=== PATIENT | male | born 1965 | race Caucasian/White ===

== ENCOUNTER 2023-06-27 19:08 | Inpatient (IN) | payer BC, SELFPAY ==
[2023-06-27 19:09] VITALS: BP 130/83; PULSE 57; RESP 18; TEMP 36.8; O2SAT 95; BMI 27.9
[2023-06-27 19:38] LABS: Absolute Lymphocyte Count 1.19 X10^3/uL (0.83-4.51); Absolute Neutrophil Count 10.6 X10^3/uL (2.0-7.7); Basophil# 0.05 X10^3/uL; Basophil% 0.4 % (0-1); Eosinophil# 0.12 X10^3/uL; Eosinophils% 0.9 % (0-5); Hematocrit 38.4 % (40-54); Hemoglobin 12.3 g/dL (13.0-16.5); Lymphocyte # 1.19 X10^3/ul (0.83-4.51); Lymphocyte % 9.1 % (19-41); Mean Corpuscular Hgb 28.8 pg (27.0-32.0); Mean Corpuscular Volume 89.9 fL (80-94); Mean Platelet Vol. 8.6 fl (6.2-12.0); Monocyte# 0.94 X10^3/uL; Monocyte% 7.2 % (0-10); NRBC Flagged by Analyzer 0 % (0-5); Neutrophil # 10.62 X10^3/uL (2.7-7.7); Neutrophil % 81.7 % (47-70); Platelet Count 595 K/mm3 (150-450); RBC Distribution Width CV 15.4 % (11.6-14.6); RBC Distribution Width SD 50.8 fl (35.1-43.9); Red Blood Count 4.27 M/mm3 (4.6-6.2)
[2023-06-27 19:51] LABS: Anion Gap 5 (5-15); BUN 10 mg/dL (7-18); Calcium,Total 8.5 mg/dL (8.5-10.1); Chloride 107 mmol/L (98-107); Creatinine, Serum 1.11 mg/dL (0.70-1.30); EST Glomerular Filtration Rate 72 mL/min (>60); Est Glom Filt Rate - Afr Amer 87 mL/min (>60); Estimated Creatinine Clearance 71.66 ml/min; Glucose 118 mg/dL (74-106); Potassium 3.2 mmol/L (3.5-5.1); Sodium Level 141 mmol/L (136-145)
--- NOTE | 2023-06-27 20:43 | EX.ED.DYSGE1 ---
HPI History of Present Illness Chief Complaint: Cellulitis Informant: patient Onset/Context/Timing Onset: Weeks Context: Gradual Onset Timing: Continuous Current Severity: Moderate Maximum Severity: Moderate Narrative Narrative: 57-year-old male who really has not seen a physician for years. He is noticing a past medical history. States has had gradual swelling in his right leg that started in his foot and ankle and has moved up his leg and now above his knee. He was seen in the urgent care last week thought this was to be cellulitis was started on Keflex 500 4 times daily. He has been taking it as instructed 4 times a day since and Sunday. He states only getting worse. Denies any chest pain. No shortness of breath. No history of DVT or PE. No recent travel, surgery or immobilization or hospitalization. Prior similar symptoms: No Recent Illness/Hospitalization: No PFSH PFSH Medical History AC separation Bone fracture Cellulitis Hx of headache Home Medications cephalexin 500 mg capsule 500 mg PO Q6H 10 days #40 caps 06/21/23 [Rx Last Taken Unknown] Allergy/AdvReac Type Severity Reaction Status Date / Time No Known Allergies Allergy Verified 06/27/23 19:12 Family History Other Alcohol abuse Social History Smoking Status: Current every day smoker tobacco type: cigarettes alcohol intake: never substance use type: does not use what type of physical activity do you participate in: walking ROS ROS ED ROS Narrative Denies recent illness. Right leg swelling. Review of Systems ROS Unobtainable: Denies due to encephalopathy Constitutional Constitutional ED: Denies chills or fever(s) Eyes Eyes: Denies blurry vision ENT ENT ED: Denies ear pain Cardiovascular Cardiovascular: Denies chest pain Respiratory/Chest Respiratory/Chest: Denies cough or dyspnea Gastrointestinal Gastrointestinal: Reports diarrhea; Denies abdominal pain Genitourinary Genitourinary ED: Denies dysuria or hematuria Musculoskeletal Musculoskeletal: Denies back pain Integumentary Denies abscess Neurologic Neurologic: Denies headache(s) Psychiatric Psychiatric: Denies anxiety Endocrine Endocrinology: Denies cold intolerance Hematologic/Lymphatic Hematologic/Lymphatic: Reports none Allergic/Immunologic Allergic/Immunologic ED: Denies mouth swelling, tongue swelling or urticaria EXAM Physical Exam Narrative Exam Narrative: Well-appearing 57-year-old male. Vital signs stable afebrile. H EENT exam unremarkable. Neck nontender no JVD. Lungs clear to auscultation bilateral. Heart regular rate and rhythm rate about 60 no murmur. Abdomen soft, nontender, nondistended normal bowel sounds no peritoneal signs. Moves all 4 extremities. Neurovascular intact. The right leg is significantly swollen all the way up to the hip. He has 2+ pitting edema from his toes all the way up to the hip. Its really not significantly red. There are some lesions on his right anterior russell. There is no cords. The right foot is neurovascular intact. Const Vital Signs: 06/27/23 19:09 Temperature 98.3 F Temperature Source Temporal Pulse Rate 57 L Respiratory Rate 18 Blood Pressure 130/83 H Blood Pressure Mean 98 Pulse Ox 95 Oxygen Delivery Method Room Air Positive well nourished and well developed; Negative for cachectic, contractures or unkempt General Appearance ED: well developed and NAD; Negative for unkempt, cachectic, contractures, cyanotic or diaphoretic Nutritional Appearance: Negative for cachectic HEENT Reports moist mucous membranes; Denies dry mucous membranes Negative for trauma or tenderness Mouth ED: No dry mucous membranes Mouth: No dry mucous membranes Eyes PERRL and EOMs intact bilaterally General Eye ED: Negative for pale conjunctiva, scleral icterus or other Neck no lymphadenopathy, supple and no JVD General: Negative for tenderness Lymph Lymphatic: Negative for other Chest Wall inspection of chest normal and palpation of chest normal Chest: Negative for other Resp normal respiratory effort and clear to auscultation bilaterally Effort and Inspection: Negative for retractions Auscultation: Negative for rales, rhonchi or wheezes Cardio regular rate, regular rhythm, S1 normal heart sound, S2 normal heart sound and no murmurs Palpation: Negative for palpable S3 Rate: Negative for bradycardia Rhythm: Negative for abnormal rhythm GI normal to inspection, nondistended, normoactive bowel sounds, non-tender, non-distended and no masses Inspection: Negative for abdominal distention Auscultation: normoactive bowel sounds Palpation: soft; Negative for tender or guarding Back/Spine no CVA tenderness General Back: Negative for CVA tenderness Cervical Spine: Negative for cervical spine tenderness Thoracic Spine / Upper Back: Negative for thoracic spinal tenderness Lumbar Spine / Lower Back: Negative for lumbar spinal tenderness Extremity Negative for normal to inspection Extremity Narrative: Right lower leg skin lesions. Swollen. May be cellulitis. Versus DVT. The leg is swollen all the way up to his hip. General Extremety ED: Yes edema General Extremity: edema Neuro oriented x3 and CN's II-XII intact bilaterally Sensorium / Orientation: alert; Negative for orientation impaired, lethargic or stuporous Motor Exam: strength 5/5 throughout Psych mental status grossly normal Appearance: Negative for unkempt Attitude: No agitated Mood & Affect: Negative for depressed, anxious or tearful Skin No no rashes or lesions noted, no wounds and skin turgor normal Rashes: rashes noted Trauma: Negative for abrasion Wounds: Negative for wounds noted MDM MDM MDM Narrative Medical decision making narrative: 57-year-old male who has not seen a physician for years. With atraumatic right lower leg swelling. No history of DVT or PE or risk factors. Has been on antibiotic now about 6 days. Getting worse. This could be a cellulitis that she is not responsive to the antibiotic it could be other etiologies I am obtaining an ultrasound of his leg along with screening labs. If its not a DVT he will be started on Unasyn and admitted. Repeat exam unchanged. Discussed test results with the patient. Started on IV Unasyn. Admitted to hospitalist. Given that he is getting worse and inspite of multiple days of outpatient oral antibiotics he will require IV antibiotics and possibly further evaluation with additional imaging. I spoke to the patient about his test results and admission. He is comfortable with the plan. History & Record Review Discussion w/independent historian: Patient Additional record(s) reviewed:: No prior records Lab Data Attestation: I reviewed the patient's lab results. Lab results narrative: CBC shows a white count 13.0. H&H 12.3 and 38. Platelets 595. Chemistries showed potassium of 3.2 gap of 5. Normal BUN and creatinine 10 and 1. Glucose 118. Noninvasive venous study of the right lower extremity shows no DVT. transportation engineering technician did comment to me when she gave me her interpretation of either lymph nodes or questionable masses in his right inguinal area. I will discuss that with the hospitalist. He may need further imaging such as a CT of his abdomen and pelvis for further evaluation. Labs: Laboratory Results - last 24 hr 06/27/23 19:18 WBC 13.0 H RBC 4.27 L Hgb 12.3 L Hct 38.4 L MCV 89.9 MCH 28.8 MCHC 32.0 RDW Std Deviation 50.8 H RDW Coeff of Andrew 15.4 H Plt Count 595 H MPV 8.6 Immature Gran % (Auto) 0.700 Neut % (Auto) 81.7 H Lymph % (Auto) 9.1 L [place] % (Auto) 7.2 Eos % (Auto) 0.9 Baso % (Auto) 0.4 Absolute Neuts (auto) 10.6 H Absolute Lymphs (auto) 1.19 Nucleated RBC % 0 Sodium 141 Potassium 3.2 L Chloride 107 Carbon Dioxide 29.0 Anion Gap 5 BUN 10 Creatinine 1.11 Estim Creat Clear Calc 71.66 Est GFR (MDRD) Af Amer 87 Est GFR (MDRD) Non-Af 72 BUN/Creatinine Ratio 9.0 L Glucose 118 H Calcium 8.5 Radiography Diagnostic Testing: Clinical Impression(s) from Imaging Studies Venous Duplex 06/27/23 20:47 IMPRESSION: No evidence of deep venous thrombosis. . Incidental finding of nonspecific right inguinal adenopathy likely inflammatory Electronically Signed: Janes Heath MD at 21:45 EDT , Discharge Plan Dx/Rx/DC Orders Clinical Impression: 2+ pitting edema, Cellulitis of right leg Disposition Disposition: Acute Care [facility]
--- NOTE | 2023-06-27 20:47 | US_ITS ---
STUDY: VENOUS DOPPLER ULTRASOUND - RIGHT LOWER EXTREMITY REASON FOR EXAM: Male, 57 years old. RT LEG REDNESS AND SWELLING TECHNIQUE: Ultrasound evaluation of the deep vein system to include boswell-scale imaging and compression was performed. Boswell-scale imaging and Doppler sonographic evaluation, including duplex spectral analysis and qualitative color flow sonography, was performed. COMPARISON: None. FINDINGS: Common Femoral Vein: Normal compression, spontaneity and augmentation. Normal color Doppler. Common Femoral Vein/Greater Saphenous Junction: Normal compression, spontaneity and augmentation. Normal color Doppler. Deep Femoral Vein: Normal compression, spontaneity and augmentation. Normal color Doppler. Femoral Proximal: Normal compression, spontaneity and augmentation. Normal color Doppler. Femoral Middle: Normal compression, spontaneity and augmentation. Normal color Doppler. Femoral Distal: Normal compression, spontaneity and augmentation. Normal color Doppler. Popliteal Vein: Normal compression, spontaneity and augmentation. Normal color Doppler. Posterior Tibial Vein: Normal compression, spontaneity and augmentation. Normal color Doppler. Peroneal Vein: Normal compression, spontaneity and augmentation. Normal color Doppler. Incidental finding of multiple enlarged nodes in the right groin measuring in the 2 to 4 cm size range demonstrating increased vascularity likely inflammatory US/Venous Duplex Imag/Limited/Uni IMPRESSION: No evidence of deep venous thrombosis. . Incidental finding of nonspecific right inguinal adenopathy likely inflammatory Electronically Signed: Janes Heath MD at 21:45 EDT ,
[2023-06-27 22:15] VITALS: BP 125/69; PULSE 74; RESP 18; TEMP 37; O2SAT 95
[2023-06-27 22:17] VITALS: BP 125/69; PULSE 74; RESP 18; TEMP 37; O2SAT 95
[2023-06-27] MEDS: Ampicillin/Sulbactam 3 GM in 0.9% Normal Saline (100mL MB+) 100 ML IV (22:27)
--- NOTE | 2023-06-27 22:47 | HP.PCM.HOS_ITS ---
HPI - General General Date of Admission: 06/27/23 Date of Service: 06/28/23 Chief Complaint: Right leg swelling HPI Narrative MOJGAN CASTILLO, is a 57 M with no known past medical history (has not seen a doctor in approximately 25 years) who presented [facility] ED on 06/28/2023 with worsening right leg swelling. Patient seen at bedside in the ED. He was laying fairly comfortably in bed, conversing normally, no acute distre ss. Patient did report having some fevers and chills and was wrapped up in a blanket to keep warm. Stated that his right lower leg swelling had been getting worse for about 1.5 weeks. The outpatient course of antibiotics for a suspected cellulitis was not helpful at all. He denies any previous history of cellulitis. He otherwise denies any abdominal pain or discomfort. Denies any changes in his bowel movements. No other acute concerns. Vitals in ED unremarkable. Labs before WBC count 13, hemoglobin 12.3, platelets 595, potassium 3.2, creatinine 1.11, no other abnormalities. Lower extremity duplex ultrasound in ED showed no evidence of DVT, did have incidental finding of nonspecific right inguinal adenopathy. CT abdomen pelvis with IV contrast on admit showed bulky periaortic/retroperitoneal lymphadenopathy starting in mid abdominal region extending down into right deep pelvic sidewall and inguinal fossa, as well as inflammatory stranding surrounding lymph nodes. No abscess of the abdomen or pelvis is seen. [facility] Medical History AC separation Bone fracture Cellulitis Hx of headache Home Medications cephalexin 500 mg capsule 500 mg PO Q6H 10 days #40 caps 06/21/23 [Rx Last Taken Unknown] loperamide 2 mg capsule (Imodium A-D) 2 mg PO Q6H PRN diarrhea 06/27/23 [History Last Taken Unknown] Allergy/AdvReac Type Severity Reaction Status Date / Time No Known Allergies Allergy Verified 06/27/23 19:12 Family History Other Alcohol abuse Social History Smoking Status: Current every day smoker tobacco type: cigarettes alcohol intake: never substance use type: does not use what type of physical activity do you participate in: walking ROS Constitutional Constitutional: Reports chills, fatigue and fever(s); Denies change in weight Eyes Eyes: Denies change in vision Cardiovascular Cardiovascular: Denies chest pain Respiratory/Chest Respiratory/Chest: Denies cough or shortness of breath with exertion Gastrointestinal Gastrointestinal: Denies abdominal pain, constipation or diarrhea Vital Signs Vital Signs Vital Signs: 06/27/23 19:09 06/27/23 22:15 06/27/23 22:17 Temperature 98.3 F 98.6 F 98.6 F Temperature Source Temporal Oral Oral Pulse Rate 57 L 74 74 Respiratory Rate 18 18 18 Blood Pressure 130/83 H 125/69 H 125/69 H Blood Pressure Mean 98 87 87 Pulse Ox 95 95 95 Oxygen Delivery Method Room Air Room Air Room Air Weight Weight: 85.842 kg Body Mass Index (BMI) 27.9 Physical Exam Const alert and oriented x3 Constitutional Narrative: Pleasant male, appears somewhat older than stated age, laying fairly comfortably in bed, conversing normally, no acute distress. General Appearance: cooperative and comfortable HEENT normocephalic, head/scalp atraumatic, hearing grossly normal bilaterally, nasal mucous membranes and turbinates normal and moist oral mucous membranes Eyes PERRL, EOMs intact bilaterally and conjunctivae normal Neck full ROM, no lymphadenopathy and supple Lymph Lymphatic: no lymphadenopathy noted Chest inspection of chest normal Resp normal respiratory effort, normal air movement, no use of accessory muscles and clear to auscultation bilaterally Cardio regular rate, regular rhythm, no murmurs and peripheral pulses 2+ throughout GI normal to inspection, nondistended, normoactive bowel sounds, soft to palpation, non-tender and non-distended Back/Spine normal ROM Extremity Extremity Narrative: Right lower extremity with significant swelling from pelvis all the way down to foot. Only mild right lower extremity edema noted throughout. Mild tenderness to the touch throughout. Skin no rashes or lesions noted Psych mental status grossly normal Results Lab / Micro Data 06/28/23 05:24 06/28/23 05:24 Labs: Laboratory Results - last 24 hr 06/27/23 19:18: WBC 13.0 H, RBC 4.27 L, Hgb 12.3 L, Hct 38.4 L, MCV 89.9, MCH 28.8, MCHC 32.0, RDW Std Deviation 50.8 H, RDW Coeff of Andrew 15.4 H, Plt Count 595 H, MPV 8.6, Immature Gran % (Auto) 0.700, Neut % (Auto) 81.7 H, Lymph % (Auto) 9.1 L, [place] % (Auto) 7.2, Eos % (Auto) 0.9, Baso % (Auto) 0.4, Absolute Neuts (auto) 10.6 H, Absolute Lymphs (auto) 1.19, Nucleated RBC % 0, Sodium 141, Potassium 3.2 L, Chloride 107, Carbon Dioxide 29.0, Anion Gap 5, BUN 10, Creatinine 1.11, Estim Creat Clear Calc 71.66, Est GFR (MDRD) Af Amer 87, Est GFR (MDRD) Non-Af 72, BUN/Creatinine Ratio 9.0 L, Glucose 118 H, Calcium 8.5 Radiology Impression Venous Duplex 06/27/23 20:47 IMPRESSION: No evidence of deep venous thrombosis. . Incidental finding of nonspecific right inguinal adenopathy likely inflammatory Electronically Signed: Janes Heath MD at 21:45 EDT , Assessment & Plan Assessment/Plan (1) Cellulitis of right leg: PLAN: Plan Patient is a 57-year-old male with no known past medical history (has not seen a doctor in approximately 25 years) who presented [facility] ED on 06/28/2023 with worsening right leg swelling. 1. Severe right lower extremity swelling Severe right lower extremity swelling noted from foot all the way up to pelvic region on exam. Patient stated the swelling started approximately 1.5 weeks ago, has consistently gotten worse since then. He was placed on a course of Keflex for suspected cellulitis, did not have any improvement. Lower extremity duplex ultrasound in ED showed no evidence of DVT, did have incidental finding of nonspecific right inguinal adenopathy. CT abdomen pelvis with IV contrast with findings as noted below. ? Have lower concern for cellulitis given CT abdomen pelvis findings. Started on Unasyn in the ED, okay to continue for now but if patient remains afebrile and hemodynamically stable with normal white blood cell count, can likely discontinue in next 24 to 48 hours. Blood cultures pending. Monitor for compartment syndrome. Further work-up as noted below. 2. Abnormal CT abdomen pelvis findings CT abdomen pelvis with IV contrast on admit showed bulky periaortic/retroperitoneal lymphadenopathy starting in mid abdominal region extending down into right deep pelvic sidewall and inguinal fossa, as well as inflammatory stranding surrounding lymph nodes. No abscess of the abdomen or pelvis is seen. Per radiology, suspect possible vasculitis or periaortitis but cannot rule out malignancy. ? Hematology/oncology consulted for further recommendations. Will need to consider interventional radiology consult for possible lymph node biopsy. Monitor closely. 3. Mild normocytic anemia ? Hemoglobin 12.3 on admit, MCV 89. No known baseline hemoglobin. Iron studies, B12 and folate ordered. 4. Mild leukocytosis and thrombocytosis ? WBC count 13, platelets 595 on admit. May be secondary to an acute infection or possibly secondary to acute inflammatory reaction due to unclear underlying pathology. Monitor. Blood cultures ordered. 5. Hypokalemia ? Potassium 3.2 on admit, unclear etiology. Replete as needed. DVT prophylaxis: Lovenox CODE STATUS: Full code, unverified Expected disposition: Home, TBD Total clinical time spent by myself addressing the patient's medical issues, reviewing all the data, and collaborating with patient's care team: 55 minutes. Charges/Coding Visit Charges Inpatient E&M: 76162 Init Hosp L2
--- NOTE | 2023-06-27 22:51 | CT_ITS ---
STUDY: CT ABDOMEN AND PELVIS WITH CONTRAST REASON FOR EXAM: Male, 57 years old. R inguinal adenopathy, r/o intra-abdominal patholo here for leg cellulitis, found right inguinal adenopathy on US ealier, diarrhea x months with weight loss RADIATION DOSAGE (If Supplied By Facility): CTDIvol = ( 13.04 ) mGy, DLP = ( 1034.94 ) mGycm TECHNIQUE: Transaxial images were obtained from the dome of the diaphragm to the symphysis pubis without oral contrast. ml of 100mL Isovue-370 contrast was administered. Sagittal and coronal images were reconstructed. Individualized dose optimization techniques were used for this CT. COMPARISON: None. FINDINGS: Bulky periaortic/retroperitoneal lymphadenopathy is present starting in the mid abdominal region and extending down into the right deep pelvic sidewall and inguinal fossa where the lymph nodes are markedly enlarged measuring up to 3.78 cm in diameter. There is also inflammatory stranding surrounding the lymph nodes in the right pelvic sidewall and inguinal regions consistent with underlying inflammation/infection, however no abscess of the abdomen or pelvis is seen. Possible vasculitis or periaortitis can be considered. Although not favored as the primary consideration. Close follow-up and ultimately lymph node biopsy may be required to exclude malignancy. Mild to moderate subcutaneous edema is present in lower anterior pelvic wall in bilateral inguinal regions, as well as dependent edema and fluid has caused mild to moderate swelling of the right hip and upper thigh region. No visualized edema or swelling or abscess is seen in the right pelvic, hip, or upper thigh muscles. No lytic or blastic lesion is seen in the bony structures. Trace amount of fluid seen around the enlarged lymph nodes of the right pelvic sidewall. There are chronic interstitial fibrotic changes of the lung bases. Small anterior inferior pericardial effusion noted.. Normal liver. Normal gallbladder and extrahepatic biliary system. Normal spleen. Normal pancreas. Normal bilateral adrenal glands. Normal right kidney. Normal left kidney. No visualized solid organ masses or abnormal cysts. Normal visualized stomach. Mild fluid field bowel loops likely due to nonspecified enteritis or ileus. No demonstrated small bowel obstruction or free air or free fluid. No inflammatory stranding is seen around the bowel loops. There are a few scattered colonic diverticula consistent with diverticulosis. The appendix is visualized and appears normal. There is diffuse atherosclerotic calcification of the abdominal aorta with elongation and tortuosity, but without a demonstrated aneurysm. Normal inferior vena cava. Normal urinary bladder. There are prostatic calcifications. Normal abdominal wall. There are diffuse degenerative changes of the visualized lumbar spine. CT/Abdomen/Pelvis WITH Contrast IMPRESSION: 1. Bulky periaortic/retroperitoneal lymphadenopathy is present starting in the mid abdominal region and extending down into the right deep pelvic sidewall and inguinal fossa where the lymph nodes are markedly enlarged measuring up to 3.78 cm in diameter. There is also inflammatory stranding surrounding the lymph nodes in the right pelvic sidewall and inguinal regions consistent with underlying inflammation/infection, however no abscess of the abdomen or pelvis is seen. Possible vasculitis or periaortitis can be considered. 2. Although not favored as the primary consideration. Close follow-up and ultimately lymph node biopsy may be required to exclude malignancy. Lymphoma should be excluded 3. Mild to moderate subcutaneous edema is present in lower anterior pelvic wall in bilateral inguinal regions, as well as dependent edema and fluid has caused mild to moderate swelling of the right hip and upper thigh region. No visualized edema or swelling or abscess is seen in the right pelvic, hip, or upper thigh muscles. No lytic or blastic lesion is seen in the bony structures. 4. Mild fluid field bowel loops likely due to nonspecified enteritis or ileus. No demonstrated small bowel obstruction or free air or free fluid. No inflammatory stranding is seen around the bowel loops. Electronically Signed: Owen Madrigal MD at 23:44 EDT ,
[2023-06-27 23:56] VITALS: BP 114/92; PULSE 84; RESP 16; TEMP 37.4; O2SAT 98; BMI 26.9
[2023-06-28 03:52] VITALS: BP 132/68; PULSE 75; RESP 16; TEMP 37.2; O2SAT 98
[2023-06-28] MEDS: Ampicillin/Sulbactam 3 GM in 0.9% Normal Saline (100mL MB+) 100 ML IV ×4 (05:25→23:02)
[2023-06-28 07:15] LABS: Ferritin 127 ng/mL (26-388); Iron 16 ug/dL (65-175); Iron Binding Capacity,Total 171 ug/dL (250-450); PERCENT IRON SATURATION 9.4 % (15.0-55.0)
[2023-06-28 08:10] LABS: Absolute Lymphocyte Count 1.15 X10^3/uL (0.83-4.51); Absolute Neutrophil Count 10.4 X10^3/uL (2.0-7.7); Basophil# 0.05 X10^3/uL; Basophil% 0.4 % (0-1); Eosinophil# 0.13 X10^3/uL; Hemoglobin 11.3 g/dL (13.0-16.5); Lymphocyte # 1.15 X10^3/ul (0.83-4.51); Lymphocyte % 8.8 % (19-41); Mean Corp Hgb Conc 32.3 g/dL (32-36); Mean Corpuscular Hgb 29.4 pg (27.0-32.0); Mean Corpuscular Volume 90.9 fL (80-94); Mean Platelet Vol. 8.7 fl (6.2-12.0); Monocyte# 1.23 X10^3/uL; Monocyte% 9.4 % (0-10); NRBC Flagged by Analyzer 0 % (0-5); Neutrophil # 10.38 X10^3/uL (2.7-7.7); Neutrophil % 79.6 % (47-70); Platelet Count 530 K/mm3 (150-450); RBC Distribution Width CV 15.5 % (11.6-14.6); RBC Distribution Width SD 51.5 fl (35.1-43.9); Red Blood Count 3.85 M/mm3 (4.6-6.2); White Blood Count 13.1 K/mm3 (4.4-11.0)
[2023-06-28 08:13] LABS: Anion Gap 6 (5-15); BUN 9 mg/dL (7-18); BUN/Creat Ratio 10.8 RATIO (10-20); Calcium,Total 8.2 mg/dL (8.5-10.1); Chloride 110 mmol/L (98-107); Creatinine, Serum 0.83 mg/dL (0.70-1.30); EST Glomerular Filtration Rate 100 mL/min (>60); Est Glom Filt Rate - Afr Amer 121 mL/min (>60); Estimated Creatinine Clearance 95.83 ml/min; Glucose 94 mg/dL (74-106); Sodium Level 142 mmol/L (136-145)
[2023-06-28 08:22] LABS: Vitamin B12 124 pg/mL (211-911)
[2023-06-28] MEDS: Enoxaparin 40 MG/0.4 ML Syringe SC (09:48)
[2023-06-28 09:50] VITALS: BP 102/59; PULSE 73; RESP 16; TEMP 36.5; O2SAT 95
--- NOTE | 2023-06-28 12:25 | ONC.CONSULT ---
Assessment & Plan Assessment/Plan (1) Lymphadenopathy, abdominal: Status: Acute Code(s): R59.0 - Localized enlarged lymph nodes Plan: Bulky abdominal and pelvic lymphadenopathy presenting with massive lymphedema of the right lower extremity. The differential diagnosis is between a primary lymphoid malignancy (lymphoma), less likely metastatic carcinoma or benign. Plan: 1. CT-guided lymph node biopsy. 2. Follow-up 1 week after discharge. Impression and plan discussed with patient and hospitalist Margaret Macias MD Jewel Bearing Driller, [facility] Divisions of Medical Oncology & Hematology Department of Internal Medicine [facility] [place] [id number] This note was generated using a voice recognition system software. Although it was reviewed by the author prior to finalization, it may still contain incorrect words, spelling, and punctuation that were not noted when reviewing prior to saving. If a clinically significant typo or inaccurately typed phrase is noted, please notify the author. HPI Consult Data Date of Service:: 06/28/23 PCP / Referring Provider: Dr. Annika Blake MD Attending: Dr. Cheli Soares MD Chief Complaint Chief Complaint: L E swelling History of Present Illness History of Present Illness: 57 YOM who presented at [facility] on June 27, 2023 with 2 to 3 months history of increasing painless swelling of the right lower extremity. Does not recall any injuries. Venous Doppler of the right lower extremity showed no evidence of DVT. June 27, 2023 CT abdomen and pelvis: FINDINGS: Bulky periaortic/retroperitoneal lymphadenopathy is present starting in the mid abdominal region and extending down into the right deep pelvic sidewall and inguinal fossa where the lymph nodes are markedly enlarged measuring up to 3.78 cm in diameter. There is also inflammatory stranding surrounding the lymph nodes in the right pelvic sidewall and inguinal regions consistent with underlying inflammation/infection, however no abscess of the abdomen or pelvis is seen. Possible vasculitis or periaortitis can be considered. Although not favored as the primary consideration. Close follow-up and ultimately lymph node biopsy may be required to exclude malignancy. Mild to moderate subcutaneous edema is present in lower anterior pelvic wall in bilateral inguinal regions, as well as dependent edema and fluid has caused mild to moderate swelling of the right hip and upper thigh region. No visualized edema or swelling or abscess is seen in the right pelvic, hip, or upper thigh muscles. No lytic or blastic lesion is seen in the bony structures. Trace amount of fluid seen around the enlarged lymph nodes of the right pelvic sidewall. There are chronic interstitial fibrotic changes of the lung bases. Small anterior inferior pericardial effusion noted.. Normal liver. Normal gallbladder and extrahepatic biliary system. Normal spleen. Normal pancreas. Normal bilateral adrenal glands. Normal right kidney. Normal left kidney. No visualized solid organ masses or abnormal cysts. Normal visualized stomach. Mild fluid field bowel loops likely due to nonspecified enteritis or ileus. No demonstrated small bowel obstruction or free air or free fluid. No inflammatory stranding is seen around the bowel loops. There are a few scattered colonic diverticula consistent with diverticulosis. The appendix is visualized and appears normal. There is diffuse atherosclerotic calcification of the abdominal aorta with elongation and tortuosity, but without a demonstrated aneurysm. Normal inferior vena cava. Normal urinary bladder. There are prostatic calcifications. Normal abdominal wall. There are diffuse degenerative changes of the visualized lumbar spine. IMPRESSION: 1. Bulky periaortic/retroperitoneal lymphadenopathy is present starting in the mid abdominal region and extending down into the right deep pelvic sidewall and inguinal fossa where the lymph nodes are markedly enlarged measuring up to 3.78 cm in diameter. There is also inflammatory stranding surrounding the lymph nodes in the right pelvic sidewall and inguinal regions consistent with underlying inflammation/infection, however no abscess of the abdomen or pelvis is seen. Possible vasculitis or periaortitis can be considered. 2. Although not favored as the primary consideration. Close follow-up and ultimately lymph node biopsy may be required to exclude malignancy. Lymphoma should be excluded 3. Mild to moderate subcutaneous edema is present in lower anterior pelvic wall in bilateral inguinal regions, as well as dependent edema and fluid has caused mild to moderate swelling of the right hip and upper thigh region. No visualized edema or swelling or abscess is seen in the right pelvic, hip, or upper thigh muscles. No lytic or blastic lesion is seen in the bony structures. 4. Mild fluid field bowel loops likely due to nonspecified enteritis or ileus. No demonstrated small bowel obstruction or free air or free fluid. No inflammatory stranding is seen around the bowel loops. Advanced Directives Power of Information Officer: No Living Will: No [facility] Medical History (Updated 06/28/23 @ 12:[address] Margaret Macias MD) AC separation Bone fracture Cellulitis Hx of headache Lymphadenopathy, abdominal Home Medications cephalexin 500 mg capsule 500 mg PO Q6H 10 days #40 caps 06/21/23 [Rx Last Taken Unknown] loperamide 2 mg capsule (Imodium A-D) 2 mg PO Q6H PRN diarrhea 06/27/23 [History Last Taken Unknown] Allergy/AdvReac Type Severity Reaction Status Date / Time No Known Allergies Allergy Verified 06/27/23 19:12 Family History Other Alcohol abuse Social History Smoking Status: Current every day smoker tobacco type: cigarettes alcohol intake: never substance use type: does not use what type of physical activity do you participate in: walking ROS Constitutional Constitutional: Reports weight loss and other Details: Weight loss in the past 2 to 3 months patient attributes to diarrhea ; Denies chills, fatigue, fever(s), night sweats or poor appetite ENT HEENT: Reports neck mass and other Details: Has had a painless swelling in the right side of the neck for 2 to 3 months ; Denies dysphagia Cardiovascular Cardiovascular: Reports edema; Denies chest pain Respiratory/Chest Respiratory/Chest: Denies cough or dyspnea Gastrointestinal Gastrointestinal: Reports change in bowel habits and diarrhea; Denies abdominal pain, anorexia, bloating, dysphagia, hematochezia, melena, nausea or vomiting Genitourinary Genitourinary: Denies change in urinary stream Musculoskeletal Musculoskeletal: Denies back pain Integumentary Integumentary: Denies new lesions or rash Neurologic Neurologic: Denies abnormal speech, focal weakness or numbness Psychiatric Psychiatric: Denies anxiety Hematologic/Lymphatic Hematologic/Lymphatic: Denies easy bleeding or easy bruising Physical Exam Narrative ECOG 1 Const alert and oriented x3 General Appearance: cooperative and comfortable HEENT normocephalic Eyes no scleral icterus Neck no JVD Neck Narrative: Right mandibular angle soft tissue swelling not definitely an lymph node General: Negative for lymphadenopathy Lymph Lymphatic: lymphedema severe Lymphatic Narrative: Massive lymphedema of the right lower extremity Resp clear to auscultation bilaterally Cardio regular rate, regular rhythm and no JVD GI soft to palpation, non-tender and no masses GI Narrative: Examination of the scrotum showed no testicular masses Extremity General Extremity: edema right lower extremity severe Skin no rashes or lesions noted Neuro CN's II-XII intact bilaterally, moves all extremities and no focal motor deficits Psych mental status grossly normal and cooperative Vital Signs Temperature 97.7 F L 06/28/23 09:50 Temperature Source Temporal 06/28/23 09:50 Pulse Rate 73 06/28/23 09:50 Respiratory Rate 16 06/28/23 09:50 Respiratory Effort Normal, Non-Labored 06/28/23 08:18 Respiratory Depth Normal 06/28/23 08:18 Respiratory Pattern Normal 06/28/23 08:18 Blood Pressure 102/59 L 06/28/23 09:50 Blood Pressure Mean 73 06/28/23 09:50 Blood Pressure Source Monitor 06/28/23 09:50 Blood Pressure Position Semi-Fowlers 06/28/23 09:50 Blood Pressure Location Left Arm 06/28/23 09:50 Pulse Ox 95 06/28/23 09:50 Oxygen Delivery Method Room Air 06/28/23 09:50 Laboratory Results - last 24 hr 06/27/23 19:18: WBC 13.0 H, RBC 4.27 L, Hgb 12.3 L, Hct 38.4 L, MCV 89.9, MCH 28.8, MCHC 32.0, RDW Std Deviation 50.8 H, RDW Coeff of Andrew 15.4 H, Plt Count 595 H, MPV 8.6, Immature Gran % (Auto) 0.700, Neut % (Auto) 81.7 H, Lymph % (Auto) 9.1 L, [place] % (Auto) 7.2, Eos % (Auto) 0.9, Baso % (Auto) 0.4, Absolute Neuts (auto) 10.6 H, Absolute Lymphs (auto) 1.19, Nucleated RBC % 0, Sodium 141, Potassium 3.2 L, Chloride 107, Carbon Dioxide 29.0, Anion Gap 5, BUN 10, Creatinine 1.11, Estim Creat Clear Calc 71.66, Est GFR (MDRD) Af Amer 87, Est GFR (MDRD) Non-Af 72, BUN/Creatinine Ratio 9.0 L, Glucose 118 H, Calcium 8.5 06/28/23 05:24: WBC 13.1 H, RBC 3.85 L, Hgb 11.3 L, Hct 35.0 L, MCV 90.9, MCH 29.4, MCHC 32.3, RDW Std Deviation 51.5 H, RDW Coeff of Andrew 15.5 H, Plt Count 530 H, MPV 8.7, Immature Gran % (Auto) 0.800, Neut % (Auto) 79.6 H, Lymph % (Auto) 8.8 L, [place] % (Auto) 9.4, Eos % (Auto) 1.0, Baso % (Auto) 0.4, Absolute Neuts (auto) 10.4 H, Absolute Lymphs (auto) 1.15, Nucleated RBC % 0, Sodium 142, Potassium 3.0 L, Chloride 110 H, Carbon Dioxide 26.0, Anion Gap 6, BUN 9, Creatinine 0.83, Estim Creat Clear Calc 95.83, Est GFR (MDRD) Af Amer 121, Est GFR (MDRD) Non-Af 100, BUN/Creatinine Ratio 10.8, Glucose 94, Calcium 8.2 L, Iron 16 L, TIBC 171 L, Iron Saturation 9.4 L, Ferritin 127, Vitamin B12 124 L, Folate 4.90 Diagnostic Data Venous Duplex 06/27/23 20:47 IMPRESSION: No evidence of deep venous thrombosis. . Incidental finding of nonspecific right inguinal adenopathy likely inflammatory Electronically Signed: Janes Heath MD at 21:45 EDT Reading Location ID and State: [facility] [place] / [place] Tel , Service support , I personally reviewed patient's CT scan images and discussed with interventional radiology and concur with reported findings. Abdomen/Pelvis CT 06/27/23 22:51 IMPRESSION: 1. Bulky periaortic/retroperitoneal lymphadenopathy is present starting in the mid abdominal region and extending down into the right deep pelvic sidewall and inguinal fossa where the lymph nodes are markedly enlarged measuring up to 3.78 cm in diameter. There is also inflammatory stranding surrounding the lymph nodes in the right pelvic sidewall and inguinal regions consistent with underlying inflammation/infection, however no abscess of the abdomen or pelvis is seen. Possible vasculitis or periaortitis can be considered. 2. Although not favored as the primary consideration. Close follow-up and ultimately lymph node biopsy may be required to exclude malignancy. Lymphoma should be excluded 3. Mild to moderate subcutaneous edema is present in lower anterior pelvic wall in bilateral inguinal regions, as well as dependent edema and fluid has caused mild to moderate swelling of the right hip and upper thigh region. No visualized edema or swelling or abscess is seen in the right pelvic, hip, or upper thigh muscles. No lytic or blastic lesion is seen in the bony structures. 4. Mild fluid field bowel loops likely due to nonspecified enteritis or ileus. No demonstrated small bowel obstruction or free air or free fluid. No inflammatory stranding is seen around the bowel loops. Electronically Signed: Owen Madrigal MD at 23:44 EDT ,
--- NOTE | 2023-06-28 13:18 | PN_ITS ---
Subjective Subjective Patient seen and examined. He had no complaints. He denied any fever, chills, cough, chest pain, palpitations, dizziness, nausea, vomiting or any other symptoms. Review of systems is otherwise negative. He has remained hemodynamically stable. Redness in his LLE has improved, but the swelling is persistent. Objective Data Objective Data Vital Signs: Vital Signs Temp Pulse Resp BP Pulse Ox O2 Del Method 97.7 F L 73 16 102/59 L 95 Room Air 06/28/23 09:50 06/28/23 09:50 06/28/23 09:50 06/28/23 09:50 06/28/23 09:50 06/28/23 09:50 Oxygen Delivery Method Room Air Weight: 182 lb 5.156 oz Body Mass Index (BMI) 26.9 Intake & Output: Intake and Output for Last 24 Hours 06/26/23 06/27/23 06/28/23 23:59 23:59 23:59 Intake Total 112 / 112 844 / 844 Balance 112 / 112 844 / 844 Lab / Micro Data 06/28/23 05:24 06/28/23 05:24 Labs: Laboratory Results - last 24 hr 06/27/23 19:18: WBC 13.0 H, RBC 4.27 L, Hgb 12.3 L, Hct 38.4 L, MCV 89.9, MCH 28.8, MCHC 32.0, RDW Std Deviation 50.8 H, RDW Coeff of Andrew 15.4 H, Plt Count 595 H, MPV 8.6, Immature Gran % (Auto) 0.700, Neut % (Auto) 81.7 H, Lymph % (Auto) 9.1 L, [place] % (Auto) 7.2, Eos % (Auto) 0.9, Baso % (Auto) 0.4, Absolute Neuts (auto) 10.6 H, Absolute Lymphs (auto) 1.19, Nucleated RBC % 0, Sodium 141, Potassium 3.2 L, Chloride 107, Carbon Dioxide 29.0, Anion Gap 5, BUN 10, Creatinine 1.11, Estim Creat Clear Calc 71.66, Est GFR (MDRD) Af Amer 87, Est GFR (MDRD) Non-Af 72, BUN/Creatinine Ratio 9.0 L, Glucose 118 H, Calcium 8.5 06/28/23 05:24: WBC 13.1 H, RBC 3.85 L, Hgb 11.3 L, Hct 35.0 L, MCV 90.9, MCH 29.4, MCHC 32.3, RDW Std Deviation 51.5 H, RDW Coeff of Andrew 15.5 H, Plt Count 530 H, MPV 8.7, Immature Gran % (Auto) 0.800, Neut % (Auto) 79.6 H, Lymph % (Auto) 8.8 L, [place] % (Auto) 9.4, Eos % (Auto) 1.0, Baso % (Auto) 0.4, Absolute Neuts (auto) 10.4 H, Absolute Lymphs (auto) 1.15, Nucleated RBC % 0, Sodium 142, Potassium 3.0 L, Chloride 110 H, Carbon Dioxide 26.0, Anion Gap 6, BUN 9, Cr eatinine 0.83, Estim Creat Clear Calc 95.83, Est GFR (MDRD) Af Amer 121, Est GFR (MDRD) Non-Af 100, BUN/Creatinine Ratio 10.8, Glucose 94, Calcium 8.2 L, Iron 16 L, TIBC 171 L, Iron Saturation 9.4 L, Ferritin 127, Vitamin B12 124 L, Folate 4.90 Radiography Diagnostic Testing: Radiology Impression Venous Duplex 06/27/23 20:47 IMPRESSION: No evidence of deep venous thrombosis. . Incidental finding of nonspecific right inguinal adenopathy likely inflammatory Electronically Signed: Janes Heath MD at 21:45 EDT Reading Location ID and State: [facility] / [place] Tel , Service support , Abdomen/Pelvis CT 06/27/23 22:51 IMPRESSION: 1. Bulky periaortic/retroperitoneal lymphadenopathy is present starting in the mid abdominal region and extending down into the right deep pelvic sidewall and inguinal fossa where the lymph nodes are markedly enlarged measuring up to 3.78 cm in diameter. There is also inflammatory stranding surrounding the lymph nodes in the right pelvic sidewall and inguinal regions consistent with underlying inflammation/infection, however no abscess of the abdomen or pelvis is seen. Possible vasculitis or periaortitis can be considered. 2. Although not favored as the primary consideration. Close follow-up and ultimately lymph node biopsy may be required to exclude malignancy. Lymphoma should be excluded 3. Mild to moderate subcutaneous edema is present in lower anterior pelvic wall in bilateral inguinal regions, as well as dependent edema and fluid has caused mild to moderate swelling of the right hip and upper thigh region. No visualized edema or swelling or abscess is seen in the right pelvic, hip, or upper thigh muscles. No lytic or blastic lesion is seen in the bony structures. 4. Mild fluid field bowel loops likely due to nonspecified enteritis or ileus. No demonstrated small bowel obstruction or free air or free fluid. No inflammatory stranding is seen around the bowel loops. Electronically Signed: Owen Madrigal MD at 23:44 EDT , Physical Exam Const alert, oriented x3 and no apparent distress General Appearance: cooperative HEENT normocephalic, head/scalp atraumatic, moist oral mucous membranes and oropharynx normal Eyes PERRL and EOMs intact bilaterally Neck no lymphadenopathy and supple General: trachea midline Resp normal respiratory effort, normal air movement and clear to auscultation bilaterally Cardio regular rate, regular rhythm, S1 normal heart sound, S2 normal heart sound and no murmurs GI normal to inspection, nondistended, normoactive bowel sounds, soft to palpation, non-tender and non-distended Extremity Extremity Narrative: Right lower extremity has 1+ edema extending up to the midshin. General Extremity: no tenderness to palpation of joints or extremities Skin General Skin Exam: no breakdown Neuro CN's II-XII intact bilaterally, no focal motor deficits and no sensory deficits noted Motor Exam: strength 5/5 throughout and general weakness Psych thought process normal, cooperative and affect normal Appearance: appropriate Assessment & Plan Assessment/Plan (1) Lymphadenopathy, abdominal: (2) Cellulitis of right leg: PLAN: Plan #RLE edema * has right lower extremity swelling extending from the foot to the pelvis and had been going on for ~ 1.5 weeks * had been given a course of keflex on outpatient basis, but it hadnt resolved * Duplex of RLE was negative for any evidence of blood clots * CT abdomen and pelvis showed bulky periaortic/retroperitoneal lymphadenopathy starting in mid abdomen and extending into right deep pelvic sidewall and inguinal fossa, as well as inflammatory stranding surrounding lymph nodes. * oncology consulted;for CT guided biopsy today * on IV unasyn for presumptive cellulitis * #Lymphadenopathy: as above. #Hypokalemia: potassium is 3 Will replace aggressively and trend. #DVT prophylaxis: lovenox Charges/Coding Visit Charges Inpatient E&M: 71993 Subs Hosp L2
--- NOTE | 2023-06-28 14:45 | CASEMGMT ---
RN?CM?ACCOUNTING CLERKS SUPERVISOR?CM?to room to meet with patient for initial transition planning/care coordination?assessment.?RN?CM?introduced self and role at [facility].? Pt voices understanding and consents to?assessment?at this time.? Pt resting in bed in no distress at this time.? Pt is A/O at this time and answers all questions appropriately.?? Care providers, pharmacy, and demographics verified/updated at this time. PCP: Dr Annika Blake Specialists: none Preferred Pharmacy: [facility] Retail Insurance: [place] Prescription Benefit:?Yes Living Will/HPOA: Pt does not currently have LW/HCPOA and would like to complete. Susu BRIDGES, made aware. LNOK: Friend, Shorty, was only personnel administrator listed. Pt also provided information for brother Pino Balderrama to be added. Charla Balderrama Living Arrangements: Lives alone. Works full-time. Independent. Transportation:?Pt states drives self and states no transportation concerns at this time.? DME: ? Denies using any DME and denies needs.? HHC/SNF: No hx of either. No needs identified. Pt wishes to return home and states has no concerns with going home at time of discharge.? CM?to follow for any further discharge planning/needs.? Pt voices no further concerns/needs at this time.? Advised pt to ask for?CM?if any further questions/concerns/needs arise.? Voices understanding. PLAN:??Home Jax ESPOSITON?RN?CM
--- NOTE | 2023-06-28 16:03 | CASEMGMT ---
SW was informed patient is interested in Healthcare Power of Test Engineering Manager and Healthcare Living Will papers. SW spoke with patient and he confirmed this. SW filled out documents with patient, but will return tomorrow to have patient sign them. Susu PEARSON
[2023-06-28 16:50] VITALS: BP 121/73; PULSE 74; RESP 16; TEMP 36.7; O2SAT 97
[2023-06-28] MEDS: Potassium Chloride Oral Tablet 20 MEQ 60 MEQ PO (22:47)
[2023-06-28 22:50] VITALS: BP 115/73; PULSE 73; RESP 16; TEMP 36.6; O2SAT 93
[2023-06-29] VITALS (11 sets, daily range): BP systolic 90–113; BP diastolic 45–78; PULSE 63–79; RESP 14–18; TEMP 36.4–37.1; O2SAT 92–100
--- NOTE | 2023-06-29 | LYMN_PTH ---
PATIENT: MOJGAN CASTILLO LOC: [facility] U#:[id number] AGE/SX: 57/M ROOM: [facility] RE06/27/[address]: Dr. Cheli Soares MD : 1965 BED: 1 DIS: 06/29/2023 SPEC #: [id number] RECD: 06/29/23 10:56 STATUS: LATRELL REGerson #: [id number] SHREE: 06/29/23 00:[address]: Cheli Soares DEPT: SURGICAL PATHOLOGY RECD BY: Nancy Lara ENTERED: 06/29/23 10:57 SP TYPE: LYMPH NODE OTHR DR: MD Dr. Rohan Campoverde DO Dr. David Kantorowitz, MD Dr. Gabriele Pedicelli, MD Dr. Joseph Prah, MD Dr. Mansour Isckarus, MD Dr. Robert Field, MD Dr. Ryan Jin, MD Dr. Roger Macklis, MD Dr. 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 See comment. SJ:zain 07/11/2023 COMMENT The specimen is evaluated at the time of biopsy by Dr. Marquez. Immediate Evaluation = Numerous lymphocytes are noted. The specimen is sent to [facility] for expert opinion, reviewed by Dr. Patterson and the above diagnosis is rendered. Immunohistochemistry ([id number]) performed here and additional immunohistochemical stains performed at [facility] supports the above diagnosis. Dr. Patterson also commented that correlation with pending NGS studies for T-cell clonality and mutational profile is suggested to confirm the diagnosis of ALCL, null cell type. If NGS are negative, excisional biopsy with repeated morphologic and immunohistochemical studies would be recommended. The complete report is viewable in the patient's EMR. Flow cytometry study from [facility] shows hypocellular specimen with low viability showing no phenotypic evidence of lymphoma. The complete report is viewable in the patient's EMR. Case has been reviewed in consultation with Dr. Bowie who concurs with the above diagnosis. IDC:AM MICROSCOPIC DESCRIPTION Slides are reviewed. GROSS DESCRIPTION Received in fixative is one container labeled with the patient's name and designated right pelvic lymph node. The specimen consists of multiple irregular fragments of patino soft tissue that in aggregate measure 1.5 x 0.3 x 0.1 cm. The specimen is totally submitted in one cassette. / SJ:rg 06/29/2023 TC:0 [facility]: [id number], [id number] ADDENDUM ADDENDUM ADDENDUM ADDENDUM ADDENDUM ADDENDUM ADDENDUM ADDENDUM ADDENDUM ADDENDUM ADDENDUM ADDENDUM ADDENDUM ADDENDUM ADDENDUM ADDENDUM ADDENDUM ADDENDUM ADDENDUM ADDENDUM ADDENDUM ADDENDUM ADDENDUM ADDENDUM ADDENDUM ADDENDUM 07/23/2023 12:57 ADDENDUM 07/23/2023 12:57 ADDENDUM 07/23/2023 12:57 ADDENDUM 07/23/2023 12:57 ADDENDUM 07/23/2023 12:57 T-CELL RECEPTOR GENE REARRANGEMENT BY NGS T-Cell Receptor Gene Rearrangement By NGS: Test Cancelled On Block ([id number]) Due To Insufficient Lesional Tissue Seen. ONKOSIGHT ADVANCED CHRONIC LYMPHOID NGS REPORT FROM [facility] RESULT SUMMARY: Abnormal DETECTED GENOMIC ALTERATIONS: Tier II: Variants of Potential Clinical Significance JAK3 p.([id number]) IMMUNOTHERAPY BIOMARKERS: Tumor Mutation [place]: Low (8.7 Mutations / MB) Microsatellite Instability: MSI Negative (2.65%) PERTINENT NEGATIVE RESULTS: The following genes are NEGATIVE for clinically relevant mutations. Mutational hotspots and surrounding exonic regions were interrogated for DNA level point mutations and indels (fusions not assayed). LAN, BCL2, BCL6, BIRC3, BRAF, BTK, CARD11, CD79B, CDKN2A, CREBBP, CXCR4, DNMT3A, EP300, EZH2, IDH1, IDH2, IKZF1, IRF4, JAK1, KMT2D, KRAS, MAP2K1, MEF2B, MYC, MYD88, NOTCH1, NOTCH2, NRAS, PIK3CA, PIK3CG, PLCG2, PTPRD, RHOA, SETD2, SF3B1, STAT3, STAT5B, TET2, NGFKZD60, TP53 Please see complete report in e-chart or EMR
--- NOTE | 2023-06-29 | LYMN_PTH ---
PATIENT: MOJGAN CASTILLO LOC: [facility] U#:[id number] AGE/SX: 57/M ROOM: [facility] RE06/27/[address]: Dr. Cheli Soares MD : 1965 BED: 1 DIS: 06/29/2023 SPEC #: [id number] RECD: 06/29/23 10:56 STATUS: LATRELL REGerson #: [id number] SHREE: 06/29/23 00:[address]: Cheli Soares DEPT: SURGICAL PATHOLOGY RECD BY: Nancy Lara ENTERED: 06/29/23 10:57 SP TYPE: LYMPH NODE OTHR DR: MD Dr. Rohan Campoverde DO Dr. David Kantorowitz, MD Dr. Gabriele Pedicelli, MD Dr. Joseph Prah, MD Dr. Mansour Isckarus, MD Dr. Robert Field, MD Dr. Ryan Jin, MD Dr. Roger Macklis, MD Dr. 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 See comment. SJ:zain 07/11/2023 COMMENT The specimen is evaluated at the time of biopsy by Dr. Marquez. Immediate Evaluation = Numerous lymphocytes are noted. The specimen is sent to [facility] for expert opinion, reviewed by Dr. Patterson and the above diagnosis is rendered. Immunohistochemistry ([id number]) performed here and additional immunohistochemical stains performed at [facility] supports the above diagnosis. Dr. Patterson also commented that correlation with pending NGS studies for T-cell clonality and mutational profile is suggested to confirm the diagnosis of ALCL, null cell type. If NGS are negative, excisional biopsy with repeated morphologic and immunohistochemical studies would be recommended. The complete report is viewable in the patient's EMR. Flow cytometry study from [facility] shows hypocellular specimen with low viability showing no phenotypic evidence of lymphoma. The complete report is viewable in the patient's EMR. Case has been reviewed in consultation with Dr. Bowie who concurs with the above diagnosis. IDC:AM MICROSCOPIC DESCRIPTION Slides are reviewed. GROSS DESCRIPTION Received in fixative is one container labeled with the patient's name and designated right pelvic lymph node. The specimen consists of multiple irregular fragments of patino soft tissue that in aggregate measure 1.5 x 0.3 x 0.1 cm. The specimen is totally submitted in one cassette. / SJ:rg 06/29/2023 TC:[address] [facility]: [id number], [id number] ADDENDUM ADDENDUM ADDENDUM ADDENDUM ADDENDUM ADDENDUM ADDENDUM ADDENDUM ADDENDUM ADDENDUM ADDENDUM ADDENDUM ADDENDUM ADDENDUM ADDENDUM ADDENDUM ADDENDUM ADDENDUM ADDENDUM ADDENDUM ADDENDUM ADDENDUM 07/23/2023 09:49 ADDENDUM 07/23/2023 09:49 ADDENDUM 07/23/2023 09:49 ADDENDUM 07/23/2023 09:49 ADDENDUM 07/23/2023 09:49 T-CELL RECEPTOR GENE REARRANGEMENT BY NGS T-Cell Receptor Gene Rearrangement By NGS: Test Cancelled On Block ([id number]) Due To Insufficient Lesional Tissue Seen. ONKOSIT ADVANCED CHRONIC LYMPHOID NGS REPORT FROM [facility] RESULT SUMMARY: Abnormal IMMUNOTHERAPY BIOMARKERS: Tumor Mutation [place]: Low (8.7 Mutations / MB) Microsatellite Instability: MSI Negative (2.65%) PERTINENT NEGATIVE RESULTS: The following genes are NEGATIVE for clinically relevant mutations. Mutational hotspots and surrounding exonic regions were interrogated for DNA level point mutations and indels (fusions not assayed). LAN, BCL2, BCL6, BIRC3, BRAF, BTK, CARD11, CD79B, CDKN2A, CREBBP, CXCR4, DNMT3A, EP300, EZH2, IDH1, IDH2, IKZF1, IRF4, JAK1, KMT2D, KRAS, MAP2K1, MEF2B, MYC, MYD88, NOTCH1, NOTCH2, NRAS, PIK3CA, PIK3CG, PLCG2, PTPRD, RHOA, SETD2, SF3B1, STAT3, STAT5B, TET2, JLWBPO91, TP53 Please see complete report in e-chart or EMR
--- NOTE | 2023-06-29 | IMM_PTH ---
PATIENT: MOJGAN CASTILLO LOC: [facility] U#:[id number] AGE/SX: 57/M ROOM: [facility] RE06/27/[address]: Dr. Cheli Soares MD : 1965 BED: 1 DIS: 06/29/2023 SPEC #: [id number] RECD: 06/29/23 14:05 STATUS: SOUAdelso REQ #: [id number] SHREE: 06/29/23 00:[address]: Cheli Soares DEPT: IMMUNOHISTOCHEMISTRY RECD BY: Yanira Negron ENTERED: 06/29/23 14:10 SP TYPE: IMMUNO OTHR DR: MD Dr. Rohan Campoverde DO Dr. David Kantorowitz, MD Dr. Gabriele Pedicelli, MD Dr. Joseph Prah, MD Dr. Mansour Isckarus, MD Dr. Robert Field, MD Dr. Ryan Jin, MD Dr. Roger Macklis, MD Dr. Steve Walston, DO Shabnam Seymour, MANAGER ANDROID-C Tissues: Lymph node of pelvis, NOS Procedures: BCL-2 (add) BCL-6 (add) CD10 (add) CD15 (add) CD20 (add) CD23 (add) CD3 (add) CD30 (add) CD43 (add) CD5 (add) CD79A (add) CK8 (add) CYCLIN (add) KI-67 (add) MPO (add) Vimentin (add) MUM1 (add) C-MYC (add) Pankeratin (initial) MELAN-A (add) S-100 (add) PHYSICIAN [facility] INSTIT[facility] [address] [place] [address] SPECIMEN INFORMATION: Tissue Source: Right pelvic lymph node Clinical Info: Enlarged lymph node Specimen Number: [id number] CPT code: 62024, 83096 x21 METHODOLOGY: Deparaffinized sections of prefer/formalin-fixed tissue or PAP/DQ stained slides are incubated with monoclonal/polyclonal antibodies/oligonucleotide probes. Localization is made via biotin free immunoperoxidase method. Appropriate controls are performed and reacted as expected. Results on target cell population are indicated in the following table: RESULTS: ANTIBODY / CLONE RESULT AE1-3 (AE1/AE3/PCK26) negative CK8 (17djynQ68) negative CD45 (RP2/18) negative Vimentin (V9) positive Melan A (A103) negative S-100 (4C4.9) negative CD3 (PS1) negative CD5 (SP10) negative CD10 (56C6) negative CD15 (MMA) positive CD20 (L26) negative CD23 (1B12) negative CD30 (Yung-H2) positive, strong CD43 (L60) negative CD79a (11E3) negative BCL-2 (bcl-2/100/D5) negative BCL-6 (EN915Q/A8) positive, subset Cyclin D1/BCL-1 (SP4) negative MUM1 (MRQ-43) positive C-MYC (Y69) positive MPO (polyclonal) negative Ki-67 (30-9) positive, high (70-80%) These tests were developed and their performance characteristics determined by [facility]. They may not have been cleared or approved by the U.S. Food and Drug Administration. The FDA has determined that such clearance or approval is not necessary. The above immunohistochemical/dualISH markers are ordered and reviewed by the Pathologist. 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 See comment. SJ:zain 07/11/2023 Comment: The specimen is sent to [facility] for expert opinion, reviewed by Dr. Patterson and the above diagnosis is rendered. The complete report is viewable in the patient's EMR. Case has been reviewed in consultation with Dr. Bowie who concurs with the above diagnosis. IDC:[email or web address]
[2023-06-29] MEDS: Ampicillin/Sulbactam 3 GM in 0.9% Normal Saline (100mL MB+) 100 ML IV ×2 (05:27→12:00)
[2023-06-29 06:16] LABS: Absolute Lymphocyte Count 0.83 X10^3/uL (0.83-4.51); Absolute Neutrophil Count 10.6 X10^3/uL (2.0-7.7); Basophil# 0.05 X10^3/uL; Basophil% 0.4 % (0-1); Eosinophil# 0.12 X10^3/uL; Eosinophils% 0.9 % (0-5); Hemoglobin 11.3 g/dL (13.0-16.5); Lymphocyte # 0.83 X10^3/ul (0.83-4.51); Lymphocyte % 6.5 % (19-41); Mean Corp Hgb Conc 31.4 g/dL (32-36); Mean Corpuscular Hgb 28.5 pg (27.0-32.0); Mean Corpuscular Volume 90.7 fL (80-94); Mean Platelet Vol. 8.8 fl (6.2-12.0); Monocyte# 1.05 X10^3/uL; Monocyte% 8.2 % (0-10); NRBC Flagged by Analyzer 0 % (0-5); Neutrophil % 83.3 % (47-70); Platelet Count 579 K/mm3 (150-450); RBC Distribution Width CV 15.3 % (11.6-14.6); RBC Distribution Width SD 50.9 fl (35.1-43.9); Red Blood Count 3.97 M/mm3 (4.6-6.2); White Blood Count 12.7 K/mm3 (4.4-11.0)
[2023-06-29 06:45] LABS: Anion Gap 3 (5-15); BUN 10 mg/dL (7-18); BUN/Creat Ratio 11.1 RATIO (10-20); Calcium,Total 8.1 mg/dL (8.5-10.1); Chloride 111 mmol/L (98-107); EST Glomerular Filtration Rate 91 mL/min (>60); Est Glom Filt Rate - Afr Amer 110 mL/min (>60); Estimated Creatinine Clearance 88.38 ml/min; Glucose 99 mg/dL (74-106); Potassium 3.1 mmol/L (3.5-5.1); Sodium Level 141 mmol/L (136-145)
--- NOTE | 2023-06-29 10:00 | CT_ITS ---
PROCEDURE: CT GUIDED biopsy of the right inguinal lymph node. DATE: June 29, 2023. INDICATION: Male, 57 years old. Retroperitoneal and pelvic lymphadenopathy. PHYSICIAN: Mulugeta Guevara M.D. RADIATION DOSAGE (If Supplied By Facility): CTDIvol = ( 16 ) mGy, DLP = ( 333.09 ) mGycm. Individualized dose optimization techniques were utilized. PROCEDURE: The risks, benefits, and alternatives to the procedure were explained to the patient. The specific risk of hemorrhage requiring further treatment or intervention was detailed and accepted. Follow-up instructions were discussed with the patient as well. Written informed consent was obtained. The patient was brought into the CT suite and placed in the supine position. . An appropriate entry site was identified. The overlying skin was prepped and draped in the usual sterile fashion. 1% lidocaine was administered subcutaneously for local anesthesia. Conscious sedation was performed. The patient received 2 mg of Versed and 50 mcg of fentanyl intravenously. Conscious sedation was started at 10:22 AM and terminated at 10:46 AM. The patient was independently monitored by the department nurse. Under CT guidance, a total of 6 passes were performed utilizing an 18-gauge core biopsy needle system. The specimens were then placed in appropriate fluids and transported to the laboratory for analysis. Hemostasis was obtained. The patient tolerated the procedure well without immediate complications. CT/Biopsy/Inj or Needle Placement IMPRESSION: Successful CT guided biopsy of the right pelvic lymph node, as described above. Conscious sedation protocol was followed. The patient tolerated the procedure well. Electronically Signed: Mulugeta Guevara MD at 11:19 EDT ,
[2023-06-29] MEDS: 0.9% Normal Saline (250mL Bag) 250 ML 15 ML IV (10:22)
[2023-06-29] MEDS: Midazolam 2 MG/2 ML Syringe IV (10:22)
[2023-06-29] MEDS: fentaNYL 100 MCG/2 ML Ampul IV (10:23)
[2023-06-29] MEDS: Lidocaine 2% (20 ml mdv) 20 ML Vial INFILT (10:32)
--- NOTE | 2023-06-29 10:58 | CASEMGMT ---
CYRUS along with RN witnessed patient signing Healthcare Power of Exchange Teller and Healthcare Living Will. Copies were made and given to patient along with originals. A copy was also placed in patient's chart. Susu PEARSON
[2023-06-29] MEDS: Potassium Chloride Oral Tablet 20 MEQ 40 MEQ PO (11:45)
--- NOTE | 2023-06-29 14:06 | PHA.DC_ITS ---
Pharmacy [facility] Pharm[facility] Service has performed discharge medication reconciliation and counseling for this patient. The patient's discharge medication list was reviewed for discrepancies and discrepancies were resolved. The patient was counseled on the following discharge medications and changes in medications for homegoing were reviewed. The Reason for Use, instructions for use, and potential side effects were reviewed for all new medications. The patient's questions regarding all of their medications were answered. 1. Cephalexin 500 mg PO Q6H x 5 days The patient was able to verbally demonstrate an understanding of their discharge medications. Medications at Discharge Home Medications loperamide 2 mg capsule (Imodium A-D) 2 mg PO Q6H PRN diarrhea 06/27/23 cephalexin 500 mg capsule 500 mg PO Q6H 5 days #20 caps 06/29/23
--- NOTE | 2023-06-29 14:35 | NURSING ---
FLAKITO wrap applied to RLE. Patient verbalized understanding of how to wrap at home and to elevate the leg if swelling persists.
--- NOTE | 2023-06-29 16:07 | DCINST_ITS ---
Discharge Instructions Diet Discharge Diet: Low fat / Low cholesterol Activity Discharge Activity: Return to Normal Activity Weight Bearing Status: Weight bearing as tolerated Dressing / Incision Call your doctor if you observe: Fever of 101 or Higher, Shortness of breath, Dizziness, Swelling in the ankles and Chest pain Follow Up Care Test Results: Test results from this visit will be discussed in further detail at your follow- up appointment, if applicable. Discharge Plan Admission Admit Date/Time: 06/27/23 22:52 Primary Reason for Your Visit: RLE swelling Attending Provider: Cheli Soares Primary Care Provider: Annika Blake Consulting Providers: Rohan Saini; Brandon Law; Bobby Morrow; Margaret Macias; Tye Dotson; Primo Kellogg; Pawan Orantes; Michelet Tolentino; Shabnam Seymour NP; Mulugeta Guevara Instructions Patient Instructions: RAD RN Image-Guided Biopsy, RAD RN Procedural Sedation Discharge Orders/Prescriptions Prescriptions: New cephalexin 500 mg capsule 500 mg PO Q6H 5 Days Qty: 20 0RF Continued loperamide [Imodium A-D] 2 mg capsule 2 mg PO Q6H PRN (Reason: diarrhea) Discontinued cephalexin 500 mg capsule 500 mg PO Q6H 10 Days Qty: 40 0RF Referrals / Follow Up: Annika Blake MD [Primary Care Provider] - Within 2 Weeks Margaret Macias MD [Med Staff - Active Staff] - Within 1 Week (see to follow up on lymph node biopsy results) Disposition Disposition (needs filled in before D/C Order can be placed): Home, Self Care
--- NOTE | 2023-06-29 16:08 | DS.PCM_ITS ---
Providers Date of Admission: 06/27/23 Date of Discharge: 06/29/23 Primary Care Physician: Dr. Annika Blake MD Consultations 06/28/23 08:33 Consult: Oncology/Hematology Routine [facility] Reason for Consult: Abnormal CT abdomen pelvis findings concerning for malignancy EMERGENT Consult: No MD Notified: Yes Date Notified: 06/28/23 Time Notified: 09:09 Method of Notification: Text 06/28/23 11:50 Consult: Interventional Radiology Routine Consulting Provider: Mulugeta Guevara Reason for Consult: inguinal lymphadenopathy, needs biopsy EMERGENT Consult: No MD Notified: Yes Date Notified: 06/28/23 Time Notified: 11:50 Method of Notification: procedure order entered Reason For Visit: R LEG CELLULITIS Diagnosis Discharge Diagnosis (1) Lymphadenopathy, abdominal: Status: Acute Code(s): R59.0 - Localized enlarged lymph nodes Plan #RLE edema * has right lower extremity swelling extending from the foot to the pelvis and had been going on for ~ 1.5 weeks * had been given a course of keflex on outpatient basis, but it hadnt resolved * Duplex of RLE was negative for any evidence of blood clots * CT abdomen and pelvis showed bulky periaortic/retroperitoneal lymphadenopathy starting in mid abdomen and extending into right deep pelvic sidewall and inguinal fossa, as well as inflammatory stranding surrounding lymph nodes. * oncology consulted;for CT guided biopsy today * on IV unasyn for presumptive cellulitis * #Lymphadenopathy: as above. #Hypokalemia: potassium is 3 Will replace aggressively and trend. #DVT prophylaxis: lovenox Medications at Discharge Home Medications loperamide 2 mg capsule (Imodium A-D) 2 mg PO Q6H PRN diarrhea 06/27/23 cephalexin 500 mg capsule 500 mg PO Q6H 5 days #20 caps 06/29/23 potassium chloride 20 mEq tablet,extended release 20 meq PO DAILY #14 tabs 06/29/23 Hospital Course Operations None Procedures - (left groin lymph node biopsy) Summary of Care Provided Minutes Spent on Discharge: 45 Hospital Course: Patient is a 57-year-old male with no significant past medical history as he had not seen a doctor in about 25 years. He was admitted through the ED with a complaint of right lower extremity swelling which she said has been getting worse for about a week and a half. He had taken a course of oral antibiotics on outpatient basis but it had not helped. He denied any trauma to the leg. DVT was ruled out by negative duplex of the left lower extremity but it did show nonspecific right inguinal lymphadenopathy. CT of the abdomen and pelvis with contrast showed bulky periaortic and retroperitoneal lymphadenopathy started in the mid abdomen extending down into the right to the pelvic sidewall and inguinal. As well as inflammatory stranding surrounding the lymph nodes. He was admitted and managed for right lower extremity lymphadenopathy with concerns for malignancy. Oncology was consulted. He was started on IV Unasyn empirically due to concerns for cellulitis. Patient had CT-guided biopsy of the right inguinal lymph nodes on 05/29/2023. Right lower extremity was Real wrapped. Patient was follow-up with oncology on outpatient basis. He remained stable and was discharged home on 06/29/2023 on p.o. Keflex to complete a 5-day course. He is to follow-up with his primary care doctor with oncology within 1 to 2 weeks. Patient was taught how to Real wrap his right lower extremity to help with the swelling. Patient seen and examined prior to discharge. He had no complaints and had an uneventful night. Review of systems otherwise negative. Labs and vitals reviewed. Home medication reviewed and reconciled. Physical Exam Const alert, oriented x3 and no apparent distress General Appearance: cooperative, comfortable and well kempt Orientation / Consciousness: awake HEENT normocephalic, head/scalp atraumatic, hearing grossly normal bilaterally, nasal mucous membranes and turbinates normal, moist oral mucous membranes and oropharynx normal Mouth: oral and palatal mucosa normal Eyes PERRL, EOMs intact bilaterally and conjunctivae normal Neck full ROM, no lymphadenopathy and supple General: trachea midline Lymph Lymphatic: no lymphadenopathy noted Chest inspection of chest normal Resp normal respiratory effort, normal air movement, no use of accessory muscles and clear to auscultation bilaterally Cardio regular rate, regular rhythm, S1 normal heart sound, S2 normal heart sound, no murmurs and peripheral pulses 2+ throughout GI normal to inspection, nondistended, normoactive bowel sounds, soft to palpation, non-tender and non-distended Back/Spine normal ROM Extremity Extremity Narrative: Right lower extremity has 1+ edema extending up to the midshin. palpable nontender lymph nodes in the right groin. General Extremity: no tenderness to palpation of joints or extremities Skin no rashes or lesions noted General Skin Exam: no breakdown Neuro oriented x3, CN's II-XII intact bilaterally, moves all extremities, no focal motor deficits and no sensory deficits noted Motor Exam: strength 5/5 throughout and general weakness Psych mental status grossly normal, thought process normal, cooperative and affect normal Appearance: appropriate Weight / BMI Weight Weight: 182 lb 5.156 oz Body Mass Index (BMI) 26.9 ABG / Lab / Microbiology Data 06/29/23 05:09 06/29/23 05:09 Laboratory: Laboratory Results - last 24 hr 06/29/23 05:09: WBC 12.7 H, RBC 3.97 L, Hgb 11.3 L, Hct 36.0 L, MCV 90.7, MCH 28 .5, MCHC 31.4 L, RDW Std Deviation 50.9 H, RDW Coeff of Andrew 15.3 H, Plt Count 579 H, MPV 8.8, Immature Gran % (Auto) 0.700, Neut % (Auto) 83.3 H, Lymph % (Auto) 6.5 L, [place] % (Auto) 8.2, Eos % (Auto) 0.9, Baso % (Auto) 0.4, Absolute Neuts (auto) 10.6 H, Absolute Lymphs (auto) 0.83, Nucleated RBC % 0, Sodium 141, Potassium 3.1 L, Chloride 111 H, Carbon Dioxide 27.0, Anion Gap 3 L, BUN 10, Creatinine 0.90, Estim Creat Clear Calc 88.38, Est GFR (MDRD) Af Amer 110, Est GFR (MDRD) Non-Af 91, BUN/Creatinine Ratio 11.1, Glucose 99, Calcium 8.1 L Radiography Diagnostic Testing: Radiology Impression Biopsy CT 06/29/23 10:00 IMPRESSION: Successful CT guided biopsy of the right pelvic lymph node, as described above. Conscious sedation protocol was followed. The patient tolerated the procedure well. Electronically Signed: Mulugeta Guevara MD at 11:19 EDT , D/C Instructions Discharge Diet: Low fat / Low cholesterol Discharge Activity: Return to Normal Activity Weight Bearing Status: Weight bearing as tolerated Call your doctor if you observe: Fever of 101 or Higher, Shortness of breath, Dizziness, Swelling in the ankles and Chest pain Meaningful Use Info Meaningful Use Diagnoses (Choose all that apply): None applicable Discharge Plan Admission Admit Date/Time: 06/27/23 22:52 Primary Reason for Your Visit: RLE swelling Attending Provider: Cheli Soares Primary Care Provider: Annika Blake Consulting Providers: Rohan Saini; Brandon Law; Bobby Morrow; Margaret Macias; Tye Dotson; Primo Kellogg; Pawan Orantes; Michelet Tolentino; Shabnam Seymour NP; Mulugeta Guevara Instructions Patient Instructions: RAD RN Image-Guided Biopsy, RAD RN Procedural Sedation Discharge Orders/Prescriptions Prescriptions: New cephalexin 500 mg capsule 500 mg PO Q6H 5 Days Qty: 20 0RF potassium chloride 20 mEq tablet extended release 20 meq PO DAILY Qty: 14 0RF Continued loperamide [Imodium A-D] 2 mg capsule 2 mg PO Q6H PRN (Reason: diarrhea) Discontinued cephalexin 500 mg capsule 500 mg PO Q6H 10 Days Qty: 40 0RF Referrals / Follow Up: Annika Blake MD [Primary Care Provider] - Within 2 Weeks Margaret Macias MD [Med Staff - Active Staff] - Within 1 Week (see to follow up on lymph node biopsy results) Disposition Disposition (needs filled in before D/C Order can be placed): Home, Self Care Charges/Coding Visit Charges Inpatient E&M: 36391 Disch Hosp >30min
== END 2023-06-29 14:56 | disposition home or self-care (01) | DRG 824 ==
LOC: ED 22:12 → PCU 22:56
PROVIDERS: Admitting Provider Hospitalist; Emergency Provider Emergency Medicine; PCP Internal Medicine; Visit Provider Student in an Organized Health Care Education/Training Program
DX: C84.6 Anaplastic large cell lymphoma, ALK-positive (principal); L03.115 Cellulitis of right lower limb; E87.6 Hypokalemia; F17.210 Nicotine dependence, cigarettes, uncomplicated
CPT/HCPCS: 36415; 74177; 77012; 80048; 82607; 82728; 82746; 83540; 83550; 85025; 88305; 88313; 88341; 88342; 93971; 99156; 99284; 99406; J7050; Q9967; A4216; J0295

== ENCOUNTER 2023-08-01 07:14 | Day surgery (SDC) | payer BC, SELFPAY ==
[2023-08-01] MEDS: Lactated Ringers 1,000 ML 15 ML IV (08:08)
--- NOTE | 2023-08-01 08:11 | PCM.HP.BLA ---
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 Is patient in pain?: No Allergies No Known Allergies Allergy (Verified 07/25/23 13:10) Medications allopurinol 300 mg tablet 300 mg PO DAILY #30 tabs 07/17/23 [Rx Confirmed 07/25/23] lidocaine-prilocaine 2.5 %-2.5 % topical cream 1 applic topical ONCE PRN port access 30 days #30 grams 07/17/23 [Rx Confirmed 07/25/23] omeprazole 20 mg capsule,delayed release 20 mg PO DAILY #30 caps 07/17/23 [Rx Confirmed 07/25/23] ondansetron 8 mg disintegrating tablet 8 mg PO Q8H PRN nausea and vomiting #30 tabs 07/17/23 [Rx Confirmed 07/25/23] sulfamethoxazole 400 mg-trimethoprim 80 mg tablet (Bactrim) 1 tab PO DAILY #30 tabs 07/17/23 [Rx Confirmed 07/25/23] acyclovir 400 mg tablet 400 mg PO DAILY 07/20/23 [History Confirmed 07/25/23] [facility] Medical History (Updated 07/25/23 @ 14:[address] 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 Patient does not know his chemotherapy start date. ROS General General: Yes weight change, appetite and fatigue; No colon cancer, breast cancer or weakness HEENT HEENT: Yes swollen glands; No difficulty swallowing, eye injury, eye surgery or hoarseness Endo Endocrine: No thyroid disease, diabetes mellitus, thyroid cancer, Hair loss, heat intolerance or cold intolerance Musc Musculoskeletal: Yes arthritis; No back problems, rheumatoid arthritis, gout or joint pain Cardio Cardiovascular: No murmur, pacemaker, heart disease, atrial fibrillation, high blood pressure, heart attack, heart stent, palpitations, shortness of breat with exertion or chest pain Psych Psychiatric: No depression, anxiety or hearing voices Resp Respiratory: No shortness of breath, No sleep apnea, No cough, No COPD, No asthma, No emphysema and No wheezing Gastro Gastrointestinal: No abdominal pain, No nausea or vomiting, Yes diarrhea, No constipation, No blood in stool, No acid reflux, No hemorrhoids, No ulcers, No gallbladder problem and No black,tarry stools [place] Hematologic: No blood thinners, No blood disorders, No bleeding, Yes anemia and No blood clots Neuro Neurologic: No weakness Exam Const General: cooperative Orientation: alert and oriented x3 HENMT Head: normal to inspection Neck Neck: normal visual inspection and full ROM Chest Chest palpation & inspection: normal inspection of the chest Resp Effort & Inspection: normal respiratory effort Auscultation: clear to auscultation bilaterally Cardio Rate: regular rate Rhythm: regular rhythm GI Inspection: non-distended Palpation: soft and nontender Skin General: no rashes or lesions noted Neuro General: patient alert and patient oriented x3 Extrem General: full ROM Psych Appearance: grossly normal Mental Status: mental status grossly normal Assessment and Plan Assessment and Plan (1) 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 I discussed ultrasound and fluoroscopy guided right chest port placement with the patient. I discussed the risks including but not limited to bleeding, infection, injury other organs such as pneumothorax or DVT or line infection. Patient understands the risks and is willing to proceed. Dwayne Lira MD Pager: [facility] [address] [place] [address], [address] [place] [address] Office: I have examined the patient and the H&P has been reviewed. There are no clinical changes since date of exam.
[2023-08-01 08:21] VITALS: BP 102/57; PULSE 68; RESP 18; TEMP 36.6; O2SAT 100; BMI 24.0
[2023-08-01] MEDS: Cefazolin 2 GM in 0.9% Normal Saline (100mL Bag) 100 ML IV (08:33)
[2023-08-01] MEDS: Lidocaine 1% /Epi 1:100 (50ml) 50 ML VIAL (08:49)
[2023-08-01] MEDS: Bupivacaine Mpf 0.5% 30 ML VIAL (08:49)
--- NOTE | 2023-08-01 09:05 | PCM.OPRPT ---
Report of Operation Date of Procedure: 08/01/23 Pre-Operative Diagnosis: Need for vascular access for chemotherapy Post-Operative Diagnosis: Same Surgery/Procedure Performed:: Ultrasound and fluoroscopy guided right chest port placement utilizing right IJ Type of Anesthesia: Local MAC Estimated Blood Loss (mL): 5 Description of Procedure: After obtaining informed consent patient was brought back to the operating room MAC anesthesia was induced and the right chest and neck were prepped in normal sterile fashion. Ultrasound was used to evaluate both IJs and the right IJ was selected. Next, using a needle, the right IJ was accessed and a guidewire was passed on into the superior vena cava under fluoroscopy guidance. A small incision was made over the puncture site and the dilator introducer was placed over the guidewire. Next this was capped and the pocket was made for the port. 1% lidocaine with epinephrine was injected in the proposed port site. An incision was made with scalpel. Electrocautery was used to make a pocket under the skin and subcutaneous tissue. Hemostasis was obtained. Next, the catheter was tunneled up to the neck incision site and placed through the introducer. The peel-away introducer was removed and the position of the catheter was confirmed on fluoroscopy. Next, the catheter was trimmed and attached to the port with the locking device. Interrupted 2-0 Vicryl sutures were used to anchor the port to the chest wall and then the port was placed inside the pocket. The pocket was then flushed with saline and the port irrigated with saline. There was good blood return and the port flushed easily. Next, heparin was injected into the port. The skin was closed with subcutaneous interrupted 3-0 Vicryl sutures. A single 3-0 Vicryl sutures placed under the skin at the neck incision site. Steri-Strips were placed as well as op sites. Patient tolerated procedure well, was taken to PACU in stable condition. Chest x-ray will be obtained. Grafts/Implants Used: 8 Slovenian PowerPort Admit VTE Documentation VTE Mechan Device Prophylaxis: SCD's
--- NOTE | 2023-08-01 09:06 | DCINST_ITS ---
Discharge Instructions Diet Discharge Diet: Light diet - advance as tolerated Activity Discharge Activity: Return to Normal Activity and May Shower (with your bandage in place in 1 to 2 days after surgery. DO NOT SHOWER WHEN YOUR PORT IS ACCESSED.) Dressing / Incision Call your doctor if your incision/area has: Continuous Slow Oozing, Sudden Increased Bleeding, Increased Pain/ Swelling, Increased Redness and Foul Smelling Discharge Call your doctor if you observe: Fever of 101 or Higher Remove Dressing in: 2 days (Remove Steri-Strips in 7 to 10 days) Cleanse incision/area with: Soap & Water Follow Up Care Please Follow Up With: Dwayne Lira MD When: As needed at [phone] Test Results: Test results from this visit will be discussed in further detail at your follow- up appointment, if applicable. Discharge Plan Admission Attending Provider: Dwayne Lira Primary Care Provider: Annika Blake Discharge Orders/Prescriptions Prescriptions: No Action lidocaine-prilocaine 2.5-2.5 % cream 1 applic topical ONCE PRN (Reason: port access) 30 Days Qty: 30 2RF ondansetron 8 mg tablet,disintegrating 8 mg PO Q8H PRN (Reason: nausea and vomiting) Qty: 30 0RF omeprazole 20 mg capsule,delayed release(DR/EC) 20 mg PO DAILY Qty: 30 3RF sulfamethoxazole-trimethoprim [Bactrim] 400-80 mg tablet 1 tab PO DAILY Qty: 30 5RF allopurinol 300 mg tablet 300 mg PO DAILY Qty: 30 1RF acyclovir 400 mg tablet 400 mg PO BID Referrals / Follow Up: Annika Blake MD [Primary Care Provider] - Disposition Disposition (needs filled in before D/C Order can be placed): Home, Self Care
[2023-08-01 09:10] VITALS: BP 102/57; BP 105/56; PULSE 67; RESP 16; TEMP 36.3; O2SAT 100
--- NOTE | 2023-08-01 09:10 | RAD_ITS ---
STUDY: X-RAY CHEST REASON FOR EXAM: Male, 57 years old. Line placement -- in pacu TECHNIQUE: Single AP portable view of the chest. COMPARISON: None. FINDINGS: A right-sided Port-A-Cath has been placed with the tip in the right atrium. The lungs are clear and expanded. There is no demonstrated pleural abnormality. Normal size heart. Prominence of both carlos more prominent on the left side. Possible adenopathy. Normal visualized pulmonary arteries. Normal visualized aortic arch and descending thoracic aorta. There are degenerative changes of the visualized thoracic spine. Normal visualized ribs, clavicles, and shoulders. There is no demonstrated abnormality of the visualized soft tissue structures of the upper abdomen. RAD/CXR for Line Placement IMPRESSION: The tip of the right portacatheter is in the right atrium. Prominence of the bilateral carlos. Electronically Signed: Mulugeta Guevara MD at 10:29 EDT ,
[2023-08-01 09:15] VITALS: BP 100/54; BP 102/57; PULSE 63; RESP 16; O2SAT 96
[2023-08-01 09:20] VITALS: BP 102/57; BP 103/55; PULSE 61; RESP 16; O2SAT 98
[2023-08-01 09:25] VITALS: BP 102/57; BP 106/62; PULSE 67; RESP 16; TEMP 36.3; O2SAT 100
[2023-08-01 09:44] VITALS: BP 102/57
== END 2023-08-01 11:27 | disposition home or self-care (01) ==
LOC: SDC 07:18 → AC 07:18
PROVIDERS: PCP Internal Medicine; Referring Provider Surgery; Visit Provider Surgery
PROC: (CPT 36561; principal; 2023-08-01 08:25)
DX: Z45.2 Encounter for adjustment and management of vascular access device (principal); C84.78 Anaplastic large cell lymphoma, ALK-negative, lymph nodes of multiple sites; F17.210 Nicotine dependence, cigarettes, uncomplicated; Z79.899 Other long term (current) drug therapy
CPT/HCPCS: 36561; 00532; 71045; 77001; J7120; C1788

== ENCOUNTER 2023-08-08 15:09 | Inpatient (IN) | payer BC, SELFPAY ==
[2023-08-08] VITALS (12 sets, daily range): BP systolic 96–109; BP diastolic 51–75; PULSE 66–81; RESP 15–20; TEMP 35.9–36.6; O2SAT 73–100; BMI 22.4; BMI 22.6; BMI 22.8
--- NOTE | 2023-08-08 15:17 | EKG12_ITS ---
Test Reason : Blood Pressure : / mmHG Vent. Rate : 072 BPM Atrial Rate : 072 BPM P-R Int : 168 ms QRS Dur : 106 ms QT Int : 552 ms P-R-T Axes : 057 031 070 degrees QTc Int : 604 ms Critical Test Result: Long QTc Normal sinus rhythm Nonspecific ST abnormality Prolonged QT Abnormal ECG Confirmed by BONIFACIO HARVEY, YI ([id number]), assistant production editor WENDY ACEVEDO ([id number]) on 08/20/2023 7:59:58 AM Referred By: Confirmed By:KARSON VALDOVINOS MD
--- NOTE | 2023-08-08 15:21 | NURSING ---
NO OLD EKGS
--- NOTE | 2023-08-08 15:30 | EX.ED.DYSGE1 ---
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 Lira. The port was removed today by Dr. Carbajal since it was infected. I received a call from Tien Jama who informed me that patient be coming in. Blood work was drawn this morning. His calcium is 13.5. His potassium is 2.4. Creatinine which was 1 is now 1.8. She requested liver, LDH and uric acid. Patient can develop tumor lysis syndrome without chemotherapy. I was informed by the charge nurse that only 1 blood culture was drawn in the outpatient setting. We will need to have a second blood culture drawn prior to antibiotic administration. We will use sepsis treatment order set to determine appropriate antibiotic. Patient has not seen a physician in years. He is overwhelmed because of all the things that have gone wrong in the last month. Patient apparently has missed his echo appointment as well as PET scan appointment which is delayed chemotherapy. According to Terrell he is a very frail gentleman. She requested that he receive 100 L of prednisone, allopurinol and Aredia 90 mg to be infused over 4 hours. He will require admission to the hospital. 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 Patient is a poor informant. He does endorse shortness of breath and fatigue with minimal activity. He is a smoker. Prior similar symptoms: No Recent Illness/Hospitalization: Yes [facility] Medical History 2+ pitting edema AC separation Alcohol use Anaplastic ALK-negative large cell lymphoma Anxiety B12 deficiency anemia Bone fracture Cellulitis Depression Diarrhea Dry skin dermatitis Encounter for education History of edema Hx of headache Hypercalcemia Infected venous access port Lymphadenopathy, abdominal Occasional tremors Smoker Wears dentures Home Medications allopurinol 300 mg tablet 300 mg PO DAILY #30 tabs 07/17/23 [Rx Last Taken Unknown] lidocaine-prilocaine 2.5 %-2.5 % topical cream 1 applic topical ONCE PRN port access 30 days #30 grams 07/17/23 [Rx Last Taken Unknown] omeprazole 20 mg capsule,delayed release 20 mg PO DAILY #30 caps 07/17/23 [Rx Last Taken Unknown] ondansetron 8 mg disintegrating tablet 8 mg PO Q8H PRN nausea and vomiting #30 tabs 07/17/23 [Rx Last Taken Unknown] sulfamethoxazole 400 mg-trimethoprim 80 mg tablet (Bactrim) 1 tab PO DAILY #30 tabs 07/17/23 [Rx Last Taken Unknown] acyclovir 400 mg tablet 400 mg PO BID 07/20/23 [History Last Taken Unknown] prednisone 50 mg tablet 100 mg (2 x 50 mg) PO DAILY 5 days #10 tabs 08/01/23 [Rx Last Taken Unknown] Allergy/AdvReac Type Severity Reaction Status Date / Time No Known Allergies Allergy Verified 08/08/23 15:14 Family History Other Alcohol abuse Surgical History History of arthroplasty of right shoulder History of hernia repair Social History (Updated 08/08/23 @ 15:[address] Srikanth Cm MD) household members: none Smoking Status: Current every day smoker tobacco type: cigarettes alcohol intake: never substance use type: does not use what type of physical activity do you participate in: walking ROS ROS ED Constitutional Constitutional ED: Reports chills, fever(s), subjective, sweats and weight loss Eyes Eyes: Denies blurry vision, change in vision or diplopia ENT ENT ED: Denies ear pain, rhinorrhea or sore throat Cardiovascular Cardiovascular: Denies chest pain, orthopnea, palpitations or paroxysmal nocturnal dyspnea Respiratory/Chest Respiratory/Chest: Reports cough, dyspnea and dyspnea on exertion; Denies orthopnea or paroxysmal nocturnal dyspnea Gastrointestinal Gastrointestinal: Denies abdominal pain, melena, nausea or vomiting Genitourinary Genitourinary ED: Denies dysuria, hematuria or urinary frequency Musculoskeletal Musculoskeletal: Denies arthralgias or myalgias Integumentary Reports rash Neurologic Neurologic: Reports weakness; Denies paresthesias Endocrine Endocrinology: Reports cold intolerance Hematologic/Lymphatic Hematologic/Lymphatic: Reports systems reviewed and no addt'l complaints, except as documented EXAM Physical Exam Const Vital Signs: 08/08/23 15:10 08/08/23 15:27 08/08/23 16:09 Temperature 96.7 F L Temperature Source Temporal Pulse Rate 74 75 Respiratory Rate 16 18 Respiratory Effort Respiratory Pattern Blood Pressure 101/51 L 98/55 L Blood Pressure Mean 67 69 Pulse Ox 93 73 100 Oxygen Delivery Method Nasal Cannula Room Air Nasal Cannula Oxygen Flow Rate (L/min) 3 4 08/08/23 16:14 Temperature Temperature Source Pulse Rate Respiratory Rate Respiratory Effort Normal Non-Labored Respiratory Pattern Normal Blood Pressure Blood Pressure Mean Pulse Ox Oxygen Delivery Method Oxygen Flow Rate (L/min) Positive well developed; Negative for well nourished Constitutional Narrative: Patient appears ill and is cachectic. He is not a good informant. He is reluctant to accept help nursing staff. He has central as well as peripheral cyanosis. General Appearance ED: well developed and cyanotic; Negative for diaphoretic or pallor HEENT Reports dry mucous membranes HEENT Narrative: Head is atraumatic normocephalic. Ears are normal. Nares patent. Mouth ED: Yes dry mucous membranes Mouth: dry mucous membranes Eyes PERRL and EOMs intact bilaterally General Eye ED: Yes pale conjunctiva; Negative for scleral icterus Neck no lymphadenopathy, supple and no JVD Chest Wall Negative for inspection of chest normal Chest Narrative: Patient's chest wall is erythematous and warm. His port was removed from the right subclavian area. Resp normal respiratory effort and No clear to auscultation bilaterally Auscultation: rales bilateral Cardio regular rate, regular rhythm, S1 normal heart sound, S2 normal heart sound and no murmurs GI normal to inspection, nondistended, normoactive bowel sounds, non-tender, non-distended and no masses; Negative for hepatosplenomegaly Back/Spine no CVA tenderness Thoracic Spine / Upper Back: Negative for thoracic spinal tenderness Lumbar Spine / Lower Back: Negative for lumbar spinal tenderness Extremity Extremity Narrative: Acrocyanosis. There is pedal edema. The right leg is markedly swollen compared to left. There is tenderness posteriorly along the calf. General Extremety ED: Yes edema General Extremity: edema Neuro oriented x3 and CN's II-XII intact bilaterally Neuro Narrative: Patient is awake but not alert. Gait is broad-based question ataxic. Sensorium / Orientation: Negative for alert Psych Negative for mental status grossly normal Mood & Affect: depressed Skin Skin Narrative: Erythematous chest. He also has dry skin that is flaking. 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 He was treated with Aredia for his hypercalcemia. He received p.o. potassium for his hypokalemia. He received fluids for his acute kidney injury. Because he is hypoxic chest x-ray was obtained. This could be due to sepsis as well as pneumonia. Will place on antibiotics that will cover both respiratory and skin pathogens. ABG was obtained to assess acid-base status. Patient appears ill and much older than reported age. Minimal records are available. Prior labs were reviewed. Since the right leg is markedly swollen compared to the left and he has tenderness will obtain venous duplex study to rule out DVT. Lab Data Attestation: I reviewed the patient's lab results. Lab results narrative: Lactate is 2.9. Hepatic profile is remarked for alkaline phosphatase 249. Albumin is 2.1. LDH is 423. Labs: Laboratory Results - last 24 hr 08/08/23 16:00 Lactic Acid 2.9 H* Total Bilirubin 0.50 Direct Bilirubin 0.14 AST 32 ALT 52 Alkaline Phosphatase 249 H Lactate Dehydrogenase 423 H Total Protein 7.0 Albumin 2.1 L Globulin 4.9 H ABG Data Attestation: I personally reviewed and interpreted this ABG as follows: Interpretation: ABG on 4 L reveals a respiratory alkalosis with increased AA gradient. ABG results: ABG 08/08/23 17:07 Specimen Type ART Sample Site L Brach pH 7.61 H* Bicarbonate Actual 22.8 Total CO2 24 Base Excess 1 O2 Saturation 99 O2 % 4.0 ABG pCO2 22.9 L ABG pO2 110 H Alban Test Positive O2 Delivery Device Cannula Vent Mode Not entered Crit Call To/Read Back Yes Blood Gas Notified Whom cm Blood Gas Notified Time 17:09:53 Radiography Chest X-Ray - ED: 1 View and Read by ED Physician (Single view portable chest x-ray was no acute infiltrate, pneumothorax or effusion. Cardiac silhouette is unremarkable other slight hyperaeration. Osseous structures are unremarkable.) EKG Initial EKG: Attestation: I personally reviewed and interpreted this EKG as follows: Interpretation: Sinus Rhythm (Rate is 72. There is prolonged QT noted. There is also an ossific changes which may be due to his hyper calcium Tana and hypokalemia. CA interval 168 ms QRS duration 106 ms QT duration 552 ms with a QT of 604 ms. Claude is normal) Management Discussion w/another healthcare provider: Hospitalist (Hospitalist made aware of patient's problem list. He will see patient. He will would like to be informed when the CTA has been read. Case will be turned over to the afternoon physician to contact the hospitalist once the CTA has been read.) and Dispatch Associate (Oncology nurse practitioner) Treatment and Re-Evaluation :: I was contacted by vascular lab. I was informed that the venous duplex study was negative for DVT. Patient has only a 22-gauge IV peripherally. In light of the amount of medicines he will require and treatment will place a central line in. He had an infected port right side that was pulled. Will place a femoral line in and can have this removed after PICC line has been placed. Procedures Other Procedures Procedure(s): Patient was consented for central line. Because he had an infected right subclavian port removed and there appears to be cellulitis of the neck and chest area a left femoral central line was placed. The right was not used because he has an edematous leg. Of note his venous duplex was negative. Patient was prepped draped sterile manner. All participants of the central line were capped and mass. I was appropriately dressed per CMS regulations. The area was prepped draped sterile manner. The area was Nestabs was sent lidocaine by local infiltration. The femoral vein was cannulated successfully first attempt on the way in. There was difficulty dilating the area. There was 2 large kinks noted in the guidewire. The 7.5 Slovak line was successfully placed using Seldinger technique. Blood was aspirated from all 3 ports. Patient did have discomfort during the procedure. Because of significant bleeding coags were ordered. Sandbag was ordered to be placed over the site to control his bleeding since it abated when I applied pressure. Critical Care Time Critical Care Time: Yes Critical care time (excluding procedures): 30-74 minutes (37), Including time spent: (History, physical, documentation, discussion with infrastructure consultant initiation of therapy for hypercalcemia, hypokalemia and sepsis.), Discussing w/Patient &/or Family/[employer], Discussing w/Consultants and Arranging Admission or Transfer Discharge Plan Triage Chief Complaint: General Illness ED Provider: Srikanth Cm Dx/Rx/DC Orders Clinical Impression: Infection of venous access port, Acute hypotension, Acute hypoxic respiratory failure, Cellulitis of chest wall, Lymphedema, Hypercalcemia, Anaplastic ALK-negative large cell lymphoma, Hypokalemia, Acute prerenal azotemia, Elevated serum creatinine, Prolonged Q-T interval on ECG Prescriptions: No Action lidocaine-prilocaine 2.5-2.5 % cream 1 applic topical ONCE PRN (Reason: port access) 30 Days Qty: 30 2RF ondansetron 8 mg tablet,disintegrating 8 mg PO Q8H PRN (Reason: nausea and vomiting) Qty: 30 0RF omeprazole 20 mg capsule,delayed release(DR/EC) 20 mg PO DAILY Qty: 30 3RF sulfamethoxazole-trimethoprim [Bactrim] 400-80 mg tablet 1 tab PO DAILY Qty: 30 5RF allopurinol 300 mg tablet 300 mg PO DAILY Qty: 30 1RF acyclovir 400 mg tablet 400 mg PO BID prednisone 50 mg tablet 100 mg PO DAILY 5 Days Qty: 10 8RF Rx Instructions: Take 100 Mg every morning for 5 days starting on day 1 of each chemotherapy cycle (3 weeks cycle) Primary Care Provider: Annika Blake Referrals: Annika Blake MD [Primary Care Provider] - Disposition Disposition: [facility]
--- NOTE | 2023-08-08 15:54 | VDLE_ITS ---
Reason For Study: Right leg swelling RIGHT LEFT GSV is normal. CFV is compressible, spontaneous, phasic, CFV is compressible, spontaneous, phasic, competent, and demonstrates normal competent and demonstrates normal augmentation. augmentation. FV is compressible, spontaneous, phasic, competent and demonstrates normal augmentation. POP V is compressible, spontaneous, phasic, competent and demonstrates normal augmentation. T/P Trunk is compressible. PTV is compressible. RT PerV is compressible. Procedure This is a venous duplex using B-mode, color flow and spectral Doppler. Exam performed portable in ED. A preliminary report was called and/or faxed to Dr. Wisdom. VL/Venous Duplex US, Unilateral Interpretation Summary Deep veins of the right lower extremity are patent and compressible segmentally . There is no evidence of right lower extremity deep vein thrombosis. Valvular competence shaun ears intact within the proximal deep venous system on the right . The right great saphenous vein a ppears patent and compressible segmentally. The left common femoral vein is patent and compressib le . Ordering Physician: Srikanth Wisdom Referring Physician: Annika Balke Performed By: Paige Zamora RVT
[2023-08-08 16:13] LABS: Allen Test Positive; Base Excess 1 mmol/L (-2 to +2); Bicarbonate 22.8 mmol/L (22-26); Blood Gas Specimen Type ART; Mode Not entered; O2 Delivery Device Cannula; PO2 110 mmHG (75-100); SITE L Brach; SO2 99 % (95-99); Total Carbon Dioxide 24 mmol/L; pCO2 22.9 mmHg (35-45); pH 7.61 (7.35-7.45)
[2023-08-08] MEDS: 0.9% Normal Saline (1000mL) 1,000 ML 1000 ML IV ×2 (16:20→18:45)
[2023-08-08] MEDS: Pamidronate Disodium 90 MG in 0.9% Normal Saline (1000mL) 1,000 ML 333 MG IV (16:20)
--- NOTE | 2023-08-08 16:25 | RAD_ITS ---
INDICATION: Hypoxia EXAMINATION/TECHNIQUE: X-RAY - XR Chest 1 View COMPARISON: 08/01/2023. FINDINGS: The lungs are unchanged. The cardiomediastinal silhouette is stable. Interval removal of right-sided chest port. No pleural effusion or pneumothorax. The osseous structures are unchanged. RAD/Chest 1 View (Portable) IMPRESSION: Interval removal of right-sided chest port. Otherwise, no change from prior study. Electronically Signed: Ryan Britton MD at 17:25 EDT ,
--- NOTE | 2023-08-08 16:57 | CT_ITS ---
We are attempting to reach an attending provider to discuss findings. An addendum with communication details will be sent when the communication is complete. INDICATION: PE high probability EXAMINATION: CTA Chest WO/W Contrast Injection TECHNIQUE: Helically acquired images were obtained of the chest following administration of IV contrast. A radiation dose optimization technique was used for this scan. 3D postprocessing images including MIPS were reviewed. IV Contrast dosage and agent: IV 75mL [id number] COMPARISON: 06/27/2023. FINDINGS: Lungs: Multiple irregular nodular lesions throughout the lungs, most of which show cavitation. For example a 1.9 x 1.6 cm lesion in the right upper lobe (image 25, series 5). Mild emphysematous changes. Mediastinum: The heart is mildly enlarged. There is extensive mediastinal and bilateral hilar lymphadenopathy. Mild aortic arch and coronary artery calcifications. Moderate volume nonocclusive clot is seen within most of the subsegmental pulmonary arteries. Pleura: Unremarkable Bones/Soft tissues: There are diffuse degenerative changes of the spine. 7 mm lytic lesion in the left T11 vertebral body/pedicle with surrounding sclerosis. Upper abdomen: Extensive upper abdominal lymphadenopathy consistent with known lymphoma. CT/CTA Chest W/WO Contrast IMPRESSION: Moderate volume nonocclusive acute pulmonary emboli within most of the subsegmental pulmonary arteries. No evidence of right heart strain. Multiple irregular nodular lesions throughout the lungs, most of which show cavitation. This is concerning for septic emboli. Extensive mediastinal, bilateral hilar and upper abdominal lymphadenopathy consistent with known lymphoma. 7 mm lytic lesion in the left T11 vertebral body/pedicle with surrounding sclerosis. When correlating with recent PET/CT, this is most concerning for lymphomatous involvement of the spine. Refer to PET/CT report for more details. Electronically Signed: Ryan Britton MD at 19:21 EDT ,
[2023-08-08 17:00] LABS: AST(SGOT) 32 U/L (15-37); Alanine Aminotransfer ALT/SGPT 52 U/L (16-61); Albumin, Serum 2.1 g/dL (3.2-5.0); Alkaline Phosphatase 249 U/L (45-117); Bilirubin, Direct 0.14 mg/dL (0.00-0.30); Globulin 4.9 g/dL (2.2-4.2); LDH 423 U/L (87-241)
[2023-08-08 17:02] LABS: Lactic Acid 2.9 mmol/L (0.4-1.9)
[2023-08-08] MEDS: Ampicillin/Sulbactam 3 GM in 0.9% Normal Saline (100mL MB+) 100 ML IV (17:12)
[2023-08-08] MEDS: predniSONE 20 MG Tablet 100 MG PO (17:18)
[2023-08-08] MEDS: Allopurinol 100 MG Tablet 200 MG PO (17:19)
[2023-08-08] MEDS: Potassium Chloride Oral Soln 20 MEQ/15 ML UDC 40 MEQ PO (17:27)
[2023-08-08 17:48] LABS: International Normalized Ratio 1.3; Prothrombin Time (Protime)PT. 16.6 SECONDS (11.7-14.9)
[2023-08-08 17:57] LABS: Bacteria 0 SEEN /hpf (None Seen); Mucous, Urine 0 SEEN /hpf (<or=2+); Red Blood Cells-Urine 0 SEEN /hpf (0-5)
[2023-08-08 18:04] LABS: Color, Urine Yellow (Yellow); Glucose, Dipstick Normal (Normal); Ketone-Dipstick Negative (Negative); Leukocyte Esterase-Dipstick 25 /ul (Negative); Nitrite-Dipstick Negative (Negative); Occult Blood-Urine 250 /ul (Negative); Protein-Dipstick 15 mg/dl (Negative); Urine Bilirubin Dipstick Negative (Negative); Urine Clarity Clear (Clear); Urine Urobilinogen Normal (Normal)
[2023-08-08 18:16] LABS: Squamous Epithelial Cells - UA 0-5 SEEN /hpf (0-5); White Blood Cells 0-5 SEEN /hpf (0-5)
[2023-08-08] MEDS: Vancomycin IV 1,000 MG/200 ML BAG 200 MG IV (18:45)
--- NOTE | 2023-08-08 19:02 | HP.PCM.HOS_ITS ---
HPI - General General Date of Admission: 08/08/23 Date of Service: 08/08/23 Chief Complaint: Chills, malaise. 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 unfortunately not a candidate for chemotherapy, Anxiety and Depression, Chronic RLE Lymphedema, GERD, Tobacco use who presents to the [facility] ED on 08/08/23 with history of concern for recent appearance of port infectio n with surgery evaluation on day of presentation and removal of the port however they felt likely port was too large and potentially could be skin from stretching as opposed to infection but patient was having subjective fevers and chills with labs drawn in the office with significantly elevated calcium of 13.5 as well as potassium of 2.4 and a creatinine elevated to 1.8 with concern for development of tumor lysis syndrome prompting oncology to refer him to the ED for evaluation and medications. Patient does report weight loss as well as night sweats in addition to occasional cough not markedly productive although he does not bring stuff up well with dyspnea, worse upon exertion with no pleuritic chest discomfort with progressively worsening fatigue and weakness. Work-up prior to presentation included CBC with a BC 19.0, hemoglobin 12.5, MCV 91.8, platelet 327 with significant left shift, BMP with potassium 2.4 chloride 108, BUN/creatinine 50/1.76, calcium 13.8 and upon ED arrival labs additionally obtained included lactic acid 2.9, ABG with pH 7.61, PCO2 22.9, PO2 110, hepatic profile with alk phos 249, LDH 423 both decreased from previous, urinalysis specific gravity 1.020 otherwise no obvious evidence of UTI, pending C. difficile and enteric pathogen given diarrhea noted in the ED, chest x-ray with status post removal right-sided chest port, CTPA with moderate volume nonocc lusive acute pulmonary emboli within most of the subsegmental pulmonary arteries with no evidence of right heart strain, multiple irregular nodular lesions throughout the lungs most of which show cavitation concerning for septic emboli, extensive mediastinal, bilateral hilar and upper abdominal lymphadenopathy consistent with known lymphoma, 7 mm lytic lesion in the left T11 vertebral body/pedicle with surrounding sclerosis concerning for lymphedematous involvement of the spine, RLE duplex negative for DVT. In the ED patient started to liter normal saline and continue with maintenance IV fluid to 50 mill per hour, allopurinol 200 mg p.o. x1 with Hospitalist requested additional 100 mg po x 1 be given to total requested 300 mg daily per Oncology request, Unasyn 3 g IV x1, heparin drip with bolus, pamidronate 90 mg IV x1, potassium 40 mill equivalent p.o. x1, prednisone 100 mg p.o. x1 as well as IV vancomycin. In the ED patient had R femoral line placed. [facility], [facility] Medical History 2+ pitting edema AC separation Alcohol use Anaplastic ALK-negative large cell lymphoma Anxiety B12 deficiency anemia Bone fracture Cellulitis Depression Diarrhea Dry skin dermatitis Encounter for education History of edema Hx of headache Hypercalcemia Infected venous access port Lymphadenopathy, abdominal Occasional tremors Smoker Wears dentures Home Medications allopurinol 300 mg tablet 300 mg PO DAILY #30 tabs 07/17/23 [Rx Last Taken Unknown] lidocaine-prilocaine 2.5 %-2.5 % topical cream 1 applic topical ONCE PRN port access 30 days #30 grams 07/17/23 [Rx Last Taken Unknown] omeprazole 20 mg capsule,delayed release 20 mg PO DAILY #30 caps 07/17/23 [Rx Last Taken Unknown] ondansetron 8 mg disintegrating tablet 8 mg PO Q8H PRN nausea and vomiting #30 tabs 07/17/23 [Rx Last Taken Unknown] sulfamethoxazole 400 mg-trimethoprim 80 mg tablet (Bactrim) 1 tab PO DAILY #30 tabs 07/17/23 [Rx Last Taken Unknown] acyclovir 400 mg tablet 400 mg PO BID 07/20/23 [History Last Taken Unknown] prednisone 50 mg tablet 100 mg (2 x 50 mg) PO DAILY 5 days #10 tabs 08/01/23 [Rx Last Taken Unknown] Allergy/AdvReac Type Severity Reaction Status Date / Time No Known Allergies Allergy Verified 08/08/23 15:14 Family History (Updated 08/08/23 @ 20:[address] Ellen Marquez MD) Mother Heart disease Father Heart disease Alcohol abuse Surgical History (Updated 08/08/23 @ 20:[address] Ellen Marquez MD) H/O vascular surgery History of arthroplasty of right shoulder History of hernia repair Social History (Updated 08/08/23 @ 15:[address] Srikanth Cm MD) household members: none Smoking Status: Current every day smoker tobacco type: cigarettes alcohol intake: never substance use type: does not use what type of physical activity do you participate in: walking ROS ROS Narrative Admission Review of Systems: CONSTITUTIONAL: + weight loss, fever, chills, weakness or fatigue. HEENT: Eyes: No visual loss, blurred vision, double vision or yellow sclerae. Ears, Nose, Throat: No hearing loss, sneezing, congestion, runny nose or sore throat. SKIN: + Significantly desquamated skin especially to the face, significantly reddened upper chest which does not appear consistent necessarily with cellulitis with blanching, occasional staged duration and ecchymoses. CARDIOVASCULAR: + Chronic right lower extremity lymphedema. No chest pain, chest pressure or chest discomfort, palpitations, orthopnea, syncopal events. RESPIRATORY: + shortness of breath, cough without severe sputum. No wheezing, hemoptysis. GASTROINTESTINAL: + anorexia, nausea. No vomiting or diarrhea, abdominal pain, melena, BRBPR. GENITOURINARY: No dysuria, frequency, urgency or retention. NEUROLOGICAL: No headache, dizziness, syncope, paralysis, ataxia, numbness or tingling in the extremities, focal weakness, change in bowel or bladder control, seizure. MUSCULOSKELETAL: + muscle, back pain, joint pain or stiffness. HEMATOLOGIC: + anemia, easy bleeding or bruising. LYMPHATICS: No enlarged nodes. No history of splenectomy. PSYCHIATRIC: + history of depression or anxiety. ENDOCRINOLOGIC: + reports of sweating, cold or heat intolerance. No polyuria or polydipsia. ALLERGIES: No history of asthma, hives, eczema or rhinitis. Vital Signs Vital Signs Vital Signs: 08/08/23 15:10 08/08/23 15:27 08/08/23 16:09 Temperature 96.7 F L Temperature Source Temporal Pulse Rate 74 75 Respiratory Rate 16 18 Respiratory Effort Respiratory Pattern Blood Pressure 101/51 L 98/55 L Blood Pressure Mean 67 69 Pulse Ox 93 73 100 Oxygen Delivery Method Nasal Cannula Room Air Nasal Cannula Oxygen Flow Rate (L/min) 3 4 08/08/23 17:00 08/08/23 16:14 08/08/23 17:14 Temperature 97.8 F Temperature Source Oral Pulse Rate 78 81 Respiratory Rate 18 17 Respiratory Effort Normal Non-Labored Respiratory Pattern Normal Blood Pressure 102/68 107/68 Blood Pressure Mean 79 81 Pulse Ox 100 100 Oxygen Delivery Method Nasal Cannula Nasal Cannula Oxygen Flow Rate (L/min) 2 2 08/08/23 18:00 08/08/23 18:00 Temperature 97.6 F L Temperature Source Oral Pulse Rate 75 75 Respiratory Rate 16 Respiratory Effort Respiratory Pattern Blood Pressure 99/75 Blood Pressure Mean 83 Pulse Ox 100 Oxygen Delivery Method Nasal Cannula Oxygen Flow Rate (L/min) 2 Weight Weight: 153 lb 10.595 oz Body Mass Index (BMI) 22.6 Physical Exam Narrative Physical Examination: General: Awakens to stimuli, alert, oriented to self, place and recent events but is very slow to talk and fatigued, ill-appearing but is able to give appropriate information, does not know a lot of his medical history but suspect this is more poor medical knowledge as opposed to confusion, laying in the ED bed. Skin: Normal color, normal turgor, no icterus, no cyanosis except significant desquamated skin over the face and chest, erythematous appearance of the upper chest and neck almost consistent with postradiation appearance, blanching, less consistent with cellulitic, region around recently removed chest port does not appear significantly erythematous, swollen, some mild appropriate dried blood on the dressing. HEENT: AT/NC, EOMI, PERRLA, dry MM, no carotid bruits or JVD noted, see skin. Lungs: Significantly diminished, greater bases, mildly increased respiratory rat e but no distress, mildly coarse, no marked wheezing or rales. Heart: Currently regular rate and rhythm; no gallop, rub audible. Abdomen: Soft, NTTP, ND, mildly hyperactive BS, no appreciated HSM. Extremities: No cyanosis, no clubbing, significant right lower extremity chronic lymphedema unchanged, see skin. Neurological: Awakens to stimuli, alert, oriented to self, place and recent events but is very slow to talk and fatigued, ill-appearing but is able to give appropriate information, does not know a lot of his medical history but suspect this is more poor medical knowledge as opposed to confusion, laying in the ED bed, cognitive function suspect decreased mildly from his baseline but do suspect he is near intact; pupils equally reactive to light and accommodation, cranial nerves grossly normal, moving all 4 extremities, no focal deficits, strength severely globally decreased secondary to acute presentation and underlying history. Psychiatric: Affect appears flat, ill-appearing, no acute evidence of depressive or anxiety feelings but does have underlying history. Results Lab / Micro Data Labs: Laboratory Results - last 24 hr 08/08/23 16:00: Lactic Acid 2.9 H*, Total Bilirubin 0.50, Direct Bilirubin 0.14, AST 32, ALT 52, Alkaline Phosphatase 249 H, Lactate Dehydrogenase 423 H, Total Protein 7.0, Albumin 2.1 L, Globulin 4.9 H 08/08/23 17:22: PT 16.6 H, INR 1.3 08/08/23 17:50: Urine Color Yellow, Urine Clarity Clear, Urine pH 6.0, Ur Specific Perry 1.020, Urine Protein 15 H, Urine Glucose (UA) Normal, Urine Ketones Negative, Urine Occult Blood 250 H, Urine Nitrite Negative, Urine Bilirubin Negative, Urine Urobilinogen Normal, Ur Leukocyte Esterase 25 H, Urine RBC 0 SEEN, Urine WBC 0-5 SEEN, Ur Squamous Epith Cells 0-5 SEEN, Urine Bacteria 0 SEEN, Urine Mucus 0 SEEN ABG Data ABG results: ABG 08/08/23 17:07 Specimen Type ART Sample Site L Brach pH 7.61 H* Bicarbonate Actual 22.8 Total CO2 24 Base Excess 1 O2 Saturation 99 O2 % 4.0 ABG pCO2 22.9 L ABG pO2 110 H Alban Test Positive O2 Delivery Device Cannula Vent Mode Not entered Crit Call To/Read Back Yes Blood Gas Notified Whom cm Blood Gas Notified Time 17:09:53 Radiology Impression Chest X-Ray 08/08/23 16:25 IMPRESSION: Interval removal of right-sided chest port. Otherwise, no change from prior study. 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 unfortunately not a candidate for chemotherapy, Anxiety and Depression, Chronic RLE Lymphedema, GERD, Tobacco use who presents to the [facility] ED on 08/08/23 with history of concern for recent appearance of port infection with surgery evaluation on day of presentation and removal of the port however they felt likely port was too large and potentially could be skin from stretching as opposed to infection but patient was having subjective fevers and chills with labs drawn in the office with significantly elevated calcium of 13.5 as well as potassium of 2.4 and a creatinine elevated to 1.8 with concern for development of tumor lysis syndrome prompting oncology to refer him to the ED for evaluation and medications. #1. SIRS, multifactorial with lactic acidosis secondary to multiple irregular nodular lesions throughout the lungs with cavitation concerning for septic emboli as well as concern for infected port although lower suspicion as well as also concern for possible colitis given significant diarrhea compounded by #2, #3: Will admit to PCU, maintain on oxygen with wean as tolerated to room air/home oxygen supplementation, continue ATC budesonide, PRN albuterol, maintained on IV Zosyn and Vancomycin, HOB, IS parameters w/ pending sputum cultures, full respiratory viral panel to be cautious, COVID PCR and urine antigens. Patient does have pending C. difficile and enteric pathogen as notable diarrhea in the ED thus to be cautious we will also initiate oral vancomycin at this time and can de-escalate off if this is negative. We will continue to monitor chest port site but again General surgery evaluated today with removal and felt it was more likely skin tension secondary to device potentially being too large for the patient. We will request surgery continued evaluation of patient given concern for possible infection however to be cautious and as noted broad-spectrum antibiotic therapy. Additionally given chest findings will request pulmonary medicine and infectious disease evaluation. Bld cx x 2 obtained in the ED. #2. Acute Hypoxia secondary to Acute moderate volume nonocclusive acute pulmonary emboli within most subsegmental pulmonary arteries with no evidence of right heart pain: Will maintain on cardiac telemetry, will obtain echocardiogram given significant findings to assure valves also okay, will continue heparin drip at this time. #3. Significant evidence of metastatic lymphoma with CTPA notable for a 7 mm lytic lesion in the left T11 vertebral body/pedicle with surrounding sclerosis as well as extensive mediastinal, bilateral hilar and upper abdominal lymphadenopathy consistent with his known lymphoma with significant hypercalcemia concurrently as well as chronically elevated LDH and alk phos: In the ED patient administered pamidronate 90 mg IV x1, continue oncology consultation, will continue oncology consultation with the recommended prednisone 100 mg daily x5 days, allopurinol 300 mg daily, uric acid and CMP checked daily secondary to concerns for possible tumor lysis. #4. Acute kidney injury: Secondary to dehydration and acute presentation as noted. Admission BUN/Cr 50/1.76, prior baseline creatinine noted to be 0.8-1.1. Will hydrate, hold nephrotoxic medications and repeat chemistry in AM. If no improvement would plan FeNa and renal ultrasound assessment. #5. Hypokalemia: Admission K+ 2.4, magnesium level requested, supplementation given, repeat level in AM. #6. Anxiety and depression: Not on any chronic regimen, would benefit from continued outpatient evaluation and counseling if appropriate. #7. Tobacco Abuse: Encouraged cessation, inpatient consultation per RT, NR if desired. #8. GERD: We will continue patient home PPI. #9. Chronic right lower extremity lymphedema: Status post DVT ultrasound with no acute findings, will place snug Real with elevation if able to tolerate. #10. DVT prophylaxis: We will continue heparin drip as noted. #11. CODE status: Patient does not have from discussions healthcare power of food service technician or living will but amenable to full interventions, will remain full code at this time. During discussions was able to answer questions appropriately although did take a significant mount of time but again this should be rediscussed once the above is treated acutely especially given his significant poor prognosis. Charges/Coding Visit Charges Inpatient E&M: 45089 Init Hosp L3
[2023-08-08 20:06] LABS: Reflex Lactate? Y
[2023-08-08 20:31] LABS: Partial Thromboplast Time 45.8 Seconds (24.1-36.2)
[2023-08-08] MEDS: HEPARIN/D5w 25,000 UNITS 25,000 UNITS/250 ML IV.SOLN. 10 UNITS CONT INF (20:31)
[2023-08-08] MEDS: Allopurinol 100 MG Tablet PO (20:31)
[2023-08-08] MEDS: Heparin Injection (Vial) 5,000 UNIT/ML VIAL 4500 UNIT IV (20:31)
[2023-08-08] MEDS: 0.9% Normal Saline (1000mL) 1,000 ML 250 ML IV (20:47)
[2023-08-08 20:48] LABS: Magnesium 2.2 mg/dL (1.6-2.6); Phosphorus 4.1 mg/dL (2.5-4.9)
[2023-08-08 20:55] LABS: Lactic Acid 2.3 mmol/L (0.4-1.9)
[2023-08-08 20:58] LABS: Procalcitonin 0.61 ng/mL (0.00-0.09)
--- NOTE | 2023-08-08 22:11 | ECHOD_ITS ---
Reason For Study: SIRS, PEs, SEPTIC CAVITARY LESIONS Procedure This was a 2D Doppler, Color Flow transthoracic echocardiogram. The study was technically difficult. Exam performed supine. Unable to position patient for imaging due to RT GROIN IV LINE. Exam performed portable in patient room. Left Ventricle Normal LV size. The estimated ejection fraction is 65 %. No evidence for diastolic dysfunction. No regional wall motion abnormalities noted. Right Ventricle Normal RV size. Normal systolic function. Atria The left atrium is mildly enlarged. Normal right atrium. No doppler evidence for ASD. Mitral Valve There is no mitral valve stenosis. No mitral valve insufficiency. Tricuspid Valve There is no tricuspid stenosis. Trivial tricuspid valve insufficiency. Unable to estimate RV systolic pressure due to insufficient tricuspid regurgitant envelope. Aortic Valve Trisinus/trileaflet aortic valve. There is no aortic stenosis. No aortic valve insufficiency. Pulmonic Valve There is no pulmonic valvular stenosis. No pulmonic valve insufficiency. Great Vessels Normal aortic root. Pericardium/Pleural Trivial pericardial effusion. MMode/2D Measurements & Calculations LVIDd: 5.4 cm IVSd: 0.84 cm Ao root diam: 3.6 cm LVIDs: 3.4 cm LVPWd: 0.90 cm RVDd: 3.5 cm FS: 37.0 % LAV(MOD-bp): 65.6 ml LVAd ap4: 28.5 cm2 SV(MOD-sp4): 64.8 ml LAV(MOD-bp) Indexed: 35.0 ml/m2 LVLd ap4: 8.0 cm LAV(MOD-sp2): 53.0 ml EDV(MOD-sp4): 87.6 ml LAV(MOD-sp4): 49.6 ml EDV(sp4-el): 85.9 ml LVAs ap4: 12.2 cm2 LVLs ap4: 5.9 cm ESV(MOD-sp4): 22.8 ml ESV(sp4-el): 21.6 ml EF(MOD-sp4): 74.0 % EF(sp4-el): 74.9 % SV(sp4-el): 64.3 ml LA A4 area: 19.0 cm2 LA dimension(2D): 4.0 cm RA A4 area: 16.1 cm2 TAPSE: 3.4 cm Time Measurements MV dec time: 0.25 sec Doppler Measurements & Calculations MV E max alvarez: 56.3 cm/sec Lat Peak E' Alvarez: 13.9 cm/sec Med Peak E' Alvarez: 12.3 cm/sec MV A max alvarez: 48.9 cm/sec E/E' lat: 4.1 E/E' med: 4.6 MV E/A: 1.1 Ao V2 max: 107.8 cm/sec LV V1 max: 89.8 cm/sec PA V2 max: 96.9 cm/sec Ao max P.7 mmHg LV V1 max P.2 mmHg PA V2 mean: 64.1 cm/sec Ao V2 mean: 70.2 cm/sec LV V1 mean P.5 mmHg PA V2 VTI: 18.7 cm Ao mean P.2 mmHg LV V1 mean: 57.1 cm/sec Ao V2 VTI: 21.1 cm LV V1 VTI: 17.6 cm AV (velocity ratio): 0.83 ECHO/Echo Complete Interpretation Summary The estimated ejection fraction is 65 %. No evidence for diastolic dysfunction. The left atrium is mildly enlarged. Ordering Physician: Ellen Marquez Referring Physician: Catie Tiwari Performed By: Annamaria Maciel, ZENON, RVT
[2023-08-08] MEDS: Potassium Chloride Oral Tablet 20 MEQ PO (23:55)
[2023-08-08] MEDS: Acyclovir 200 MG Capsule 400 MG PO (23:56)
[2023-08-08] MEDS: Piperacil/Tazobactam 3.375 GM in 0.9% Normal Saline (50mL MB+) 50 ML IV (23:56)
[2023-08-09] VITALS (10 sets, daily range): BP systolic 92–112; BP diastolic 57–63; PULSE 68–85; RESP 14–22; TEMP 36.5–36.9; O2SAT 68–100; BMI 23.6
[2023-08-09] MEDS: Loperamide 2 MG Capsule PO (00:06)
[2023-08-09] MEDS: 0.9% Normal Saline (1000mL) 1,000 ML 150 ML IV ×5 (00:21→22:43)
--- NOTE | 2023-08-09 00:45 | PCM.RX.CS ---
Consult Type of Intervention Type of Consult: New start Microbiology Microbiology: Microbiology 08/08/23 22:53 Mucosa - Nose Coronavirus COVID-19 PCR - Final 08/08/23 17:55 Stool Enteric Bacteriology - Final 08/08/23 17:55 Stool C. difficile DNA Amplification - Final Dosing Weight Weight used for dosin.4 kg Estimated Creatinine Clearance Estimated Creatinine Clearance: 43.8 Goal Trough Goal Trough: 15-20 mcg/mL Pharmacy Plan for Drug Dosing Pharmacy Plan for Drug Dosing: Pharmacy Service will continue to monitor and adjust dosing as required. Follow-Up Labs Follow-Up Labs: Trough: Vancomycin Date/Time Labs Ordered Labs to be done on [date and time ordered]: 08/10 @ 2740
[2023-08-09 02:45] LABS: Absolute Lymphocyte Count 0.13 X10^3/uL (0.83-4.51); Absolute Neutrophil Count 16.5 X10^3/uL (2.0-7.7); Basophil# 0.01 X10^3/uL; Basophil% 0.1 % (0-1); Lymphocyte # 0.13 X10^3/ul (0.83-4.51); Lymphocyte % 0.8 % (19-41); Mean Corp Hgb Conc 30.3 g/dL (32-36); Mean Corpuscular Hgb 27.5 pg (27.0-32.0); Mean Corpuscular Volume 90.9 fL (80-94); Mean Platelet Vol. 10.2 fl (6.2-12.0); Monocyte# 0.14 X10^3/uL; Monocyte% 0.8 % (0-10); NRBC Flagged by Analyzer 0 % (0-5); Neutrophil # 16.47 X10^3/uL (2.7-7.7); Neutrophil % 97.2 % (47-70); POSITIVE DIFFERENTIAL YES; Platelet Count 322 K/mm3 (150-450); RBC Distribution Width CV 19.5 % (11.6-14.6); RBC Distribution Width SD 63.9 fl (35.1-43.9); Red Blood Count 3.63 M/mm3 (4.6-6.2); White Blood Count 16.9 K/mm3 (4.4-11.0)
[2023-08-09 02:56] LABS: Partial Thromboplast Time 49.4 Seconds (24.1-36.2)
[2023-08-09 03:23] LABS: Differential Indicated SCAN CRITERIA MET
[2023-08-09] MEDS: Heparin Injection (Vial) 5,000 UNIT/ML VIAL IV ×2 (03:26→17:19)
[2023-08-09 03:56] LABS: Anisocytosis 2+
[2023-08-09 04:02] LABS: ALB/GLOB Ratio 0.4 RATIO (0.9-2.4); AST(SGOT) 22 U/L (15-37); Alanine Aminotransfer ALT/SGPT 39 U/L (16-61); Albumin, Serum 1.4 g/dL (3.2-5.0); Alkaline Phosphatase 196 U/L (45-117); Anion Gap 6 (5-15); BUN 40 mg/dL (7-18); BUN/Creat Ratio 33.1 RATIO (10-20); Calcium,Total 10.9 mg/dL (8.5-10.1); Chloride 115 mmol/L (98-107); Creatinine, Serum 1.21 mg/dL (0.70-1.30); EST Glomerular Filtration Rate 65 mL/min (>60); Est Glom Filt Rate - Afr Amer 79 mL/min (>60); Estimated Creatinine Clearance 65.45 ml/min; Globulin 3.8 g/dL (2.2-4.2); Glucose 103 mg/dL (74-106); Potassium 2.6 mmol/L (3.5-5.1); Protein, Total 5.2 g/dL (6.4-8.2); Sodium Level 140 mmol/L (136-145); Uric Acid 1.6 mg/dL (3.5-7.2)
[2023-08-09] MEDS: Potassium Chloride Oral Tablet 20 MEQ 40 MEQ PO (05:18)
[2023-08-09] MEDS: Piperacil/Tazobactam 3.375 GM in 0.9% Normal Saline (50mL MB+) 50 ML IV ×3 (05:18→19:52)
--- NOTE | 2023-08-09 06:01 | NURSING ---
Attempted to call neighbor friend (Shorty) about bringing in home med list per pt request. Neighbor did not answer and voicemail was left to call back once they receive the message.
--- NOTE | 2023-08-09 06:41 | CON.PCM.CC_ITS ---
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 Continue broad-spectrum antimicrobials. ID consultation is pending. 2. Continue supplemental IV fluid hydration, corticosteroids and allopurinol per oncology. 3. Continue heparin infusion for now. 4. Supplemental oxygen, if needed, to maintain saturations at or above 90%. 5. Encourage incentive spirometer use and mobilize patient as tolerated. IMPRESSIONS: 1. Questionable pulmonary septic emboli CT imaging of the chest demonstrated bilateral cavitary nodular densities, with concern for septic emboli versus metastatic deposits. The patient just had his chest port removed over concerns for an infection. Cultures are currently pe nding. The patient is hemodynamically stable and maintaining appropriate oxygen saturations on room air. He has already been initiated on broad-spectrum antimicrobials, with consultation placed to infectious diseases. Continue current supportive measures, pending the outcome of his infectious work-up. Continue heparin infusion given nonocclusive clots noted in subsegmental pulmonary arteries. The patient is otherwise stable from a pulmonary perspective. 2. Acute kidney injury Most likely prerenal in etiology. Creatinine has improved with volume expansion. Continue supplemental IV fluid hydration as ordered. Continue to monitor urine output. No indication for renal replacement therapy. 3. Metastatic anaplastic large cell lymphoma/hypercalcemia Continue medical management per oncology recommendations. 4. History of tobacco dependency, in remission/GERD/anxiety/depression Complicates care, management, recovery and prognosis. Continue home medications as indicated. This note was generated with [employer] dictation software. It may contain incorrect words, spelling, and punctuation that were not noted in checking the note before signing. HPI Consult Data Date of Consult: 08/09/23 HPI Narrative Reason for Consultation: Cavitary pulmonary lesions HPI Narrative: The patient is a 57-year-old male, with a history as outlined below, who presented to the emergency department on August 08 with fevers, chills and hypercalcemia following right IJ Port-A-Cath removal earlier in the day. In June 2023, the patient was admitted to the hospital with leg swelling. As part of his work-up, a CT abdomen/pelvis was obtained which revealed bulky abdominal adenopathy. The patient ultimately underwent biopsy in June 2023 which was positive for large cell neoplasm, favor anaplastic large cell lymphoma. Due to a need for vascular access for chemotherapy, the patient underwent right chest port placement on August 01. Unfortunately, the patient had to return on August 08 over concerns for chest port infection. The site was noted to be slightly erythematous and starting to dehisce. No obvious purulent drainage was noted. The catheter was removed by general surgery. Following this, he was referred to the emergency department for evaluation. On presentation to the emergency department, the patient was documented to have a temperature of 96.7 ?F. Blood pressure was noted to be 101/51 mmHg. Initial laboratory evaluation revealed an elevated white blood cell count to 19,000. Chemistry profile was notable for a potassium of 2.4 and creatinine of 1.76. Calcium was elevated at 13.8 with a lactate of 2.9. Urine analysis was positive for leukocyte Estrace without any white blood cells or urine bacteria noted. Right lower extremity Doppler study was negative for DVT. CTA chest demonstrated extensive mediastinal and hilar adenopathy along with nonocclusive clot burden in the subsegmental pulmonary arteries and multiple cavitary nodular lesions bilaterally. The patient ultimately received supplemental IV fluids, corticosteroids and empiric broad-spectrum antimicrobials. He was initiated on a heparin infusion as well. The patient was admitted to the progressive care unit for further management. FORMERLY [facility] Medical History (Updated 08/09/23 @ 07:[address] 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 Anxiety B12 deficiency anemia Bone fracture Cellulitis Depression Diarrhea Dry skin dermatitis Encounter for education History of edema Hx of headache Hypercalcemia Infected venous access port Lymphadenopathy, abdominal Occasional tremors Smoker Wears dentures Home Medications allopurinol 300 mg tablet 300 mg PO DAILY #30 tabs 07/17/23 [Rx Last Taken Unknown] lidocaine-prilocaine 2.5 %-2.5 % topical cream 1 applic topical ONCE PRN port access 30 days #30 grams 07/17/23 [Rx Last Taken Unknown] omeprazole 20 mg capsule,delayed release 20 mg PO DAILY #30 caps 07/17/23 [Rx Last Taken Unknown] ondansetron 8 mg disintegrating tablet 8 mg PO Q8H PRN nausea and vomiting #30 tabs 07/17/23 [Rx Last Taken Unknown] sulfamethoxazole 400 mg-trimethoprim 80 mg tablet (Bactrim) 1 tab PO DAILY #30 tabs 07/17/23 [Rx Last Taken Unknown] acyclovir 400 mg tablet 400 mg PO BID 07/20/23 [History Last Taken Unknown] prednisone 50 mg tablet 100 mg (2 x 50 mg) PO DAILY 5 days #10 tabs 08/01/23 [Rx Last Taken Unknown] Allergy/AdvReac Type Severity Reaction Status Date / Time No Known Allergies Allergy Verified 08/08/23 15:14 Family History (Updated 08/08/23 @ 20:[address] Ellen Marquez MD) Mother Heart disease Father Heart disease Alcohol abuse Surgical History H/O vascular surgery History of arthroplasty of right shoulder History of hernia repair Social History (Updated 08/08/23 @ 15:[address] Srikanth Wisdom MD) household members: none Smoking Status: Current every day smoker tobacco type: cigarettes alcohol intake: never substance use type: does not use what type of physical activity do you participate in: walking ROS ROS Narrative 10 systems were reviewed with pertinent positives as noted in the HPI above. Physical Exam Const alert and no apparent distress Constitutional Narrative: Currently maintaining appropriate oxygen saturations on room air. General Appearance: cooperative HEENT normocephalic and head/scalp atraumatic Eyes PERRL, EOMs intact bilaterally and conjunctivae normal Neck supple General: trachea midline Chest inspection of chest normal Resp normal respiratory effort Auscultation: Negative for rales, rhonchi or wheezes Cardio regular rate and regular rhythm GI normal to inspection, nondistended, normoactive bowel sounds Extremity Extremity Narrative: Wrapped lower extremities. General Extremity: edema bilateral lower extremity Skin no rashes or lesions noted Neuro CN's II-XII intact bilaterally, moves all extremities and no focal motor deficits Psych Mood & Affect: flat affect Lab / Micro Data 08/09/23 02:30 08/09/23 02:30 Labs: Laboratory Results - last 24 hr 08/08/23 12:28: Procalcitonin 0.61 H 08/08/23 16:00: Lactic Acid 2.9 H*, Phosphorus 4.1, Magnesium 2.2, Total Bilirubin 0.50, Direct Bilirubin 0.14, AST 32, ALT 52, Alkaline Phosphatase 249 H, Lactate Dehydrogenase 423 H, Total Protein 7.0, Albumin 2.1 L, Globulin 4.9 H 08/08/23 17:22: PT 16.6 H 08/08/23 17:22: PT Cancelled, INR 1.3 08/08/23 17:22: INR Cancelled, APTT 45.8 H 08/08/23 17:50: Urine Color Yellow, Urine Clarity Clear, Urine pH 6.0, Ur Specific [place] 1.020, Urine Protein 15 H, Urine Glucose (UA) Normal, Urine Ketones Negative, Urine Occult Blood 250 H, Urine Nitrite Negative, Urine B ilirubin Negative, Urine Urobilinogen Normal, Ur Leukocyte Esterase 25 H, Urine RBC 0 SEEN, Urine WBC 0-5 SEEN, Ur Squamous Epith Cells 0-5 SEEN, Urine Bacteria 0 SEEN, Urine Mucus 0 SEEN 08/08/23 20:15: Lactic Acid 2.3 H* 08/09/23 02:30: WBC 16.9 H, RBC 3.63 L, Hgb 10.0 L, Hct 33.0 L, MCV 90.9, MCH 27.5, MCHC 30.3 L, RDW Std Deviation 63.9 H, RDW Coeff of Andrew 19.5 H, Plt Count 322, MPV 10.2, Immature Gran % (Auto) 1.100 H, Neut % (Auto) 97.2 H, Lymph % (Auto) 0.8 L, [place] % (Auto) 0.8, Eos % (Auto) 0.0, Baso % (Auto) 0.1, Absolute Neuts (auto) 16.5 H, Absolute Lymphs (auto) 0.13 L, Nucleated RBC % 0, Anisocytosis 2+, APTT 49.4 H, Sodium 140, Potassium 2.6 L*, Chloride 115 H, Carbon Dioxide 19.0 L, Anion Gap 6, BUN 40 H, Creatinine 1.21, Estim Creat Clear Calc 65.45, Est GFR (MDRD) Af Amer 79, Est GFR (MDRD) Non-Af 65, BUN/Creatinine Ratio 33.1 H, Glucose 103, Uric Acid 1.6 L, Calcium 10.9 H, Total Bilirubin 0.40, AST 22, ALT 39, Alkaline Phosphatase 196 H, Total Protein 5.2 L, Albumin 1.4 L, Globulin 3.8, Albumin/Globulin Ratio 0.4 L Micro: Microbiology 08/08/23 23:45 Urine, Clean Catch Legionella Antigen - Final 08/08/23 23:45 Urine, Clean Catch Streptococcus pneumoniae Antigen (M - Final 08/08/23 22:53 Mucosa - Nose Coronavirus COVID-19 PCR - Final 08/08/23 17:55 Stool Enteric Bacteriology - Final 08/08/23 17:55 Stool C. difficile DNA Amplification - Final ABG Data ABG results: ABG 08/08/23 17:07 Specimen Type ART Sample Site L Brach pH 7.61 H* Bicarbonate Actual 22.8 Total CO2 24 Base Excess 1 O2 Saturation 99 O2 % 4.0 ABG pCO2 22.9 L ABG pO2 110 H [place] Test Positive O2 Delivery Device Cannula Vent Mode Not entered Crit Call To/Read Back Yes Blood Gas Notified Whom toi Blood Gas Notified Time 17:09:53 Radiology Impression Venous Doppler Study 08/08/23 15:54 Interpretation Summary Deep veins of the right lower extremity are patent and compressible segmentally. There is no evidence of right lower extremity deep vein thrombosis. Valvular competence appears intact within the proximal deep venous system on the right . The right great saphenous vein appears patent and compressible segmentally. The left common femoral vein is patent and compressible . Ordering Physician: Srikanth Wisdom Referring Physician: Annika Blake Performed By: Paige Zamora, RVT Chest X-Ray 08/08/23 16:25 IMPRESSION: Interval removal of right-sided chest port. Otherwise, no change from prior study. Electronically Signed: Ryan Britton MD at 17:25 EDT , Chest CTA 08/08/23 16:57 IMPRESSION: Moderate volume nonocclusive acute pulmonary emboli within most of the subsegmental pulmonary arteries. No evidence of right heart strain. Multiple irregular nodular lesions throughout the lungs, most of which show cavitation. This is concerning for septic emboli. Extensive mediastinal, bilateral hilar and upper abdominal lymphadenopathy consistent with known lymphoma. 7 mm lytic lesion in the left T11 vertebral body/pedicle with surrounding sclerosis. When correlating with recent PET/CT, this is most concerning for lymphomatous involvement of the spine. Refer to PET/CT report for more details. Electronically Signed: Ryan Britton MD at 19:21 EDT , ADDENDUM: 08/08/231958 IMPRESSION: Moderate volume nonocclusive acute pulmonary emboli within most of the subsegmental pulmonary arteries. No evidence of right heart strain. Multiple irregular nodular lesions throughout the lungs, most of which show cavitation. This is concerning for septic emboli. Extensive mediastinal, bilateral hilar and upper abdominal lymphadenopathy consistent with known lymphoma. 7 mm lytic lesion in the left T11 vertebral body/pedicle with surrounding sclerosis. When correlating with recent PET/CT, this is most concerning for lymphomatous involvement of the spine. Refer to PET/CT report for more details. N.B. : The above Results were Read Back by Ryan Britton MD to Gurpreet Valladares MD, and understanding confirmed on 08/08/2023 19:52:54 (ET). Electronically Signed: Ryan Britton MD at 19:21 EDT , Charges/Coding Visit Charges Inpatient E&M: 37257 Init Hosp L3
[2023-08-09] MEDS: 0.9% Normal Saline (250mL Bag) 250 ML 15 ML IV (06:58)
[2023-08-09] MEDS: Vancomycin IV 500 MG/100 ML BAG 100 MG IV (06:58)
[2023-08-09] MEDS: Budesonide Respules 0.5 MG/2 ML AMPUL.NEB. INHALATION (07:11)
--- NOTE | 2023-08-09 07:27 | PCM.PN.HOSP ---
Reason for Visit Reason for Visit: Diagnoses Other pulmonary embolism without acute cor pulmonale (08/08/23) Objective Data Objective Data Vital Signs: Vital Signs Temp Pulse Resp BP Pulse Ox O2 Del Method O2 Flow Rate 98.4 F 68 14 92/59 L 97 Nasal Cannula 2 08/09/23 05:27 08/09/23 05:27 08/09/23 05:27 08/09/23 05:27 08/09/23 05:27 08/09/23 06:40 08/09/23 05:27 Oxygen Flow Rate (L/min) 2 Oxygen Delivery Method Nasal Cannula Weight: 159 lb 9.835 oz Body Mass Index (BMI) 23.6 Intake & Output: Intake and Output for Last 24 Hours 08/07/23 08/08/23 08/09/23 23:59 23:59 23:59 Intake Total 3322 / 4572 4319.33 / 4319.33 Output Total 250 / 250 Balance 3322 / 4572 4069.33 / 4069.33 Lab / Micro Data 08/09/23 02:30 08/09/23 10:20 Labs: Laboratory Results - last 24 hr 08/08/23 12:28: Procalcitonin 0.61 H 08/08/23 16:00: Lactic Acid 2.9 H*, Phosphorus 4.1, Magnesium 2.2, Total Bilirubin 0.50, Direct Bilirubin 0.14, AST 32, ALT 52, Alkaline Phosphatase 249 H, Lactate Dehydrogenase 423 H, Total Protein 7.0, Albumin 2.1 L, Globulin 4.9 H 08/08/23 17:22: PT 16.6 H 08/08/23 17:22: PT Cancelled, INR 1.3 08/08/23 17:22: INR Cancelled, APTT 45.8 H 08/08/23 17:50: Urine Color Yellow, Urine Clarity Clear, Urine pH 6.0, Ur Specific [place] 1.020, Urine Protein 15 H, Urine Glucose (UA) Normal, Urine Ketones Negative, Urine Occult Blood 250 H, Urine Nitrite Negative, Urine Bilirubin Negative, Urine Urobilinogen Normal, Ur Leukocyte Esterase 25 H, Urine RBC 0 SEEN, Urine WBC 0-5 SEEN, Ur Squamous Epith Cells 0-5 SEEN, Urine Bacteria 0 SEEN, Urine Mucus 0 SEEN 08/08/23 20:15: Lactic Acid 2.3 H* 08/09/23 02:30: WBC 16.9 H, RBC 3.63 L, Hgb 10.0 L, Hct 33.0 L, MCV 90.9, MCH 27.5, MCHC 30.3 L, RDW Std Deviation 63.9 H, RDW Coeff of Andrew 19.5 H, Plt Count 322, MPV 10.2, Immature Gran % (Auto) 1.100 H, Neut % (Auto) 97.2 H, Lymph % (Auto) 0.8 L, [place] % (Auto) 0.8, Eos % (Auto) 0.0, Baso % (Auto) 0.1, Absolute Neuts (auto) 16.5 H, Absolute Lymphs (auto) 0.13 L, Nucleated RBC % 0, Anisocytosis 2+, APTT 49.4 H, Sodium 140, Potassium 2.6 L*, Chloride 115 H, Carbon Dioxide 19.0 L, Anion Gap 6, BUN 40 H, Creatinine 1.21, Estim Creat Clear Calc 65.45, Est GFR (MDRD) Af Amer 79, Est GFR (MDRD) Non-Af 65, BUN/Creatinine Ratio 33.1 H, Glucose 103, Uric Acid 1.6 L, Calcium 10.9 H, Total Bilirubin 0.40, AST 22, ALT 39, Alkaline Phosphatase 196 H, Total Protein 5.2 L, Albumin 1.4 L, Globulin 3.8, Albumin/Globulin Ratio 0.4 L Micro: Microbiology 08/08/23 23:45 Urine, Clean Catch Legionella Antigen - Final 08/08/23 23:45 Urine, Clean Catch Streptococcus pneumoniae Antigen (M - Final 08/08/23 22:53 Mucosa - Nose Coronavirus COVID-19 PCR - Final 08/08/23 17:55 Stool Enteric Bacteriology - Final 08/08/23 17:55 Stool C. difficile DNA Amplification - Final ABG Data ABG results: ABG 08/08/23 17:07 Specimen Type ART Sample Site L Brach pH 7.61 H* Bicarbonate Actual 22.8 Total CO2 24 Base Excess 1 O2 Saturation 99 O2 % 4.0 ABG pCO2 22.9 L ABG pO2 110 H [place] Test Positive O2 Delivery Device Cannula Vent Mode Not entered Crit Call To/Read Back Yes Blood Gas Notified Whom cm Blood Gas Notified Time 17:09:53 Radiography Diagnostic Testing: Radiology Impression Venous Doppler Study 08/08/23 15:54 Interpretation Summary Deep veins of the right lower extremity are patent and compressible segmentally. There is no evidence of right lower extremity deep vein thrombosis. Valvular competence appears intact within the proximal deep venous system on the right . The right great saphenous vein appears patent and compressible segmentally. The left common femoral vein is patent and compressible . Ordering Physician: Srikanth Cm Referring Physician: Annika Blake Performed By: Paige Zamora, [place] Chest X-Ray 08/08/23 16:25 IMPRESSION: Interval removal of right-sided chest port. Otherwise, no change from prior study. Electronically Signed: Ryan Britton MD at 17:25 EDT , Chest CTA 08/08/23 16:57 IMPRESSION: Moderate volume nonocclusive acute pulmonary emboli within most of the subsegmental pulmonary arteries. No evidence of right heart strain. Multiple irregular nodular lesions throughout the lungs, most of which show cavitation. This is concerning for septic emboli. Extensive mediastinal, bilateral hilar and upper abdominal lymphadenopathy consistent with known lymphoma. 7 mm lytic lesion in the left T11 vertebral body/pedicle with surrounding sclerosis. When correlating with recent PET/CT, this is most concerning for lymphomatous involvement of the spine. Refer to PET/CT report for more details. Electronically Signed: Ryan Britton MD at 19:21 EDT , ADDENDUM: 08/08/231958 IMPRESSION: Moderate volume nonocclusive acute pulmonary emboli within most of the subsegmental pulmonary arteries. No evidence of right heart strain. Multiple irregular nodular lesions throughout the lungs, most of which show cavitation. This is concerning for septic emboli. Extensive mediastinal, bilateral hilar and upper abdominal lymphadenopathy consistent with known lymphoma. 7 mm lytic lesion in the left T11 vertebral body/pedicle with surrounding sclerosis. When correlating with recent PET/CT, this is most concerning for lymphomatous involvement of the spine. Refer to PET/CT report for more details. N.B. : The above Results were Read Back by Ryan Britton MD to Gurpreet Valladares MD, and understanding confirmed on 08/08/2023 19:52:54 (ET). Electronically Signed: Ryan Britton MD at 19:21 EDT , Assessment & Plan Assessment/Plan (1) Pulmonary embolism: QUALIFIERS: Pulmonary embolism type: multiple subsegmental (without acute cor pulmonale) Qualified Code(s): I26.94 - Multiple subsegmental pulmonary emboli without acute cor pulmonale PLAN: Plan The patient is a 57 y/o M who was admitted on 08/08/23 is admitted with fever chills hypocalcemia following right IJ Port-A-Cath removal earlier on the day of admission for high suspicion of port infection. Patient calcium was 13.5, potassium 2.4 and creatinine 1.8 with concern for tumor lysis syndrome review of ALK negative anaplastic large cell lymphoma. #1. Questionable pulmonary septic emboli with mild hypoxia with infected right IJ Port-A-Cath subsequently removal on 08/08/2023: Patient also has significant diarrhea. Abdomen is soft, nontender nondistended therefore I do not suspect significant colitis. ABG done in ED shows 7.61/22.9/110 on 4 L of oxygen interpretation reveals mild respiratory alkalosis as patient bicarb is 23 Twelve-lead EKG shows sinus rhythm 72 bpm, QRS 106 ms QT 552 ms history of prolonged QT. Patient is being admitted in PCU. Bronchodilator as needed with scheduled. On oxygen through nasal cannula. IV Zosyn and vancomycin. Patient has significant leukocytosis with slight improvement since yesterday. Immature granulocytes 1.1% mainly neutrophils 97%, lymphopenia 0.8%. Urinary antigens, stool for C. difficile and enteric bacteriology panel, COVID-19 PCR are negative. Blood cultures x2 are pending. Pulmonary consult reviewed and appreciated. ID consult requested. 2. Acute bilateral subsegmental nonocclusive pulmonary embolism:CTA individually reviewed and shows moderate volume nonocclusive acute pulmonary embolism involving most of the subsegmental pulmonary arteries with no evidence of right heart strain. 2D echo is ordered. Patient on IV heparin drip.: Venous duplex negative for bilateral lower extremity thrombosis. BNP ordered. 3. 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 Liver chemistry shows elevated alkaline phosphatase 249 , ALT and AST within normal limit. Total bilirubin normal but LDH significant high 423 suggestive of bony involvement and active tumor growth. Uric acid is low 1.6. It was 3.0 on 07/16/2023. Lactic acid 2.3. In the ED, the patient was administered pamidronate 90 mg IV x1, prednisone 100 mg oral, and allopurinol 200 mg oral. Oncology consultation reviewed and appreciated. Discussed with Dr. Cohen and he said patient was first seen by him on 06/28/2023 as consult. Tumor is clinically very aggressive, anaplastic, unresponsive to standard therapy and null cell (neither B-cell or T-cell) and relatively worse prognosis. Patient was planned to start systemic therapy in early August 2023 after he had central venous access on August 01 point that was removed on first admission developed. He said he also talked to the [facility] oncology colleague and he is not a candidate for any trial. We will continue allopurinol. And prednisone 100 mg daily for total of 5 days. Can repeat 1 more dose of pamidronic acid if patient is stable hypercalcemia of malignancy. But calcium is 10.9 today probably will not need it. #4. Acute kidney injury: Secondary to dehydration and acute presentation as noted. Admission BUN/Cr 50/1.76, prior baseline creatinine noted to be 0.8-1.1. Will hydrate, hold nephrotoxic medications and repeat chemistry in AM. If no improvement would plan FeNa and renal ultrasound assessment. #5. Electrolyte abnormality: Hypokalemia and hypercalcemia: Admission K+ 2.4, serum potassium low 2.6 after replacement. Serum magnesium 2.2, phosphorus 4.1. Serum calcium 13.8, improved to 10.9. #6. Anxiety and depression: Not on any chronic regimen, would benefit from continued outpatient evaluation and counseling if appropriate. #7. Tobacco Abuse: Encouraged cessation, inpatient consultation per RT, NR if desired. #8. GERD: We will continue patient home PPI. #9. Chronic right lower extremity lymphedema: Status post DVT ultrasound with no acute findings, will place snug Real with elevation if able to tolerate. #10. DVT prophylaxis: We will continue heparin drip as noted. #11. CODE status: Patient does not have from discussions healthcare power of lapel stitcher or living will but amenable to full interventions, will remain full code at this time. During discussions was able to answer questions appropriately although did take a significant mount of time but again this should be rediscussed once the above is treated acutely especially given his significant poor prognosis. Charges/Coding Addendum Addendum: Total time of the visit including total time spent in counseling or coordination of care, (more than 50% of the total time, spent in obtaining medical information from nurses and other ancillary care providers,explaining to the patient about labs, imaging, diagnosis and management of active complex medical conditions), discussion with multiple consultations ID, assistant professor of economics and oncologist, review of labs and imaging is 60 minutes. Visit Charges Inpatient E&M: 36052 [facility] Hosp L3
[2023-08-09 08:19] LABS: Partial Thromboplast Time 55.5 Seconds (24.1-36.2)
[2023-08-09] MEDS: Menthol/Lanolin/Calamine/Znox 113 GM Tube 1 APPLIC TOPICAL ×3 (09:00→20:05)
--- NOTE | 2023-08-09 09:17 | PCM.RX.CS ---
Consult Antibiotic Management Pharmacy has been consulted to manage selected antiobiotic: Vancomycin Type of Intervention Type of Consult: Follow-up Prior Doses of Antibiotics Prior Doses of Antibiotics Received/Current Regimen: Received 1000mg iv x 1 in ER and 1 x 500mg in PCU. Labs Labs: Sodium 140 mmol/L (136-145) 08/09/23 02:30 Potassium 2.6 mmol/L (3.5-5.1) L* 08/09/23 02:30 Chloride 115 mmol/L (98-107) H 08/09/23 02:30 Carbon Dioxide 19.0 mmol/L (21.0-32.0) L 08/09/23 02:30 Anion Gap 6 (5-15) 08/09/23 02:30 BUN 40 mg/dL (7-18) H 08/09/23 02:30 Creatinine 1.21 mg/dL (0.70-1.30) 08/09/23 02:30 Est GFR (MDRD) Af Amer 79 mL/min (>60) 08/09/23 02:30 Est GFR (MDRD) Non-Af 65 mL/min (>60) 08/09/23 02:30 BUN/Creatinine Ratio 33.1 RATIO (10-20) H 08/09/23 02:30 Glucose 103 mg/dL (74-106) 08/09/23 02:30 Microbiology Microbiology: Microbiology 08/08/23 23:45 Urine, Clean Catch Legionella Antigen - Final 08/08/23 23:45 Urine, Clean Catch Streptococcus pneumoniae Antigen (M - Final 08/08/23 22:53 Mucosa - Nose Coronavirus COVID-19 PCR - Final 08/08/23 17:55 Stool Enteric Bacteriology - Final 08/08/23 17:55 Stool C. difficile DNA Amplification - Final Dosing Weight Weight used for dosin.4 kg Estimated Creatinine Clearance Estimated Creatinine Clearance: 65ml/min Goal Trough Goal Trough: 15-20 mcg/mL Pharmacy Plan for Drug Dosing Pharmacy Plan for Drug Dosing: Renal function improved with Cr 1.2 and CrCl 65 today therefore recommend changing dose to 750mg iv q12h. Will start ~8hrs post 500mg dose this A.M. New trough ordered for tomorrow before 5th total dose. Pharmacy Service will continue to monitor and adjust dosing as required. Follow-Up Labs Follow-Up Labs: Trough: Vancomycin (11.3.23 @1430 before 1500 dose)
--- NOTE | 2023-08-09 09:39 | PCM.PN.SRG ---
Subjective Subjective Patient denies any pain at previous port site. Patient is currently on heparin for PE Objective Data Objective Data Vital Signs: Vital Signs Temp Pulse Resp BP Pulse Ox O2 Del Method O2 Flow Rate 98.3 F 71 18 98/57 L 98 Nasal Cannula 2 08/09/23 09:30 08/09/23 09:30 08/09/23 09:30 08/09/23 09:30 08/09/23 09:30 08/09/23 09:30 08/09/23 09:30 Oxygen Flow Rate (L/min) 2 Oxygen Delivery Method Nasal Cannula Weight: 159 lb 9.835 oz Body Mass Index (BMI) 23.6 Intake & Output: Intake and Output for Last 24 Hours 08/07/23 08/08/23 08/09/23 23:59 23:59 23:59 Intake Total 3322 / 4572 4496.08 / 4496.08 Output Total 250 / 250 Balance 3322 / 4572 4246.08 / 4246.08 Lab / Micro Data 08/09/23 02:30 08/09/23 02:30 Labs: Laboratory Results - last 24 hr 08/08/23 12:28: Procalcitonin 0.61 H 08/08/23 16:00: Lactic Acid 2.9 H*, Phosphorus 4.1, Magnesium 2.2, Total Bilirubin 0.50, Direct Bilirubin 0.14, AST 32, ALT 52, Alkaline Phosphatase 249 H, Lactate Dehydrogenase 423 H, Total Protein 7.0, Albumin 2.1 L, Globulin 4.9 H 08/08/23 17:22: PT 16.6 H 08/08/23 17:22: PT Cancelled, INR 1.3 08/08/23 17:22: INR Cancelled, APTT 45.8 H 08/08/23 17:50: Urine Color Yellow, Urine Clarity Clear, Urine pH 6.0, Ur Specific [place] 1.020, Urine Protein 15 H, Urine Glucose (UA) Normal, Urine Ketones Negative, Urine Occult Blood 250 H, Urine Nitrite Negative, Urine Bilirubin Negative, Urine Urobilinogen Normal, Ur Leukocyte Esterase 25 H, Urine RBC 0 SEEN, Urine WBC 0-5 SEEN, Ur Squamous Epith Cells 0-5 SEEN, Urine Bacteria 0 SEEN, Urine Mucus 0 SEEN 08/08/23 20:15: Lactic Acid 2.3 H* 08/09/23 02:30: WBC 16.9 H, RBC 3.63 L, Hgb 10.0 L, Hct 33.0 L, MCV 90.9, MCH 27.5, MCHC 30.3 L, RDW Std Deviation 63.9 H, RDW Coeff of Andrew 19.5 H, Plt Count 322, MPV 10.2, Immature Gran % (Auto) 1.100 H, Neut % (Auto) 97.2 H, Lymph % (Auto) 0.8 L, Jenkins % (Auto) 0.8, Eos % (Auto) 0.0, Baso % (Auto) 0.1, Absolute Neuts (auto) 16.5 H, Absolute Lymphs (auto) 0.13 L, Nucleated RBC % 0, Anisocytosis 2+, APTT 49.4 H, Sodium 140, Potassium 2.6 L*, Chloride 115 H, Carbon Dioxide 19.0 L, Anion Gap 6, BUN 40 H, Creatinine 1.21, Estim Creat Clear Calc 65.45, Est GFR (MDRD) Af Amer 79, Est GFR (MDRD) Non-Af 65, BUN/Creatinine Ratio 33.1 H, Glucose 103, Uric Acid 1.6 L, Calcium 10.9 H, Total Bilirubin 0.40, AST 22, ALT 39, Alkaline Phosphatase 196 H, Total Protein 5.2 L, Albumin 1.4 L, Globulin 3.8, Albumin/Globulin Ratio 0.4 L 08/09/23 06:18: APTT 55.5 H Micro: Microbiology 08/08/23 23:45 Urine, Clean Catch Legionella Antigen - Final 08/08/23 23:45 Urine, Clean Catch Streptococcus pneumoniae Antigen (M - Final 08/08/23 22:53 Mucosa - Nose Coronavirus COVID-19 PCR - Final 08/08/23 17:55 Stool Enteric Bacteriology - Final 08/08/23 17:55 Stool C. difficile DNA Amplification - Final ABG Data ABG results: ABG 08/08/23 17:07 Specimen Type ART Sample Site L Brach pH 7.61 H* Bicarbonate Actual 22.8 Total CO2 24 Base Excess 1 O2 Saturation 99 O2 % 4.0 ABG pCO2 22.9 L ABG pO2 110 H [place] Test Positive O2 Delivery Device Cannula Vent Mode Not entered Crit Call To/Read Back Yes Blood Gas Notified Whom cm Blood Gas Notified Time 17:09:53 Radiography Diagnostic Testing: Radiology Impression Venous Doppler Study 08/08/23 15:54 Interpretation Summary Deep veins of the right lower extremity are patent and compressible segmentally. There is no evidence of right lower extremity deep vein thrombosis. Valvular competence appears intact within the proximal deep venous system on the right . The right great saphenous vein appears patent and compressible segmentally. The left common femoral vein is patent and compressible . Ordering Physician: Srikanth Cm Referring Physician: Aninka Blake Performed By: Paige Zamora, RVT Chest X-Ray 08/08/23 16:25 IMPRESSION: Interval removal of right-sided chest port. Otherwise, no change from prior study. Electronically Signed: Ryan Britton MD at 17:25 EDT , Chest CTA 08/08/23 16:57 IMPRESSION: Moderate volume nonocclusive acute pulmonary emboli within most of the subsegmental pulmonary arteries. No evidence of right heart strain. Multiple irregular nodular lesions throughout the lungs, most of which show cavitation. This is concerning for septic emboli. Extensive mediastinal, bilateral hilar and upper abdominal lymphadenopathy consistent with known lymphoma. 7 mm lytic lesion in the left T11 vertebral body/pedicle with surrounding sclerosis. When correlating with recent PET/CT, this is most concerning for lymphomatous involvement of the spine. Refer to PET/CT report for more details. Electronically Signed: Ryan Britton MD at 19:21 EDT , ADDENDUM: 08/08/231958 IMPRESSION: Moderate volume nonocclusive acute pulmonary emboli within most of the subsegmental pulmonary arteries. No evidence of right heart strain. Multiple irregular nodular lesions throughout the lungs, most of which show cavitation. This is concerning for septic emboli. Extensive mediastinal, bilateral hilar and upper abdominal lymphadenopathy consistent with known lymphoma. 7 mm lytic lesion in the left T11 vertebral body/pedicle with surrounding sclerosis. When correlating with recent PET/CT, this is most concerning for lymphomatous involvement of the spine. Refer to PET/CT report for more details. N.B. : The above Results were Read Back by Ryan Britton MD to Gurpreet Valladares MD, and understanding confirmed on 08/08/2023 19:52:54 (ET). Electronically Signed: Ryan Britton MD at 19:21 EDT , Physical Exam Narrative Right chest incision healing well with 1 interrupted permanent sutures in place but incisions mostly open, minimal sanguinous drainage on dressing no signs of purulent material Const no apparent distress Assessment & Plan Assessment/Plan (1) Infection of venous access port: PLAN: Plan Port may have been mildly infected when removed no obvious purulent material was seen at removal or today. Port incision mostly open only with 1 simple interrupted nylon suture we will plan to remove suture in about a week. No further plans of intervention per general surgery. Call with any questions. Patient is frail and poor prognosis doubt he would make it or tolerate chemotherapy-- will have oncology contact us if they do think this is a possibility to have port replaced. Discussed with Shabnam Seymour with oncology. Na Layton M.D. Pager: [phone] [facility] [address] [place] [address], [facility], [address] [place] [address] Office: [phone] Charges/Coding Visit Charges Inpatient E&M: 38085 Subs Hosp L2
[2023-08-09] MEDS: Allopurinol 300 MG Tablet PO (10:02)
[2023-08-09] MEDS: Pantoprazole Sodium 20 MG Tablet PO (10:02)
[2023-08-09] MEDS: Acyclovir 200 MG Capsule 400 MG PO ×2 (10:02→20:04)
[2023-08-09] MEDS: predniSONE 20 MG Tablet 100 MG PO (10:02)
[2023-08-09 10:43] LABS: Partial Thromboplast Time 56.2 Seconds (24.1-36.2)
--- NOTE | 2023-08-09 10:54 | PCM.CONS.GEN ---
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 Bcx pending, port site cx pending. Resp pcr panel neg, cdiff neg, UAgs neg. Recent dx of lymphoma, not yet started on chemo. CT chest shows scattered cavitary disease. Had CT/PET done 08/07/23. Not producing sputum. Hep panel neg earlier this month, no HIV sent. Will check hiv, quantiferon, cryptococcal Ag, urine histo Ag, aspergillus Ag. Recommend bronch with aerobic/anaerobic/fungal/AFB if possible. TTE pending. Will consult speech therapy given his issues with dysphagia which could be possible source vs port vs opportunistic infection. On empiric vanc/zosyn. Will follow, thank you, d/w pulm. HPI Consult Data Date of Consult: 08/09/23 HPI Narrative Reason for Consultation: cavitary lung lesions HPI Narrative: MOJGAN CASTILLO, is a 57 M with anaplastic large cell lymphoma, not yet on chemo, had port placed 08/01 then removed 08/08 (the day of admit) for possible infection and surrounding erythema/dehiscence. Had several days of fever, chills, not feeling well, night sweats. No issues at port site. Occasional dry cough, no sputum. No abd pain, no n/v/d. CT showed multiple cavitary lesions. Denies any exposure to TB or (+) TB testing in the past. R groin line placed. Admitted on vanc/zosyn after initial unasyn. Feeling about the same this AM. Full ROS performed and neg except as noted above. 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 Anxiety B12 deficiency anemia Bone fracture Cellulitis Depression Diarrhea Dry skin dermatitis Encounter for education History of edema Hx of headache Hypercalcemia Infected venous access port Lymphadenopathy, abdominal Occasional tremors Smoker Wears dentures Home Medications allopurinol 300 mg tablet 300 mg PO DAILY #30 tabs 07/17/23 [Rx Last Taken Unknown] lidocaine-prilocaine 2.5 %-2.5 % topical cream 1 applic topical ONCE PRN port access 30 days #30 grams 07/17/23 [Rx Last Taken Unknown] omeprazole 20 mg capsule,delayed release 20 mg PO DAILY #30 caps 07/17/23 [Rx Last Taken Unknown] ondansetron 8 mg disintegrating tablet 8 mg PO Q8H PRN nausea and vomiting #30 tabs 07/17/23 [Rx Last Taken Unknown] sulfamethoxazole 400 mg-trimethoprim 80 mg tablet (Bactrim) 1 tab PO DAILY #30 tabs 07/17/23 [Rx Last Taken Unknown] acyclovir 400 mg tablet 400 mg PO BID anti viral 07/20/23 [History Last Taken Unknown] prednisone 50 mg tablet 100 mg (2 x 50 mg) PO DAILY 5 days #10 tabs 08/01/23 [Rx Last Taken Unknown] potassium chloride 20 mEq oral packet (Klor-Con) 20 meq PO DAILY potassium 08/09/23 [History Last Taken Unknown] Allergy/AdvReac Type Severity Reaction Status Date / Time No Known Allergies Allergy Verified 08/08/23 15:14 Family History (Updated 08/08/23 @ 20:[address] Ellen Marquez MD) Mother Heart disease Father Heart disease Alcohol abuse Surgical History H/O vascular surgery History of arthroplasty of right shoulder History of hernia repair Social History (Updated 08/08/23 @ 15:[address] Srikanth Cm MD) household members: none Smoking Status: Current every day smoker tobacco type: cigarettes alcohol intake: never substance use type: does not use what type of physical activity do you participate in: walking Physical Exam Const alert and no apparent distress General Appearance: lethargic HEENT normocephalic and head/scalp atraumatic HEENT Narrative: No thrush seen Eyes PERRL and EOMs intact bilaterally Neck supple and No nodes Resp clear to auscultation bilaterally Auscultation: diminished lung sounds Cardio regular rate, regular rhythm and no murmurs GI soft to palpation, non-tender and non-distended Extremity General Extremity: edema Skin Skin Narrative: R groin line. Suture in place over R chest former port site. Diffuse skin erythema and flaky/dryness. Neuro CN's II-XII intact bilaterally Lab / Micro Data Attestation: I reviewed the patient's lab results. 08/09/23 02:30 08/09/23 02:30 Labs: Laboratory Results - last 24 hr 08/08/23 12:28: Procalcitonin 0.61 H 08/08/23 16:00: Lactic Acid 2.9 H*, Phosphorus 4.1, Magnesium 2.2, Total Bilirubin 0.50, Direct Bilirubin 0.14, AST 32, ALT 52, Alkaline Phosphatase 249 H, Lactate Dehydrogenase 423 H, Total Protein 7.0, Albumin 2.1 L, Globulin 4.9 H 08/08/23 17:22: PT 16.6 H 08/08/23 17:22: PT Cancelled, INR 1.3 08/08/23 17:22: INR Cancelled, APTT 45.8 H 08/08/23 17:50: Urine Color Yellow, Urine Clarity Clear, Urine pH 6.0, Ur Specific [place] 1.020, Urine Protein 15 H, Urine Glucose (UA) Normal, Urine Ketones Negative, Urine Occult Blood 250 H, Urine Nitrite Negative, Urine Bilirubin Negative, Urine Urobilinogen Normal, Ur Leukocyte Esterase 25 H, Urine RBC 0 SEEN, Urine WBC 0-5 SEEN, Ur Squamous Epith Cells 0-5 SEEN, Urine Bacteria 0 SEEN, Urine Mucus 0 SEEN 08/08/23 20:15: Lactic Acid 2.3 H* 08/09/23 02:30: WBC 16.9 H, RBC 3.63 L, Hgb 10.0 L, Hct 33.0 L, MCV 90.9, MCH 27.5, MCHC 30.3 L, RDW Std Deviation 63.9 H, RDW Coeff of Andrew 19.5 H, Plt Count 322, MPV 10.2, Immature Gran % (Auto) 1.100 H, Neut % (Auto) 97.2 H, Lymph % (Auto) 0.8 L, [place] % (Auto) 0.8, Eos % (Auto) 0.0, Baso % (Auto) 0.1, Absolute Neuts (auto) 16.5 H, Absolute Lymphs (auto) 0.13 L, Nucleated RBC % 0, Anisocytosis 2+, APTT 49.4 H, Sodium 140, Potassium 2.6 L*, Chloride 115 H, Carbon Dioxide 19.0 L, Anion Gap 6, BUN 40 H, Creatinine 1.21, Estim Creat Clear Calc 65.45, Est GFR (MDRD) Af Amer 79, Est GFR (MDRD) Non-Af 65, BUN/Creatinine Ratio 33.1 H, Glucose 103, Uric Acid 1.6 L, Calcium 10.9 H, Total Bilirubin 0.40, AST 22, ALT 39, Alkaline Phosphatase 196 H, Total Protein 5.2 L, Albumin 1.4 L, Globulin 3.8, Albumin/Globulin Ratio 0.4 L 08/09/23 06:18: APTT 55.5 H 08/09/23 10:20: APTT 56.2 H Micro: Microbiology 08/08/23 22:53 Mucosa - Nasopharyngeal Respiratory Panel (PCR) - Final 08/08/23 23:45 Urine, Clean Catch Legionella Antigen - Final 08/08/23 23:45 Urine, Clean Catch Streptococcus pneumoniae Antigen (M - Final 08/08/23 22:53 Mucosa - Nose Coronavirus COVID-19 PCR - Final 08/08/23 17:55 Stool Enteric Bacteriology - Final 08/08/23 17:55 Stool C. difficile DNA Amplification - Final ABG Data ABG results: ABG 08/08/23 17:07 Specimen Type ART Sample Site L Brach pH 7.61 H* Bicarbonate Actual 22.8 Total CO2 24 Base Excess 1 O2 Saturation 99 O2 % 4.0 ABG pCO2 22.9 L ABG pO2 110 H [place] Test Positive O2 Delivery Device Cannula Vent Mode Not entered Crit Call To/Read Back Yes Blood Gas Notified Whom cm Blood Gas Notified Time 17:09:53 Radiology Impression Venous Doppler Study 08/08/23 15:54 Interpretation Summary Deep veins of the right lower extremity are patent and compressible segmentally. There is no evidence of right lower extremity deep vein thrombosis. Valvular competence appears intact within the proximal deep venous system on the right . The right great saphenous vein appears patent and compressible segmentally. The left common femoral vein is patent and compressible . Ordering Physician: Srikanth Cm Referring Physician: Annika Blake Performed By: Paige Zamora, RVT Chest X-Ray 08/08/23 16:25 IMPRESSION: Interval removal of right-sided chest port. Otherwise, no change from prior study. Electronically Signed: Ryan Britton MD at 17:25 EDT , Chest CTA 08/08/23 16:57 IMPRESSION: Moderate volume nonocclusive acute pulmonary emboli within most of the subsegmental pulmonary arteries. No evidence of right heart strain. Multiple irregular nodular lesions throughout the lungs, most of which show cavitation. This is concerning for septic emboli. Extensive mediastinal, bilateral hilar and upper abdominal lymphadenopathy consistent with known lymphoma. 7 mm lytic lesion in the left T11 vertebral body/pedicle with surrounding sclerosis. When correlating with recent PET/CT, this is most concerning for lymphomatous involvement of the spine. Refer to PET/CT report for more details. Electronically Signed: Ryan Britton MD at 19:21 EDT , ADDENDUM: 08/08/231958 IMPRESSION: Moderate volume nonocclusive acute pulmonary emboli within most of the subsegmental pulmonary arteries. No evidence of right heart strain. Multiple irregular nodular lesions throughout the lungs, most of which show cavitation. This is concerning for septic emboli. Extensive mediastinal, bilateral hilar and upper abdominal lymphadenopathy consistent with known lymphoma. 7 mm lytic lesion in the left T11 vertebral body/pedicle with surrounding sclerosis. When correlating with recent PET/CT, this is most concerning for lymphomatous involvement of the spine. Refer to PET/CT report for more details. N.B. : The above Results were Read Back by Ryan Britton MD to Gurpreet Valladares MD, and understanding confirmed on 08/08/2023 19:52:54 (ET). Electronically Signed: Ryan Britton MD at 19:21 EDT ,
[2023-08-09 10:59] LABS: Anion Gap 6 (5-15); BUN 37 mg/dL (7-18); BUN/Creat Ratio 29.4 RATIO (10-20); Calcium,Total 11.2 mg/dL (8.5-10.1); Chloride 114 mmol/L (98-107); Creatinine, Serum 1.26 mg/dL (0.70-1.30); EST Glomerular Filtration Rate 62 mL/min (>60); Est Glom Filt Rate - Afr Amer 75 mL/min (>60); Estimated Creatinine Clearance 63.13 ml/min; Glucose 94 mg/dL (74-106); Potassium 2.8 mmol/L (3.5-5.1); Sodium Level 141 mmol/L (136-145)
--- NOTE | 2023-08-09 11:35 | CASEMGMT ---
RN?CM?SIGNAL OPERATOR?CM?to room to meet with patient for initial transition planning/care coordination?assessment.?RN?CM?introduced self and role at [facility].? Pt voices understanding and consents to?assessment?at this time.? Pt resting in bed in no distress at this time.? Pt is A/O at this time and answers all questions appropriately.?? Care providers, pharmacy, and demographics verified/updated at this time. PCP: Dr Annika Blake Specialists: Dr Macias-oncology Preferred Pharmacy: [facility] Insurance: [place] Prescription Benefit:?Yes LNOK: Friend, Shorty. Brother, Pino Balderrama. [id number], Alexus Balderrama Living Arrangements: Lives alone. Was working full-time up until about 3-4 weeks ago. Has been indep w/ADL's and IADL's and was able to go to the store to get his groceries, but pt states, That's going to have to come to a halt, stating he has been getting weaker and it is more difficult to get around. he states his friend, Shorty, can assist w/getting groceries. Transportation:?Pt states he has not really been driving much. Shorty has been taking him to his appts and can take him home @ discharge. DME: ? Denies using any DME. Pt does not have home O2 or a pulse ox. Discussed local DME companies available, pt denies having any preference, made aware [employer] is affiliated w/[facility], and he states is okay w/[facility]. He states his finances are tight d/t not being able to work and could use a pulse ox @ discharge. [employer] ALISHA, Paige, made aware. HHC/SNF: No hx of either. Pt states he wishes to discharge home, if able, but states he has not been OOB yet and he has been weak. PT/OT evals pending. CM?to follow for any further discharge planning/needs.? Pt voices no further concerns/needs at this time.? Advised pt to ask for?CM?if any further questions/concerns/needs arise.? Voices understanding. PLAN:??TBD by course of treatment and progress w/therapy. PT/OT evals pending. Jax BSN?RN?CM
[2023-08-09 12:14] LABS: HIV - WCH Non-Reactive (Nonreactive)
--- NOTE | 2023-08-09 12:52 | ONC.CONSULT ---
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 Systemic ALCL tend to be clinically aggressive, unresponsive to standard therapy and relatively worse prognosis compared to other types of lymphoma. Standard treatment includes an induction phase with an aggressive combination chemo immune therapy (brentuximab-Vedoti, cyclophosphamide, doxorubicin and prednisone) in attempt to induce remission of the disease but is not curative and is to be followed by high-dose chemotherapy and autologous bone marrow transplant. The patient was tentatively planned to start his systemic therapy in early August 2023 (after a short delay when patient forgot to attend his initial staging PET/CT and echo). He had a central venous access placed August 01, 2023 but that had to be urgently removed August 08, 2023 due to port infection. His systemic treatment for the aggressive lymphoma will have to be put on an indefinite hold at this time while attempting to control infection and other acute medical illnesses. As a temporizing measure advised giving a palliative 5-day course of oral prednisone 100 mg daily and continue allopurinol 300 Mg daily for tumor lysis prophylaxis. (2) Pulmonary embolism: Status: Acute Code(s): I26.99 - Other pulmonary embolism without acute cor pulmonale Qualifiers: Pulmonary embolism type: multiple subsegmental (without acute cor pulmonale) Qualified Code(s): I26.94 - Multiple subsegmental pulmonary emboli without acute cor pulmonale Plan: Most consistent with malignancy induced hypercoagulability, long-term systemic anticoagulation is indicated. While undergoing evaluation that includes invasive procedures use heparin for easy reversibility and switch to an oral agent later when the patient becomes medically stable and does not require any more invasive procedures. (3) Infection of venous access port: Status: Acute Code(s): T80.219A - Unspecified infection due to central venous catheter, initial encounter Plan: Port was removed August 08, 2023, cultures were obtained and infectious disease is overseeing antibiotic use (4) Cavitary lung disease: Status: Acute Code(s): J98.4 - Other disorders of lung Plan: Concern for septic embolism, opportunistic infections and less likely lymphomatous involvement. ID and pulmonary consulted (5) Acute prerenal azotemia: Status: Acute Code(s): N19 - Unspecified kidney failure Plan: Improving with IV hydration (6) Hypokalemia: Status: Acute Code(s): E87.6 - Hypokalemia Plan: On replacement (7) Lymphedema: Status: Acute Code(s): I89.0 - Lymphedema, not elsewhere classified (8) Hypercalcemia: Status: Acute Code(s): E83.52 - Hypercalcemia Plan: Received pamidronate August 08, 2023, improving, continue support with IV fluids and to 5 days prednisone will help in control (9) B12 deficiency anemia: Status: Chronic Code(s): D51.9 - Vitamin B12 deficiency anemia, unspecified Qualifiers: Vitamin B12 deficiency anemia type: unspecified B12 deficiency Qualified Code(s): D51.9 - Vitamin B12 deficiency anemia, unspecified Plan: Recently diagnosed, patient received initial loading with B12 injections. His next dose is due Sunday, August 13, 2023. (10) Rash: Status: Acute Code(s): R21 - Rash and other nonspecific skin eruption Plan: Diffuse erythema and dryness of the skin, I reviewed my prior physical exam and it predates use of vancomycin and therefore I believe it may be related to his lymphoma possible skin involvement rather than vancomycin red man syndrome. HPI Consult Data Date of Service:: 08/09/23 PCP / Referring Provider: Dr. Annika Blake MD Attending: Dr. Isaac Jasso MD Chief Complaint Chief Complaint: Port infection History of Present Illness History of Present Illness: 57-year-old male hospitalized through the emergency room with multiple acute medical problems (port infection, hypotension, ZUNILDA, malignant hypercalcemia, acute pulmonary embolism, possible septic embolism with cavitary lung lesions) on top of a newly diagnosed aggressive lymphoma and a rapid downhill course since June 2023. He was also recently diagnosed with B12 deficiency anemia and was started on B12 replacement by injection. The Hematologic oncologic aspect of his illness presented in June 2023 with a few months history of increasing edema of the lower body. June 27, 2023 CT abdomen and pelvis: IMPRESSION: 1. Bulky periaortic/retroperitoneal lymphadenopathy is present starting in the mid abdominal region and extending down into the right deep pelvic sidewall and inguinal fossa where the lymph nodes are markedly enlarged measuring up to 3.78 cm in diameter. There is also inflammatory stranding surrounding the lymph nodes in the right pelvic sidewall and inguinal regions consistent with underlying inflammation/infection, however no abscess of the abdomen or pelvis is seen. Possible vasculitis or periaortitis can be considered. 2. Although not favored as the primary consideration. Close follow-up and ultimately lymph node biopsy may be required to exclude malignancy. Lymphoma should be excluded 3. Mild to moderate subcutaneous edema is present in lower anterior pelvic wall in bilateral inguinal regions, as well as dependent edema and fluid has caused mild to moderate swelling of the right hip and upper thigh region. No visualized edema or swelling or abscess is seen in the right pelvic, hip, or upper thigh muscles. No lytic or blastic lesion is seen in the bony structures. 4. Mild fluid field bowel loops likely due to nonspecified enteritis or ileus. No demonstrated small bowel obstruction or free air or free fluid. No inflammatory stranding is seen around the bowel loops. June 29, 2023 right pelvic lymph node, core biopsy: CD30 positive large cell neoplasm, favor anaplastic large cell lymphoma (ALK negative), null cell type ANTIBODY / CLONE RESULT AE1-3 (AE1/AE3/PCK26) negative CK8 ([id number]) negative CD45 (RP2/18) negative Vimentin (V9) positive Melan A (A103) negative S-100 (4C4.9) negative CD3 (PS1) negative CD5 (SP10) negative CD10 (56C6) negative CD15 (MMA) positive CD20 (L26) negative CD23 (1B12) negative CD30 (Yung-H2) positive, strong CD43 (L60) negative CD79a (11E3) negative BCL-2 (bcl-2/100/D5) negative BCL-6 (ZG130X/A8) positive, subset Cyclin D1/BCL-1 (SP4) negative MUM1 (MRQ-43) positive C-MYC (Y69) positive MPO (polyclonal) negative The flow cytometry was nondiagnostic. August 01, 2023 had an ultrasound and fluoroscopy guided right chest port placement in preparation for systemic therapy PET/CT August 07, 2023 initial staging: IMPRESSION: 1. ABNORMAL EXAMINATION INDICATIVE OF MALIGNANT-VIABLE NEOPLASM. 2. Increased radiopharmaceutical concentration noted in the bilateral anterior lateral neck, the right pharyngeal mucosal space, the right and left retropectoral, right axillary, and bilateral retroclavicular regions, the mediastinal structures, both lung harmon, the abdominal retroperitoneum and pelvis, and bilateral inguinal lymph node basins fulfill quantitative criteria for viable neoplasm. (Debra, et al, Journal of Clinical Oncology, 32: 3059, 2014). 3. Facilitated uptake noted in the osseous skeletal structures fulfills quantitative criteria for viable neoplasm. (Suri et al, Clinical Nuclear Medicine, 29:161, 2004). 4. Facilitated FDG concentration manifest within the splenic parenchyma fulfills quantitative criteria for viable splenic neoplasm. (Isabel et al., Journal of Nuclear Medicine 44:1072, 2004). August 08, 2023 CTA: IMPRESSION: Moderate volume nonocclusive acute pulmonary emboli within most of the subsegmental pulmonary arteries. No evidence of right heart strain. Multiple irregular nodular lesions throughout the lungs, most of which show cavitation. This is concerning for septic emboli. Extensive mediastinal, bilateral hilar and upper abdominal lymphadenopathy consistent with known lymphoma. 7 mm lytic lesion in the left T11 vertebral body/pedicle with surrounding sclerosis. When correlating with recent PET/CT, this is most concerning for lymphomatous involvement of the spine. Refer to PET/CT report for more details. August 08, 2023 venous Doppler lower extremities: Negative for DVT. Advanced Directives Power of Departmental Secretary: No Living Will: No PFSH Medical History 2+ pitting edema AC separation Alcohol use Anaplastic ALK-negative large cell lymphoma Anxiety B12 deficiency anemia Bone fracture Cellulitis Depression Diarrhea Dry skin dermatitis Encounter for education History of edema Hx of headache Hypercalcemia Infected venous access port Lymphadenopathy, abdominal Occasional tremors Smoker Wears dentures Home Medications allopurinol 300 mg tablet 300 mg PO DAILY #30 tabs 07/17/23 [Rx Last Taken Unknown] lidocaine-prilocaine 2.5 %-2.5 % topical cream 1 applic topical ONCE PRN port access 30 days #30 grams 07/17/23 [Rx Last Taken Unknown] omeprazole 20 mg capsule,delayed release 20 mg PO DAILY #30 caps 07/17/23 [Rx Last Taken Unknown] ondansetron 8 mg disintegrating tablet 8 mg PO Q8H PRN nausea and vomiting #30 tabs 07/17/23 [Rx Last Taken Unknown] sulfamethoxazole 400 mg-trimethoprim 80 mg tablet (Bactrim) 1 tab PO DAILY #30 tabs 07/17/23 [Rx Last Taken Unknown] acyclovir 400 mg tablet 400 mg PO BID anti viral 07/20/23 [History Last Taken Unknown] prednisone 50 mg tablet 100 mg (2 x 50 mg) PO DAILY 5 days #10 tabs 08/01/23 [Rx Last Taken Unknown] potassium chloride 20 mEq oral packet (Klor-Con) 20 meq PO DAILY potassium 08/09/23 [History Last Taken Unknown] Allergy/AdvReac Type Severity Reaction Status Date / Time No Known Allergies Allergy Verified 08/08/23 15:14 Family History (Updated 08/08/23 @ 20:[address] Ellen Marquez MD) Mother Heart disease Father Heart disease Alcohol abuse Surgical History H/O vascular surgery History of arthroplasty of right shoulder History of hernia repair Social History (Updated 08/08/23 @ 15:[address] Srikanth Wisdom MD) household members: none Smoking Status: Current every day smoker tobacco type: cigarettes alcohol intake: never substance use type: does not use what type of physical activity do you participate in: walking ROS ROS Narrative Limited by the patient's mental status; records reviewed Constitutional Constitutional: Reports fatigue, poor appetite and weight loss; Denies fever(s) Cardiovascular Cardiovascular: Reports dyspnea on exertion and edema; Denies chest pain Respiratory/Chest Respiratory/Chest: Denies hemoptysis Gastrointestinal Gastrointestinal: Denies change in bowel habits, hematochezia or melena Musculoskeletal Musculoskeletal: Reports extremity pain Integumentary Integumentary: Reports rash Neurologic Neurologic: Reports other Details: forgetfulness noted (missed 1 PET/CT appointment, missed an echo appointment) ; Denies focal weakness or headache(s) Hematologic/Lymphatic Hematologic/Lymphatic: Reports lymphadenopathy and other Details: Gross edema of the lower extremity Physical Exam Narrative ECOG 3 Const General Appearance: ill appearing Positive for chronically, frail, appears older than stated age, grossly edematous and other Grossly edematous waist down Orientation / Consciousness: oriented to person and oriented to place; Negative for oriented to time HEENT Mouth: dry mucous membranes Eyes no scleral icterus Neck no JVD General: lymphadenopathy other (Generalized lymphadenopathy) Lymph Lymphatic: lymphedema severe and non-pitting Lymphatic Narrative: Lower extremity Cardio regular rate and regular rhythm GI soft to palpation and non-tender Skin General Skin Exam: dry skin and erythema Neuro moves all extremities and no focal motor deficits Psych cooperative Psych Narrative: Patient appeared tired, kept his eyes shut most of the exam but opened to command and followed other verbal commands appropriately Vital Signs Temperature 98.3 F 08/09/23 09:30 Temperature Source Oral 08/09/23 09:30 Pulse Rate 71 08/09/23 09:30 Pulse Strength Normal (2+) 08/09/23 08:43 Respiratory Rate 18 08/09/23 09:30 Respiratory Effort Normal, Non-Labored 08/09/23 08:01 Respiratory Depth Normal 08/09/23 08:01 Respiratory Pattern Normal 08/09/23 08:01 Blood Pressure 98/57 L 08/09/23 09:30 Blood Pressure Mean 70 08/09/23 09:30 Blood Pressure Source Monitor 08/09/23 09:30 Blood Pressure Position Semi-Fowlers 08/09/23 09:30 Blood Pressure Location Left Arm 08/09/23 09:30 Pulse Ox 98 08/09/23 09:30 Oxygen Delivery Method Nasal Cannula 08/09/23 09:30 Oxygen Flow Rate (L/min) 2 08/09/23 09:30 Laboratory Results - last 24 hr 08/08/23 12:28: Procalcitonin 0.61 H 08/08/23 16:00: Lactic Acid 2.9 H*, Phosphorus 4.1, Magnesium 2.2, Total Bilirubin 0.50, Direct Bilirubin 0.14, AST 32, ALT 52, Alkaline Phosphatase 249 H, Lactate Dehydrogenase 423 H, Total Protein 7.0, Albumin 2.1 L, Globulin 4.9 H 08/08/23 17:22: PT 16.6 H 08/08/23 17:22: PT Cancelled, INR 1.3 08/08/23 17:22: INR Cancelled, APTT 45.8 H 08/08/23 17:50: Urine Color Yellow, Urine Clarity Clear, Urine pH 6.0, Ur Specific [place] 1.020, Urine Protein 15 H, Urine Glucose (UA) Normal, Urine Ketones Negative, Urine Occult Blood 250 H, Urine Nitrite Negative, Urine Bilirubin Negative, Urine Urobilinogen Normal, Ur Leukocyte Esterase 25 H, Urine RBC 0 SEEN, Urine WBC 0-5 SEEN, Ur Squamous Epith Cells 0-5 SEEN, Urine Bacteria 0 SEEN, Urine Mucus 0 SEEN 08/08/23 20:15: Lactic Acid 2.3 H* 08/09/23 02:30: WBC 16.9 H, RBC 3.63 L, Hgb 10.0 L, Hct 33.0 L, MCV 90.9, MCH 27.5, MCHC 30.3 L, RDW Std Deviation 63.9 H, RDW Coeff of Andrew 19.5 H, Plt Count 322, MPV 10.2, Immature Gran % (Auto) 1.100 H, Neut % (Auto) 97.2 H, Lymph % (Auto) 0.8 L, [place] % (Auto) 0.8, Eos % (Auto) 0.0, Baso % (Auto) 0.1, Absolute Neuts (auto) 16.5 H, Absolute Lymphs (auto) 0.13 L, Nucleated RBC % 0, Anisocytosis 2+, APTT 49.4 H, Sodium 140, Potassium 2.6 L*, Chloride 115 H, Carbon Dioxide 19.0 L, Anion Gap 6, BUN 40 H, Creatinine 1.21, Estim Creat Clear Calc 65.45, Est GFR (MDRD) Af Amer 79, Est GFR (MDRD) Non-Af 65, BUN/Creatinine Ratio 33.1 H, Glucose 103, Uric Acid 1.6 L, Calcium 10.9 H, Total Bilirubin 0.40, AST 22, ALT 39, Alkaline Phosphatase 196 H, Total Protein 5.2 L, Albumin 1.4 L, Globulin 3.8, Albumin/Globulin Ratio 0.4 L, HIV 1&2 Antibody Non-Reactive 08/09/23 06:18: APTT 55.5 H 08/09/23 10:20: APTT 56.2 H, Sodium 141, Potassium 2.8 L, Chloride 114 H, Carbon Dioxide 21.0, Anion Gap 6, BUN 37 H, Creatinine 1.26, Estim Creat Clear Calc 63.13, Est GFR (MDRD) Af Amer 75, Est GFR (MDRD) Non-Af 62, BUN/Creatinine Ratio 29.4 H, Glucose 94, Calcium 11.2 H Microbiology 08/08/23 22:53 Mucosa - Nasopharyngeal Respiratory Panel (PCR) - Final 08/08/23 23:45 Urine, Clean Catch Legionella Antigen - Final 08/08/23 23:45 Urine, Clean Catch Streptococcus pneumoniae Antigen (M - Final 08/08/23 22:53 Mucosa - Nose Coronavirus COVID-19 PCR - Final 08/08/23 17:55 Stool Enteric Bacteriology - Final 08/08/23 17:55 Stool C. difficile DNA Amplification - Final Diagnostic Data Venous Doppler Study 08/08/23 15:54 Interpretation Summary Deep veins of the right lower extremity are patent and compressible segmentally. There is no evidence of right lower extremity deep vein thrombosis. Valvular competence appears intact within the proximal deep venous system on the right . The right great saphenous vein appears patent and compressible segmentally. The left common femoral vein is patent and compressible . Ordering Physician: Srikanth Wisdom Referring Physician: Annika Blake Performed By: Paige Zamora, T Chest X-Ray 08/08/23 16:25 IMPRESSION: Interval removal of right-sided chest port. Otherwise, no change from prior study. Electronically Signed: Ryan Britton MD at 17:25 EDT , Chest CTA 08/08/23 16:57 IMPRESSION: Moderate volume nonocclusive acute pulmonary emboli within most of the subsegmental pulmonary arteries. No evidence of right heart strain. Multiple irregular nodular lesions throughout the lungs, most of which show cavitation. This is concerning for septic emboli. Extensive mediastinal, bilateral hilar and upper abdominal lymphadenopathy consistent with known lymphoma. 7 mm lytic lesion in the left T11 vertebral body/pedicle with surrounding sclerosis. When correlating with recent PET/CT, this is most concerning for lymphomatous involvement of the spine. Refer to PET/CT report for more details. Electronically Signed: Ryan Britton MD at 19:21 EDT , ADDENDUM: 08/08/231958 IMPRESSION: Moderate volume nonocclusive acute pulmonary emboli within most of the subsegmental pulmonary arteries. No evidence of right heart strain. Multiple irregular nodular lesions throughout the lungs, most of which show cavitation. This is concerning for septic emboli. Extensive mediastinal, bilateral hilar and upper abdominal lymphadenopathy consistent with known lymphoma. 7 mm lytic lesion in the left T11 vertebral body/pedicle with surrounding sclerosis. When correlating with recent PET/CT, this is most concerning for lymphomatous involvement of the spine. Refer to PET/CT report for more details. N.B. : The above Results were Read Back by Ryan Britton MD to Gurpreet Valladares MD, and understanding confirmed on 08/08/2023 19:52:54 (ET). Electronically Signed: Ryan Britton MD at 19:21 EDT ,
[2023-08-09] MEDS: 0.9% Saline Lock 10 ML Syringe IV (14:49)
[2023-08-09] MEDS: DiphenhydrAMINE 50 MG/ML Syringe 25 MG IV (15:09)
[2023-08-09] MEDS: Vancomycin HCl 750 MG in 0.9% Normal Saline (250mL Bag) 250 ML 250 MG IV (15:09)
[2023-08-09 15:29] LABS: BNP,B-Type NATRIURETIC PEPTIDE 121.8 pg/mL (0-100)
[2023-08-09] MEDS: Albuterol 2.5 MG/3 ML VIAL.NEB. INHALATION (15:38)
[2023-08-09] MEDS: HEPARIN/D5w 25,000 UNITS 25,000 UNITS/250 ML IV.SOLN. 12 UNITS CONT INF (19:52)
[2023-08-09] MEDS: Potassium Chloride 10mEq/100mL 10 MEQ/100 ML IV.SOLN. 100 MEQ IV BOLUS (23:02)
[2023-08-09] MEDS: 0.9 % NaCl (Sterile) Posiflush 10 mL IV (23:03)
[2023-08-10] VITALS (13 sets, daily range): BP systolic 81–104; BP diastolic 53–60; PULSE 50–80; RESP 14–20; TEMP 35.8–36.8; O2SAT 2–100; BMI 23.8; BMI 24.2
[2023-08-10] MEDS: Potassium Chloride 10mEq/100mL 10 MEQ/100 ML IV.SOLN. 100 MEQ IV BOLUS ×7 (00:18→22:07)
[2023-08-10 00:38] LABS: Partial Thromboplast Time 54.2 Seconds (24.1-36.2)
[2023-08-10] MEDS: Heparin Injection (Vial) 5,000 UNIT/ML VIAL IV ×2 (00:50→14:52)
[2023-08-10] MEDS: Vancomycin HCl 750 MG in 0.9% Normal Saline (250mL Bag) 250 ML 250 MG IV ×2 (03:07→17:51)
[2023-08-10] MEDS: DiphenhydrAMINE 50 MG/ML Syringe 25 MG IV (03:08)
[2023-08-10] MEDS: 0.9% Normal Saline (1000mL) 1,000 ML 150 ML IV ×3 (04:57→16:38)
[2023-08-10] MEDS: Piperacil/Tazobactam 3.375 GM in 0.9% Normal Saline (50mL MB+) 50 ML IV ×3 (05:47→22:06)
--- NOTE | 2023-08-10 06:48 | PN.CC_ITS ---
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 Continue antimicrobials per ID recommendations. Plan for bronchoscopy with BAL today. 2. Continue supplemental IV fluid hydration, corticosteroids and allopurinol per oncology. 3. Continue heparin infusion for now. 4. Supplemental oxygen, if needed, to maintain saturations at or above 90%. 5. Encourage incentive spirometer use and mobilize patient as tolerated. IMPRESSIONS: 1. Questionable pulmonary septic emboli CT imaging of the chest demonstrated bilateral cavitary nodular densities, with concern for septic emboli versus metastatic deposits. The patient just had his chest port removed over concerns for an infection. Cultures are currently pending. The patient is hemodynamically stable and maintaining appropriate oxygen saturations on room air. The patient will be continued on antimicrobials under the discretion of infectious diseases. Bronchoscopy will be performed this morning. Continue current supportive measures, pending the outcome of his infectious work-up. Continue heparin infusion given nonocclusive clots noted in subsegmental pulmonary arteries. The patient is otherwise stable from a pulmonary perspective. 2. Acute kidney injury Most likely prerenal in etiology. Creatinine has improved with volume expansion. Continue supplemental IV fluid hydration as ordered. Continue to monitor urine output. No indication for renal replacement therapy. 3. Metastatic anaplastic large cell lymphoma/hypercalcemia Continue medical management per oncology recommendations. 4. History of tobacco dependency, in remission/GERD/anxiety/depression Complicates care, management, recovery and prognosis. Continue home medications as indicated. This note was generated with [employer] dictation software. It may contain incorrect words, spelling, and punctuation that were not noted in checking the note before signing. Subjective Subjective The patient was seen and examined at the bedside this morning. Events from the last 24 hours have been reviewed. The patient is currently afebrile, hemodynamically stable and maintaining appropriate oxygen saturations on room air. No overnight issues were identified. The patient is agreeable to proceed with bronchoscopy this morning. White count is elevated at 21,000. Objective Data Objective Data The patient's most recent lab work, culture data and imaging studies have all been personally reviewed. Blood cultures are currently pending. Vital Signs: Vital Signs Temp Pulse Resp BP Pulse Ox O2 Del Method O2 Flow Rate 98.3 F 76 18 100/56 L 100 Nasal Cannula 2 08/10/23 04:00 08/10/23 04:00 08/10/23 04:00 08/10/23 04:00 08/10/23 04:00 08/10/23 04:00 08/10/23 04:00 Oxygen Flow Rate (L/min) 2 Oxygen Delivery Method Nasal Cannula Weight: 161 lb 9.581 oz Body Mass Index (BMI) 23.8 Intake & Output: Intake and Output for Last 24 Hours 08/08/23 08/09/23 08/10/23 23:59 23:59 23:59 Intake Total 3322 / 4572 8624.25 / 8624.25 1709.2 / 1709.2 Output Total 250 / 350 300 / 300 Balance 3322 / 4572 8374.25 / 8274.25 1409.2 / 1409.2 Lab / Micro Data Attestation: I reviewed the patient's lab results. 08/10/23 06:44 08/10/23 06:44 Labs: Laboratory Results - last 24 hr 08/08/23 23:45: Miscellaneous Test Cancelled 08/09/23 02:03: B-Natriuretic Peptide 121.8 H 08/09/23 02:30: HIV 1&2 Antibody Non-Reactive 08/09/23 06:18: APTT 55.5 H 08/09/23 10:20: APTT 56.2 H, Sodium 141, Potassium 2.8 L, Chloride 114 H, Carbon Dioxide 21.0, Anion Gap 6, BUN 37 H, Creatinine 1.26, Estim Creat Clear Calc 63.13, Est GFR (MDRD) Af Amer 75, Est GFR (MDRD) Non-Af 62, BUN/Creatinine Ratio 29.4 H, Glucose 94, Calcium 11.2 H 08/09/23 16:25: APTT 50.0 H 08/09/23 23:59: APTT 54.2 H Micro: Microbiology 08/08/23 22:53 Mucosa - Nasopharyngeal Respiratory Panel (PCR) - Final 08/08/23 23:45 Urine, Clean Catch Legionella Antigen - Final 08/08/23 23:45 Urine, Clean Catch Streptococcus pneumoniae Antigen (M - Final 08/08/23 22:53 Mucosa - Nose Coronavirus COVID-19 PCR - Final 08/08/23 17:55 Stool Enteric Bacteriology - Final 08/08/23 17:55 Stool C. difficile DNA Amplification - Final Radiography Diagnostic Testing: Radiology Impression Echocardiogram 08/08/23 22:11 Interpretation Summary The estimated ejection fraction is 65 %. No evidence for diastolic dysfunction. The left atrium is mildly enlarged. Ordering Physician: Ellen Marquez Referring Physician: Catie Tiwari Performed By: Annamaria Maciel, ZENON, RVT Physical Exam Const alert and no apparent distress General Appearance: cooperative and lethargic HEENT normocephalic and head/scalp atraumatic Eyes PERRL, EOMs intact bilaterally and conjunctivae normal Neck supple General: trachea midline Chest inspection of chest normal Resp normal respiratory effort Auscultation: Negative for rales, rhonchi or wheezes Cardio regular rate and regular rhythm GI normal to inspection, nondistended, normoactive bowel sounds Extremity Extremity Narrative: Wrapped lower extremities. General Extremity: edema bilateral lower extremity Skin no rashes or lesions noted Neuro CN's II-XII intact bilaterally, moves all extremities and no focal motor deficits Psych Mood & Affect: flat affect Charges/Coding Visit Charges Inpatient E&M: 86415 Subs Hosp L2
[2023-08-10] MEDS: Budesonide Respules 0.5 MG/2 ML AMPUL.NEB. INHALATION (07:11)
[2023-08-10 07:22] LABS: Absolute Lymphocyte Count 0.15 X10^3/uL (0.83-4.51); Absolute Neutrophil Count 20.5 X10^3/uL (2.0-7.7); Basophil# 0.02 X10^3/uL; Basophil% 0.1 % (0-1); Hematocrit 33.2 % (40-54); Hemoglobin 10.4 g/dL (13.0-16.5); Lymphocyte # 0.15 X10^3/ul (0.83-4.51); Lymphocyte % 0.7 % (19-41); Mean Corp Hgb Conc 31.3 g/dL (32-36); Mean Corpuscular Hgb 27.8 pg (27.0-32.0); Mean Corpuscular Volume 88.8 fL (80-94); Mean Platelet Vol. 10.4 fl (6.2-12.0); Monocyte# 0.46 X10^3/uL; Monocyte% 2.2 % (0-10); NRBC Flagged by Analyzer 0 % (0-5); Neutrophil # 20.49 X10^3/uL (2.7-7.7); Neutrophil % 96.4 % (47-70); POSITIVE DIFFERENTIAL YES; POSITIVE MORPHOLOGY YES; Platelet Count 321 K/mm3 (150-450); RBC Distribution Width CV 20.1 % (11.6-14.6); RBC Distribution Width SD 64.1 fl (35.1-43.9); Red Blood Count 3.74 M/mm3 (4.6-6.2); White Blood Count 21.2 K/mm3 (4.4-11.0)
[2023-08-10 07:28] LABS: Differential Indicated SCAN CRITERIA MET
[2023-08-10 08:06] LABS: ALB/GLOB Ratio 0.4 RATIO (0.9-2.4); AST(SGOT) 14 U/L (15-37); Alanine Aminotransfer ALT/SGPT 31 U/L (16-61); Albumin, Serum 1.3 g/dL (3.2-5.0); Alkaline Phosphatase 170 U/L (45-117); Anion Gap 7 (5-15); BUN 30 mg/dL (7-18); BUN/Creat Ratio 30.5 RATIO (10-20); Calcium,Total 9.7 mg/dL (8.5-10.1); Chloride 116 mmol/L (98-107); Creatinine, Serum 0.98 mg/dL (0.70-1.30); EST Glomerular Filtration Rate 83 mL/min (>60); Est Glom Filt Rate - Afr Amer 100 mL/min (>60); Estimated Creatinine Clearance 81.16 ml/min; Globulin 3.6 g/dL (2.2-4.2); Glucose 107 mg/dL (74-106); Potassium 2.9 mmol/L (3.5-5.1); Protein, Total 4.9 g/dL (6.4-8.2); Sodium Level 143 mmol/L (136-145); Uric Acid 1.3 mg/dL (3.5-7.2)
[2023-08-10 08:07] LABS: CPK Total, Creatine Kinase 16 U/L (39-308)
[2023-08-10 08:44] LABS: Anisocytosis 2+; Differential Comment SCANNED
[2023-08-10 08:45] LABS: Macrocytosis 1+; Microcytosis 1+
[2023-08-10] MEDS: Lidocaine Jelly 2% 20 ML Syringe (URO-JET) 1 APPLIC (08:58)
[2023-08-10] MEDS: Lidocaine 2% (5ml sdv) 5 ML VIAL.MPF (09:38)
--- NOTE | 2023-08-10 09:54 | OP.BRONCH_ITS ---
Patient Name: Tye Balderrama Procedure Date: 08/10/2023 8:54 AM Date of : 1965 Age: 57 Procedure: Bronchoscopy Indications: Abnormal CT scan of chest Providers: Obie Lombardi MD Medicines: Monitored Anesthesia Care Complications: No immediate complications Procedure: Pre-Anesthesia Assessment: - A History and Physical has been performed. Patient meds and allergies have been reviewed. The risks and benefits of the procedure and the sedation options and risks were discussed with the patient. All questions were answered and informed consent was obtained. Patient identification and proposed procedure were verified prior to the procedure by the physician and the nurse in the procedure room. Mental Status Examination: alert and oriented. Airway Examination: normal oropharyngeal airway. Respiratory Examination: poor air movement. CV Examination: normal. ASA Grade Assessment: III - A patient with severe systemic disease. After reviewing the risks and benefits, the patient was deemed in satisfactory condition to undergo the procedure. The anesthesia plan was to use monitored anesthesia care (MAC). Immediately prior to administration of medications, the patient was re-assessed for adequacy to receive sedatives. The heart rate, respiratory rate, oxygen saturations, blood pressure, adequacy of pulmonary ventilation, and response to care were monitored throughout the procedure. The physical status of the patient was re-assessed after the procedure. After I obtained informed consent, the scope was passed under direct vision. Throughout the procedure, the patient's blood pressure, pulse, and oxygen saturations were monitored continuously. The bronchoscope was introduced through the mouth and advanced to the tracheobronchial tree. The procedure was accomplished without difficulty. The patient tolerated the procedure well. Findings: The oropharynx appears normal. The larynx appears normal. The vocal cords appear normal. The subglottic space is normal. The trachea is of normal caliber. The leticia is sharp. The tracheobronchial tree was examined to at least the first subsegmental level. Bronchial mucosa and anatomy are normal; there are no endobronchial lesions, and no secretions. The bronchoscope was advanced until wedged at the desired location for bronchoalveolar lavage. BAL was performed in the right middle lobe of the lung and sent for cell count, bacterial culture, viral smears & culture, and fungal & AFB analysis and cytology, aerobic culture, anaerobic culture and fungal analysis. 60 mL of fluid were instilled. 30 mL were returned. The return was cloudy. There were no mucoid plugs in the return fluid. Impression: - Abnormal CT scan of chest - The airway examination was normal. - Bronchoalveolar lavage was performed. Recommendation: - Await BAL results. Procedure Code(s): --- Professional --- 26957, Bronchoscopy, rigid or flexible, including fluoroscopic guidance, when performed; with bronchial alveolar lavage Diagnosis Code(s): --- Professional --- R93.89, Abnormal findings on diagnostic imaging of other specified body structures CPT copyright 2021 [employer]. All rights reserved. The codes documented in this report are preliminary and upon property economist review may be revised to meet current compliance requirements. DO Obie Dacosta MD 08/10/2023 9:53:30 AM This report has been signed electronically. Number of Addenda: 0 Note Initiated On: 08/10/2023 8:54 AM
[2023-08-10 10:13] LABS: Cytology, Body Fluid / CSF SEE PATHOLOGY REPORT
[2023-08-10] MEDS: Menthol/Lanolin/Calamine/Znox 113 GM Tube 1 APPLIC TOPICAL (10:50)
[2023-08-10 11:21] LABS: Appearance/Body Fluid CLEAR; Color/Body Fluid COLORLESS; Source- Body Fluid BRONCHIAL LAVAGE
[2023-08-10 11:39] LABS: Red Cell Count/Body Fluid 84 /mm3; White Blood Count/Body Fluid 55 /mm3
[2023-08-10 12:15] LABS: Lymphocytes 2 %; Monocytes 4 %; Neutrophil (Segs) 2 %; Other Cell Type/BF 92 %
[2023-08-10 12:16] LABS: Body Fluid QC Type(s) BF1Q
[2023-08-10] MEDS: Acyclovir 200 MG Capsule 400 MG PO ×2 (12:33→19:47)
[2023-08-10] MEDS: Allopurinol 300 MG Tablet PO (12:33)
[2023-08-10] MEDS: Pantoprazole Sodium 20 MG Tablet PO (12:33)
[2023-08-10] MEDS: predniSONE 20 MG Tablet 100 MG PO (12:34)
--- NOTE | 2023-08-10 13:08 | PCM.PN.ID ---
Physical Exam Narrative Feeling a little better. Started on high dose prednisone. No fever, no abd pain. Mild dry cough. Had bronch this AM. Const no apparent distress General Appearance: cooperative Orientation / Consciousness: lethargic Resp normal air movement and clear to auscultation bilaterally Cardio regular rate and regular rhythm GI soft to palpation, non-tender and non-distended Skin Skin Narrative: diffuse rash and flaky skin ID ID: Route of nutrition/ use of supplements: [] Nutritional Intake: [] IV Site: [] Charles Catheter: [] Assessment & Plan Assessment/Plan (1) Pulmonary embolism: QUALIFIERS: Pulmonary embolism type: multiple subsegmental (without acute cor pulmonale) Qualified Code(s): I26.94 - Multiple subsegmental pulmonary emboli without acute cor pulmonale (2) Infection of venous access port: (3) 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 Bcx pending, port site cx with some staph. Resp pcr panel neg, cdiff neg, UAgs neg. Recent dx of lymphoma, not yet started on chemo as outpt. CT chest shows scattered cavitary disease. Had CT/PET done 08/07/23. Not producing sputum. Hep panel neg earlier this month, no HIV sent. Neg hiv here; pending quantiferon, cryptococcal Ag, urine histo Ag, aspergillus Ag. Bronch done, results pending. Possible aspiration vs port vs opportunistic infection, or cavitary lesions may just be related to his PEs. On empiric vanc/zosyn. Now on high dose pred; plan as an outpt had been for BV-CHP. If he is going to be started on significant immunosuppression, would favor giving him the most effective lymphoma treatment. Will follow
[2023-08-10 14:00] LABS: Partial Thromboplast Time 38.3 Seconds (24.1-36.2)
[2023-08-10 15:46] LABS: Vancomycin, Trough Level 16.8 ug/mL (5.0-15.0)
--- NOTE | 2023-08-10 15:56 | PCM.RX.CS ---
Consult Antibiotic Management Pharmacy has been consulted to manage selected antiobiotic: Vancomycin Type of Intervention Type of Consult: Follow-up Suspected Infection Suspected Infection: Skin/Soft tissue and Pneumonia Prior Doses of Antibiotics Prior Doses of Antibiotics Received/Current Regimen: Vancomycin 750 mg IV given 08/09 @ 1509, 08/10 @ 7907 Labs Labs: Sodium 143 mmol/L (136-145) 08/10/23 06:44 Potassium 2.9 mmol/L (3.5-5.1) L 08/10/23 06:44 Chloride 116 mmol/L (98-107) H 08/10/23 06:44 Carbon Dioxide 20.0 mmol/L (21.0-32.0) L 08/10/23 06:44 Anion Gap 7 (5-15) 08/10/23 06:44 BUN 30 mg/dL (7-18) H 08/10/23 06:44 Creatinine 0.98 mg/dL (0.70-1.30) 08/10/23 06:44 Est GFR (MDRD) Af Amer 100 mL/min (>60) 08/10/23 06:44 Est GFR (MDRD) Non-Af 83 mL/min (>60) 08/10/23 06:44 BUN/Creatinine Ratio 30.5 RATIO (10-20) H 08/10/23 06:44 Glucose 107 mg/dL (74-106) H 08/10/23 06:44 Vancomycin Trough 16.8 ug/mL (5.0-15.0) H 08/10/23 14:36 Microbiology Microbiology: Microbiology 08/10/23 Unknown Wash - Right Middle Lobe Gram Stain - Final 08/08/23 22:53 Mucosa - Nasopharyngeal Respiratory Panel (PCR) - Final 08/08/23 23:45 Urine, Clean Catch Legionella Antigen - Final 08/08/23 23:45 Urine, Clean Catch Streptococcus pneumoniae Antigen (M - Final 08/08/23 22:53 Mucosa - Nose Coronavirus COVID-19 PCR - Final 08/08/23 17:55 Stool Enteric Bacteriology - Final 08/08/23 17:55 Stool C. difficile DNA Amplification - Final Dosing Weight Weight used for dosin.3 kg Estimated Creatinine Clearance Estimated Creatinine Clearance: ~81 Goal Trough Goal Trough: 15-20 mcg/mL Pharmacy Plan for Drug Dosing Pharmacy Plan for Drug Dosing: Vancomycin trough drawn 11.5 hours after most recent dose = 16.8 ug/mL. Continue vancomycin 750 mg IV Q12H with a trough in 2 days. Pharmacy Service will continue to monitor and adjust dosing as required. Follow-Up Labs Follow-Up Labs: Trough: Vancomycin Date/Time Labs Ordered Labs to be done on [date and time ordered]: 08/12/23 @ 7331
--- NOTE | 2023-08-10 16:27 | PCM.PN.HOSP ---
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, lymph nodes of multiple sites (08/08/23) Vitamin B12 deficiency anemia, unspecified (08/08/23) Hypercalcemia (08/08/23) Hypokalemia (08/08/23) Multiple subsegmental pulmonary emboli without acute cor pulmonale (08/08/23) Other pulmonary embolism without acute cor pulmonale (08/08/23) Lymphedema, not elsewhere classified (08/08/23) Other disorders of lung (08/08/23) Unspecified kidney failure (08/08/23) Rash and other nonspecific skin eruption (08/08/23) Unspecified infection due to central venous catheter, initial encounter (08/08/23) Subjective Subjective Follow-up for multiple active complaint including pulmonary septic emboli with mild infected line/port Objective Data Objective Data Vital Signs: Vital Signs Temp Pulse Resp BP Pulse Ox O2 Del Method O2 Flow Rate 97.5 F L 60 18 95/58 L 100 Nasal Cannula 2 08/10/23 11:00 08/10/23 11:00 08/10/23 11:00 08/10/23 11:00 08/10/23 11:00 08/10/23 11:00 08/10/23 11:00 Oxygen Flow Rate (L/min) 2 Oxygen Delivery Method Nasal Cannula Weight: 161 lb 9.581 oz Body Mass Index (BMI) 23.8 Intake & Output: Intake and Output for Last 24 Hours 08/08/23 08/09/23 08/10/23 23:59 23:59 23:59 Intake Total 3322 / 4572 8624.25 / 8624.25 2921.42 / 2921.42 Output Total 250 / 350 300 / 300 Balance 3322 / 4572 8374.25 / 8274.25 2621.42 / 2621.42 Lab / Micro Data 08/10/23 06:44 08/10/23 06:44 Labs: Laboratory Results - last 24 hr 08/08/23 23:45: Miscellaneous Test Cancelled 08/09/23 16:25: APTT 50.0 H 08/09/23 23:59: APTT 54.2 H 08/10/23 06:44: WBC 21.2 H, RBC 3.74 L, Hgb 10.4 L, Hct 33.2 L, MCV 88.8, MCH 27.8, MCHC 31.3 L, RDW Std Deviation 64.1 H, RDW Coeff of Andrwe 20.1 H, Plt Count 321, MPV 10.4, Immature Gran % (Auto) 0.600, Neut % (Auto) 96.4 H, Lymph % (Auto) 0.7 L, Gilmer % (Auto) 2.2, Eos % (Auto) 0.0, Baso % (Auto) 0.1, Absolute Neuts (auto) 20.5 H, Absolute Lymphs (auto) 0.15 L, Nucleated RBC % 0, Differential Comment SCANNED, Anisocytosis 2+, Microcytosis 1+, Macrocytosis 1+, APTT 68.0 H, Sodium 143, Potassium 2.9 L, Chloride 116 H, Carbon Dioxide 20.0 L, Anion Gap 7, BUN 30 H, Creatinine 0.98, Estim Creat Clear Calc 81.16, Est GFR (MDRD) Af Amer 100, Est GFR (MDRD) Non-Af 83, BUN/Creatinine Ratio 30.5 H, Glucose 107 H, Uric Acid 1.3 L, Calcium 9.7, Total Bilirubin 0.40, AST 14 L, ALT 31, Alkaline Phosphatase 170 H, Total Creatine Kinase 16 L, C-React Prot Ext Range 93.20 H, Total Protein 4.9 L, Albumin 1.3 L, Globulin 3.6, Albumin/Globulin Ratio 0.4 L 08/10/23 13:27: APTT 38.3 H 08/10/23 14:36: Vancomycin Trough 16.8 H 08/10/23 : Fluid Source BRONCHIAL LAVAGE, Fluid Color COLORLESS, Fluid Appearance CLEAR, Fluid WBC 55, Fluid RBC 84, Fluid Tot Cell Count TNP, Fluid Neutrophils 2, Fluid Lymphocytes 2, Fluid Monocytes 4, Fluid Other Cells 92, Fl Pathologist Comment May follow, Fluid Comment 2 Not Reportable Micro: Microbiology 08/10/23 Unknown Wash - Right Middle Lobe Gram Stain - Final 08/08/23 22:53 Mucosa - Nasopharyngeal Respiratory Panel (PCR) - Final 08/08/23 23:45 Urine, Clean Catch Legionella Antigen - Final 08/08/23 23:45 Urine, Clean Catch Streptococcus pneumoniae Antigen (M - Final 08/08/23 22:53 Mucosa - Nose Coronavirus COVID-19 PCR - Final 08/08/23 17:55 Stool Enteric Bacteriology - Final 08/08/23 17:55 Stool C. difficile DNA Amplification - Final Physical Exam Narrative Seen and examined. Patient went for bronchoscopy in the morning. Patient states he has mild hard in breathing/trouble breathing but no obvious shortness of breath. Denies chest tightness or pressure. General: Alert, Oriented x3, Cooperative HEENT: Atraumatic, PERRLA, EOMI, Normocephalic Oral: Oral mucosa dry no Gingival or Mucosal Lesions/ Ulcerations Neck: Supple, No JVD, Negative Carotid Bruits Lungs: Air entry diminished in bilateral lung bases. No crepitation/rhonchi Cardiovascular: Regular rate, Regular Rhythm, Normal S1, Normal S2, No murmurs Abdomen: Bowel Sounds Present, Soft, Non Tender, Non-Distended : No renal angle tenderness. No suprapubic tenderness. Extremities: No edema, Capillary Refill Less than 3 Seconds Skin: Fine follicular rash with white exfoliation. Dry skin looks chronic dermatitis Musculoskeletal: No Tenderness to Palpation of Joints or Extremities Neurological: Cranial nerves II-XII grossly intact, DTR 2+/4. No acute focal neurological deficit. Psych/Mental Status: Flat affect Assessment & Plan Assessment/Plan (1) Pulmonary embolism: QUALIFIERS: Pulmonary embolism type: multiple subsegmental (without acute cor pulmonale) Qualified Code(s): I26.94 - Multiple subsegmental pulmonary emboli without acute cor pulmonale PLAN: Plan The patient is a 57 y/o M who was admitted on 08/08/23 is admitted with fever chills hypocalcemia following right IJ Port-A-Cath removal earlier on the day of admission for high suspicion of port infection. Patient calcium was 13.5, potassium 2.4 and creatinine 1.8 with concern for tumor lysis syndrome review of ALK negative anaplastic large cell lymphoma. #1. Questionable pulmonary septic emboli with mild hypoxia with infected right IJ Port-A-Cath subsequently removal on 08/08/2023: Patient also has significant diarrhea. Abdomen is soft, nontender nondistended therefore I do not suspect significant colitis. ABG done in ED shows 7.61/22.9/110 on 4 L of oxygen interpretation reveals mild respiratory alkalosis as patient bicarb is 23 Twelve-lead EKG shows sinus rhythm 72 bpm, QRS 106 ms QT 552 ms history of prolonged QT. Patient is being admitted in PCU. Bronchodilator as needed with scheduled. On oxygen through nasal cannula. IV Zosyn and vancomycin. Patient has significant leukocytosis with slight improvement since yesterday. Immature granulocytes 1.1% mainly neutrophils 97%, lymphopenia 0.8%. Urinary antigens, stool for C. difficile and enteric bacteriology panel, COVID-19 PCR are negative. Blood cultures x2 are pending. Pulmonary consult reviewed and appreciated. ID consult requested. 08/10: Leukocytosis worsening. Patient seen by ID. Blood culture pending. Respiratory panel negative. C. difficile negative. Patient currently not producing sputum. Went for bronchoscopy today BAL specimen and cultures pending. Hepatitis panel negative earlier. Negative HIV. Pending QuantiFERON. Possible aspiration versus port infection or opportunistic infection. 2. Acute bilateral subsegmental nonocclusive pulmonary embolism:CTA individually reviewed and shows moderate volume nonocclusive acute pulmonary embolism involving most of the subsegmental pulmonary arteries with no evidence of right heart strain. 2D echo is ordered. Patient on IV heparin drip.: Venous duplex negative for bilateral lower extremity thrombosis. BNP ordered. 04/09: 2D echo shows EF 65% no evidence of diastolic function. LA mildly enlarged. No tricuspid stenosis. Unable to estimate RV systolic pressure. Right ventricle normal size and systolic function. BNP 121. 3. 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 Liver chemistry shows elevated alkaline phosphatase 249 , ALT and AST within normal limit. Total bilirubin normal but LDH significant high 423 suggestive of bony involvement and active tumor growth. Uric acid is low 1.6. It was 3.0 on 07/16/2023. Lactic acid 2.3. In the ED, the patient was administered pamidronate 90 mg IV x1, prednisone 100 mg oral, and allopurinol 200 mg oral. Oncology consultation reviewed and appreciated. Discussed with Dr. Cohen and he said patient was first seen by him on 06/28/2023 as consult. Tumor is clinically very aggressive, anaplastic, unresponsive to standard therapy and null cell (neither B-cell or T-cell) and relatively worse prognosis. Patient was planned to start systemic therapy in early August 2023 after he had central venous access on August 01 point that was removed on first admission developed. He said he also talked to the [facility] oncology colleague and he is not a candidate for any trial. We will continue allopurinol. And prednisone 100 mg daily for total of 5 days. Can repeat 1 more dose of pamidronic acid if patient is stable hypercalcemia of malignancy. But calcium is 10.9 today probably will not need it. 08/10: Continue high-dose prednisone. Continue allopurinol. Serum calcium 9.7. Uric acid 1.3. See RP elevated. Plan was CHOP treatment but was not started yet #4. Acute kidney injury: Secondary to dehydration and acute presentation as noted. Admission BUN/Cr 50/1.76, prior baseline creatinine noted to be 0.8-1.1. Will hydrate, hold nephrotoxic medications and repeat chemistry in AM. If no improvement would plan FeNa and renal ultrasound assessment. 08/10: Serum creatinine improved to 0.98. #5. Electrolyte abnormality: Hypokalemia and hypercalcemia: Admission K+ 2.4, serum potassium low 2.6 after replacement. Serum magnesium 2.2, phosphorus 4.1. Serum calcium 13.8, improved to 10.9. 08/10: Serum potassium low 2.9 severe hypokalemia. Potassium rider ordered. Serum magnesium and phosphorus ordered. #6. Anxiety and depression: Not on any chronic regimen, would benefit from continued outpatient evaluation and counseling if appropriate. #7. Tobacco Abuse: Encouraged cessation, inpatient consultation per RT, NR if desired. #8. GERD: We will continue patient home PPI. #9. Chronic right lower extremity lymphedema: Status post DVT ultrasound with no acute findings, will place snug Real with elevation if able to tolerate. #10. DVT prophylaxis: We will continue heparin drip as noted. #11. CODE status: Patient does not have from discussions healthcare power of attorney at law or living will but amenable to full interventions, will remain full code at this time. During discussions was able to answer questions appropriately although did take a significant mount of time but again this should be rediscussed once the above is treated acutely especially given his significant poor prognosis. Charges/Coding Addendum Addendum: Total time of the visit including total time spent in counseling or coordination of care, (more than 50% of the total time, spent in obtaining medical information from nurses and other ancillary care providers,explaining to the patient about labs, imaging, diagnosis and management of active complex medical conditions), discussion with multiple consultants, review of labs and imaging is 45 minutes. Visit Charges Inpatient E&M: 26216 Subs Hosp L3
[2023-08-10] MEDS: HEPARIN/D5w 25,000 UNITS 25,000 UNITS/250 ML IV.SOLN. 15 UNITS CONT INF (16:34)
[2023-08-10 17:41] LABS: Magnesium 1.7 mg/dL (1.6-2.6); Phosphorus 3.2 mg/dL (2.5-4.9)
[2023-08-11] VITALS (9 sets, daily range): BP systolic 101–107; BP diastolic 60–65; PULSE 59–69; RESP 16–20; TEMP 36.1–36.4; O2SAT 98–100
[2023-08-11] MEDS: 0.9% Normal Saline (1000mL) 1,000 ML 150 ML IV ×4 (00:16→21:16)
[2023-08-11] MEDS: Vancomycin HCl 750 MG in 0.9% Normal Saline (250mL Bag) 250 ML 250 MG IV ×2 (02:08→15:45)
[2023-08-11 04:40] LABS: Absolute Lymphocyte Count 0.11 X10^3/uL (0.83-4.51); Absolute Neutrophil Count 19.6 X10^3/uL (2.0-7.7); Basophil# 0.02 X10^3/uL; Basophil% 0.1 % (0-1); Hematocrit 32.1 % (40-54); Lymphocyte # 0.11 X10^3/ul (0.83-4.51); Lymphocyte % 0.5 % (19-41); Mean Corp Hgb Conc 31.2 g/dL (32-36); Mean Corpuscular Hgb 28.4 pg (27.0-32.0); Mean Corpuscular Volume 91.2 fL (80-94); Mean Platelet Vol. 10.6 fl (6.2-12.0); Monocyte# 0.35 X10^3/uL; Monocyte% 1.7 % (0-10); NRBC Flagged by Analyzer 0 % (0-5); Neutrophil # 19.63 X10^3/uL (2.7-7.7); Neutrophil % 97.1 % (47-70); POSITIVE DIFFERENTIAL YES; POSITIVE MORPHOLOGY YES; Platelet Count 241 K/mm3 (150-450); RBC Distribution Width CV 20.5 % (11.6-14.6); RBC Distribution Width SD 67.7 fl (35.1-43.9); Red Blood Count 3.52 M/mm3 (4.6-6.2); White Blood Count 20.2 K/mm3 (4.4-11.0)
[2023-08-11 04:45] LABS: Differential Indicated SCAN CRITERIA MET
[2023-08-11 04:56] LABS: ALB/GLOB Ratio 0.4 RATIO (0.9-2.4); AST(SGOT) 25 U/L (15-37); Alanine Aminotransfer ALT/SGPT 37 U/L (16-61); Albumin, Serum 1.3 g/dL (3.2-5.0); Alkaline Phosphatase 211 U/L (45-117); Anion Gap 2 (5-15); BUN 28 mg/dL (7-18); BUN/Creat Ratio 30.3 RATIO (10-20); Calcium,Total 8.6 mg/dL (8.5-10.1); Chloride 118 mmol/L (98-107); Creatinine, Serum 0.92 mg/dL (0.70-1.30); EST Glomerular Filtration Rate 89 mL/min (>60); Est Glom Filt Rate - Afr Amer 107 mL/min (>60); Estimated Creatinine Clearance 86.45 ml/min; Globulin 3.4 g/dL (2.2-4.2); Glucose 159 mg/dL (74-106); Potassium 3.2 mmol/L (3.5-5.1); Protein, Total 4.7 g/dL (6.4-8.2); Sodium Level 142 mmol/L (136-145); Uric Acid 1.1 mg/dL (3.5-7.2)
[2023-08-11] MEDS: Piperacil/Tazobactam 3.375 GM in 0.9% Normal Saline (50mL MB+) 50 ML IV ×3 (05:18→21:10)
[2023-08-11 05:27] LABS: Anisocytosis 1+; Burr Cells 1+; Differential Comment SCANNED; Poikilocytosis 1+; Target Cells 1+
[2023-08-11 05:30] LABS: CPK Total, Creatine Kinase 13 U/L (39-308)
[2023-08-11] MEDS: 0.9% Saline Lock 10 ML Syringe IV (08:09)
[2023-08-11] MEDS: Menthol/Lanolin/Calamine/Znox 113 GM Tube 1 APPLIC TOPICAL ×4 (08:15→21:10)
[2023-08-11] MEDS: predniSONE 20 MG Tablet 100 MG PO (08:15)
[2023-08-11] MEDS: Allopurinol 300 MG Tablet PO (08:16)
[2023-08-11] MEDS: Acyclovir 200 MG Capsule 400 MG PO ×2 (08:16→21:10)
[2023-08-11] MEDS: Pantoprazole Sodium 20 MG Tablet PO (08:16)
[2023-08-11] MEDS: Acetaminophen 325 MG Tablet 650 MG PO (08:22)
--- NOTE | 2023-08-11 08:33 | PCM.PN.HOSP ---
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, lymph nodes of multiple sites (08/08/23) Vitamin B12 deficiency anemia, unspecified (08/08/23) Hypercalcemia (08/08/23) Hypokalemia (08/08/23) Multiple subsegmental pulmonary emboli without acute cor pulmonale (08/08/23) Other pulmonary embolism without acute cor pulmonale (08/08/23) Lymphedema, not elsewhere classified (08/08/23) Other disorders of lung (08/08/23) Unspecified kidney failure (08/08/23) Rash and other nonspecific skin eruption (08/08/23) Unspecified infection due to central venous catheter, initial encounter (08/08/23) Objective Data Objective Data Vital Signs: Vital Signs Temp Pulse Resp BP Pulse Ox O2 Del Method O2 Flow Rate 97.5 F L 59 L 18 101/60 98 Nasal Cannula 2 08/11/23 03:02 08/11/23 03:02 08/11/23 03:02 08/11/23 03:02 08/11/23 08:29 08/11/23 08:29 08/11/23 08:29 Oxygen Flow Rate (L/min) 2 Oxygen Delivery Method Nasal Cannula Weight: 163 lb 12.855 oz Body Mass Index (BMI) 24.2 Intake & Output: Intake and Output for Last 24 Hours 08/09/23 08/10/23 08/11/23 23:59 23:59 23:59 Intake Total 8624.25 / 8624.25 4729.75 / 4729.75 3363.83 / 3363.83 Output Total 250 / 350 501 / 501 600 / 600 Balance 8374.25 / 8274.25 4228.75 / 4228.75 2763.83 / 2763.83 Lab / Micro Data 08/11/23 04:30 08/11/23 11:20 Labs: Laboratory Results - last 24 hr 08/10/23 06:44: Differential Comment SCANNED, Anisocytosis 2+, Microcytosis 1+, Macrocytosis 1+, Phosphorus 3.2, Magnesium 1.7 08/10/23 13:27: APTT 38.3 H 08/10/23 14:36: Vancomycin Trough 16.8 H 08/10/23 20:50: APTT 98.0 H* 08/10/23 : Fluid Source BRONCHIAL LAVAGE, Fluid Color COLORLESS, Fluid Appearance CLEAR, Fluid WBC 55, Fluid RBC 84, Fluid Tot Cell Count TNP, Fluid Neutrophils 2, Fluid Lymphocytes 2, Fluid Monocytes 4, Fluid Other Cells 92, Fl Pathologist Comment May follow, Fluid Comment 2 Not Reportable 08/11/23 04:30: WBC 20.2 H, RBC 3.52 L, Hgb 10.0 L, Hct 32.1 L, MCV 91.2, MCH 28.4, MCHC 31.2 L, RDW Std Deviation 67.7 H, RDW Coeff of Andrew 20.5 H, Plt Count 241, MPV 10.6, Immature Gran % (Auto) 0.600, Neut % (Auto) 97.1 H, Lymph % (Auto) 0.5 L, [place] % (Auto) 1.7, Eos % (Auto) 0.0, Baso % (Auto) 0.1, Absolute Neuts (auto) 19.6 H, Absolute Lymphs (auto) 0.11 L, Nucleated RBC % 0, Differential Comment SCANNED, Poikilocytosis 1+, Anisocytosis 1+, Target Cells 1+, [place] Cells 1+, APTT 75.0 H, Sodium 142, Potassium 3.2 L, Chloride 118 H, Carbon Dioxide 22.0, Anion Gap 2 L, BUN 28 H, Creatinine 0.92, Estim Creat Clear Calc 86.45, Est GFR (MDRD) Af Amer 107, Est GFR (MDRD) Non-Af 89, BUN/Creatinine Ratio 30.3 H, Glucose 159 H, Uric Acid 1.1 L, Calcium 8.6, Total Bilirubin 0.30, AST 25, ALT 37, Alkaline Phosphatase 211 H, Total Creatine Kinase 13 L, Total Protein 4.7 L, Albumin 1.3 L, Globulin 3.4, Albumin/Globulin Ratio 0.4 L Micro: Microbiology 08/10/23 Unknown Wash - Right Middle Lobe Gram Stain - Final 08/08/23 22:53 Mucosa - Nasopharyngeal Respiratory Panel (PCR) - Final 08/08/23 23:45 Urine, Clean Catch Legionella Antigen - Final 08/08/23 23:45 Urine, Clean Catch Streptococcus pneumoniae Antigen (M - Final 08/08/23 22:53 Mucosa - Nose Coronavirus COVID-19 PCR - Final 08/08/23 17:55 Stool Enteric Bacteriology - Final 08/08/23 17:55 Stool C. difficile DNA Amplification - Final Physical Exam Narrative Seen and examined. Overall patient feels better. He still has shortness of breath but slightly better. Mouth dry. Denies chest tightness or pressure. Low blood pressure systolic 100s. General: Alert, Oriented x3, Cooperative HEENT: Atraumatic, PERRLA, EOMI, Normocephalic Oral: Oral mucosa dry no Gingival or Mucosal Lesions/ Ulcerations Neck: Supple, No JVD, Negative Carotid Bruits Lungs: Air entry diminished in bilateral lung bases. No crepitation/rhonchi. Respiratory rate 18 to 20/min. On 2 L of oxygen. Cardiovascular: Regular rate, Regular Rhythm, Normal S1, Normal S2, No murmurs. Abdomen: Bowel Sounds Present, Soft, Non Tender, Non-Distended : No renal angle tenderness. No suprapubic tenderness. Extremities: No edema, Capillary Refill Less than 3 Seconds Skin: Fine follicular rash with white exfoliation. Dry skin looks chronic dermatitis Musculoskeletal: No Tenderness to Palpation of Joints or Extremities Neurological: Cranial nerves II-XII grossly intact, DTR 2+/4. No acute focal neurological deficit. Psych/Mental Status: Flat affect Assessment & Plan Assessment/Plan (1) Pulmonary embolism: QUALIFIERS: Pulmonary embolism type: multiple subsegmental (without acute cor pulmonale) Qualified Code(s): I26.94 - Multiple subsegmental pulmonary emboli without acute cor pulmonale PLAN: Plan The patient is a 57 y/o M who was admitted on 08/08/23 is admitted with fever chills hypocalcemia following right IJ Port-A-Cath removal earlier on the day of admission for high suspicion of port infection. Patient calcium was 13.5, potassium 2.4 and creatinine 1.8 with concern for tumor lysis syndrome review of ALK negative anaplastic large cell lymphoma. #1. Questionable pulmonary septic emboli with mild hypoxia with infected right IJ Port-A-Cath subsequently removal on 08/08/2023: Patient also has significant diarrhea. Abdomen is soft, nontender nondistended therefore I do not suspect significant colitis. ABG done in ED shows 7.61/22.9/110 on 4 L of oxygen interpretation reveals mild respiratory alkalosis as patient bicarb is 23 Twelve-lead EKG shows sinus rhythm 72 bpm, QRS 106 ms QT 552 ms history of prolonged QT. Patient is being admitted in PCU. Bronchodilator as needed with scheduled. On oxygen through nasal cannula. IV Zosyn and vancomycin. Patient has significant leukocytosis with slight improvement since yesterday. Immature granulocytes 1.1% mainly neutrophils 97%, lymphopenia 0.8%. Urinary antigens, stool for C. difficile and enteric bacteriology panel, COVID-19 PCR are negative. Blood cultures x2 are pending. Pulmonary consult reviewed and appreciated. ID consult requested. 08/10: Leukocytosis worsening. Patient seen by ID. Blood culture pending. Respiratory panel negative. C. difficile negative. Patient currently not producing sputum. Went for bronchoscopy today BAL specimen and cultures pending. Hepatitis panel negative earlier. Negative HIV. Pending QuantiFERON. Possible aspiration versus port infection or opportunistic infection. 08/11: Preliminary RML BAL exhibits no growth. Continue broad-spectrum antibiotic. Continue IV heparin drip. 2. Acute bilateral subsegmental nonocclusive pulmonary embolism:CTA individually reviewed and shows moderate volume nonocclusive acute pulmonary embolism involving most of the subsegmental pulmonary arteries with no evidence of right heart strain. 2D echo is ordered. Patient on IV heparin drip.: Venous duplex negative for bilateral lower extremity thrombosis. BNP ordered. 04/09: 2D echo shows EF 65% no evidence of diastolic function. LA mildly enlarged. No tricuspid stenosis. Unable to estimate RV systolic pressure. Right ventricle normal size and systolic function. BNP 121. 3. 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 Liver chemistry shows elevated alkaline phosphatase 249 , ALT and AST within normal limit. Total bilirubin normal but LDH significant high 423 suggestive of bony involvement and active tumor growth. Uric acid is low 1.6. It was 3.0 on 07/16/2023. Lactic acid 2.3. In the ED, the patient was administered pamidronate 90 mg IV x1, prednisone 100 mg oral, and allopurinol 200 mg oral. Oncology consultation reviewed and appreciated. Discussed with Dr. Cohen and he said patient was first seen by him on 06/28/2023 as consult. Tumor is clinically very aggressive, anaplastic, unresponsive to standard therapy and null cell (neither B-cell or T-cell) and relatively worse prognosis. Patient was planned to start systemic therapy in early August 2023 after he had central venous access on August 01 point that was removed on first admission developed. He said he also talked to the [facility] oncology colleague and he is not a candidate for any trial. We will continue allopurinol. And prednisone 100 mg daily for total of 5 days. Can repeat 1 more dose of pamidronic acid if patient is stable hypercalcemia of malignancy. But calcium is 10.9 today probably will not need it. 08/10: Continue high-dose prednisone. Continue allopurinol. Serum calcium 9.7. Uric acid 1.3. See RP elevated. Plan was CHOP treatment but was not started yet #4. Acute kidney injury: Secondary to dehydration and acute presentation as noted. Admission BUN/Cr 50/1.76, prior baseline creatinine noted to be 0.8-1.1. Will hydrate, hold nephrotoxic medications and repeat chemistry in AM. If no improvement would plan FeNa and renal ultrasound assessment. 08/10: Serum creatinine improved to 0.98. 08/11: Serum creatinine 0.92 BUN elevated 28. ZUNILDA resolved. Patient will get IV fluid with magnesium and potassium supplementation. #5. Electrolyte abnormality: Hypokalemia and hypercalcemia: Admission K+ 2.4, serum potassium low 2.6 after replacement. Serum magnesium 2.2, phosphorus 4.1. Serum calcium 13.8, improved to 10.9. 08/10: Serum potassium low 2.9 severe hypokalemia. Potassium rider ordered. Serum magnesium and phosphorus ordered. 08/11: Serum potassium is low 3.2. 40 mEq IV potassium rider replaced but still sodium is 3.5. Oral potassium supplement ordered. Serum magnesium 1.7 but repeat serum magnesium 1.6 after 2 g IV magnesium sulfate replacement. Serum phosphorus normal. #6. Anxiety and depression: Not on any chronic regimen, would benefit from continued outpatient evaluation and counseling if appropriate. #7. Tobacco Abuse: Encouraged cessation, inpatient consultation per RT, NR if desired. #8. GERD: We will continue patient home PPI. #9. Chronic right lower extremity lymphedema: Status post DVT ultrasound with no acute findings, will place snug Real with elevation if able to tolerate. #10. DVT prophylaxis: We will continue heparin drip as noted. #11. CODE status: Patient does not have from discussions healthcare power of workers compensation defense attorney or living will but amenable to full interventions, will remain full code at this time. During discussions was able to answer questions appropriately although did take a significant mount of time but again this should be rediscussed once the above is treated acutely especially given his significant poor prognosis. Charges/Coding Visit Charges Inpatient E&M: 74155 Subs Hosp L2
--- NOTE | 2023-08-11 09:12 | CASEMGMT ---
Social Work LW and POA for Healthcare both scanned into summary tab of echart, pt has friend Shorty Mcwilliams listed as healthcare POA. JULIAN Bhatia
[2023-08-11] MEDS: Budesonide Respules 0.5 MG/2 ML AMPUL.NEB. INHALATION ×2 (10:32→19:08)
[2023-08-11 11:24] LABS: Partial Thromboplast Time 70.6 Seconds (24.1-36.2)
[2023-08-11 11:48] LABS: Magnesium 1.6 mg/dL (1.6-2.6); Potassium 3.5 mmol/L (3.5-5.1)
[2023-08-11] MEDS: HEPARIN/D5w 25,000 UNITS 25,000 UNITS/250 ML IV.SOLN. 13 UNITS CONT INF (12:04)
[2023-08-11] MEDS: Magnesium Sulfate 2 GM in Dextrose 5%-Water (100mL Bag) 100 ML IV (12:06)
[2023-08-11] MEDS: Mineral Oil/Petrolatum Cr 1.75oz Bottle 1 APPLIC TOPICAL ×4 (12:13→21:10)
--- NOTE | 2023-08-11 13:32 | CASEMGMT ---
Social Work SW met w/pt, completed SDOH. Pt may be interested in Meals on Wheels referral closer to discharge, SW will follow up. SW asked pt if he felt he would be able to return home, pt states he supposes so. SW explained will be following along and if rehab may be needed to build up strength we would be back in to speak w/pt. Pt states understanding. JULIAN Bhatia
[2023-08-11] MEDS: Potassium Chloride 20mEq/100mL 20 MEQ/100 ML IV.SOLN. 100 MEQ IV BOLUS ×2 (14:16→15:16)
[2023-08-11] MEDS: 0.9 % NaCl (Sterile) Posiflush 10 mL IV (21:25)
[2023-08-11] MEDS: Loperamide 2 MG Capsule PO (22:51)
[2023-08-12] VITALS (8 sets, daily range): BP systolic 99–116; BP diastolic 60–68; PULSE 53–65; RESP 14–19; TEMP 36.3–36.4; O2SAT 98–100; BMI 26.4
[2023-08-12] MEDS: Acetaminophen 325 MG Tablet 650 MG PO ×2 (00:31→11:20)
[2023-08-12] MEDS: Vancomycin HCl 750 MG in 0.9% Normal Saline (250mL Bag) 250 ML 250 MG IV ×2 (02:04→16:00)
[2023-08-12] MEDS: 0.9% Normal Saline (1000mL) 1,000 ML 150 ML IV ×3 (03:10→16:32)
[2023-08-12] MEDS: HEPARIN/D5w 25,000 UNITS 25,000 UNITS/250 ML IV.SOLN. 13 UNITS CONT INF (04:46)
[2023-08-12] MEDS: Loperamide 2 MG Capsule PO ×2 (05:55→22:07)
[2023-08-12] MEDS: Piperacil/Tazobactam 3.375 GM in 0.9% Normal Saline (50mL MB+) 50 ML IV ×3 (05:55→20:47)
[2023-08-12] MEDS: Budesonide Respules 0.5 MG/2 ML AMPUL.NEB. INHALATION ×2 (06:51→22:34)
--- NOTE | 2023-08-12 07:07 | PCM.PN.INT ---
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 Continue antimicrobials per ID recommendations. 2. Continue supplemental IV fluid hydration, corticosteroids and allopurinol per oncology. 3. Continue heparin infusion for now. 4. Supplemental oxygen, if needed, to maintain saturations at or above 90%. 5. Encourage incentive spirometer use and mobilize patient as tolerated. IMPRESSIONS: 1. Questionable pulmonary septic emboli CT imaging of the chest demonstrated bilateral cavitary nodular densities, with concern for septic emboli versus metastatic deposits. The patient just had his chest port removed over concerns for an infection. The patient underwent bronchoscopy on August 10 with BAL obtained and sent for cultures. The patient remains hemodynamically stable. The patient will be continued on antimicrobials under the discretion of infectious diseases. Continue current supportive measures, pending the outcome of his infectious work-up. Continue heparin infusion given nonocclusive clots noted in subsegmental pulmonary arteries. The patient is otherwise stable from a pulmonary perspective. 2. Acute kidney injury Resolved. Most likely prerenal in etiology. Creatinine has improved with volume expansion. Continue supplemental IV fluid hydration as ordered. Continue to monitor urine output. No indication for renal replacement therapy. 3. Metastatic anaplastic large cell lymphoma/hypercalcemia Continue medical management per oncology recommendations. 4. History of tobacco dependency, in remission/GERD/anxiety/depression Complicates care, management, recovery and prognosis. Continue home medications as indicated. This note was generated with [employer] dictation software. It may contain incorrect words, spelling, and punctuation that were not noted in checking the note before signing. Subjective Subjective The patient was seen and examined at the bedside this morning. Events from the last 24 hours have been reviewed. The patient is currently afebrile, hemodynamically stable and maintaining appropriate oxygen saturations on 2 L/min via nasal cannula. Shortness of breath is minimal this morning. Objective Data Objective Data The patient's most recent lab work, culture data and imaging studies have all been personally reviewed. Blood cultures are currently pending. Vital Signs: Vital Signs Temp Pulse Resp BP Pulse Ox O2 Del Method O2 Flow Rate 97.6 F L 54 L 16 108/68 100 Nasal Cannula 2 08/12/23 06:05 08/12/23 06:05 08/12/23 06:05 08/12/23 06:05 08/12/23 06:05 08/12/23 06:05 08/12/23 06:05 Oxygen Flow Rate (L/min) 2 Oxygen Delivery Method Nasal Cannula Weight: 178 lb 12.718 oz Body Mass Index (BMI) 26.4 Intake & Output: Intake and Output for Last 24 Hours 08/10/23 08/11/23 08/12/23 23:59 23:59 22:59 Intake Total 4729.75 / 4729.75 8521.75 / 8521.75 1603.35 / 1603.35 Output Total 501 / 501 1999 / 1999 100 / 100 Balance 4228.75 / 4228.75 6521.75 / 6521.75 1503.35 / 1503.35 Lab / Micro Data Attestation: I reviewed the patient's lab results. 08/11/23 04:30 08/11/23 11:20 Labs: Laboratory Results - last 24 hr 08/11/23 10:40: APTT 70.6 H 08/11/23 11:20: Potassium 3.5, Magnesium 1.6 Micro: Microbiology 08/10/23 Unknown Wash - Right Middle Lobe Gram Stain - Final 08/10/23 Unknown Wash - Right Middle Lobe Respiratory Culture - Preliminary Culture exhibits no growth. 08/08/23 22:53 Mucosa - Nasopharyngeal Respiratory Panel (PCR) - Final 08/08/23 23:45 Urine, Clean Catch Legionella Antigen - Final 08/08/23 23:45 Urine, Clean Catch Streptococcus pneumoniae Antigen (M - Final 08/08/23 22:53 Mucosa - Nose Coronavirus COVID-19 PCR - Final 08/08/23 17:55 Stool Enteric Bacteriology - Final 08/08/23 17:55 Stool C. difficile DNA Amplification - Final Radiography Diagnostic Testing: Radiology Impression Echocardiogram 08/08/23 22:11 Interpretation Summary The estimated ejection fraction is 65 %. No evidence for diastolic dysfunction. The left atrium is mildly enlarged. Ordering Physician: Ellen Marquez Referring Physician: Catie Tiwari Performed By: Annamaria Maciel, ZENON, RVT Physical Exam Const alert and no apparent distress General Appearance: cooperative HEENT normocephalic and head/scalp atraumatic Eyes PERRL, EOMs intact bilaterally and conjunctivae normal Neck supple General: trachea midline Chest inspection of chest normal Resp normal respiratory effort Auscultation: Negative for rales, rhonchi or wheezes Cardio regular rate and regular rhythm GI normal to inspection, nondistended, normoactive bowel sounds Extremity Extremity Narrative: Wrapped lower extremities. General Extremity: edema bilateral lower extremity Skin no rashes or lesions noted Neuro CN's II-XII intact bilaterally, moves all extremities and no focal motor deficits Psych Mood & Affect: flat affect Charges/Coding Visit Charges Inpatient E&M: 42627 Subs Hosp L2
--- NOTE | 2023-08-12 08:21 | PCM.PN.BLA ---
Progress Note I examined the patient's right chest port site and there is still small amount of purulence. I removed the suture. A new dressing was applied. There was minimal erythema and it appears to be healing. Once the patient is infection free and we have confirmation that oncology plans to continue treatment, he can call my office and I will schedule him for left chest port placement. Dwayne Lira MD Pager: [facility] [address] [place] [address] [address] [place] [phone] Office:
[2023-08-12 08:27] LABS: Absolute Lymphocyte Count 0.11 X10^3/uL (0.83-4.51); Absolute Neutrophil Count 21.1 X10^3/uL (2.0-7.7); Basophil# 0.02 X10^3/uL; Basophil% 0.1 % (0-1); Hematocrit 33.4 % (40-54); Hemoglobin 10.9 g/dL (13.0-16.5); Lymphocyte # 0.11 X10^3/ul (0.83-4.51); Lymphocyte % 0.5 % (19-41); Mean Corp Hgb Conc 32.6 g/dL (32-36); Mean Corpuscular Hgb 29.4 pg (27.0-32.0); Mean Platelet Vol. 10.8 fl (6.2-12.0); Monocyte# 0.38 X10^3/uL; Monocyte% 1.8 % (0-10); NRBC Flagged by Analyzer 0 % (0-5); Neutrophil % 97.1 % (47-70); POSITIVE DIFFERENTIAL YES; POSITIVE MORPHOLOGY YES; Platelet Count 224 K/mm3 (150-450); RBC Distribution Width CV 20.5 % (11.6-14.6); RBC Distribution Width SD 67.2 fl (35.1-43.9); Red Blood Count 3.71 M/mm3 (4.6-6.2); White Blood Count 21.7 K/mm3 (4.4-11.0)
[2023-08-12 08:32] LABS: Differential Indicated SCAN CRITERIA MET
[2023-08-12] MEDS: Heparin Injection (Vial) 5,000 UNIT/ML VIAL IV ×2 (08:45→22:45)
[2023-08-12 08:57] LABS: Partial Thromboplast Time 46.6 Seconds (24.1-36.2)
[2023-08-12] MEDS: predniSONE 20 MG Tablet 100 MG PO (09:00)
[2023-08-12 09:21] LABS: Uric Acid 0.9 mg/dL (3.5-7.2)
--- NOTE | 2023-08-12 09:32 | PN.HOSP_ITS ---
Subjective Subjective No issues overnight Objective Data Objective Data Vital Signs: Vital Signs Temp Pulse Resp BP Pulse Ox O2 Del Method O2 Flow Rate 97.6 F L 54 L 16 108/68 100 Nasal Cannula 2 08/12/23 06:05 08/12/23 06:05 08/12/23 06:05 08/12/23 06:05 08/12/23 06:05 08/12/23 06:05 08/12/23 06:05 Oxygen Flow Rate (L/min) 2 Oxygen Delivery Method Nasal Cannula Weight: 178 lb 12.718 oz Body Mass Index (BMI) 26.4 Intake & Output: Intake and Output for Last 24 Hours 08/11/23 08/12/23 08/13/23 04:59 03:59 03:59 Intake Total 938.35 / 938.35 Output Total 100 / 100 Balance 838.35 / 838.35 Lab / Micro Data 08/12/23 07:45 08/11/23 11:20 Labs: Laboratory Results - last 24 hr 08/11/23 10:40: APTT 70.6 H 08/11/23 11:20: Potassium 3.5, Magnesium 1.6 08/12/23 07:45: WBC 21.7 H, RBC 3.71 L, Hgb 10.9 L, Hct 33.4 L, MCV 90.0, MCH 29.4, MCHC 32.6, RDW Std Deviation 67.2 H, RDW Coeff of Andrew 20.5 H, Plt Count 224, MPV 10.8, Immature Gran % (Auto) 0.500, Neut % (Auto) 97.1 H, Lymph % (Auto) 0.5 L, Craven % (Auto) 1.8, Eos % (Auto) 0.0, Baso % (Auto) 0.1, Absolute Neuts (auto) 21.1 H, Absolute Lymphs (auto) 0.11 L, Nucleated RBC % 0, APTT 46.6 H, Uric Acid 0.9 L Micro: Microbiology 08/10/23 Unknown Wash - Right Middle Lobe Gram Stain - Final 08/10/23 Unknown Wash - Right Middle Lobe Respiratory Culture - Preliminary Appears to be normal respiratory kelby. Further studies to follow. 08/10/23 Unknown Wash - Right Middle Lobe Anaerobic Culture - Preliminary No growth in 48 hours. 11/01/23 22:53 Mucosa - Nasopharyngeal Respiratory Panel (PCR) - Final 08/08/23 23:45 Urine, Clean Catch Legionella Antigen - Final 08/08/23 23:45 Urine, Clean Catch Streptococcus pneumoniae Antigen (M - Final 08/08/23 22:53 Mucosa - Nose Coronavirus COVID-19 PCR - Final 08/08/23 17:55 Stool Enteric Bacteriology - Final 08/08/23 17:55 Stool C. difficile DNA Amplification - Final Physical Exam Narrative General: Alert, cooperative, No apparent distress HEENT: Atraumatic, PERRLA, EOMI, Normocephalic Oral: Moist Mucosa Neck: Supple, No JVD Lungs: Clear to auscultation, Normal air movement, No rhonchi, No wheeze, No rales Cardiovascular: Regular rate, Regular Rhythm, Normal S1, Normal S2, No murmurs, chest port with mild erythema Abdomen: Soft, Non Tender, Non-Distended, No Hepato-splenomegaly Extremities: Edema, Capillary Refill Less than 3 Seconds Skin: No rashes, No breakdown Musculoskeletal: No Tenderness to Palpation of Joints or Extremities Neurological: Moves all extremities, Sensory exam intact to light touch and pain Psych/Mental Status: Flat Assessment & Plan Assessment/Plan (1) Pulmonary embolism: QUALIFIERS: Pulmonary embolism type: multiple subsegmental (without acute cor pulmonale) Qualified Code(s): I26.94 - Multiple subsegmental pulmonary emboli without acute cor pulmonale PLAN: Plan #1. Questionable pulmonary septic emboli with mild hypoxia with infected right IJ Port-A-Cath subsequently removal on 08/08/2023: Patient also has significant diarrhea. Abdomen is soft, nontender nondistended therefore I do not suspect significant colitis. ABG done in ED shows 7.61/22.9/110 on 4 L of oxygen interpretation reveals mild respiratory alkalosis as patient bicarb is 23 Twelve-lead EKG shows sinus rhythm 72 bpm, QRS 106 ms QT 552 ms history of prolonged QT. Patient is being admitted in PCU. Bronchodilator as needed with scheduled. On oxygen through nasal cannula. IV Zosyn and vancomycin. Patient has significant leukocytosis with slight improvement since yesterday. Immature granulocytes 1.1% mainly neutrophils 97%, lymphopenia 0.8%. Urinary antigens, stool for C. difficile and enteric bacteriology panel, COVID- 19 PCR are negative. Blood cultures x2 are pending. Pulmonary consult reviewed and appreciated. ID consult requested. 08/10: Leukocytosis worsening. Patient seen by ID. Blood culture pending. Respiratory panel negative. C. difficile negative. Patient currently not producing sputum. Went for bronchoscopy today BAL specimen and cultures pending. Hepatitis panel negative earlier. Negative HIV. Pending QuantiFERON. Possible aspiration versus port infection or opportunistic infection. 08/11: Preliminary RML BAL exhibits no growth. Continue broad-spectrum antibiotic. Continue IV heparin drip. 08/12/2023: Continue with broad-spectrum antibiotics, staph epi grew out of 1 b lood culture. Appreciate surgery's assistance if plan is to continue with chemotherapy and surgery will see as an outpatient once infection is cleared to transition port to the left side 2. Acute bilateral subsegmental nonocclusive pulmonary embolism:CTA individually reviewed and shows moderate volume nonocclusive acute pulmonary embolism involving most of the subsegmental pulmonary arteries with no evidence of right heart strain. 2D echo is ordered. Patient on IV heparin drip.: Venous duplex negative for bilateral lower extremity thrombosis. BNP ordered. 04/09: 2D echo shows EF 65% no evidence of diastolic function. LA mildly enlarged. No tricuspid stenosis. Unable to estimate RV systolic pressure. Right ventricle normal size and systolic function. BNP 08/12/2023: Respiratory status is currently stable appreciate pulmonology's assistance 3. 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 Liver chemistry shows elevated alkaline phosphatase 249 , ALT and AST within normal limit. Total bilirubin normal but LDH significant high 423 suggestive of bony involvement and active tumor growth. Uric acid is low 1.6. It was 3.0 on 07/16/2023. Lactic acid 2.3. In the ED, the patient was administered pamidronate 90 mg IV x1, prednisone 100 mg oral, and allopurinol 200 mg oral. Oncology consultation reviewed and appreciated. Discussed with Dr. Cohen and he said patient was first seen by him on 06/28/2023 as consult. Tumor is clinically very aggressive, anaplastic, unresponsive to standard therapy and null cell (neither B-cell or T-cell) and relatively worse prognosis. Patient was planned to start systemic therapy in early August 2023 after he had centr al venous access on August 01 point that was removed on first admission developed. He said he also talked to the [facility] oncology colleague and he is not a candidate for any trial. We will continue allopurinol. And prednisone 100 mg daily for total of 5 days. Can repeat 1 more dose of pamidronic acid if patient is stable hypercalcemia of malignancy. But calcium is 10.9 today probably will not need it. 08/10: Continue high-dose prednisone. Continue allopurinol. Serum calcium 9.7. Uric acid 1.3. See RP elevated. Plan was CHOP treatment but was not started yet #4. Acute kidney injury: Secondary to dehydration and acute presentation as noted. Admission BUN/Cr 50/1.76, prior baseline creatinine noted to be 0.8-1.1. Will hydrate, hold nephrotoxic medications and repeat chemistry in AM. If no improvement would plan FeNa and renal ultrasound assessment. 08/10: Serum creatinine improved to 0.98. 08/11: Serum creatinine 0.92 BUN elevated 28. ZUNILDA resolved. Patient will get IV fluid with magnesium and potassium supplementation. #5. Electrolyte abnormality: Hypokalemia and hypercalcemia: Admission K+ 2.4, serum potassium low 2.6 after replacement. Serum magnesium 2.2, phosphorus 4.1. Serum calcium 13.8, improved to 10.9. 08/10: Serum potassium low 2.9 severe hypokalemia. Potassium rider ordered. Serum magnesium and phosphorus ordered. 08/11: Serum potassium is low 3.2. 40 mEq IV potassium rider replaced but still sodium is 3.5. Oral potassium supplement ordered. Serum magnesium 1.7 but repeat serum magnesium 1.6 after 2 g IV magnesium sulfate replacement. Serum phosphorus normal. #6. Anxiety and depression: Not on any chronic regimen, would benefit from continued outpatient evaluation and counseling if appropriate. #7. Tobacco Abuse: Encouraged cessation, inpatient consultation per RT, NR if desired. #8. GERD: We will continue patient home PPI. #9. Chronic right lower extremity lymphedema: Status post DVT ultrasound with no acute findings, will place snug Real with elevation if able to tolerate. DVT: Heparin drip Charges/Coding Visit Charges Inpatient E&M: 37150 Subs Hosp L2
[2023-08-12 09:35] LABS: Anisocytosis 2+; Differential Comment SCANNED; Macrocytosis 1+; Microcytosis 1+
[2023-08-12 09:52] LABS: Anion Gap 7 (5-15); BUN 22 mg/dL (7-18); BUN/Creat Ratio 28.1 RATIO (10-20); CPK Total, Creatine Kinase 15 U/L (39-308); Calcium,Total 8.2 mg/dL (8.5-10.1); Chloride 116 mmol/L (98-107); Creatinine, Serum 0.78 mg/dL (0.70-1.30); EST Glomerular Filtration Rate 107 mL/min (>60); Est Glom Filt Rate - Afr Amer 130 mL/min (>60); Estimated Creatinine Clearance 101.97 ml/min; Glucose 132 mg/dL (74-106); Magnesium 1.8 mg/dL (1.6-2.6); Potassium 3.3 mmol/L (3.5-5.1); Sodium Level 141 mmol/L (136-145)
[2023-08-12 09:56] LABS: Phosphorus 1.8 mg/dL (2.5-4.9)
[2023-08-12] MEDS: Mineral Oil/Petrolatum Cr 1.75oz Bottle 1 APPLIC TOPICAL ×4 (11:00→20:47)
[2023-08-12] MEDS: Menthol/Lanolin/Calamine/Znox 113 GM Tube 1 APPLIC TOPICAL ×4 (11:00→20:47)
[2023-08-12] MEDS: 0.9% Saline Lock 10 ML Syringe IV (11:00)
[2023-08-12] MEDS: Allopurinol 300 MG Tablet PO (11:00)
[2023-08-12] MEDS: Acyclovir 200 MG Capsule 400 MG PO ×2 (11:00→20:48)
[2023-08-12] MEDS: Pantoprazole Sodium 20 MG Tablet PO (11:00)
[2023-08-12] MEDS: Vancomycin Trough/Random Due 1 LAB MC (15:12)
[2023-08-12 15:18] LABS: Partial Thromboplast Time 75.1 Seconds (24.1-36.2)
[2023-08-12 15:46] LABS: Vancomycin, Trough Level 17.4 ug/mL (5.0-15.0)
--- NOTE | 2023-08-12 17:24 | PCM.RX.CS ---
Consult Antibiotic Management Pharmacy has been consulted to manage selected antiobiotic: Vancomycin Type of Intervention Type of Consult: Follow-up Suspected Infection Suspected Infection: Skin/Soft tissue and Pneumonia Labs Labs: Sodium 141 mmol/L (136-145) 08/12/23 07:45 Potassium 3.3 mmol/L (3.5-5.1) L 08/12/23 07:45 Chloride 116 mmol/L (98-107) H 08/12/23 07:45 Carbon Dioxide 18.0 mmol/L (21.0-32.0) L 08/12/23 07:45 Anion Gap 7 (5-15) 08/12/23 07:45 BUN 22 mg/dL (7-18) H 08/12/23 07:45 Creatinine 0.78 mg/dL (0.70-1.30) 08/12/23 07:45 Est GFR (MDRD) Af Amer 130 mL/min (>60) 08/12/23 07:45 Est GFR (MDRD) Non-Af 107 mL/min (>60) 08/12/23 07:45 BUN/Creatinine Ratio 28.1 RATIO (10-20) H 08/12/23 07:45 Glucose 132 mg/dL (74-106) H 08/12/23 07:45 Vancomycin Trough 17.4 ug/mL (5.0-15.0) H 08/12/23 14:30 Microbiology Microbiology: Microbiology 08/10/23 Unknown Wash - Right Middle Lobe Gram Stain - Final 08/10/23 Unknown Wash - Right Middle Lobe Respiratory Culture - Preliminary Appears to be normal respiratory kelby. Further studies to follow. 08/10/23 Unknown Wash - Right Middle Lobe Anaerobic Culture - Preliminary No growth in 48 hours. 08/08/23 22:53 Mucosa - Nasopharyngeal Respiratory Panel (PCR) - Final 08/08/23 23:45 Urine, Clean Catch Legionella Antigen - Final 08/08/23 23:45 Urine, Clean Catch Streptococcus pneumoniae Antigen (M - Final 08/08/23 22:53 Mucosa - Nose Coronavirus COVID-19 PCR - Final 08/08/23 17:55 Stool Enteric Bacteriology - Final 08/08/23 17:55 Stool C. difficile DNA Amplification - Final Goal Trough Goal Trough: 15-20 mcg/mL Pharmacy Plan for Drug Dosing Pharmacy Plan for Drug Dosing: VANCOMYCIN LEVEL RECEIVED Current Vancomycin Dose: 750mg q12h (,15) Number of Doses Received: x6 of current 750mg dose Vancomycin Level: 17.4 Hours Since Last Dose: approx 12 hours since last 750mg dose Renal Function: SrCr 0.78 Renal Function Trend: SrCr improving. Was 1.2 on 08/09/23 Lab/Micro: Vancomycin Plan/Comments: resulted trough of 17.4 is within the ordered goal trough range of 15-20. recommend continuing current dose of 750mg q12h and checking a trough prior to the 4th dose Pending Level: 08/14/23 at 0230 Pharmacy Service will continue to monitor and adjust dosing as required. Follow-Up Labs Follow-Up Labs: Trough: Vancomycin (08/14/23 at 0230)
[2023-08-12 20:53] LABS: Partial Thromboplast Time 49.4 Seconds (24.1-36.2)
[2023-08-13] MEDS: Loperamide 2 MG Capsule PO ×4 (00:52→21:29)
[2023-08-13] MEDS: HEPARIN/D5w 25,000 UNITS 25,000 UNITS/250 ML IV.SOLN. 15 UNITS CONT INF (00:53)
[2023-08-13] MEDS: 0.9% Normal Saline (1000mL) 1,000 ML 150 ML IV (00:55)
[2023-08-13 02:00] VITALS: BP 98/65; PULSE 60; RESP 14; RESP 15; TEMP 36.3; O2SAT 100
[2023-08-13] MEDS: Vancomycin HCl 750 MG in 0.9% Normal Saline (250mL Bag) 250 ML 250 MG IV ×2 (02:17→15:16)
[2023-08-13] MEDS: Piperacil/Tazobactam 3.375 GM in 0.9% Normal Saline (50mL MB+) 50 ML IV (05:26)
[2023-08-13 05:50] LABS: Absolute Lymphocyte Count 0.08 X10^3/uL (0.83-4.51); Basophil# 0.02 X10^3/uL; Basophil% 0.1 % (0-1); Hematocrit 32.6 % (40-54); Hemoglobin 10.2 g/dL (13.0-16.5); Lymphocyte # 0.08 X10^3/ul (0.83-4.51); Lymphocyte % 0.4 % (19-41); Mean Corp Hgb Conc 31.3 g/dL (32-36); Mean Corpuscular Hgb 28.3 pg (27.0-32.0); Mean Corpuscular Volume 90.3 fL (80-94); Mean Platelet Vol. 11.1 fl (6.2-12.0); Monocyte# 0.23 X10^3/uL; NRBC Flagged by Analyzer 0 % (0-5); Neutrophil # 22.04 X10^3/uL (2.7-7.7); Neutrophil % 97.8 % (47-70); POSITIVE DIFFERENTIAL YES; POSITIVE MORPHOLOGY YES; Platelet Count 203 K/mm3 (150-450); Red Blood Count 3.61 M/mm3 (4.6-6.2); White Blood Count 22.5 K/mm3 (4.4-11.0)
[2023-08-13 06:00] VITALS: BMI 28.0
[2023-08-13 06:01] LABS: Anion Gap 7 (5-15); BUN 16 mg/dL (7-18); BUN/Creat Ratio 22.3 RATIO (10-20); Calcium,Total 7.5 mg/dL (8.5-10.1); Chloride 118 mmol/L (98-107); Creatinine, Serum 0.72 mg/dL (0.70-1.30); EST Glomerular Filtration Rate 119 mL/min (>60); Est Glom Filt Rate - Afr Amer 144 mL/min (>60); Estimated Creatinine Clearance 110.47 ml/min; Glucose 151 mg/dL (74-106); Potassium 3.5 mmol/L (3.5-5.1); Sodium Level 141 mmol/L (136-145); Uric Acid 0.8 mg/dL (3.5-7.2)
[2023-08-13 06:08] LABS: Partial Thromboplast Time 54.5 Seconds (24.1-36.2)
[2023-08-13 06:11] LABS: Differential Indicated SCAN CRITERIA MET
[2023-08-13] MEDS: Heparin Injection (Vial) 5,000 UNIT/ML VIAL IV (06:33)
[2023-08-13 07:02] VITALS: PULSE 51; RESP 16; O2SAT 100
[2023-08-13] MEDS: Budesonide Respules 0.5 MG/2 ML AMPUL.NEB. INHALATION ×2 (07:02→19:30)
[2023-08-13 07:06] LABS: Anisocytosis 2+
[2023-08-13 07:08] LABS: Differential Comment SCANNED
[2023-08-13 08:00] VITALS: BP 130/72; PULSE 62; RESP 18; TEMP 36.3; O2SAT 100
[2023-08-13] MEDS: Allopurinol 300 MG Tablet PO (08:21)
[2023-08-13] MEDS: predniSONE 20 MG Tablet 100 MG PO (08:21)
[2023-08-13] MEDS: Acyclovir 200 MG Capsule 400 MG PO ×2 (08:21→21:22)
[2023-08-13] MEDS: Pantoprazole Sodium 20 MG Tablet PO (08:22)
[2023-08-13] MEDS: Menthol/Lanolin/Calamine/Znox 113 GM Tube 1 APPLIC TOPICAL ×4 (08:22→21:23)
[2023-08-13] MEDS: Mineral Oil/Petrolatum Cr 1.75oz Bottle 1 APPLIC TOPICAL ×4 (08:22→21:23)
--- NOTE | 2023-08-13 08:49 | PCM.PN.INT ---
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 Continue antimicrobials per ID recommendations. 2. IVF d/ольга given signs of volume overlaod, consider lasix as pt is 30L positive balance since admission and now complains of b/l UE swelling as well. 3. Consider switching to NOAC if no further procedures are planned 4. Wean O2 as tolerated. 5. Encourage incentive spirometer use and mobilize patient as tolerated. IMPRESSIONS: 1. Questionable pulmonary septic emboli CT imaging of the chest demonstrated bilateral cavitary nodular densities, with concern for septic emboli versus metastatic deposits. The patient just had his chest port removed over concerns for an infection. The patient underwent bronchoscopy on August 10 with BAL obtained and sent for cultures. The patient remains hemodynamically stable. The patient will be continued on antimicrobials under the discretion of infectious diseases. Continue current supportive measures, pending the outcome of his infectious work-up. Continue heparin infusion given nonocclusive clots noted in subsegmental pulmonary arteries. The patient is otherwise stable from a pulmonary perspective. 2. Acute kidney injury Resolved. Most likely prerenal in etiology. Creatinine has improved with volume expansion. Continue supplemental IV fluid hydration as ordered. Continue to monitor urine output. No indication for renal replacement therapy. 3. Metastatic anaplastic large cell lymphoma/hypercalcemia Continue medical management per oncology recommendations. 4. History of tobacco dependency, in remission/GERD/anxiety/depression Complicates care, management, recovery and prognosis. Continue home medications as indicated. This note was generated with [employer] dictation software. It may contain incorrect words, spelling, and punctuation that were not noted in checking the note before signing. Subjective Subjective He reports improved breathing but asking to participate with PT. He continues to have b/l LE swelling Objective Data Objective Data Vital Signs: Vital Signs Temp Pulse Resp BP Pulse Ox O2 Del Method O2 Flow Rate 36.3 C L 62 18 130/72 H 100 Room Air 2 08/13/23 08:00 08/13/23 08:00 08/13/23 08:00 08/13/23 08:00 08/13/23 08:00 08/13/23 08:00 08/13/23 07:02 Oxygen Flow Rate (L/min) 2 Oxygen Delivery Method Room Air Weight: 86.081 kg Body Mass Index (BMI) 28.0 Intake & Output: Intake and Output for Last 24 Hours 08/12/23 08/12/23 08/13/23 00:59 23:59 23:59 Intake Total 3138.97 / 3138.97 Output Total 100 / 100 Balance 3038.97 / 3038.97 Lab / Micro Data 08/13/23 05:15 08/13/23 05:15 Labs: Laboratory Results - last 24 hr 08/12/23 07:45: Differential Comment SCANNED, Anisocytosis 2+, Microcytosis 1+, Macrocytosis 1+, APTT 46.6 H, Sodium 141, Potassium 3.3 L, Chloride 116 H, Carbon Dioxide 18.0 L, Anion Gap 7, BUN 22 H, Creatinine 0.78, Estim Creat Clear Calc 101.97, Est GFR (MDRD) Af Amer 130, Est GFR (MDRD) Non-Af 107, BUN/Creatinine Ratio 28.1 H, Glucose 132 H, Uric Acid 0.9 L, Calcium 8.2 L, Phosphorus 1.8 L, Magnesium 1.8, Total Creatine Kinase 15 L 08/12/23 14:30: APTT 75.1 H, Vancomycin Trough 17.4 H 08/12/23 20:31: APTT 49.4 H 08/13/23 05:15: WBC 22.5 H, RBC 3.61 L, Hgb 10.2 L, Hct 32.6 L, MCV 90.3, MCH 28.3, MCHC 31.3 L, RDW Std Deviation 68.0 H, RDW Coeff of Andrew 21.0 H, Plt Count 203, MPV 11.1, Immature Gran % (Auto) 0.700, Neut % (Auto) 97.8 H, Lymph % (Auto) 0.4 L, Swisher % (Auto) 1.0, Eos % (Auto) 0.0, Baso % (Auto) 0.1, Absolute Neuts (auto) 22.0 H, Absolute Lymphs (auto) 0.08 L, Nucleated RBC % 0, Differential Comment SCANNED, Anisocytosis 2+, APTT 54.5 H, Sodium 141, Potassium 3.5, Chloride 118 H, Carbon Dioxide 16.0 L, Anion Gap 7, BUN 16, Creatinine 0.72, Estim Creat Clear Calc 110.47, Est GFR (MDRD) Af Amer 144, Est GFR (MDRD) Non-Af 119, BUN/Creatinine Ratio 22.3 H, Glucose 151 H, Uric Acid 0.8 L, Calcium 7.5 L Micro: Microbiology 08/10/23 Unknown Wash - Right Middle Lobe Gram Stain - Final 08/10/23 Unknown Wash - Right Middle Lobe Respiratory Culture - Preliminary Appears to be normal respiratory kelby. Further studies to follow. 08/10/23 Unknown Wash - Right Middle Lobe Anaerobic Culture - Preliminary No growth in 48 hours. 08/08/23 22:53 Mucosa - Nasopharyngeal Respiratory Panel (PCR) - Final 08/08/23 23:45 Urine, Clean Catch Legionella Antigen - Final 08/08/23 23:45 Urine, Clean Catch Streptococcus pneumoniae Antigen (M - Final 08/08/23 22:53 Mucosa - Nose Coronavirus COVID-19 PCR - Final 08/08/23 17:55 Stool Enteric Bacteriology - Final 08/08/23 17:55 Stool C. difficile DNA Amplification - Final Physical Exam Const alert and no apparent distress Constitutional Narrative: Currently maintaining appropriate oxygen saturations on room air. General Appearance: cooperative and lethargic HEENT normocephalic and head/scalp atraumatic Eyes PERRL, EOMs intact bilaterally and conjunctivae normal Neck supple General: trachea midline Chest inspection of chest normal Resp normal respiratory effort Auscultation: Negative for rales, rhonchi or wheezes Cardio regular rate and regular rhythm GI normal to inspection, nondistended, normoactive bowel sounds Extremity Extremity Narrative: Wrapped lower extremities. General Extremity: edema bilateral lower extremity Skin no rashes or lesions noted Neuro CN's II-XII intact bilaterally, moves all extremities and no focal motor deficits Psych Mood & Affect: flat affect Charges/Coding Visit Charges Inpatient E&M: 81683 Subs Hosp L2
--- NOTE | 2023-08-13 09:32 | PCM.PN.HOSP ---
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, lymph nodes of multiple sites (08/08/23) Vitamin B12 deficiency anemia, unspecified (08/08/23) Hypercalcemia (08/08/23) Hypokalemia (08/08/23) Multiple subsegmental pulmonary emboli without acute cor pulmonale (08/08/23) Other pulmonary embolism without acute cor pulmonale (08/08/23) Lymphedema, not elsewhere classified (08/08/23) Other disorders of lung (08/08/23) Unspecified kidney failure (08/08/23) Rash and other nonspecific skin eruption (08/08/23) Unspecified infection due to central venous catheter, initial encounter (08/08/23) Subjective Subjective Patient lying in bed, feels swollen but reports he has been feeling this way, also feels generally weak but would like to get up and move around Objective Data Objective Data Vital Signs: Vital Signs Temp Pulse Resp BP Pulse Ox O2 Del Method O2 Flow Rate 97.3 F L 62 18 130/72 H 100 Room Air 2 08/13/23 08:00 08/13/23 08:00 08/13/23 08:00 08/13/23 08:00 08/13/23 08:00 08/13/23 08:57 08/13/23 07:02 Oxygen Flow Rate (L/min) 2 Oxygen Delivery Method Room Air Weight: 86.081 kg Body Mass Index (BMI) 28.0 Intake & Output: Intake and Output for Last 24 Hours 08/12/23 08/12/23 08/13/23 00:59 23:59 23:59 Intake Total 3138.97 / 3138.97 Output Total 100 / 100 Balance 3038.97 / 3038.97 Lab / Micro Data 08/13/23 05:15 08/13/23 05:15 Labs: Laboratory Results - last 24 hr 08/12/23 07:45: Differential Comment SCANNED, Anisocytosis 2+, Microcytosis 1+, Macrocytosis 1+, Sodium 141, Potassium 3.3 L, Chloride 116 H, Carbon Dioxide 18.0 L, Anion Gap 7, BUN 22 H, Creatinine 0.78, Estim Creat Clear Calc 101.97, Est GFR (MDRD) Af Amer 130, Est GFR (MDRD) Non-Af 107, BUN/Creatinine Ratio 28.1 H, Glucose 132 H, Calcium 8.2 L, Phosphorus 1.8 L, Magnesium 1.8, Total Creatine Kinase 15 L 08/12/23 14:30: APTT 75.1 H, Vancomycin Trough 17.4 H 08/12/23 20:31: APTT 49.4 H 08/13/23 05:15: WBC 22.5 H, RBC 3.61 L, Hgb 10.2 L, Hct 32.6 L, MCV 90.3, MCH 28.3, MCHC 31.3 L, RDW Std Deviation 68.0 H, RDW Coeff of Andrew 21.0 H, Plt Count 203, MPV 11.1, Immature Gran % (Auto) 0.700, Neut % (Auto) 97.8 H, Lymph % (Auto) 0.4 L, Hall % (Auto) 1.0, Eos % (Auto) 0.0, Baso % (Auto) 0.1, Absolute Neuts (auto) 22.0 H, Absolute Lymphs (auto) 0.08 L, Nucleated RBC % 0, Differential Comment SCANNED, Anisocytosis 2+, APTT 54.5 H, Sodium 141, Potassium 3.5, Chloride 118 H, Carbon Dioxide 16.0 L, Anion Gap 7, BUN 16, Creatinine 0.72, Estim Creat Clear Calc 110.47, Est GFR (MDRD) Af Amer 144, Est GFR (MDRD) Non-Af 119, BUN/Creatinine Ratio 22.3 H, Glucose 151 H, Uric Acid 0.8 L, Calcium 7.5 L Micro: Microbiology 08/10/23 Unknown Wash - Right Middle Lobe Gram Stain - Final 08/10/23 Unknown Wash - Right Middle Lobe Respiratory Culture - Preliminary Appears to be normal respiratory kelby. Further studies to follow. 08/10/23 Unknown Wash - Right Middle Lobe Anaerobic Culture - Preliminary No growth in 48 hours. 08/08/23 22:53 Mucosa - Nasopharyngeal Respiratory Panel (PCR) - Final 08/08/23 23:45 Urine, Clean Catch Legionella Antigen - Final 08/08/23 23:45 Urine, Clean Catch Streptococcus pneumoniae Antigen (M - Final 08/08/23 22:53 Mucosa - Nose Coronavirus COVID-19 PCR - Final 08/08/23 17:55 Stool Enteric Bacteriology - Final 08/08/23 17:55 Stool C. difficile DNA Amplification - Final Assessment & Plan Assessment/Plan (1) Pulmonary embolism: QUALIFIERS: Pulmonary embolism type: multiple subsegmental (without acute cor pulmonale) Qualified Code(s): I26.94 - Multiple subsegmental pulmonary emboli without acute cor pulmonale PLAN: Plan #1. Questionable pulmonary septic emboli with mild hypoxia with infected right IJ Port-A-Cath subsequently removal on 08/08/2023: Patient also has significant diarrhea. Abdomen is soft, nontender nondistended therefore I do not suspect significant colitis. ABG done in ED shows 7.61/22.9/110 on 4 L of oxygen interpretation reveals mild respiratory alkalosis as patient bicarb is 23 Twelve-lead EKG shows sinus rhythm 72 bpm, QRS 106 ms QT 552 ms history of prolonged QT. Patient is being admitted in PCU. Bronchodilator as needed with scheduled. On oxygen through nasal cannula. IV Zosyn and vancomycin. Patient has significant leukocytosis with slight improvement since yesterday. Immature granulocytes 1.1% mainly neutrophils 97%, lymphopenia 0.8%. Urinary antigens, stool for C. difficile and enteric bacteriology panel, COVID-19 PCR are negative. Blood cultures x2 are pending. Pulmonary consult reviewed and appreciated. ID consult requested. 08/10: Leukocytosis worsening. Patient seen by ID. Blood culture pending. Respiratory panel negative. C. difficile negative. Patient currently not producing sputum. Went for bronchoscopy today BAL specimen and cultures pending. Hepatitis panel negative earlier. Negative HIV. Pending QuantiFERON. Possible aspiration versus port infection or opportunistic infection. 08/11: Preliminary RML BAL exhibits no growth. Continue broad-spectrum antibiotic. Continue IV heparin drip. 08/12/2023: Continue with broad-spectrum antibiotics, staph epi grew out of 1 blood culture. Appreciate surgery's assistance if plan is to continue with chemotherapy and surgery will see as an outpatient once infection is cleared to transition port to the left side -08/13: Patient for outpatient left chest port placement, once infection free and confirmation that oncology will continue treatment he can call surgery office. Given inpatient procedure not planned we will switch to NOAC. ID following, patient abx spectrum being narrowed today. Additionally pt has fem line, patient has been unable to work with therapy due to femoral line, given relative stability and discontinuing heparin drip as well as generalized weakness will establish good peripheral access and then plan to DC femoral line and have patient evaluated by PT 2. Acute bilateral subsegmental nonocclusive pulmonary embolism:CTA individually reviewed and shows moderate volume nonocclusive acute pulmonary embolism involving most of the subsegmental pulmonary arteries with no evidence of right heart strain. 2D echo is ordered. Patient on IV heparin drip.: Venous duplex negative for bilateral lower extremity thrombosis. BNP ordered. 04/09: 2D echo shows EF 65% no evidence of diastolic function. LA mildly enlarged. No tricuspid stenosis. Unable to estimate RV systolic pressure. Right ventricle normal size and systolic function. BNP 08/12/2023: Respiratory status is currently stable appreciate pulmonology's assistance -08/13: Pulm recommended switching to NOAC if no further procedures. We will plan on transition 3. 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 Liver chemistry shows elevated alkaline phosphatase 249 , ALT and AST within normal limit. Total bilirubin normal but LDH significant high 423 suggestive of bony involvement and active tumor growth. Uric acid is low 1.6. It was 3.0 on 07/16/2023. Lactic acid 2.3. In the ED, the patient was administered pamidronate 90 mg IV x1, prednisone 100 mg oral, and allopurinol 200 mg oral. Oncology consultation reviewed and appreciated. Discussed with Dr. Cohen and he said patient was first seen by him on 06/28/2023 as consult. Tumor is clinically very aggressive, anaplastic, unresponsive to standard therapy and null cell (neither B-cell or T-cell) and relatively worse prognosis. Patient was planned to start systemic therapy in early August 2023 after he had central venous access on August 01 point that was removed on first admission developed. He said he also talked to the [facility] oncology colleague and he is not a candidate for any trial. We will continue allopurinol. And prednisone 100 mg daily for total of 5 days. Can repeat 1 more dose of pamidronic acid if patient is stable hypercalcemia of malignancy. But calcium is 10.9 today probably will not need it. 08/10: Continue high-dose prednisone. Continue allopurinol. Serum calcium 9.7. Uric acid 1.3. See RP elevated. Plan was CHOP treatment but was not started yet -08/13: Patient seen by oncology 08/09 with palliative 5-day course oral prednisone and continue allopurinol 300 mg for tumor lysis prophylaxis. Systemic treatment on hold while underlying infection and acute medical illnesses addressed #4. Acute kidney injury: Secondary to dehydration and acute presentation as noted. Admission BUN/Cr 50/1.76, prior baseline creatinine noted to be 0.8-1.1. Will hydrate, hold nephrotoxic medications and repeat chemistry in AM. If no improvement would plan FeNa and renal ultrasound assessment. 08/10: Serum creatinine improved to 0.98. 08/11: Serum creatinine 0.92 BUN elevated 28. ZUNILDA resolved. Patient will get IV fluid with magnesium and potassium supplementation. -08/13: Patient more swollen and significantly positive and fluid, hold any further IV fluids, received dose of IV Lasix today #5. Electrolyte abnormality: Hypokalemia and hypercalcemia: Admission K+ 2.4, serum potassium low 2.6 after replacement. Serum magnesium 2.2, phosphorus 4.1. Serum calcium 13.8, improved to 10.9. 08/10: Serum potassium low 2.9 severe hypokalemia. Potassium rider ordered. Serum magnesium and phosphorus ordered. 08/11: Serum potassium is low 3.2. 40 mEq IV potassium rider replaced but still sodium is 3.5. Oral potassium supplement ordered. Serum magnesium 1.7 but repeat serum magnesium 1.6 after 2 g IV magnesium sulfate replacement. Serum phosphorus normal. -08/13: Continue to monitor and adjust #6. Anxiety and depression: Not on any chronic regimen, would benefit from continued outpatient evaluation and counseling if appropriate. #7. Tobacco Abuse: Encouraged cessation, inpatient consultation per RT, NR if desired. #8. GERD: We will continue patient home PPI. #9. Chronic right lower extremity lymphedema: Status post DVT ultrasound with no acute findings, will place snug Real with elevation if able to tolerate. DVT: Heparin drip?plan to transition to Eliquis Charges/Coding Visit Charges Inpatient E&M: 89239 Subs Hosp L2
[2023-08-13] MEDS: 0.9 % NaCl (Sterile) Posiflush 10 mL IV (10:49)
[2023-08-13] MEDS: Furosemide 40 MG/4 ML Vial IV (10:49)
--- NOTE | 2023-08-13 13:21 | PCM.PN.ID ---
Physical Exam Narrative Feeling better, but increased edema. No fever. Having diarrhea. Const alert and no apparent distress General Appearance: cooperative Resp normal air movement and clear to auscultation bilaterally Cardio regular rate and regular rhythm GI soft to palpation, non-tender and non-distended Extremity General Extremity: edema Skin Skin Narrative: skin much less dry/flaky ID ID: Route of nutrition/ use of supplements: [] Nutritional Intake: [] IV Site: [] Charles Catheter: [] Assessment & Plan Assessment/Plan (1) Pulmonary embolism: QUALIFIERS: Pulmonary embolism type: multiple subsegmental (without acute cor pulmonale) Qualified Code(s): I26.94 - Multiple subsegmental pulmonary emboli without acute cor pulmonale (2) Infection of venous access port: (3) 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 Bcx pending, port site cx with some MRSE. Resp pcr panel neg, cdiff neg, UAgs neg. Recent dx of lymphoma, not yet started on chemo as outpt. CT chest shows scattered cavitary disease. Had CT/PET done 08/07/23. Not producing sputum. Hep panel neg earlier this month, no HIV sent. Neg hiv here; pending quantiferon, cryptococcal Ag, urine histo Ag, aspergillus Ag. Bronch done, results so far neg for infection. Possible aspiration vs port vs opportunistic infection, or cavitary lesions may just be related to his PEs. On empiric vanc/zosyn. Now on high dose pred; plan as an outpt had been for BV-CHP. If he is going to be started on significant immunosuppression, would favor giving him the most effective lymphoma treatment. Will narrow abx to vanc/ceftriaxone/flagyl. Will follow
--- NOTE | 2023-08-13 14:03 | CHAPLAIN ---
Type of Pastoral Visit ___ Initial Visit ___ Follow-up Visit ___ On-call Visit ___ General Patient Visit ___ Spiritual Assessment ___ Family Conference ___ Bereavement ___ Rapid Response ___ Code Blue ___ Other (describe below) Pastoral Care Referral From _x__ Patient ___ Family ___ Nurse ___ Physician ___ Heart Doctor ___ Precision Lathe Operator ___ Other (describe below) Sacrament/Intervention _x__ Active listening ___ Anointing ___ Mu-Ism ___ Bereavement ___ Communion ___ Rose [place] exploration ___ ___ Life review _x__ Prayer ___ Reconciliation ___ Sacrament of Sick _x__ Supportive presence ___ Wedding ___ Other (describe below) Pastoral Comments patient answers questions but is not easily moved into conversation; pt was trying to rest so may have needed more time to sleep; offer to let pt rest after a brief visit; pt does speak some of his cancer; 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
[2023-08-13 14:30] VITALS: BP 114/74; PULSE 66; RESP 18; TEMP 36.3; O2SAT 100
[2023-08-13] MEDS: Ceftriaxone 2 GM in 0.9% Normal Saline (50mL MB+) 50 ML IV (14:30)
[2023-08-13] MEDS: metroNIDAZOLE 500 MG Tablet PO ×2 (16:14→21:22)
[2023-08-13] MEDS: APIXABAN 5 MG TABLET PO (17:25)
[2023-08-13 19:30] VITALS: PULSE 67; RESP 18
[2023-08-13 20:30] VITALS: BP 112/59; PULSE 60; RESP 18; TEMP 36.4; O2SAT 100
[2023-08-13 20:40] LABS: Partial Thromboplast Time 50.3 Seconds (24.1-36.2)
[2023-08-14] VITALS (10 sets, daily range): BP systolic 97–156; BP diastolic 56–82; PULSE 56–63; RESP 14–20; TEMP 36.1–36.6; O2SAT 97–100; BMI 27.8
[2023-08-14 03:52] LABS: Anion Gap 8 (5-15); BUN 15 mg/dL (7-18); BUN/Creat Ratio 21.9 RATIO (10-20); Calcium,Total 7.4 mg/dL (8.5-10.1); Chloride 116 mmol/L (98-107); Creatinine, Serum 0.68 mg/dL (0.70-1.30); EST Glomerular Filtration Rate 125 mL/min (>60); Est Glom Filt Rate - Afr Amer 152 mL/min (>60); Estimated Creatinine Clearance 116.97 ml/min; Glucose 118 mg/dL (74-106); Potassium 3.4 mmol/L (3.5-5.1); Sodium Level 142 mmol/L (136-145); Uric Acid 0.9 mg/dL (3.5-7.2)
[2023-08-14 04:01] LABS: Absolute Lymphocyte Count 0.16 X10^3/uL (0.83-4.51); Absolute Neutrophil Count 25.5 X10^3/uL (2.0-7.7); Basophil# 0.04 X10^3/uL; Basophil% 0.2 % (0-1); Hemoglobin 10.6 g/dL (13.0-16.5); Lymphocyte # 0.16 X10^3/ul (0.83-4.51); Lymphocyte % 0.6 % (19-41); Mean Corp Hgb Conc 31.2 g/dL (32-36); Mean Corpuscular Hgb 27.6 pg (27.0-32.0); Mean Corpuscular Volume 88.5 fL (80-94); Mean Platelet Vol. 11.4 fl (6.2-12.0); Monocyte# 0.39 X10^3/uL; Monocyte% 1.5 % (0-10); NRBC Flagged by Analyzer 0 % (0-5); Neutrophil # 25.53 X10^3/uL (2.7-7.7); Neutrophil % 96.7 % (47-70); POSITIVE DIFFERENTIAL YES; POSITIVE MORPHOLOGY YES; Platelet Count 183 K/mm3 (150-450); RBC Distribution Width CV 21.1 % (11.6-14.6); RBC Distribution Width SD 67.2 fl (35.1-43.9); Red Blood Count 3.84 M/mm3 (4.6-6.2); White Blood Count 26.4 K/mm3 (4.4-11.0)
[2023-08-14 04:09] LABS: Differential Indicated SCAN CRITERIA MET
[2023-08-14 04:59] LABS: Differential Comment SCANNED; Platelet Morphology LARGE; Target Cells 2+
[2023-08-14 05:02] LABS: Anisocytosis 1+
--- NOTE | 2023-08-14 05:21 | NURSING ---
Pt had vanc trough due to draw at 0230 and vanco to be hung at 0300. Vanc through was drawn late and results are still pending at this time. Pharmacy notified of pending result status. Will call pharmacy back to reschedule dose once results .
[2023-08-14 05:22] LABS: Vancomycin, Trough Level 18.5 ug/mL (5.0-15.0)
--- NOTE | 2023-08-14 05:36 | PCM.RX.CS ---
Consult Antibiotic Management Pharmacy has been consulted to manage selected antiobiotic: Vancomycin Type of Intervention Type of Consult: Follow-up Labs Labs: Sodium 142 mmol/L (136-145) 08/14/23 02:33 Potassium 3.4 mmol/L (3.5-5.1) L 08/14/23 02:33 Chloride 116 mmol/L (98-107) H 08/14/23 02:33 Carbon Dioxide 18.0 mmol/L (21.0-32.0) L 08/14/23 02:33 Anion Gap 8 (5-15) 08/14/23 02:33 BUN 15 mg/dL (7-18) 08/14/23 02:33 Creatinine 0.68 mg/dL (0.70-1.30) L 08/14/23 02:33 Est GFR (MDRD) Af Amer 152 mL/min (>60) 08/14/23 02:33 Est GFR (MDRD) Non-Af 125 mL/min (>60) 08/14/23 02:33 BUN/Creatinine Ratio 21.9 RATIO (10-20) H 08/14/23 02:33 Glucose 118 mg/dL (74-106) H 08/14/23 02:33 Vancomycin Trough 18.5 ug/mL (5.0-15.0) H 08/14/23 02:33 Microbiology Microbiology: Microbiology 08/10/23 Unknown Wash - Right Middle Lobe Gram Stain - Final 08/10/23 Unknown Wash - Right Middle Lobe Respiratory Culture - Final Mixed normal respiratory kelby. No Streptococcus pneumoniae, beta-hemolytic Streptococcus or Staphylococcus aureus isolated. 08/10/23 Unknown Wash - Right Middle Lobe Anaerobic Culture - Preliminary No growth in 48 hours. 08/08/23 22:53 Mucosa - Nasopharyngeal Respiratory Panel (PCR) - Final 08/08/23 23:45 Urine, Clean Catch Legionella Antigen - Final 08/08/23 23:45 Urine, Clean Catch Streptococcus pneumoniae Antigen (M - Final 08/08/23 22:53 Mucosa - Nose Coronavirus COVID-19 PCR - Final 08/08/23 17:55 Stool Enteric Bacteriology - Final 08/08/23 17:55 Stool C. difficile DNA Amplification - Final Goal Trough Goal Trough: 15-20 mcg/mL Pharmacy Plan for Drug Dosing Pharmacy Plan for Drug Dosing: Pharmacy Service will continue to monitor and adjust dosing as required. TROUGH 18.5 @ 11.5 HOURS. NO CHANGES FOLLOW UP TROUGH IN 4 DAYS Follow-Up Labs Follow-Up Labs: Trough: Vancomycin Date/Time Labs Ordered Labs to be done on [date and time ordered]: 08/18 @ 1370
[2023-08-14] MEDS: Vancomycin HCl 750 MG in 0.9% Normal Saline (250mL Bag) 250 ML 250 MG IV ×2 (05:48→15:03)
[2023-08-14] MEDS: Loperamide 2 MG Capsule PO ×5 (05:48→20:44)
[2023-08-14] MEDS: metroNIDAZOLE 500 MG Tablet PO ×3 (05:48→20:44)
[2023-08-14] MEDS: Budesonide Respules 0.5 MG/2 ML AMPUL.NEB. INHALATION ×2 (07:20→19:28)
[2023-08-14 08:08] LABS: Pathologist Comment/Body Fluid Reviewed
[2023-08-14 08:11] LABS: Cryptococcus Ag, Serum Negative (Negative); QNTFERON TB Mitogen Value 0.19 IU/mL (.); QNTFERON TB Nil Value 0 IU/mL (.); QNTFERON TB1+ Ag Value 0.02 IU/mL (.); QNTFERON TB2+ Ag Value 0 IU/mL (.); QNTIFERON TB Positive Criteria Indeterminate (Negative); URINE HISTOPLASMA ANTIGEN <0.5 (<0.5 ng/mL)
[2023-08-14] MEDS: APIXABAN 5 MG TABLET PO ×2 (09:13→20:43)
[2023-08-14] MEDS: Acyclovir 200 MG Capsule 400 MG PO (09:14)
[2023-08-14] MEDS: Pantoprazole Sodium 20 MG Tablet PO (09:14)
[2023-08-14] MEDS: Allopurinol 300 MG Tablet PO (09:14)
[2023-08-14] MEDS: Menthol/Lanolin/Calamine/Znox 113 GM Tube 1 APPLIC TOPICAL ×4 (09:15→20:46)
[2023-08-14] MEDS: predniSONE 20 MG Tablet 100 MG PO (09:15)
[2023-08-14] MEDS: Mineral Oil/Petrolatum Cr 1.75oz Bottle 1 APPLIC TOPICAL ×4 (09:15→20:45)
[2023-08-14] MEDS: Ceftriaxone 2 GM in 0.9% Normal Saline (50mL MB+) 50 ML IV (11:31)
--- NOTE | 2023-08-14 11:41 | ONC.PN.INPT ---
Subjective Subjective Overall I feel a bit better since I came in. Still too weak to ambulate and has a pressure sore. Physical Exam Narrative ECOG 4 Const alert, oriented x3 and no apparent distress General Appearance: ill appearing Positive for chronically and frail Extremity General Extremity: edema bilateral lower extremity Details: severe Skin General Skin Exam: erythema Vital Signs Temperature 97.7 F L 08/14/23 09:30 Temperature Source Axillary 08/14/23 09:30 Pulse Rate 56 L 08/14/23 09:30 Pulse Strength Normal (2+) 08/14/23 10:00 Respiratory Rate 15 08/14/23 09:30 Respiratory Effort Non-Labored 08/14/23 10:00 Respiratory Depth Normal 08/14/23 10:00 Respiratory Pattern Normal 08/14/23 10:00 Blood Pressure 109/68 08/14/23 09:30 Blood Pressure Mean 81 08/14/23 09:30 Blood Pressure Source Monitor 08/14/23 09:30 Blood Pressure Position Supine 08/13/23 14:30 Blood Pressure Location Left Forearm 08/13/23 02:00 Baseline BP 100/56 08/10/23 10:10 Pulse Ox 100 08/14/23 09:30 Oxygen Delivery Method Room Air 08/14/23 09:30 Oxygen Flow Rate (L/min) 2 08/13/23 07:02 Laboratory Results - last 24 hr 08/09/23 16:25: Cryptococcus Ag Negative, U Histopl Galactoman Ag <0.5, TB Test (QFT) Nil 0, TB Test (QFT) Mitogen 0.19, TB Test (QFT) Ag 1 0.02, TB Test (QFT) Ag 2 0, TB Test (QFT) Comment, TB Positive Criteria Indeterminate H 08/10/23 : Fl Pathologist Comment Reviewed, Miscellaneous Cytology SEE PATHOLOGY REPORT 08/13/23 12:35: APTT 83.0 H 08/13/23 20:15: APTT 50.3 H 08/14/23 02:33: WBC 26.4 H, RBC 3.84 L, Hgb 10.6 L, Hct 34.0 L, MCV 88.5, MCH 27.6, MCHC 31.2 L, RDW Std Deviation 67.2 H, RDW Coeff of Andrew 21.1 H, Plt Count 183, MPV 11.4, Immature Gran % (Auto) 1.000 H, Neut % (Auto) 96.7 H, Lymph % (Auto) 0.6 L, [place] % (Auto) 1.5, Eos % (Auto) 0.0, Baso % (Auto) 0.2, Absolute Neuts (auto) 25.5 H, Absolute Lymphs (auto) 0.16 L, Nucleated RBC % 0, Differential Comment SCANNED, Plt Morphology Comment LARGE, Anisocytosis 1+, Target Cells 2+, Sodium 142, Potassium 3.4 L, Chloride 116 H, Carbon Dioxide 18.0 L, Anion Gap 8, BUN 15, Creatinine 0.68 L, Estim Creat Clear Calc 116.97, Est GFR (MDRD) Af Amer 152, Est GFR (MDRD) Non-Af 125, BUN/Creatinine Ratio 21.9 H, Glucose 118 H, Uric Acid 0.9 L, Calcium 7.4 L, Vancomycin Trough 18.5 H Microbiology 08/10/23 Unknown Wash - Right Middle Lobe Gram Stain - Final 08/10/23 Unknown Wash - Right Middle Lobe Respiratory Culture - Final Mixed normal respiratory kelby. No Streptococcus pneumoniae, beta-hemolytic Streptococcus or Staphylococcus aureus isolated. 08/10/23 Unknown Wash - Right Middle Lobe Anaerobic Culture - Preliminary No growth in 48 hours. Diagnostic Data Venous Doppler Study 08/08/23 15:54 Interpretation Summary Deep veins of the right lower extremity are patent and compressible segmentally. There is no evidence of right lower extremity deep vein thrombosis. Valvular competence appears intact within the proximal deep venous system on the right . The right great saphenous vein appears patent and compressible segmentally. The left common femoral vein is patent and compressible . Ordering Physician: Srikanth Wisdom Referring Physician: Annika Blake Performed By: Paige Zamora, RVT Chest X-Ray 08/08/23 16:25 IMPRESSION: Interval removal of right-sided chest port. Otherwise, no change from prior study. Electronically Signed: Ryan Britton MD at 17:25 EDT , Chest CTA 08/08/23 16:57 IMPRESSION: Moderate volume nonocclusive acute pulmonary emboli within most of the subsegmental pulmonary arteries. No evidence of right heart strain. Multiple irregular nodular lesions throughout the lungs, most of which show cavitation. This is concerning for septic emboli. Extensive mediastinal, bilateral hilar and upper abdominal lymphadenopathy consistent with known lymphoma. 7 mm lytic lesion in the left T11 vertebral body/pedicle with surrounding sclerosis. When correlating with recent PET/CT, this is most concerning for lymphomatous involvement of the spine. Refer to PET/CT report for more details. Electronically Signed: Ryan Britton MD at 19:21 EDT , ADDENDUM: 08/08/231958 IMPRESSION: Moderate volume nonocclusive acute pulmonary emboli within most of the subsegmental pulmonary arteries. No evidence of right heart strain. Multiple irregular nodular lesions throughout the lungs, most of which show cavitation. This is concerning for septic emboli. Extensive mediastinal, bilateral hilar and upper abdominal lymphadenopathy consistent with known lymphoma. 7 mm lytic lesion in the left T11 vertebral body/pedicle with surrounding sclerosis. When correlating with recent PET/CT, this is most concerning for lymphomatous involvement of the spine. Refer to PET/CT report for more details. N.B. : The above Results were Read Back by Ryan Britton MD to Gurpreet Valladares MD, and understanding confirmed on 08/08/2023 19:52:54 (ET). Electronically Signed: Ryan Britton MD at 19:21 EDT , Echocardiogram 08/08/23 22:11 Interpretation Summary The estimated ejection fraction is 65 %. No evidence for diastolic dysfunction. The left atrium is mildly enlarged. 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 Standard treatment includes an induction phase with an aggressive combination chemo immune therapy (brentuximab-Vedoti, cyclophosphamide, doxorubicin and prednisone) in attempt to induce remission of the disease but is not curative and is to be followed by high-dose chemotherapy and autologous bone marrow transplant. The patient was tentatively planned to start his systemic therapy in early August 2023 . He had a central venous access placed August 01, 2023 but that had to be urgently removed August 08, 2023 due to port infection. His systemic treatment for the aggressive lymphoma is currently on an indefinite hold until cleared from infectious disease standpoint and until there is some improvement in performance status (currently ECOG 4, bedbound with a bedsore), recovery from acute super added illness and progressive healing of his pressure sore (high risk for infection with myelotoxic systemic therapy). As a temporizing measure he was given a palliative 5-day course of oral prednisone 100 mg daily (completed August 13, 2023). Continue allopurinol 300 Mg daily for tumor lysis prophylaxis. Acyclovir (for shingles prophylaxis) and Bactrim (for PCP prophylaxis) can be placed on hold until he starts systemic chemo immune therapy. (2) Rash: PLAN: Predates use of allopurinol, Bactrim, acyclovir and vancomycin and may be related to his underlying lymphoma. (3) Cavitary lung disease: PLAN: Cause may be infectious, vascular (from pulmonary embolism) or even involvement of lungs by aggressive lymphoma. (4) Pulmonary embolism: QUALIFIERS: Pulmonary embolism type: multiple subsegmental (without acute cor pulmonale) Qualified Code(s): I26.94 - Multiple subsegmental pulmonary emboli without acute cor pulmonale PLAN: Due to malignancy induced hypercoagulability and immobility, he is now on Eliquis to be continued long-term unless contraindicated (5) Acute prerenal azotemia: PLAN: Improved with vigorous hydration (6) Lymphedema: PLAN: Secondary to lymphomatous involvement of lymph drainage from the lower body (7) Infection of venous access port: PLAN: Port has been removed and patient is on antibiotics as per ID (8) B12 deficiency anemia: QUALIFIERS: Vitamin B12 deficiency anemia type: unspecified B12 deficiency Qualified Code(s): D51.9 - Vitamin B12 deficiency anemia, unspecified PLAN: On B12 replacement by injection every 4 weeks (concluded initial loading). Next will be due in the first week of September 2023.
--- NOTE | 2023-08-14 14:30 | PCM.PN.HOSP ---
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, lymph nodes of multiple sites (08/08/23) Vitamin B12 deficiency anemia, unspecified (08/08/23) Hypercalcemia (08/08/23) Hypokalemia (08/08/23) Multiple subsegmental pulmonary emboli without acute cor pulmonale (08/08/23) Other pulmonary embolism without acute cor pulmonale (08/08/23) Lymphedema, not elsewhere classified (08/08/23) Other disorders of lung (08/08/23) Unspecified kidney failure (08/08/23) Rash and other nonspecific skin eruption (08/08/23) Unspecified infection due to central venous catheter, initial encounter (08/08/23) Subjective Subjective Patient feels weak all over and is frustrated because his bottom hurts and is also itching, also still very swollen and feels short of breath Objective Data Objective Data Vital Signs: Vital Signs Temp Pulse Resp BP Pulse Ox O2 Del Method O2 Flow Rate 97.7 F L 56 L 15 109/68 100 Room Air 2 08/14/23 09:30 08/14/23 09:30 08/14/23 09:30 08/14/23 09:30 08/14/23 09:30 08/14/23 14:00 08/13/23 07:02 Oxygen Flow Rate (L/min) 2 Oxygen Delivery Method Room Air Weight: 85.6 kg Body Mass Index (BMI) 27.8 Intake & Output: Intake and Output for Last 24 Hours 08/12/23 08/13/23 08/14/23 23:59 23:59 23:59 Intake Total 3770.47 / 3770.47 435 / 435 Output Total 1900 / 2100 300 / 300 Balance 1870.47 / 1670.47 135 / 135 Medical Nutrition Assessment Dietitian: Malnutrition Criteria Met Start: 08/09/23 15:49 Freq: Status: Active Protocol: Document 08/13/23 16:15 LO (Rec: 08/13/23 16:15 LO [id number]) Nutrition Malnutrition Evidence of Malnutrition Exists Yes Malnutrition (severe): Chronic Evidenced By Suboptimal Energy Intake ( Severe),Weight Loss (Severe), Physical Changes (Severe) Clinical Problem Chronic Disease or Condition Related Malnutrition Etiology severe related to lymphoma, increased nutrient needs and suboptimal appetite Signs/Symptoms as evidenced by 22.7lbs (12.4% ) weight loss in 1.5 months, < 75% PO intake of estimated nutrition needs for >1 month and severe fat and muscle loss to temporal, orbital and clavicle regions. Status Active Problem Recommendation Dietitian Recommendations/Changes Continue Regular diet to optimize oral intakes. Continue Magic cup 1x daily to provide supplemental energy and promote weight stabilization. RD will discontinue [place] Breakfast due to pt dislike. Pt would benefit from enteral nutrition due to significant weight loss and poor PO intakes. Lab / Micro Data 08/14/23 02:33 08/14/23 02:33 Labs: Laboratory Results - last 24 hr 08/09/23 16:25: Cryptococcus Ag Negative, U Histopl Galactoman Ag <0.5, TB Test (QFT) Nil 0, TB Test (QFT) Mitogen 0.19, TB Test (QFT) Ag 1 0.02, TB Test (QFT) Ag 2 0, TB Test (QFT) Comment, TB Positive Criteria Indeterminate H 08/10/23 : Fl Pathologist Comment Reviewed 08/13/23 20:15: APTT 50.3 H 08/14/23 02:33: WBC 26.4 H, RBC 3.84 L, Hgb 10.6 L, Hct 34.0 L, MCV 88.5, MCH 27.6, MCHC 31.2 L, RDW Std Deviation 67.2 H, RDW Coeff of Andrew 21.1 H, Plt Count 183, MPV 11.4, Immature Gran % (Auto) 1.000 H, Neut % (Auto) 96.7 H, Lymph % (Auto) 0.6 L, [place] % (Auto) 1.5, Eos % (Auto) 0.0, Baso % (Auto) 0.2, Absolute Neuts (auto) 25.5 H, Absolute Lymphs (auto) 0.16 L, Nucleated RBC % 0, Differential Comment SCANNED, Plt Morphology Comment LARGE, Anisocytosis 1+, Target Cells 2+, Sodium 142, Potassium 3.4 L, Chloride 116 H, Carbon Dioxide 18.0 L, Anion Gap 8, BUN 15, Creatinine 0.68 L, Estim Creat Clear Calc 116.97, Est GFR (MDRD) Af Amer 152, Est GFR (MDRD) Non-Af 125, BUN/Creatinine Ratio 21.9 H, Glucose 118 H, Uric Acid 0.9 L, Calcium 7.4 L, Vancomycin Trough 18.5 H Micro: Microbiology 08/10/23 Unknown Wash - Right Middle Lobe Gram Stain - Final 08/10/23 Unknown Wash - Right Middle Lobe Respiratory Culture - Final Mixed normal respiratory kelby. No Streptococcus pneumoniae, beta-hemolytic Streptococcus or Staphylococcus aureus isolated. 08/10/23 Unknown Wash - Right Middle Lobe Anaerobic Culture - Preliminary No growth in 48 hours. 08/08/23 22:53 Mucosa - Nasopharyngeal Respiratory Panel (PCR) - Final 08/08/23 23:45 Urine, Clean Catch Legionella Antigen - Final 08/08/23 23:45 Urine, Clean Catch Streptococcus pneumoniae Antigen (M - Final 08/08/23 22:53 Mucosa - Nose Coronavirus COVID-19 PCR - Final 08/08/23 17:55 Stool Enteric Bacteriology - Final 08/08/23 17:55 Stool C. difficile DNA Amplification - Final Physical Exam Narrative General: Alert, oriented, appears tired HEENT: Atraumatic, normocephalic Eyes: Anicteric, normal conjunctiva, extraocular movements grossly intact Neck: Supple Respiratory: Somewhat diminished at the bases y, normal respiratory effort Cardiovascular: Regular rate GI: Soft, nontender, nondistended Extremities: 3+ lower extremity edema Musculoskeletal: Moving all extremities Neuro: No overt focal neurological deficits Skin: Buttock sores Psych: Cooperative overall Assessment & Plan Assessment/Plan (1) Pulmonary embolism: QUALIFIERS: Pulmonary embolism type: multiple subsegmental (without acute cor pulmonale) Qualified Code(s): I26.94 - Multiple subsegmental pulmonary emboli without acute cor pulmonale PLAN: Plan #1. Questionable pulmonary septic emboli with mild hypoxia with infected right IJ Port-A-Cath subsequently removal on 08/08/2023: Patient also has significant diarrhea. Abdomen is soft, nontender nondistended therefore I do not suspect significant colitis. ABG done in ED shows 7.61/22.9/110 on 4 L of oxygen interpretation reveals mild respiratory alkalosis as patient bicarb is 23 Twelve-lead EKG shows sinus rhythm 72 bpm, QRS 106 ms QT 552 ms history of prolonged QT. Patient is being admitted in PCU. Bronchodilator as needed with scheduled. On oxygen through nasal cannula. IV Zosyn and vancomycin. Patient has significant leukocytosis with slight improvement since yesterday. Immature granulocytes 1.1% mainly neutrophils 97%, lymphopenia 0.8%. Urinary antigens, stool for C. difficile and enteric bacteriology panel, COVID-19 PCR are negative. Blood cultures x2 are pending. Pulmonary consult reviewed and appreciated. ID consult requested. 08/10: Leukocytosis worsening. Patient seen by ID. Blood culture pending. Respiratory panel negative. C. difficile negative. Patient currently not producing sputum. Went for bronchoscopy today BAL specimen and cultures pending. Hepatitis panel negative earlier. Negative HIV. Pending QuantiFERON. Possible aspiration versus port infection or opportunistic infection. 08/11: Preliminary RML BAL exhibits no growth. Continue broad-spectrum antibiotic. Continue IV heparin drip. 08/12/2023: Continue with broad-spectrum antibiotics, staph epi grew out of 1 blood culture. Appreciate surgery's assistance if plan is to continue with chemotherapy and surgery will see as an outpatient once infection is cleared to transition port to the left side -08/13: Patient for outpatient left chest port placement, once infection free and confirmation that oncology will continue treatment he can call surgery office. Given inpatient procedure not planned we will switch to NOAC. ID following, patient abx spectrum being narrowed today. Additionally pt has fem line, patient has been unable to work with therapy due to femoral line, given relative stability and discontinuing heparin drip as well as generalized weakness will establish good peripheral access and then plan to DC femoral line and have patient evaluated by PT -08/14: Patient with 2 peripheral IVs and femoral line discontinued, on oral Eliquis. Now working with physical therapy. Patient remains on antibiotics per ID recommendations, presently Rocephin, metronidazole, vancomycin. Pulmonology recommended repeating blood cultures given uptrending white blood cell count. Repeated cultures, ID following 2. Acute bilateral subsegmental nonocclusive pulmonary embolism:CTA individually reviewed and shows moderate volume nonocclusive acute pulmonary embolism involving most of the subsegmental pulmonary arteries with no evidence of right heart strain. 2D echo is ordered. Patient on IV heparin drip.: Venous duplex negative for bilateral lower extremity thrombosis. BNP ordered. 04/09: 2D echo shows EF 65% no evidence of diastolic function. LA mildly enlarged. No tricuspid stenosis. Unable to estimate RV systolic pressure. Right ventricle normal size and systolic function. BNP 08/12/2023: Respiratory status is currently stable appreciate pulmonology's assistance -08/13: Pulm recommended switching to NOAC if no further procedures. We will plan on transition -08/14: As above, patient was more short of breath today, giving another dose of IV Lasix 3. 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 Liver chemistry shows elevated alkaline phosphatase 249 , ALT and AST within normal limit. Total bilirubin normal but LDH significant high 423 suggestive of bony involvement and active tumor growth. Uric acid is low 1.6. It was 3.0 on 07/16/2023. Lactic acid 2.3. In the ED, the patient was administered pamidronate 90 mg IV x1, prednisone 100 mg oral, and allopurinol 200 mg oral. Oncology consultation reviewed and appreciated. Discussed with Dr. Cohen and he said patient was first seen by him on 06/28/2023 as consult. Tumor is clinically very aggressive, anaplastic, unresponsive to standard therapy and null cell (neither B-cell or T-cell) and relatively worse prognosis. Patient was planned to start systemic therapy in early August 2023 after he had central venous access on August 01 point that was removed on first admission developed. He said he also talked to the [facility] oncology colleague and he is not a candidate for any trial. We will continue allopurinol. And prednisone 100 mg daily for total of 5 days. Can repeat 1 more dose of pamidronic acid if patient is stable hypercalcemia of malignancy. But calcium is 10.9 today probably will not need it. 08/10: Continue high-dose prednisone. Continue allopurinol. Serum calcium 9.7. Uric acid 1.3. See RP elevated. Plan was [facility]OP treatment but was not started yet -08/13: Patient seen by oncology 08/09 with palliative 5-day course oral prednisone and continue allopurinol 300 mg for tumor lysis prophylaxis. Systemic treatment on hold while underlying infection and acute medical illnesses addressed -08/14: Evaluated by oncology, no need for acyclovir or Bactrim until he starts systemic therapy, continue allopurinol. Is finished his 5-day course of prednisone. Systemic treatment will have to be delayed until cleared from ID standpoint and performance status improves #4. Acute kidney injury: Secondary to dehydration and acute presentation as noted. Admission BUN/Cr 50/1.76, prior baseline creatinine noted to be 0.8-1.1. Will hydrate, hold nephrotoxic medications and repeat chemistry in AM. If no improvement would plan FeNa and renal ultrasound assessment. 08/10: Serum creatinine improved to 0.98. 08/11: Serum creatinine 0.92 BUN elevated 28. ZUNILDA resolved. Patient will get IV fluid with magnesium and potassium supplementation. -08/13: Patient more swollen and significantly positive and fluid, hold any further IV fluids, received dose of IV Lasix today -08/14: Creatinine doing well and tolerated Lasix yesterday, will give another dose of IV Lasix #5. Electrolyte abnormality: Hypokalemia and hypercalcemia: Admission K+ 2.4, serum potassium low 2.6 after replacement. Serum magnesium 2.2, phosphorus 4.1. Serum calcium 13.8, improved to 10.9. 08/10: Serum potassium low 2.9 severe hypokalemia. Potassium rider ordered. Serum magnesium and phosphorus ordered. 08/11: Serum potassium is low 3.2. 40 mEq IV potassium rider replaced but still sodium is 3.5. Oral potassium supplement ordered. Serum magnesium 1.7 but repeat serum magnesium 1.6 after 2 g IV magnesium sulfate replacement. Serum phosphorus normal. -08/13: Continue to monitor and adjust #6. Anxiety and depression: Not on any chronic regimen, would benefit from continued outpatient evaluation and counseling if appropriate. #7. Tobacco Abuse: Encouraged cessation, inpatient consultation per RT, NR if desired. #8. GERD: We will continue patient home PPI. #9. Chronic right lower extremity lymphedema: Status post DVT ultrasound with no acute findings, will place snug Real with elevation if able to tolerate. DVT: Eliquis Charges/Coding Visit Charges Inpatient E&M: 23234 Subs Hosp L2
[2023-08-14] MEDS: Potassium Chloride Oral Tablet 20 MEQ 40 MEQ PO (15:05)
[2023-08-14] MEDS: Furosemide 40 MG/4 ML Vial IV (17:40)
[2023-08-14] MEDS: MELATONIN 3 MG TABLET PO (20:44)
[2023-08-14] MEDS: Acetaminophen 325 MG Tablet 650 MG PO (20:44)
[2023-08-15] MEDS: Loperamide 2 MG Capsule PO ×3 (01:48→21:18)
[2023-08-15] MEDS: Vancomycin HCl 750 MG in 0.9% Normal Saline (250mL Bag) 250 ML 250 MG IV ×2 (02:49→15:37)
[2023-08-15] MEDS: 0.9 % NaCl (Sterile) Posiflush 10 mL IV (02:49)
[2023-08-15 02:57] VITALS: BP 102/60; PULSE 60; RESP 16; TEMP 36.2; O2SAT 98
[2023-08-15] MEDS: metroNIDAZOLE 500 MG Tablet PO ×3 (04:57→21:18)
[2023-08-15 04:58] VITALS: BMI 28.0
[2023-08-15 05:09] LABS: Absolute Lymphocyte Count 0.14 X10^3/uL (0.83-4.51); Absolute Neutrophil Count 26.9 X10^3/uL (2.0-7.7); Basophil# 0.03 X10^3/uL; Basophil% 0.1 % (0-1); Hematocrit 36.2 % (40-54); Hemoglobin 11.5 g/dL (13.0-16.5); Lymphocyte # 0.14 X10^3/ul (0.83-4.51); Lymphocyte % 0.5 % (19-41); Mean Corp Hgb Conc 31.8 g/dL (32-36); Mean Corpuscular Volume 88.1 fL (80-94); Mean Platelet Vol. 11.7 fl (6.2-12.0); Monocyte# 0.32 X10^3/uL; Monocyte% 1.2 % (0-10); NRBC Flagged by Analyzer 0 % (0-5); Neutrophil # 26.85 X10^3/uL (2.7-7.7); Neutrophil % 97.6 % (47-70); POSITIVE DIFFERENTIAL YES; POSITIVE MORPHOLOGY YES; Platelet Count 159 K/mm3 (150-450); RBC Distribution Width CV 21.7 % (11.6-14.6); RBC Distribution Width SD 67.4 fl (35.1-43.9); Red Blood Count 4.11 M/mm3 (4.6-6.2); White Blood Count 27.5 K/mm3 (4.4-11.0)
[2023-08-15 05:39] LABS: Anion Gap 8 (5-15); BUN 16 mg/dL (7-18); BUN/Creat Ratio 20.2 RATIO (10-20); Calcium,Total 7.2 mg/dL (8.5-10.1); Chloride 115 mmol/L (98-107); Creatinine, Serum 0.79 mg/dL (0.70-1.30); EST Glomerular Filtration Rate 106 mL/min (>60); Est Glom Filt Rate - Afr Amer 128 mL/min (>60); Estimated Creatinine Clearance 100.68 ml/min; Glucose 108 mg/dL (74-106); Magnesium 1.5 mg/dL (1.6-2.6); Potassium 3.6 mmol/L (3.5-5.1); Sodium Level 142 mmol/L (136-145)
[2023-08-15 06:07] LABS: Differential Indicated SCAN CRITERIA MET
[2023-08-15 06:15] LABS: Differential Comment SCANNED
[2023-08-15 06:16] LABS: Anisocytosis 1+
[2023-08-15] MEDS: Budesonide Respules 0.5 MG/2 ML AMPUL.NEB. INHALATION ×2 (06:48→20:57)
[2023-08-15 06:49] VITALS: PULSE 56; RESP 16
[2023-08-15 08:34] VITALS: BP 109/63; PULSE 68; RESP 15; TEMP 36.4; O2SAT 97
[2023-08-15] MEDS: Potassium Phosphate 30 MM in 0.9% Normal Saline (250mL Bag) 250 ML 42 MM IV (08:39)
[2023-08-15] MEDS: Ceftriaxone 2 GM in 0.9% Normal Saline (50mL MB+) 50 ML IV (08:40)
[2023-08-15] MEDS: Mineral Oil/Petrolatum Cr 1.75oz Bottle 1 APPLIC TOPICAL ×4 (08:44→21:17)
[2023-08-15] MEDS: Pantoprazole Sodium 20 MG Tablet PO (08:46)
[2023-08-15] MEDS: Allopurinol 300 MG Tablet PO (08:46)
[2023-08-15] MEDS: APIXABAN 5 MG TABLET PO ×2 (08:46→21:17)
[2023-08-15] MEDS: Menthol/Lanolin/Calamine/Znox 113 GM Tube 1 APPLIC TOPICAL ×4 (08:46→21:16)
--- NOTE | 2023-08-15 08:51 | PN.HOSP_ITS ---
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, lymph nodes of multiple sites () Vitamin B12 deficiency anemia, unspecified (08/08/23) Hypercalcemia (08/08/23) Hypokalemia (08/08/23) Multiple subsegmental pulmonary emboli without acute cor pulmonale (08/08/23) Other pulmonary embolism without acute cor pulmonale (08/08/23) Lymphedema, not elsewhere classified (08/08/23) Other disorders of lung (08/08/23) Unspecified kidney failure (08/08/23) Rash and other nonspecific skin eruption (08/08/23) Unspecified infection due to central venous catheter, initial encounter () Subjective Subjective Patient still endorses complaints about swelling in his legs and scrotal swelling and does not feel he has been urinating well enough. Still somewhat short of breath, patient reports just generally feeling unwell but focuses again in his bedsores Objective Data Objective Data Vital Signs: Vital Signs Temp Pulse Resp BP Pulse Ox O2 Del Method O2 Flow Rate 97.6 F L 68 15 109/63 97 Room Air 2 08/15/23 08:34 08/15/23 08:34 08/15/23 08:34 08/15/23 08:34 08/15/23 08:34 08/15/23 08:34 08/13/23 07:02 Oxygen Flow Rate (L/min) 2 Oxygen Delivery Method Room Air Weight: 86.3 kg Body Mass Index (BMI) 28.0 Intake & Output: Intake and Output for Last 24 Hours 08/13/23 08/14/23 08/15/23 23:59 23:59 23:59 Intake Total 3770.47 / 3770.47 700 / 700 265 / 265 Output Total 1900 / 2100 1000 / 1000 100 / 100 Balance 1870.47 / 1670.47 -300 / -300 165 / 165 Medical Nutrition Assessment Dietitian: Malnutrition Criteria Met Start: 08/09/23 15:49 Freq: Status: Active Protocol: Document 08/13/23 16:15 LO (Rec: 08/13/23 16:15 LO [id number]) Nutrition Malnutrition Evidence of Malnutrition Exists Yes Malnutrition (severe): Chronic Evidenced By Suboptimal Energy Intake ( Severe),Weight Loss (Severe), Physical Changes (Severe) Clinical Problem Chronic Disease or Condition Related Malnutrition Etiology severe related to lymphoma, increased nutrient needs and suboptimal appetite Signs/Symptoms as evidenced by 22.7lbs (12.4% ) weight loss in 1.5 months, < 75% PO intake of estimated nutrition needs for >1 month and severe fat and muscle loss to temporal, orbital and clavicle regions. Status Active Problem Recommendation Dietitian Recommendations/Changes Continue Regular diet to optimize oral intakes. Continue Magic cup 1x daily to provide supplemental energy and promote weight stabilization. RD will discontinue [place] Breakfast due to pt dislike. Pt would benefit from enteral nutrition due to significant weight loss and poor PO intakes. Lab / Micro Data 08/15/23 04:56 08/15/23 04:56 Labs: Laboratory Results - last 24 hr 08/15/23 04:56: WBC 27.5 H, RBC 4.11 L, Hgb 11.5 L, Hct 36.2 L, MCV 88.1, MCH 28.0, MCHC 31.8 L, RDW Std Deviation 67.4 H, RDW Coeff of Andrew 21.7 H, Plt Count 159, MPV 11.7, Immature Gran % (Auto) 0.600, Neut % (Auto) 97.6 H, Lymph % (Auto) 0.5 L, Bucks % (Auto) 1.2, Eos % (Auto) 0.0, Baso % (Auto) 0.1, Absolute Neuts (auto) 26.9 H, Absolute Lymphs (auto) 0.14 L, Nucleated RBC % 0, Differential Comment SCANNED, Anisocytosis 1+, Sodium 142, Potassium 3.6, Chloride 115 H, Carbon Dioxide 19.0 L, Anion Gap 8, BUN 16, Creatinine 0.79, Estim Creat Clear Calc 100.68, Est GFR (MDRD) Af Amer 128, Est GFR (MDRD) Non-Af 106, BUN/Creatinine Ratio 20.2 H, Glucose 108 H, Calcium 7.2 L, Phosphorus 1.0 L*, Magnesium 1.5 L Micro: Microbiology 08/10/23 Unknown Wash - Right Middle Lobe Gram Stain - Final 08/10/23 Unknown Wash - Right Middle Lobe Respiratory Culture - Final Mixed normal respiratory kelby. No Streptococcus pneumoniae, beta-hemolytic Streptococcus or Staphylococcus aureus isolated. 08/10/23 Unknown Wash - Right Middle Lobe Anaerobic Culture - Preliminary No growth in 48 hours. 08/08/23 22:53 Mucosa - Nasopharyngeal Respiratory Panel (PCR) - Final 08/08/23 23:45 Urine, Clean Catch Legionella Antigen - Final 08/08/23 23:45 Urine, Clean Catch Streptococcus pneumoniae Antigen (M - Final 08/08/23 22:53 Mucosa - Nose Coronavirus COVID-19 PCR - Final 08/08/23 17:55 Stool Enteric Bacteriology - Final 08/08/23 17:55 Stool C. difficile DNA Amplification - Final Physical Exam Narrative General: Alert, oriented, appears tired HEENT: Atraumatic, normocephalic Eyes: Anicteric, normal conjunctiva, extraocular movements grossly intact Neck: Supple Respiratory: Somewhat diminished at the bases, normal respiratory effort Cardiovascular: Regular rate GI: Soft, nontender, nondistended Extremities: 3+ lower extremity edema Musculoskeletal: Moving all extremities Neuro: No overt focal neurological deficits Skin: Buttock sores Psych: Cooperative but perseverative and irritable Assessment & Plan Assessment/Plan (1) Pulmonary embolism: QUALIFIERS: Pulmonary embolism type: multiple subsegmental (wit hout acute cor pulmonale) Qualified Code(s): I26.94 - Multiple subsegmental pulmonary emboli without acute cor pulmonale PLAN: Plan #1. Questionable pulmonary septic emboli with mild hypoxia with infected right IJ Port-A-Cath subsequently removal on 08/08/2023: Patient also has significant diarrhea. Abdomen is soft, nontender nondistended therefore I do not suspect significant colitis. ABG done in ED shows 7.61/22.9/110 on 4 L of oxygen interpretation reveals mild respiratory alkalosis as patient bicarb is 23 Twelve-lead EKG shows sinus rhythm 72 bpm, QRS 106 ms QT 552 ms history of prolonged QT. Patient is being admitted in PCU. Bronchodilator as needed with scheduled. On oxygen through nasal cannula. IV Zosyn and vancomycin. Patient has significant leukocytosis with slight improvement since yesterday. Immature granulocytes 1.1% mainly neutrophils 97%, lymphopenia 0.8%. Urinary antigens, stool for C. difficile and enteric bacteriology panel, COVID- 19 PCR are negative. Blood cultures x2 are pending. Pulmonary consult reviewed and appreciated. ID consult requested. 08/10: Leukocytosis worsening. Patient seen by ID. Blood culture pending. Respiratory panel negative. C. difficile negative. Patient currently not producing sputum. Went for bronchoscopy today BAL specimen and cultures pending. Hepatitis panel negative earlier. Negative HIV. Pending QuantiFERON. Possible aspiration versus port infection or opportunistic infection. 08/11: Preliminary RML BAL exhibits no growth. Continue broad-spectrum antibiotic. Continue IV heparin drip. 08/12/2023: Continue with broad-spectrum antibiotics, staph epi grew out of 1 blood culture. Appreciate surgery's assistance if plan is to continue with chemotherapy and surgery will see as an outpatient once infection is cleared to transition port to the left side -08/13: Patient for outpatient left chest port placement, once infection free and confirmation that oncology will continue treatment he can call surgery office. Given inpatient procedure not planned we will switch to NOAC. ID following, patient abx spectrum being narrowed today. Additionally pt has fem line, patient has been unable to work with therapy due to femoral line, given relative stability and discontinuing heparin drip as well as generalized weakness will establish good peripheral access and then plan to DC femoral line and have patient evaluated by PT -08/14: Patient with 2 peripheral IVs and femoral line discontinued, on oral Eliquis. Now working with physical therapy. Patient remains on antibiotics per ID recommendations, presently Rocephin, metronidazole, vancomycin. Pulmonology recommended repeating blood cultures given uptrending white blood cell count. Repeated cultures, ID following -08/15: White blood cell count increased again, repeat cultures no growth to date, appreciate ID input, remains on antibiotics. Giving further Lasix, also BladderScan patient as he feels swelling is making it difficult for him to urinate, has been refusing Real wrap's, elevate extremities 2. Acute bilateral subsegmental nonocclusive pulmonary embolism:CTA individually reviewed and shows moderate volume nonocclusive acute pulmonary embolism involving most of the subsegmental pulmonary arteries with no evidence of right heart strain. 2D echo is ordered. Patient on IV heparin drip.: Venous duplex negative for bilateral lower extremity thrombosis. BNP ordered. 04/09: 2D echo shows EF 65% no evidence of diastolic function. LA mildly enlarged. No tricuspid stenosis. Unable to estimate RV systolic pressure. Right ventricle normal size and systolic function. BNP 08/12/2023: Respiratory status is currently stable appreciate pulmonology's assistance -08/13: Pulm recommended switching to NOAC if no further procedures. We will plan on transition -08/14: As above, patient was more short of breath today, giving another dose of IV Lasix -08/15: Further Lasix as above 3. 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 Liver chemistry shows elevated alkaline phosphatase 249 , ALT and AST within normal limit. Total bilirubin normal but LDH significant high 423 suggestive of bony involvement and active tumor growth. Uric acid is low 1.6. It was 3.0 on 07/16/2023. Lactic acid 2.3. In the ED, the patient was administered pamidronate 90 mg IV x1, prednisone 100 mg oral, and allopurinol 200 mg oral. Oncology consultation reviewed and appreciated. Discussed with Dr. Cohen and he said patient was first seen by him on 06/28/2023 as consult. Tumor is clinically very aggressive, anaplastic, unresponsive to standard therapy and null cell (neither B-cell or T-cell) and relatively worse prognosis. Patient was planned to start systemic therapy in early August 2023 after he had central venous access on August 01 point that was removed on first admission developed. He said he also talked to the [facility] oncology colleague and he is not a candidate for any trial. We will continue allopurinol. And prednisone 100 mg daily for total of 5 days. Can repeat 1 more dose of pamidronic acid if patient is stable hypercalcemia of malignancy. But calcium is 10.9 today probably will not need it. 08/10: Continue high-dose prednisone. Continue allopurinol. Serum calcium 9.7. Uric acid 1.3. See RP elevated. Plan was [facility]OP treatment but was not started yet -08/13: Patient seen by oncology 08/09 with palliative 5-day course oral prednisone and continue allopurinol 300 mg for tumor lysis prophylaxis. Systemic treatment on hold while underlying infection and acute medical illnesses addressed -08/14: Evaluated by oncology, no need for acyclovir or Bactrim until he starts systemic therapy, continue allopurinol. Is finished his 5-day course of prednisone. Systemic treatment will have to be delayed until cleared from ID standpoint and performance status improves #4. Acute kidney injury: Secondary to dehydration and acute presentation as noted. Admission BUN/Cr 50/1.76, prior baseline creatinine noted to be 0.8-1.1. Will hydrate, hold nephrotoxic medications and repeat chemistry in AM. If no improvement would plan FeNa and renal ultrasound assessment. 08/10: Serum creatinine improved to 0.98. 08/11: Serum creatinine 0.92 BUN elevated 28. ZUNILDA resolved. Patient will get IV fluid with magnesium and potassium supplementation. -08/13: Patient more swollen and significantly positive and fluid, hold any further IV fluids, received dose of IV Lasix today -08/14: Creatinine doing well and tolerated Lasix yesterday, will give another dose of IV Lasix #5. Electrolyte abnormality: Hypokalemia and hypercalcemia: Admission K+ 2.4, serum potassium low 2.6 after replacement. Serum magnesium 2.2, phosphorus 4.1. Serum calcium 13.8, improved to 10.9. 08/10: Serum potassium low 2.9 severe hypokalemia. Potassium rider ordered. rum magnesium and phosphorus ordered. 08/11: Serum potassium is low 3.2. 40 mEq IV potassium rider replaced but still sodium is 3.5. Oral potassium supplement ordered. Serum magnesium 1.7 but repeat serum magnesium 1.6 after 2 g IV magnesium sulfate replacement. Serum phosphorus normal. -08/13: Continue to monitor and adjust #6. Anxiety and depression: Not on any chronic regimen, would benefit from continued outpatient evaluation and counseling if appropriate. #7. Tobacco Abuse: Encouraged cessation, inpatient consultation per RT, NR if desired. #8. GERD: We will continue patient home PPI. #9. Chronic right lower extremity lymphedema: Status post DVT ultrasound with no acute findings, will place snug Real with elevation if able to tolerate. DVT: Eliquis Time spent in the patient's overall evaluation,decision-making process, review of diagnostic data, adjustment of management, discussion with other providers, nursing nursing and ancillary staff involved in patient's care documentation, 35 minutes Charges/Coding Visit Charges Inpatient E&M: [id number] [facility] Hosp L2
[2023-08-15] MEDS: Magnesium Chloride 64 MG Delay Rel.Tablet 128 MG PO (08:52)
[2023-08-15] MEDS: Magnesium Sulfate 4gm/100mL 4 GM/100 ML IV.SOLN. IV (10:41)
[2023-08-15] MEDS: Furosemide 40 MG/4 ML Vial IV (12:47)
--- NOTE | 2023-08-15 13:59 | PCM.PN.ID ---
Physical Exam Narrative Feeling better, less swelling, no fever, able to get up more Const alert and no apparent distress General Appearance: cooperative Resp normal air movement and clear to auscultation bilaterally Cardio regular rate and regular rhythm GI soft to palpation, non-tender and non-distended Skin no rashes or lesions noted ID ID: Route of nutrition/ use of supplements: [] Nutritional Intake: [] IV Site: [] Charles Catheter: [] Assessment & Plan Assessment/Plan (1) Pulmonary embolism: QUALIFIERS: Pulmonary embolism type: multiple subsegmental (without acute cor pulmonale) Qualified Code(s): I26.94 - Multiple subsegmental pulmonary emboli without acute cor pulmonale (2) Infection of venous access port: (3) 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 Bcx neg, port site cx with some MRSE. Resp pcr panel neg, cdiff neg, UAgs neg. Recent dx of lymphoma, not yet started on chemo as outpt. CT chest shows scattered cavitary disease. Had CT/PET done 08/07/23. Not producing sputum. Hep panel neg earlier this month, no HIV sent. Neg hiv here; pending quantiferon, cryptococcal Ag, urine histo Ag, aspergillus Ag. Bronch done, results so far neg for infection. Possible aspiration vs port vs opportunistic infection, or cavitary lesions may just be related to his PEs. Completed 5 days high dose pred; plan as an outpt had been for BV-CHP. Cont vanc/ceftriaxone/flagyl. Plan for discharge is for 5 more days po doxy 100mg bid. Will follow
[2023-08-15 14:25] LABS: Magnesium 2.5 mg/dL (1.6-2.6); Phosphorus 1.7 mg/dL (2.5-4.9)
[2023-08-15 15:23] VITALS: BP 112/61; PULSE 72; RESP 15; TEMP 36.6; O2SAT 98
[2023-08-15] MEDS: Potassium Phosphate 15 MM in 0.9% Normal Saline (250mL Bag) 250 ML 125 MM IV (17:19)
[2023-08-15 20:58] VITALS: PULSE 65; RESP 18; O2SAT 95
[2023-08-15 22:00] VITALS: BP 100/53; PULSE 62; RESP 16; TEMP 36.6; O2SAT 98
[2023-08-16 03:00] VITALS: BP 100/52; PULSE 62; RESP 16; TEMP 36.6; O2SAT 99
[2023-08-16] MEDS: Vancomycin HCl 750 MG in 0.9% Normal Saline (250mL Bag) 250 ML 250 MG IV ×2 (03:20→15:14)
[2023-08-16] MEDS: metroNIDAZOLE 500 MG Tablet PO ×3 (03:21→20:44)
[2023-08-16] MEDS: Loperamide 2 MG Capsule PO ×4 (03:37→20:51)
[2023-08-16 05:40] VITALS: BMI 28.0
[2023-08-16 06:04] LABS: Absolute Lymphocyte Count 0.16 X10^3/uL (0.83-4.51); Absolute Neutrophil Count 20.4 X10^3/uL (2.0-7.7); Basophil# 0.02 X10^3/uL; Basophil% 0.1 % (0-1); Eosinophil# 0.04 X10^3/uL; Eosinophils% 0.2 % (0-5); Hematocrit 34.5 % (40-54); Hemoglobin 11.1 g/dL (13.0-16.5); Lymphocyte # 0.16 X10^3/ul (0.83-4.51); Lymphocyte % 0.8 % (19-41); Mean Corp Hgb Conc 32.2 g/dL (32-36); Mean Corpuscular Hgb 28.2 pg (27.0-32.0); Mean Corpuscular Volume 87.8 fL (80-94); Mean Platelet Vol. 11.7 fl (6.2-12.0); Monocyte# 0.26 X10^3/uL; Monocyte% 1.2 % (0-10); NRBC Flagged by Analyzer 0 % (0-5); Neutrophil # 20.42 X10^3/uL (2.7-7.7); Neutrophil % 96.9 % (47-70); POSITIVE DIFFERENTIAL YES; POSITIVE MORPHOLOGY YES; Platelet Count 121 K/mm3 (150-450); RBC Distribution Width SD 67.6 fl (35.1-43.9); Red Blood Count 3.93 M/mm3 (4.6-6.2); White Blood Count 21.1 K/mm3 (4.4-11.0)
[2023-08-16 06:36] LABS: Anion Gap 8 (5-15); BUN 15 mg/dL (7-18); BUN/Creat Ratio 20.7 RATIO (10-20); Calcium,Total 6.8 mg/dL (8.5-10.1); Chloride 114 mmol/L (98-107); Creatinine, Serum 0.72 mg/dL (0.70-1.30); EST Glomerular Filtration Rate 118 mL/min (>60); Est Glom Filt Rate - Afr Amer 142 mL/min (>60); Estimated Creatinine Clearance 110.47 ml/min; Glucose 85 mg/dL (74-106); Magnesium 2.1 mg/dL (1.6-2.6); Potassium 3.4 mmol/L (3.5-5.1); Sodium Level 141 mmol/L (136-145)
[2023-08-16 06:40] LABS: Phosphorus 1.3 mg/dL (2.5-4.9)
[2023-08-16 06:51] LABS: Differential Indicated SCAN CRITERIA MET
[2023-08-16 07:03] LABS: Anisocytosis 1+; Differential Comment SCANNED
[2023-08-16] MEDS: Budesonide Respules 0.5 MG/2 ML AMPUL.NEB. INHALATION (07:35)
[2023-08-16 07:38] VITALS: PULSE 64; RESP 18; O2SAT 94
--- NOTE | 2023-08-16 09:05 | PCM.PN.HOSP ---
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, lymph nodes of multiple sites (08/08/23) Vitamin B12 deficiency anemia, unspecified (08/08/23) Hypercalcemia (08/08/23) Hypokalemia (08/08/23) Multiple subsegmental pulmonary emboli without acute cor pulmonale (08/08/23) Other pulmonary embolism without acute cor pulmonale (08/08/23) Lymphedema, not elsewhere classified (08/08/23) Other disorders of lung (08/08/23) Unspecified kidney failure (08/08/23) Rash and other nonspecific skin eruption (08/08/23) Unspecified infection due to central venous catheter, initial encounter (08/08/23) Subjective Subjective Patient report main problem is swallowing and just being frustrated overall with slow progress, denies any shortness of breath or other focal complaints aside from swelling Objective Data Objective Data Vital Signs: Vital Signs Temp Pulse Resp BP Pulse Ox O2 Del Method O2 Flow Rate 97.8 F 64 18 100/52 L 94 Room Air 2 08/16/23 03:00 08/16/23 07:38 08/16/23 07:38 08/16/23 03:00 08/16/23 07:38 08/16/23 07:38 08/13/23 07:02 Oxygen Flow Rate (L/min) 2 Oxygen Delivery Method Room Air Weight: 86.2 kg Body Mass Index (BMI) 28.0 Intake & Output: Intake and Output for Last 24 Hours 08/14/23 08/15/23 08/16/23 23:59 23:59 23:59 Intake Total 700 / 700 1315 / 1415 365 / 365 Output Total 1000 / 1000 250 / 450 200 / 200 Balance -300 / -300 1065 / 965 165 / 165 Medical Nutrition Assessment Dietitian: Malnutrition Criteria Met Start: 08/09/23 15:49 Freq: Status: Active Protocol: Document 08/13/23 16:15 LO (Rec: 08/13/23 16:15 LO [id number]) Nutrition Malnutrition Evidence of Malnutrition Exists Yes Malnutrition (severe): Chronic Evidenced By Suboptimal Energy Intake ( Severe),Weight Loss (Severe), Physical Changes (Severe) Clinical Problem Chronic Disease or Condition Related Malnutrition Etiology severe related to lymphoma, increased nutrient needs and suboptimal appetite Signs/Symptoms as evidenced by 22.7lbs (12.4% ) weight loss in 1.5 months, < 75% PO intake of estimated nutrition needs for >1 month and severe fat and muscle loss to temporal, orbital and clavicle regions. Status Active Problem Recommendation Dietitian Recommendations/Changes Continue Regular diet to optimize oral intakes. Continue Magic cup 1x daily to provide supplemental energy and promote weight stabilization. RD will discontinue [place] Breakfast due to pt dislike. Pt would benefit from enteral nutrition due to significant weight loss and poor PO intakes. Lab / Micro Data 08/16/23 05:40 08/16/23 05:40 Labs: Laboratory Results - last 24 hr 08/15/23 13:52: Potassium 4.0, Phosphorus 1.7 L, Magnesium 2.5 08/16/23 05:40: WBC 21.1 H, RBC 3.93 L, Hgb 11.1 L, Hct 34.5 L, MCV 87.8, MCH 28.2, MCHC 32.2, RDW Std Deviation 67.6 H, RDW Coeff of Andrew 22.0 H, Plt Count 121 L, MPV 11.7, Immature Gran % (Auto) 0.800, Neut % (Auto) 96.9 H, Lymph % (Auto) 0.8 L, [place] % (Auto) 1.2, Eos % (Auto) 0.2, Baso % (Auto) 0.1, Absolute Neuts (auto) 20.4 H, Absolute Lymphs (auto) 0.16 L, Nucleated RBC % 0, Differential Comment SCANNED, Anisocytosis 1+, Sodium 141, Potassium 3.4 L, Chloride 114 H, Carbon Dioxide 19.0 L, Anion Gap 8, BUN 15, Creatinine 0.72, Estim Creat Clear Calc 110.47, Est GFR (MDRD) Af Amer 142, Est GFR (MDRD) Non-Af 118, BUN/Creatinine Ratio 20.7 H, Glucose 85, Calcium 6.8 L, Phosphorus 1.3 L, Magnesium 2.1 Micro: Microbiology 08/10/23 Unknown Wash - Right Middle Lobe Gram Stain - Final 08/10/23 Unknown Wash - Right Middle Lobe Respiratory Culture - Final Mixed normal respiratory kelby. No Streptococcus pneumoniae, beta-hemolytic Streptococcus or Staphylococcus aureus isolated. 08/10/23 Unknown Wash - Right Middle Lobe Anaerobic Culture - Final No growth in 5 days. 08/08/23 22:53 Mucosa - Nasopharyngeal Respiratory Panel (PCR) - Final 08/08/23 23:45 Urine, Clean Catch Legionella Antigen - Final 08/08/23 23:45 Urine, Clean Catch Streptococcus pneumoniae Antigen (M - Final 08/08/23 22:53 Mucosa - Nose Coronavirus COVID-19 PCR - Final 08/08/23 17:55 Stool Enteric Bacteriology - Final 08/08/23 17:55 Stool C. difficile DNA Amplification - Final Physical Exam Narrative General: Alert, oriented, appears tired HEENT: Atraumatic, normocephalic Eyes: Anicteric, normal conjunctiva, extraocular movements grossly intact Neck: Supple Respiratory: normal respiratory effort Cardiovascular: Regular rate GI: Soft, nontender, nondistended Extremities: 3+ lower extremity edema Musculoskeletal: Moving all extremities Neuro: No overt focal neurological deficits Skin: Buttock sores Psych: Cooperative but perseverative and irritable Assessment & Plan Assessment/Plan (1) Pulmonary embolism: QUALIFIERS: Pulmonary embolism type: multiple subsegmental (without acute cor pulmonale) Qualified Code(s): I26.94 - Multiple subsegmental pulmonary emboli without acute cor pulmonale PLAN: Plan #1. Questionable pulmonary septic emboli with mild hypoxia with infected right IJ Port-A-Cath subsequently removal on 08/08/2023: Patient also has significant diarrhea. Abdomen is soft, nontender nondistended therefore I do not suspect significant colitis. ABG done in ED shows 7.61/22.9/110 on 4 L of oxygen interpretation reveals mild respiratory alkalosis as patient bicarb is 23 Twelve-lead EKG shows sinus rhythm 72 bpm, QRS 106 ms QT 552 ms history of prolonged QT. Patient is being admitted in PCU. Bronchodilator as needed with scheduled. On oxygen through nasal cannula. IV Zosyn and vancomycin. Patient has significant leukocytosis with slight improvement since yesterday. Immature granulocytes 1.1% mainly neutrophils 97%, lymphopenia 0.8%. Urinary antigens, stool for C. difficile and enteric bacteriology panel, COVID-19 PCR are negative. Blood cultures x2 are pending. Pulmonary consult reviewed and appreciated. ID consult requested. 08/10: Leukocytosis worsening. Patient seen by ID. Blood culture pending. Respiratory panel negative. C. difficile negative. Patient currently not producing sputum. Went for bronchoscopy today BAL specimen and cultures pending. Hepatitis panel negative earlier. Negative HIV. Pending QuantiFERON. Possible aspiration versus port infection or opportunistic infection. 08/11: Preliminary RML BAL exhibits no growth. Continue broad-spectrum antibiotic. Continue IV heparin drip. 08/12/2023: Continue with broad-spectrum antibiotics, staph epi grew out of 1 blood culture. Appreciate surgery's assistance if plan is to continue with chemotherapy and surgery will see as an outpatient once infection is cleared to transition port to the left side -08/13: Patient for outpatient left chest port placement, once infection free and confirmation that oncology will continue treatment he can call surgery office. Given inpatient procedure not planned we will switch to NOAC. ID following, patient abx spectrum being narrowed today. Additionally pt has fem line, patient has been unable to work with therapy due to femoral line, given relative stability and discontinuing heparin drip as well as generalized weakness will establish good peripheral access and then plan to DC femoral line and have patient evaluated by PT -08/14: Patient with 2 peripheral IVs and femoral line discontinued, on oral Eliquis. Now working with physical therapy. Patient remains on antibiotics per ID recommendations, presently Rocephin, metronidazole, vancomycin. Pulmonology recommended repeating blood cultures given uptrending white blood cell count. Repeated cultures, ID following -08/15: White blood cell count increased again, repeat cultures no growth to date, appreciate ID input, remains on antibiotics. Giving further Lasix, also BladderScan patient as he feels swelling is making it difficult for him to urinate, has been refusing Real wrap's, elevate extremities -08/16: Cultures no growth to date, plan will be discharged on Doxy, white count down trended today. Patient not retaining, will give further Lasix, had recent echo which did not show any diastolic dysfunction or reduced ejection fraction suspect this is all due to lack of mobilization and fluids patient has received. Patient slowly improving 2. Acute bilateral subsegmental nonocclusive pulmonary embolism:CTA individually reviewed and shows moderate volume nonocclusive acute pulmonary embolism involving most of the subsegmental pulmonary arteries with no evidence of right heart strain. 2D echo is ordered. Patient on IV heparin drip.: Venous duplex negative for bilateral lower extremity thrombosis. BNP ordered. 04/09: 2D echo shows EF 65% no evidence of diastolic function. LA mildly enlarged. No tricuspid stenosis. Unable to estimate RV systolic pressure. Right ventricle normal size and systolic function. BNP 08/12/2023: Respiratory status is currently stable appreciate pulmonology's assistance -08/13: Pulm recommended switching to NOAC if no further procedures. We will plan on transition -08/14: As above, patient was more short of breath today, giving another dose of IV Lasix -08/15: Further Lasix as above -08/16: Continue Eliquis, further Lasix as above, not retaining, I's and O's, daily weights 3. 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 Liver chemistry shows elevated alkaline phosphatase 249 , ALT and AST within normal limit. Total bilirubin normal but LDH significant high 423 suggestive of bony involvement and active tumor growth. Uric acid is low 1.6. It was 3.0 on 07/16/2023. Lactic acid 2.3. In the ED, the patient was administered pamidronate 90 mg IV x1, prednisone 100 mg oral, and allopurinol 200 mg oral. Oncology consultation reviewed and appreciated. Discussed with Dr. Cohen and he said patient was first seen by him on 06/28/2023 as consult. Tumor is clinically very aggressive, anaplastic, unresponsive to standard therapy and null cell (neither B-cell or T-cell) and relatively worse prognosis. Patient was planned to start systemic therapy in early August 2023 after he had central venous access on August 01 point that was removed on first admission developed. He said he also talked to the [facility] oncology colleague and he is not a candidate for any trial. We will continue allopurinol. And prednisone 100 mg daily for total of 5 days. Can repeat 1 more dose of pamidronic acid if patient is stable hypercalcemia of malignancy. But calcium is 10.9 today probably will not need it. 08/10: Continue high-dose prednisone. Continue allopurinol. Serum calcium 9.7. Uric acid 1.3. See RP elevated. Plan was [facility] treatment but was not started yet -08/13: Patient seen by oncology 08/09 with palliative 5-day course oral prednisone and continue allopurinol 300 mg for tumor lysis prophylaxis. Systemic treatment on hold while underlying infection and acute medical illnesses addressed -08/14: Evaluated by oncology, no need for acyclovir or Bactrim until he starts systemic therapy, continue allopurinol. Is finished his 5-day course of prednisone. Systemic treatment will have to be delayed until cleared from ID standpoint and performance status improves -08/16: We will need to be cleared from ID standpoint and increase functional performance prior to being considered for treatment #4. Acute kidney injury: Secondary to dehydration and acute presentation as noted. Admission BUN/Cr 50/1.76, prior baseline creatinine noted to be 0.8-1.1. Will hydrate, hold nephrotoxic medications and repeat chemistry in AM. If no improvement would plan FeNa and renal ultrasound assessment. 08/10: Serum creatinine improved to 0.98. 08/11: Serum creatinine 0.92 BUN elevated 28. ZUNILDA resolved. Patient will get IV fluid with magnesium and potassium supplementation. -08/13: Patient more swollen and significantly positive and fluid, hold any further IV fluids, received dose of IV Lasix today -08/14: Creatinine doing well and tolerated Lasix yesterday, will give another dose of IV Lasix -08/16: Continues to tolerate diuresis well #5. Electrolyte abnormality: Hypokalemia and hypercalcemia: Admission K+ 2.4, serum potassium low 2.6 after replacement. Serum magnesium 2.2, phosphorus 4.1. Serum calcium 13.8, improved to 10.9. 08/10: Serum potassium low 2.9 severe hypokalemia. Potassium rider ordered. Serum magnesium and phosphorus ordered. 08/11: Serum potassium is low 3.2. 40 mEq IV potassium rider replaced but still sodium is 3.5. Oral potassium supplement ordered. Serum magnesium 1.7 but repeat serum magnesium 1.6 after 2 g IV magnesium sulfate replacement. Serum phosphorus normal. -08/13: Continue to monitor and adjust -08/16: Continue to replace #Buttock wound -Opitimize nutrition -Wound care c/s -Mobilize as tolerated -No longer on bed rest #6. Anxiety and depression: Not on any chronic regimen, would benefit from continued outpatient evaluation and counseling if appropriate. #7. Tobacco Abuse: Encouraged cessation, inpatient consultation per RT, NR if desired. #8. GERD: We will continue patient home PPI. #9. Chronic right lower extremity lymphedema: Status post DVT ultrasound with no acute findings, will place snug Real with elevation if able to tolerate. DVT: Eliquis Time spent in the patient's overall evaluation,decision-making process, review of diagnostic data, adjustment of management, discussion with other providers, nursing nursing and ancillary staff involved in patient's care documentation, 45 minutes Charges/Coding Visit Charges Inpatient E&M: 08812 Subs Hosp L2
--- NOTE | 2023-08-16 09:54 | WOUNDNOTE ---
Was asked to see patient for bed sores. patient slowly turned to assess buttocks. no pressure areas noted. patient has scattered areas of sloughing skin to bilateral buttocks. patient's entire back is reddened . states he has had a rash for a while now. patient states he is continent most of the time, but occasionally can't make it in time. open areas are most likely moisture related and possible skin sloughing from the rash. would recommend a moisture barrier cream. pt very reluctant to allow this nurse to apply the calmoseptine that was ordered, but after some encouragement patient did allow this nurse to apply the calmoseptine.
--- NOTE | 2023-08-16 09:59 | WOUNDNOTE ---
Edema noted to bilateral lower legs and feet. patient refusing to allow this nurse to apply compression at this time.
[2023-08-16] MEDS: Allopurinol 300 MG Tablet PO (10:11)
[2023-08-16] MEDS: Pantoprazole Sodium 20 MG Tablet PO (10:11)
[2023-08-16] MEDS: APIXABAN 5 MG TABLET PO ×2 (10:11→20:44)
[2023-08-16] MEDS: Menthol/Lanolin/Calamine/Znox 113 GM Tube 1 APPLIC TOPICAL ×3 (10:12→20:45)
[2023-08-16] MEDS: Mineral Oil/Petrolatum Cr 1.75oz Bottle 1 APPLIC TOPICAL ×3 (10:12→20:46)
[2023-08-16 10:14] VITALS: BP 106/58; PULSE 61; RESP 14; TEMP 36.7; O2SAT 95
[2023-08-16] MEDS: 0.9% Saline Lock 10 ML Syringe IV ×3 (10:18→17:49)
[2023-08-16] MEDS: Furosemide 40 MG/4 ML Vial IV ×2 (10:18→17:48)
--- NOTE | 2023-08-16 10:34 | WOUNDNOTE ---
skin photo: bilateral buttocks
--- NOTE | 2023-08-16 10:54 | CASEMGMT ---
Social Work SW met w/pt in room in regard to discharge plan. SW spoke w/pt about whether or not he will be able to return home, or if he may need rehab in a [facility] facility. Pt does agree to SNF placement for rehab for a couple of weeks. SW provided to pt a list of [facility] facilities via [employer], in network w/pt's insurance, preferred geographic area, and complete w/quality and resource use data. Pt mentioned [facility] as one possibility, then mentioned a place near [place] where his friend Shorty Mcwilliams's brother was, but cannot remember the name of the place. SW called Shorty from pt's room, message left. SW asked if we do not hear back from Shorty, is he agreeable to a referral to [facility]. Pt states he is going to be here for at least another week. He states that he is going to get his first chemo treatment here before discharge, and his infections need to clear up before he can start chemo. SW explained will need to check w/the doctor about this, and will wait for Shorty to call back. Pt states understanding. SW will speak w/physician in regard to this. JULIAN Bhatia
[2023-08-16] MEDS: Ceftriaxone 2 GM in 0.9% Normal Saline (50mL MB+) 50 ML IV (11:31)
[2023-08-16] MEDS: Potassium Phosphate 30 MM in 0.9% Normal Saline (250mL Bag) 250 ML 42 MM IV (11:31)
[2023-08-16 15:20] VITALS: BP 102/46; PULSE 72; RESP 16; TEMP 36.8; O2SAT 95
[2023-08-16 21:20] VITALS: BP 82/58; PULSE 66; RESP 20; TEMP 36.4; O2SAT 98
[2023-08-17] VITALS (13 sets, daily range): BP systolic 76–110; BP diastolic 32–90; PULSE 58–105; RESP 16–20; TEMP 36.4–37; O2SAT 90–100; BMI 27.5
[2023-08-17] MEDS: Vancomycin HCl 750 MG in 0.9% Normal Saline (250mL Bag) 250 ML 250 MG IV (01:44)
[2023-08-17] MEDS: 0.9% Saline Lock 10 ML Syringe IV (01:46)
[2023-08-17] MEDS: metroNIDAZOLE 500 MG Tablet PO (03:59)
[2023-08-17] MEDS: Loperamide 2 MG Capsule PO ×2 (04:02→10:08)
[2023-08-17 07:00] LABS: Absolute Lymphocyte Count 0.13 X10^3/uL (0.83-4.51); Absolute Neutrophil Count 18.6 X10^3/uL (2.0-7.7); Basophil# 0.01 X10^3/uL; Basophil% 0.1 % (0-1); Eosinophil# 0.04 X10^3/uL; Eosinophils% 0.2 % (0-5); Hematocrit 33.6 % (40-54); Hemoglobin 10.8 g/dL (13.0-16.5); Lymphocyte # 0.13 X10^3/ul (0.83-4.51); Lymphocyte % 0.7 % (19-41); Mean Corp Hgb Conc 32.1 g/dL (32-36); Mean Corpuscular Hgb 28.1 pg (27.0-32.0); Mean Corpuscular Volume 87.5 fL (80-94); Mean Platelet Vol. 11.9 fl (6.2-12.0); Monocyte# 0.27 X10^3/uL; Monocyte% 1.4 % (0-10); NRBC Flagged by Analyzer 0 % (0-5); Neutrophil # 18.64 X10^3/uL (2.7-7.7); Neutrophil % 96.9 % (47-70); POSITIVE COUNT YES; POSITIVE DIFFERENTIAL YES; POSITIVE MORPHOLOGY YES; Platelet Count 99 K/mm3 (150-450); RBC Distribution Width CV 22.5 % (11.6-14.6); RBC Distribution Width SD 69.2 fl (35.1-43.9); Red Blood Count 3.84 M/mm3 (4.6-6.2); White Blood Count 19.2 K/mm3 (4.4-11.0)
[2023-08-17 07:11] LABS: Differential Indicated SCAN CRITERIA MET
[2023-08-17 07:15] LABS: Anisocytosis 1+; Differential Comment SCANNED; Platelet Estimate SLT DEC (ADEQ)
[2023-08-17] MEDS: Budesonide Respules 0.5 MG/2 ML AMPUL.NEB. INHALATION ×2 (07:36→19:54)
[2023-08-17 07:38] LABS: Anion Gap 9 (5-15); BUN 17 mg/dL (7-18); Calcium,Total 6.4 mg/dL (8.5-10.1); Chloride 114 mmol/L (98-107); Creatinine, Serum 0.71 mg/dL (0.70-1.30); EST Glomerular Filtration Rate 121 mL/min (>60); Est Glom Filt Rate - Afr Amer 146 mL/min (>60); Estimated Creatinine Clearance 112.02 ml/min; Glucose 75 mg/dL (74-106); Potassium 3.3 mmol/L (3.5-5.1); Sodium Level 142 mmol/L (136-145)
--- NOTE | 2023-08-17 08:11 | PCM.PN.HOSP ---
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, lymph nodes of multiple sites (08/08/23) Vitamin B12 deficiency anemia, unspecified (08/08/23) Hypercalcemia (08/08/23) Hypokalemia (08/08/23) Multiple subsegmental pulmonary emboli without acute cor pulmonale (08/08/23) Other pulmonary embolism without acute cor pulmonale (08/08/23) Lymphedema, not elsewhere classified (08/08/23) Other disorders of lung (08/08/23) Unspecified kidney failure (08/08/23) Rash and other nonspecific skin eruption (08/08/23) Unspecified infection due to central venous catheter, initial encounter (08/08/23) Subjective Subjective Patient still swollen and feels generally sore but laying on side at present patient is pleased with that Objective Data Objective Data Vital Signs: Vital Signs Temp Pulse Resp BP Pulse Ox O2 Del Method O2 Flow Rate 97.8 F 73 20 H 109/90 H 98 Room Air 2 08/17/23 03:20 08/17/23 03:20 08/17/23 03:20 08/17/23 03:20 08/16/23 21:20 08/17/23 03:52 08/13/23 07:02 Oxygen Flow Rate (L/min) 2 Oxygen Delivery Method Room Air Weight: 84.6 kg Body Mass Index (BMI) 27.5 Intake & Output: Intake and Output for Last 24 Hours 08/15/23 08/16/23 08/17/23 23:59 23:59 23:59 Intake Total 1315 / 1415 1340 / 1340 665 / 665 Output Total 250 / 450 950 / 950 250 / 250 Balance 1065 / 965 390 / 390 415 / 415 Medical Nutrition Assessment Dietitian: Malnutrition Criteria Met Start: 08/09/23 15:49 Freq: Status: Active Protocol: Document 08/16/23 15:14 MIKAL (Rec: 08/16/23 15:14 MIKAL [id number]) Nutrition Malnutrition Evidence of Malnutrition Exists Yes Malnutrition (severe): Chronic Evidenced By Suboptimal Energy Intake ( Severe),Weight Loss (Severe), Physical Changes (Severe) Clinical Problem Chronic Disease or Condition Related Malnutrition Etiology severe related to lymphoma, increased nutrient needs and suboptimal appetite Signs/Symptoms as evidenced by 22.7lbs (12.4% ) weight loss in 1.5 months, < 75% PO intake of estimated nutrition needs for >1 month and severe fat and muscle loss to temporal, orbital and clavicle regions. Status Active Problem Recommendation Dietitian Recommendations/Changes Continue Regular diet to optimize oral intakes. Continue Magic cup 1x daily to provide supplemental energy and promote weight stabilization. Pt would benefit from enteral nutrition due to significant weight loss and poor PO intakes. Lab / Micro Data 08/17/23 06:20 08/17/23 06:20 Labs: Laboratory Results - last 24 hr 08/17/23 06:20: WBC 19.2 H, RBC 3.84 L, Hgb 10.8 L, Hct 33.6 L, MCV 87.5, MCH 28.1, MCHC 32.1, RDW Std Deviation 69.2 H, RDW Coeff of Andrew 22.5 H, Plt Count 99 L, MPV 11.9, Immature Gran % (Auto) 0.700, Neut % (Auto) 96.9 H, Lymph % (Auto) 0.7 L, [place] % (Auto) 1.4, Eos % (Auto) 0.2, Baso % (Auto) 0.1, Absolute Neuts (auto) 18.6 H, Absolute Lymphs (auto) 0.13 L, Nucleated RBC % 0, Differential Comment SCANNED, Platelet Estimate SLT DEC, Anisocytosis 1+, Sodium 142, Potassium 3.3 L, Chloride 114 H, Carbon Dioxide 19.0 L, Anion Gap 9, BUN 17, Creatinine 0.71, Estim Creat Clear Calc 112.02, Est GFR (MDRD) Af Amer 146, Est GFR (MDRD) Non-Af 121, BUN/Creatinine Ratio 24.0 H, Glucose 75, Calcium 6.4 L* Micro: Microbiology 08/14/23 09:40 Blood Culture (Wb) - Right Hand Blood Culture - Preliminary No growth in 48 hours. 08/14/23 09:30 Blood Culture (Wb) - Anticubital Right Blood Culture - Preliminary No growth in 48 hours. 08/10/23 Unknown Wash - Right Middle Lobe Gram Stain - Final 08/10/23 Unknown Wash - Right Middle Lobe Respiratory Culture - Final Mixed normal respiratory kelby. No Streptococcus pneumoniae, beta-hemolytic Streptococcus or Staphylococcus aureus isolated. 08/10/23 Unknown Wash - Right Middle Lobe Anaerobic Culture - Final No growth in 5 days. 08/08/23 22:53 Mucosa - Nasopharyngeal Respiratory Panel (PCR) - Final 08/08/23 23:45 Urine, Clean Catch Legionella Antigen - Final 08/08/23 23:45 Urine, Clean Catch Streptococcus pneumoniae Antigen (M - Final 08/08/23 22:53 Mucosa - Nose Coronavirus COVID-19 PCR - Final 08/08/23 17:55 Stool Enteric Bacteriology - Final 08/08/23 17:55 Stool C. difficile DNA Amplification - Final Physical Exam Narrative General: Alert, oriented HEENT: Atraumatic, normocephalic Eyes: Anicteric, normal conjunctiva, extraocular movements grossly intact Neck: Supple Respiratory: normal respiratory effort Cardiovascular: Regular rate GI: Soft, nontender, nondistended Extremities: Lower extremities with Real wraps Musculoskeletal: Moving all extremities Neuro: No overt focal neurological deficits Skin: Patient covered, wound care following Psych: Cooperative Assessment & Plan Assessment/Plan (1) Pulmonary embolism: QUALIFIERS: Pulmonary embolism type: multiple subsegmental (without acute cor pulmonale) Qualified Code(s): I26.94 - Multiple subsegmental pulmonary emboli without acute cor pulmonale PLAN: Plan #1. Questionable pulmonary septic emboli with mild hypoxia with infected right IJ Port-A-Cath subsequently removal on 08/08/2023: Patient also has significant diarrhea. Abdomen is soft, nontender nondistended therefore I do not suspect significant colitis. ABG done in ED shows 7.61/22.9/110 on 4 L of oxygen interpretation reveals mild respiratory alkalosis as patient bicarb is 23 Twelve-lead EKG shows sinus rhythm 72 bpm, QRS 106 ms QT 552 ms history of prolonged QT. Patient is being admitted in PCU. Bronchodilator as needed with scheduled. On oxygen through nasal cannula. IV Zosyn and vancomycin. Patient has significant leukocytosis with slight improvement since yesterday. Immature granulocytes 1.1% mainly neutrophils 97%, lymphopenia 0.8%. Urinary antigens, stool for C. difficile and enteric bacteriology panel, COVID-19 PCR are negative. Blood cultures x2 are pending. Pulmonary consult reviewed and appreciated. ID consult requested. 08/10: Leukocytosis worsening. Patient seen by ID. Blood culture pending. Respiratory panel negative. C. difficile negative. Patient currently not producing sputum. Went for bronchoscopy today BAL specimen and cultures pending. Hepatitis panel negative earlier. Negative HIV. Pending QuantiFERON. Possible aspiration versus port infection or opportunistic infection. 08/11: Preliminary RML BAL exhibits no growth. Continue broad-spectrum antibiotic. Continue IV heparin drip. 08/12/2023: Continue with broad-spectrum antibiotics, staph epi grew out of 1 blood culture. Appreciate surgery's assistance if plan is to continue with chemotherapy and surgery will see as an outpatient once infection is cleared to transition port to the left side -08/13: Patient for outpatient left chest port placement, once infection free and confirmation that oncology will continue treatment he can call surgery office. Given inpatient procedure not planned we will switch to NOAC. ID following, patient abx spectrum being narrowed today. Additionally pt has fem line, patient has been unable to work with therapy due to femoral line, given relative stability and discontinuing heparin drip as well as generalized weakness will establish good peripheral access and then plan to DC femoral line and have patient evaluated by PT -08/14: Patient with 2 peripheral IVs and femoral line discontinued, on oral Eliquis. Now working with physical therapy. Patient remains on antibiotics per ID recommendations, presently Rocephin, metronidazole, vancomycin. Pulmonology recommended repeating blood cultures given uptrending white blood cell count. Repeated cultures, ID following -08/15: White blood cell count increased again, repeat cultures no growth to date, appreciate ID input, remains on antibiotics. Giving further Lasix, also BladderScan patient as he feels swelling is making it difficult for him to urinate, has been refusing Real wrap's, elevate extremities -08/16: Cultures no growth to date, plan will be discharged on Doxy, white count down trended today. Patient not retaining, will give further Lasix, had recent echo which did not show any diastolic dysfunction or reduced ejection fraction suspect this is all due to lack of mobilization and fluids patient has received. Patient slowly improving -08/17: Scheduled 40 IV Lasix twice daily however blood pressure has been prohibitive factor for Lasix, will give albumin, patient up 31 L since admission, once patient diuresed enough that he is able to participate in therapy will be able to send to SNF 2. Acute bilateral subsegmental nonocclusive pulmonary embolism:CTA individually reviewed and shows moderate volume nonocclusive acute pulmonary embolism involving most of the subsegmental pulmonary arteries with no evidence of right heart strain. 2D echo is ordered. Patient on IV heparin drip.: Venous duplex negative for bilateral lower extremity thrombosis. BNP ordered. 04/09: 2D echo shows EF 65% no evidence of diastolic function. LA mildly enlarged. No tricuspid stenosis. Unable to estimate RV systolic pressure. Right ventricle normal size and systolic function. BNP 08/12/2023: Respiratory status is currently stable appreciate pulmonology's assistance -08/13: Pulm recommended switching to NOAC if no further procedures. We will plan on transition -08/14: As above, patient was more short of breath today, giving another dose of IV Lasix -08/15: Further Lasix as above -08/16: Continue Eliquis, further Lasix as above, not retaining, I's and O's, daily weights -08/17: Eliquis, Lasix as above 3. 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 Liver chemistry shows elevated alkaline phosphatase 249 , ALT and AST within normal limit. Total bilirubin normal but LDH significant high 423 suggestive of bony involvement and active tumor growth. Uric acid is low 1.6. It was 3.0 on 07/16/2023. Lactic acid 2.3. In the ED, the patient was administered pamidronate 90 mg IV x1, prednisone 100 mg oral, and allopurinol 200 mg oral. Oncology consultation reviewed and appreciated. Discussed with Dr. Cohen and he said patient was first seen by him on 06/28/2023 as consult. Tumor is clinically very aggressive, anaplastic, unresponsive to standard therapy and null cell (neither B-cell or T-cell) and relatively worse prognosis. Patient was planned to start systemic therapy in early August 2023 after he had central venous access on August 01 point that was removed on first admission developed. He said he also talked to the [facility] oncology colleague and he is not a candidate for any trial. We will continue allopurinol. And prednisone 100 mg daily for total of 5 days. Can repeat 1 more dose of pamidronic acid if patient is stable hypercalcemia of malignancy. But calcium is 10.9 today probably will not need it. 08/10: Continue high-dose prednisone. Continue allopurinol. Serum calcium 9.7. Uric acid 1.3. See RP elevated. Plan was [facility] treatment but was not started yet -08/13: Patient seen by oncology 08/09 with palliative 5-day course oral prednisone and continue allopurinol 300 mg for tumor lysis prophylaxis. Systemic treatment on hold while underlying infection and acute medical illnesses addressed -08/14: Evaluated by oncology, no need for acyclovir or Bactrim until he starts systemic therapy, continue allopurinol. Is finished his 5-day course of prednisone. Systemic treatment will have to be delayed until cleared from ID standpoint and performance status improves -08/16: We will need to be cleared from ID standpoint and increase functional performance prior to being considered for treatment -08/17: Discussed with patient that he will not be starting chemotherapy during this hospitalization and he verbalizes understanding and said he did not think he would be and understands he will go to rehab to get stronger prior to that #4. Acute kidney injury: Secondary to dehydration and acute presentation as noted. Admission BUN/Cr 50/1.76, prior baseline creatinine noted to be 0.8-1.1. Will hydrate, hold nephrotoxic medications and repeat chemistry in AM. If no improvement would plan FeNa and renal ultrasound assessment. 08/10: Serum creatinine improved to 0.98. 08/11: Serum creatinine 0.92 BUN elevated 28. ZUNILDA resolved. Patient will get IV fluid with magnesium and potassium supplementation. -08/13: Patient more swollen and significantly positive and fluid, hold any further IV fluids, received dose of IV Lasix today -08/14: Creatinine doing well and tolerated Lasix yesterday, will give another dose of IV Lasix -08/16: Continues to tolerate diuresis well -08/17: Giving albumin and adjusted Lasix dosing #5. Electrolyte abnormality: Hypokalemia and hypercalcemia: Admission K+ 2.4, serum potassium low 2.6 after replacement. Serum magnesium 2.2, phosphorus 4.1. Serum calcium 13.8, improved to 10.9. 08/10: Serum potassium low 2.9 severe hypokalemia. Potassium rider ordered. Serum magnesium and phosphorus ordered. 08/11: Serum potassium is low 3.2. 40 mEq IV potassium rider replaced but still sodium is 3.5. Oral potassium supplement ordered. Serum magnesium 1.7 but repeat serum magnesium 1.6 after 2 g IV magnesium sulfate replacement. Serum phosphorus normal. -08/13: Continue to monitor and adjust -08/16: Continue to replace #Buttock wound -Opitimize nutrition -Wound care c/s -Mobilize as tolerated -No longer on bed rest -08/17: Patient with some mild sloughing, creams applied, no overt wounds #6. Anxiety and depression: Not on any chronic regimen, would benefit from continued outpatient evaluation and counseling if appropriate. #7. Tobacco Abuse: Encouraged cessation, inpatient consultation per RT, NR if desired. #8. GERD: We will continue patient home PPI. #9. Chronic right lower extremity lymphedema: Status post DVT ultrasound with no acute findings, will place snug Real with elevation if able to tolerate. DVT: Eliquis Time spent in the patient's overall evaluation,decision-making process, review of diagnostic data, adjustment of management, discussion with other providers, nursing nursing and ancillary staff involved in patient's care documentation, 45 minutes Charges/Coding Visit Charges Inpatient E&M: 71903 Subs Hosp L2
[2023-08-17] MEDS: Ceftriaxone 2 GM in 0.9% Normal Saline (50mL MB+) 50 ML IV (09:08)
[2023-08-17] MEDS: Calcium Gluconate IV 2 GM in 0.9% Normal Saline (100mL Bag) 100 ML IV (09:56)
[2023-08-17] MEDS: APIXABAN 5 MG TABLET PO ×2 (10:02→21:39)
[2023-08-17] MEDS: Allopurinol 300 MG Tablet PO (10:03)
[2023-08-17] MEDS: Menthol/Lanolin/Calamine/Znox 113 GM Tube 1 APPLIC TOPICAL ×2 (12:04→21:38)
[2023-08-17] MEDS: Mineral Oil/Petrolatum Cr 1.75oz Bottle 1 APPLIC TOPICAL ×3 (12:05→21:38)
[2023-08-17] MEDS: Potassium Phosphate 30 MM in 0.9% Normal Saline (250mL Bag) 250 ML 42 MM IV (12:06)
[2023-08-17] MEDS: Pantoprazole Sodium 20 MG Tablet PO (12:17)
--- NOTE | 2023-08-17 13:45 | CASEMGMT ---
Social Work Met with patient in room, introduced to self and role. Patient remembers talking to SW yesterday about possible SNF placement and was given a list of SNF choices. Patient reports first choice is [facility] in [place], and then [facility] as a 2nd choice. Patient reports has started paperwork with employer for short term disability, but may want to look at applying for social security down the road. Patient reports may be interested in making friend, SUZETTE Grover and wants Shorty to be kept up to date on things which are happening with patient. Called Shorty at [phone]. Shorty agrees with plan for choice of SNFs and reports this helps Shorty to know patient will have a bit more help at discharge; was worried about discharge home. Shorty reports would be in agreement and comfortable with being patient's POAHC. Shorty confirmed address as [address] [phone]. Did receive message from [facility] indicating that has been seeing patient in the community. Next scheduled appointment with Palliative is for 08.23.23 at 1330 at the office. Plan: Referral being made to [facility]. Pending acceptance and then will need precert. -JULIET Bhakta
--- NOTE | 2023-08-17 14:29 | PN.ID_ITS ---
Physical Exam Narrative Feeling ok, no fever, feeling better Const alert and no apparent distress Resp normal air movement and clear to auscultation bilaterally Cardio regular rate and regular rhythm GI soft to palpation, non-tender and non-distended Skin Skin Narrative: No redness at former R chest port site ID ID: Route of nutrition/ use of supplements: [] Nutritional Intake: [] IV Site: [] Charles Catheter: [] Assessment & Plan Assessment/Plan (1) Pulmonary embolism: QUALIFIERS: Pulmonary embolism type: multiple subsegmental (without acute cor pulmonale) Qualified Code(s): I26.94 - Multiple subsegmental pulmonary emboli without acute cor pulmonale (2) Infection of venous access port: (3) 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 Bcx neg, port site cx with some MRSE. Resp pcr panel neg, cdiff neg, UAgs neg. Recent dx of lymphoma, not yet started on chemo as outpt. CT chest shows scattered cavitary disease. Had CT/PET done 08/07/23 . Not producing sputum. Hep panel neg earlier this month, no HIV sent. Neg hiv here; pending quantiferon, cryptococcal Ag, urine histo Ag, aspergillus Ag. Bronch done, results so far neg for infection. Possible aspiration vs port vs opportunistic infection, or cavitary lesions may just be related to his PEs. Completed 5 days high dose pred; plan as an outpt had been for [facility]. On vanc/ceftriaxone/flagyl. At this point, ok to be done with abx and proceed with chemo as an outpatient. Will follow
--- NOTE | 2023-08-17 16:24 | CASEMGMT ---
Social Work Referrals made to [facility] and second choice[facility] Both SNFs can accept. First choice is [facility]. CYRUS updated [facility] to start precert as pt is medically ready to DC once precert is obtained. CYRUS updated [facility]. 7000 is started in [facility]. Plan: DC to [facility], skilled, pending precert. Ju Coreas, PAT RAUSCHW
[2023-08-17] MEDS: Albumin Human 25% (100 mL) 25 GM/100 ML BAG IV (17:03)
--- NOTE | 2023-08-17 17:15 | PCM.HOSP.N ---
Hospitalist Note BP has been low but patient has remained asymptomatic, aside from his swelling he had no new or acute complaints at the time of my evaluation. Given his previous low albumin and significant third spacing feel giving fluid would be counterproductive and would only worsen swelling without having significant benefit intravascularly, albumin ordered and will assess for response. We will hold diuresis at this time
[2023-08-17] MEDS: 0.9 % NaCl (Sterile) Posiflush 10 mL IV (21:37)
[2023-08-18] VITALS (12 sets, daily range): BP systolic 87–103; BP diastolic 45–56; PULSE 52–70; RESP 16–20; TEMP 35.8–36.7; O2SAT 96–99; BMI 27.3
[2023-08-18 06:20] LABS: Absolute Lymphocyte Count 0.14 X10^3/uL (0.83-4.51); Absolute Neutrophil Count 22.9 X10^3/uL (2.0-7.7); Basophil# 0.02 X10^3/uL; Basophil% 0.1 % (0-1); Eosinophil# 0.03 X10^3/uL; Eosinophils% 0.1 % (0-5); Hematocrit 31.7 % (40-54); Hemoglobin 10.3 g/dL (13.0-16.5); Lymphocyte # 0.14 X10^3/ul (0.83-4.51); Lymphocyte % 0.6 % (19-41); Mean Corp Hgb Conc 32.5 g/dL (32-36); Mean Corpuscular Hgb 28.3 pg (27.0-32.0); Mean Corpuscular Volume 87.1 fL (80-94); Mean Platelet Vol. 11.9 fl (6.2-12.0); Monocyte# 0.32 X10^3/uL; Monocyte% 1.4 % (0-10); NRBC Flagged by Analyzer 0 % (0-5); Neutrophil # 22.88 X10^3/uL (2.7-7.7); Neutrophil % 97.1 % (47-70); POSITIVE COUNT YES; POSITIVE DIFFERENTIAL YES; POSITIVE MORPHOLOGY YES; Platelet Count 86 K/mm3 (150-450); RBC Distribution Width CV 22.5 % (11.6-14.6); RBC Distribution Width SD 69.2 fl (35.1-43.9); Red Blood Count 3.64 M/mm3 (4.6-6.2); White Blood Count 23.6 K/mm3 (4.4-11.0)
[2023-08-18 06:43] LABS: Differential Indicated SCAN CRITERIA MET
[2023-08-18] MEDS: Budesonide Respules 0.5 MG/2 ML AMPUL.NEB. INHALATION ×2 (07:23→19:13)
[2023-08-18 07:26] LABS: Anisocytosis 2+; Differential Comment SCANNED; Hypochromasia 3+; Platelet Estimate MOD DEC (ADEQ); Platelet Morphology LARGE; Target Cells 2+
[2023-08-18 07:36] LABS: ALB/GLOB Ratio 0.5 RATIO (0.9-2.4); AST(SGOT) 18 U/L (15-37); Alanine Aminotransfer ALT/SGPT 21 U/L (16-61); Albumin, Serum 1.5 g/dL (3.2-5.0); Alkaline Phosphatase 249 U/L (45-117); Anion Gap 7 (5-15); BUN 16 mg/dL (7-18); BUN/Creat Ratio 20.7 RATIO (10-20); Calcium,Total 6.6 mg/dL (8.5-10.1); Chloride 110 mmol/L (98-107); Creatinine, Serum 0.77 mg/dL (0.70-1.30); EST Glomerular Filtration Rate 109 mL/min (>60); Est Glom Filt Rate - Afr Amer 132 mL/min (>60); Globulin 2.8 g/dL (2.2-4.2); Glucose 52 mg/dL (74-106); Phosphorus 2.4 mg/dL (2.5-4.9); Potassium 3.3 mmol/L (3.5-5.1); Protein, Total 4.3 g/dL (6.4-8.2); Sodium Level 137 mmol/L (136-145)
[2023-08-18 08:26] LABS: Magnesium 1.7 mg/dL (1.6-2.6)
[2023-08-18] MEDS: Loperamide 2 MG Capsule PO ×2 (09:09→20:36)
[2023-08-18] MEDS: Pantoprazole Sodium 20 MG Tablet PO (09:09)
[2023-08-18] MEDS: Midodrine HCl 5 MG Tablet PO ×3 (09:09→17:34)
[2023-08-18] MEDS: APIXABAN 5 MG TABLET PO ×2 (09:09→20:35)
[2023-08-18] MEDS: Allopurinol 300 MG Tablet PO (09:09)
[2023-08-18] MEDS: Potassium Phosphate 30 MM in 0.9% Normal Saline (250mL Bag) 250 ML 42 MM IV (09:09)
--- NOTE | 2023-08-18 10:02 | PN.HOSP_ITS ---
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, lymph nodes of multiple sites () Vitamin B12 deficiency anemia, unspecified (08/08/23) Hypercalcemia (08/08/23) Hypokalemia (08/08/23) Multiple subsegmental pulmonary emboli without acute cor pulmonale (08/08/23) Other pulmonary embolism without acute cor pulmonale (08/08/23) Lymphedema, not elsewhere classified (08/08/23) Other disorders of lung (08/08/23) Unspecified kidney failure (08/08/23) Rash and other nonspecific skin eruption (08/08/23) Unspecified infection due to central venous catheter, initial encounter () Subjective Subjective Still working on diuresis the patient otherwise feeling better Objective Data Objective Data Vital Signs: Vital Signs Temp Pulse Resp BP Pulse Ox O2 Del Method O2 Flow Rate 98.1 F 66 16 96/46 L 96 Room Air 2 08/18/23 09:12 08/18/23 09:12 08/18/23 09:12 08/18/23 09:12 08/18/23 09:12 08/18/23 09:12 08/13/23 07:02 Oxygen Flow Rate (L/min) 2 Oxygen Delivery Method Room Air Weight: 84.15 kg Body Mass Index (BMI) 27.3 Intake & Output: Intake and Output for Last 24 Hours 08/16/23 08/17/23 08/18/23 23:59 23:59 23:59 Intake Total 1340 / 1340 1435 / 1835 1200 / 1200 Output Total 950 / 950 250 / 500 251 / 251 Balance 390 / 390 1185 / 1335 949 / 949 Medical Nutrition Assessment Dietitian: Malnutrition Criteria Met Start: 08/09/23 15:49 Freq: Status: Active Protocol: Document 08/16/23 15:14 LO (Rec: 08/16/23 15:14 LO [id number]) Nutrition Malnutrition Evidence of Malnutrition Exists Yes Malnutrition (severe): Chronic Evidenced By Suboptimal Energy Intake ( Severe),Weight Loss (Severe), Physical Changes (Severe) Clinical Problem Chronic Disease or Condition Related Malnutrition Etiology severe related to lymphoma, increased nutrient needs and suboptimal appetite Signs/Symptoms as evidenced by 22.7lbs (12.4% ) weight loss in 1.5 months, < 75% PO intake of estimated nutrition needs for >1 month and severe fat and muscle loss to temporal, orbital and clavicle regions. Status Active Problem Recommendation Dietitian Recommendations/Changes Continue Regular diet to optimize oral intakes. Continue Magic cup 1x daily to provide supplemental energy and promote weight stabilization. Pt would benefit from enteral nutrition due to significant weight loss and poor PO intakes. Lab / Micro Data 08/18/23 05:57 08/18/23 05:57 Labs: Laboratory Results - last 24 hr 08/18/23 05:57: WBC 23.6 H, RBC 3.64 L, Hgb 10.3 L, Hct 31.7 L, MCV 87.1, MCH 28.3, MCHC 32.5, RDW Std Deviation 69.2 H, RDW Coeff of Andrew 22.5 H, Plt Count 86 L, MPV 11.9, Immature Gran % (Auto) 0.700, Neut % (Auto) 97.1 H, Lymph % (Auto) 0.6 L, [place] % (Auto) 1.4, Eos % (Auto) 0.1, Baso % (Auto) 0.1, Absolute Neuts (auto) 22.9 H, Absolute Lymphs (auto) 0.14 L, Nucleated RBC % 0, Differential Comment SCANNED, Platelet Estimate MOD DEC, Plt Morphology Comment LARGE, Hypochromasia 3+, Anisocytosis 2+, Target Cells 2+, Sodium 137, Potassium 3.3 L, Chloride 110 H, Carbon Dioxide 20.0 L, Anion Gap 7, BUN 16, Creatinine 0.77, Estim Creat Clear Calc 103.30, Est GFR (MDRD) Af Amer 132, Est GFR (MDRD) Non-Af 109, BUN/Creatinine Ratio 20.7 H, Glucose 52 L, Calcium 6.6 L, Phosphorus 2.4 L, Magnesium 1.7, Total Bilirubin 0.80, AST 18, ALT 21, Alkaline Phosphatase 249 H, Total Protein 4.3 L, Albumin 1.5 L, Globulin 2.8, Albumin/Globulin Ratio 0.5 L Micro: Microbiology 08/14/23 09:40 Blood Culture (Wb) - Right Hand Blood Culture - Preliminary No growth in 48 hours. 08/14/23 09:30 Blood Culture (Wb) - Anticubital Right Blood Culture - Preliminary No growth in 48 hours. 08/10/23 Unknown Wash - Right Middle Lobe Gram Stain - Final 08/10/23 Unknown Wash - Right Middle Lobe Respiratory Culture - Final Mixed normal respiratory kelby. No Streptococcus pneumoniae, beta-hemolytic Streptococcus or Staphylococcus aureus isolated. 08/10/23 Unknown Wash - Right Middle Lobe Anaerobic Culture - Final No growth in 5 days. 08/08/23 22:53 Mucosa - Nasopharyngeal Respiratory Panel (PCR) - Final 08/08/23 23:45 Urine, Clean Catch Legionella Antigen - Final 08/08/23 23:45 Urine, Clean Catch Streptococcus pneumoniae Antigen (M - Final 08/08/23 22:53 Mucosa - Nose Coronavirus COVID-19 PCR - Final 08/08/23 17:55 Stool Enteric Bacteriology - Final 08/08/23 17:55 Stool C. difficile DNA Amplification - Final Physical Exam Narrative General: Alert, oriented HEENT: Atraumatic, normocephalic Eyes: Anicteric, normal conjunctiva, extraocular movements grossly intact Neck: Supple Respiratory: normal respiratory effort Cardiovascular: Regular rate GI: Soft, nontender, nondistended Extremities: 2-3+ lower extremity edema Musculoskeletal: Moving all extremities Neuro: No overt focal neurological deficits Skin: Patient covered, wound care evaluated Psych: Cooperative Assessment & Plan Assessment/Plan (1) Pulmonary embolism: QUALIFIERS: Pulmonary embolism type: multiple subsegmental (without acute cor pulmonale) Qualified Code(s): I26.94 - Multiple subsegmental pulmonary emboli without acute cor pulmonale PLAN: Plan #1. Questionable pulmonary septic emboli with mild hypoxia with infected right IJ Port-A-Cath subsequently removal on 08/08/2023: Patient also has significant d iarrhea. Abdomen is soft, nontender nondistended therefore I do not suspect significant colitis. ABG done in ED shows 7.61/22.9/110 on 4 L of oxygen interpretation reveals mild respiratory alkalosis as patient bicarb is 23 Twelve-lead EKG shows sinus rhythm 72 bpm, QRS 106 ms QT 552 ms history of prolonged QT. Patient is being admitted in PCU. Bronchodilator as needed with scheduled. On oxygen through nasal cannula. IV Zosyn and vancomycin. Patient has significant leukocytosis with slight improvement since yesterday. Immature granulocytes 1.1% mainly neutrophils 97%, lymphopenia 0.8%. Urinary antigens, stool for C. difficile and enteric bacteriology panel, COVID- 19 PCR are negative. Blood cultures x2 are pending. Pulmonary consult reviewed and appreciated. ID consult requested. 08/10: Leukocytosis worsening. Patient seen by ID. Blood culture pending. Respiratory panel negative. C. difficile negative. Patient currently not producing sputum. Went for bronchoscopy today BAL specimen and cultures pending. Hepatitis panel negative earlier. Negative HIV. Pending QuantiFERON. Possible aspiration versus port infection or opportunistic infection. 08/11: Preliminary RML BAL exhibits no growth. Continue broad-spectrum antibiotic. Continue IV heparin drip. 08/12/2023: Continue with broad-spectrum antibiotics, staph epi grew out of 1 blood culture. Appreciate surgery's assistance if plan is to continue with chemotherapy and surgery will see as an outpatient once infection is cleared to transition port to the left side -08/13: Patient for outpatient left chest port placement, once infection free and confirmation that oncology will continue treatment he can call surgery office. Given inpatient procedure not planned we will switch to NOAC. ID following, patient abx spectrum being narrowed today. Additionally pt has fem line, patient has been unable to work with therapy due to femoral line, given relative stability and discontinuing heparin drip as well as generalized weakness will establish good peripheral access and then plan to DC femoral line and have patient evaluated by PT -08/14: Patient with 2 peripheral IVs and femoral line discontinued, on oral E liquis. Now working with physical therapy. Patient remains on antibiotics per ID recommendations, presently Rocephin, metronidazole, vancomycin. Pulmonology recommended repeating blood cultures given uptrending white blood cell count. Repeated cultures, ID following -08/15: White blood cell count increased again, repeat cultures no growth to date, appreciate ID input, remains on antibiotics. Giving further Lasix, also BladderScan patient as he feels swelling is making it difficult for him to urinate, has been refusing Real wrap's, elevate extremities -08/16: Cultures no growth to date, plan will be discharged on Doxy, white count down trended today. Patient not retaining, will give further Lasix, had recent echo which did not show any diastolic dysfunction or reduced ejection fraction s uspect this is all due to lack of mobilization and fluids patient has received. Patient slowly improving -08/17: Scheduled 40 IV Lasix twice daily however blood pressure has been prohibitive factor for Lasix, will give albumin, patient up 31 L since admission, once patient diuresed enough that he is able to participate in therapy will be able to send to SNF -08/18: Patient off of antibiotics now, focusing on rehab and diuresis. Given a dose of albumin yesterday and patient's BP still remains soft and though asymptomatic need to continue diuresis we will try low-dose of midodrine in addition to Lasix 2. Acute bilateral subsegmental nonocclusive pulmonary embolism:CTA individually reviewed and shows moderate volume nonocclusive acute pulmonary embolism involving most of the subsegmental pulmonary arteries with no evidence of right heart strain. 2D echo is ordered. Patient on IV heparin drip.: Venous duplex negative for bilateral lower extremity thrombosis. BNP ordered. 04/09: 2D echo shows EF 65% no evidence of diastolic function. LA mildly enlarged. No tricuspid stenosis. Unable to estimate RV systolic pressure. Right ventricle normal size and systolic function. BNP 08/12/2023: Respiratory status is currently stable appreciate pulmonology's assistance -08/13: Pulm recommended switching to NOAC if no further procedures. We will plan on transition -08/14: As above, patient was more short of breath today, giving another dose of IV Lasix -08/15: Further Lasix as above -08/16: Continue Eliquis, further Lasix as above, not retaining, I's and O's, daily weights -08/17: Eliquis, Lasix as above -08/18: As above 3. 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 Liver chemistry shows elevated alkaline phosphatase 249 , ALT and AST within normal limit. Total bilirubin normal but LDH significant high 423 suggestive of bony involvement and active tumor growth. Uric acid is low 1.6. It was 3.0 on 07/16/2023. Lactic acid 2.3. In the ED, the patient was administered pamidronate 90 mg IV x1, prednisone 100 mg oral, and allopurinol 200 mg oral. Oncology consultation reviewed and appreciated. Discussed with Dr. Cohen and he said patient was first seen by him on 06/28/2023 as consult. Tumor is clinically very aggressive, anaplastic, unresponsive to standard therapy and null cell (neither B-cell or T-cell) and relatively worse prognosis. Patient w as planned to start systemic therapy in early August 2023 after he had central venous access on August 01 point that was removed on first admission developed. He said he also talked to the [facility] oncology colleague and he is not a candidate for any trial. We will continue allopurinol. And prednisone 100 mg daily for total of 5 days. Can repeat 1 more dose of pamidronic acid if patient is stable hypercalcemia of malignancy. But calcium is 10.9 today probably will not need it. 08/10: Continue high-dose prednisone. Continue allopurinol. Serum calcium 9.7. Uric acid 1.3. See RP elevated. Plan was [facility] treatment but was not started yet -08/13: Patient seen by oncology 08/09 with palliative 5-day course oral prednisone and continue allopurinol 300 mg for tumor lysis prophylaxis. Systemi c treatment on hold while underlying infection and acute medical illnesses addressed -08/14: Evaluated by oncology, no need for acyclovir or Bactrim until he starts systemic therapy, continue allopurinol. Is finished his 5-day course of prednisone. Systemic treatment will have to be delayed until cleared from ID standpoint and performance status improves -08/16: We will need to be cleared from ID standpoint and increase functional performance prior to being considered for treatment -08/17: Discussed with patient that he will not be starting chemotherapy during this hospitalization and he verbalizes understanding and said he did not think he would be and understands he will go to rehab to get stronger prior to that -08/18: Patient off antibiotics, will be able to start chemo once stronger and on outpatient basis #4. Acute kidney injury: Secondary to dehydration and acute presentation as noted. Admission BUN/Cr 50/1.76, prior baseline creatinine noted to be 0.8-1.1. Will hydrate, hold nephrotoxic medications and repeat chemistry in AM. If no improvement would plan FeNa and renal ultrasound assessment. 08/10: Serum creatinine improved to 0.98. 08/11: Serum creatinine 0.92 BUN elevated 28. ZUNILDA resolved. Patient will get IV fluid with magnesium and potassium supplementation. -08/13: Patient more swollen and significantly positive and fluid, hold any further IV fluids, received dose of IV Lasix today -08/14: Creatinine doing well and tolerated Lasix yesterday, will give another dose of IV Lasix -08/16: Continues to tolerate diuresis well -08/17: Giving albumin and adjusted Lasix dosing -08/18: Remains stable #5. Electrolyte abnormality: Hypokalemia and hypercalcemia: Admission K+ 2.4, serum potassium low 2.6 after replacement. Serum magnesium 2.2, phosphorus 4.1. Serum calcium 13.8, improved to 10.9. 08/10: Serum potassium low 2.9 severe hypokalemia. Potassium rider ordered. Serum magnesium and phosphorus ordered. 08/11: Serum potassium is low 3.2. 40 mEq IV potassium rider replaced but still sodium is 3.5. Oral potassium supplement ordered. Serum magnesium 1.7 but repeat serum magnesium 1.6 after 2 g IV magnesium sulfate replacement. Serum phosphorus normal. -08/13: Continue to monitor and adjust -08/16: Continue to replace -08/18: Continue to monitor replace #Buttock wound -Opitimize nutrition -Wound care c/s -Mobilize as tolerated -No longer on bed rest -08/17: Patient with some mild sloughing, creams applied, no overt wounds #6. Anxiety and depression: Not on any chronic regimen, would benefit from continued outpatient evaluation and counseling if appropriate. #7. Tobacco Abuse: Encouraged cessation, inpatient consultation per RT, NR if d esired. #8. GERD: We will continue patient home PPI. #9. Chronic right lower extremity lymphedema: Status post DVT ultrasound with no acute findings, will place snug Real with elevation if able to tolerate. DVT: Eliquis Time spent in the patient's overall evaluation,decision-making process, review of diagnostic data, adjustment of management, discussion with other providers, nursing nursing and ancillary staff involved in patient's care documentation, 36 minutes Charges/Coding Visit Charges Inpatient E&M: [id number] [facility] L2
[2023-08-18] MEDS: Magnesium Sulfate 4gm/100mL 4 GM/100 ML IV.SOLN. IV (12:08)
[2023-08-18] MEDS: Mineral Oil/Petrolatum Cr 1.75oz Bottle 1 APPLIC TOPICAL ×2 (17:34→20:39)
[2023-08-18] MEDS: Acetaminophen 325 MG Tablet 650 MG PO (20:36)
[2023-08-18] MEDS: Menthol/Lanolin/Calamine/Znox 113 GM Tube 1 APPLIC TOPICAL (20:38)
[2023-08-19] VITALS (7 sets, daily range): BP systolic 87–108; BP diastolic 47–72; PULSE 52–68; RESP 14–16; TEMP 36.2–36.7; O2SAT 97–99; BMI 27.4
[2023-08-19 06:31] LABS: Absolute Lymphocyte Count 0.14 X10^3/uL (0.83-4.51); Absolute Neutrophil Count 18.6 X10^3/uL (2.0-7.7); Basophil# 0.01 X10^3/uL; Basophil% 0.1 % (0-1); Eosinophil# 0.05 X10^3/uL; Eosinophils% 0.3 % (0-5); Hematocrit 31.8 % (40-54); Hemoglobin 10.3 g/dL (13.0-16.5); Lymphocyte # 0.14 X10^3/ul (0.83-4.51); Lymphocyte % 0.7 % (19-41); Mean Corp Hgb Conc 32.4 g/dL (32-36); Mean Corpuscular Hgb 28.1 pg (27.0-32.0); Mean Corpuscular Volume 86.6 fL (80-94); Mean Platelet Vol. 12.5 fl (6.2-12.0); Monocyte# 0.28 X10^3/uL; Monocyte% 1.5 % (0-10); NRBC Flagged by Analyzer 0 % (0-5); Neutrophil % 96.8 % (47-70); POSITIVE COUNT YES; POSITIVE DIFFERENTIAL YES; POSITIVE MORPHOLOGY YES; Platelet Count 76 K/mm3 (150-450); RBC Distribution Width CV 22.9 % (11.6-14.6); RBC Distribution Width SD 70.1 fl (35.1-43.9); Red Blood Count 3.67 M/mm3 (4.6-6.2); White Blood Count 19.2 K/mm3 (4.4-11.0)
[2023-08-19 06:49] LABS: Differential Indicated SCAN CRITERIA MET
[2023-08-19 06:54] LABS: Differential Comment SCANNED
[2023-08-19 06:55] LABS: Anisocytosis 2+; Macrocytosis 1+; Microcytosis 1+; Target Cells 2+
[2023-08-19 06:56] LABS: Magnesium 2.1 mg/dL (1.6-2.6)
[2023-08-19 07:12] LABS: ALB/GLOB Ratio 0.4 RATIO (0.9-2.4); AST(SGOT) 19 U/L (15-37); Alanine Aminotransfer ALT/SGPT 17 U/L (16-61); Albumin, Serum 1.3 g/dL (3.2-5.0); Alkaline Phosphatase 245 U/L (45-117); Anion Gap 10 (5-15); BUN 18 mg/dL (7-18); BUN/Creat Ratio 20.8 RATIO (10-20); Calcium,Total 6.6 mg/dL (8.5-10.1); Chloride 109 mmol/L (98-107); Creatinine, Serum 0.86 mg/dL (0.70-1.30); EST Glomerular Filtration Rate 96 mL/min (>60); Est Glom Filt Rate - Afr Amer 116 mL/min (>60); Estimated Creatinine Clearance 92.49 ml/min; Globulin 2.9 g/dL (2.2-4.2); Glucose 56 mg/dL (74-106); Potassium 3.7 mmol/L (3.5-5.1); Protein, Total 4.2 g/dL (6.4-8.2); Sodium Level 137 mmol/L (136-145)
[2023-08-19] MEDS: Budesonide Respules 0.5 MG/2 ML AMPUL.NEB. INHALATION ×2 (07:35→19:16)
--- NOTE | 2023-08-19 07:59 | PN.HOSP_ITS ---
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 Reports he just aches all over and feels weak and does not want to work with therapy or get up to move anymore because he is tired of feeling swollen and hurting but reports aside from that he has 0 complaints Objective Data Objective Data Vital Signs: Vital Signs Temp Pulse Resp BP Pulse Ox O2 Del Method O2 Flow Rate 97.6 F L 60 16 95/49 L 99 Room Air 2 08/19/23 04:24 08/19/23 07:35 08/19/23 07:35 08/19/23 04:24 08/19/23 04:24 08/19/23 04:24 08/13/23 07:02 Oxygen Flow Rate (L/min) 2 Oxygen Delivery Method Room Air Weight: 84.3 kg Body Mass Index (BMI) 27.4 Intake & Output: Intake and Output for Last 24 Hours 08/17/23 08/18/23 08/19/23 23:59 23:59 23:59 Intake Total 1435 / 1835 2410 / 2410 Output Total 250 / 500 501 / 501 200 / 200 Balance 1185 / 1335 1909 / 1909 -200 / -200 Medical Nutrition Assessment Dietitian: Malnutrition Criteria Met Start: 08/09/23 15:49 Freq: Status: Active Protocol: Document 08/16/23 15:14 LO (Rec: 08/16/23 15:14 LO [id number]) Nutrition Malnutrition Evidence of Malnutrition Exists Yes Malnutrition (severe): Chronic Evidenced By Suboptimal Energy Intake ( Severe),Weight Loss (Severe), Physical Changes (Severe) Clinical Problem Chronic Disease or Condition Related Malnutrition Etiology severe related to lymphoma, increased nutrient needs and suboptimal appetite Signs/Symptoms as evidenced by 22.7lbs (12.4% ) weight loss in 1.5 months, < 75% PO intake of estimated nutrition needs for >1 month and severe fat and muscle loss to temporal, orbital and clavicle regions. Status Active Problem Recommendation Dietitian Recommendations/Changes Continue Regular diet to optimize oral intakes. Continue Magic cup 1x daily to provide supplemental energy and promote weight stabilization. Pt would benefit from enteral nutrition due to significant weight loss and poor PO intakes. Lab / Micro Data 08/19/23 05:55 08/19/23 05:55 Labs: Laboratory Results - last 24 hr 08/18/23 05:57: Magnesium 1.7 08/19/23 05:55: WBC 19.2 H, RBC 3.67 L, Hgb 10.3 L, Hct 31.8 L, MCV 86.6, MCH 28.1, MCHC 32.4, RDW Std Deviation 70.1 H, RDW Coeff of Andrew 22.9 H, Plt Count 76 L, MPV 12.5 H, Immature Gran % (Auto) 0.600, Neut % (Auto) 96.8 H, Lymph % (Auto) 0.7 L, [place] % (Auto) 1.5, Eos % (Auto) 0.3, Baso % (Auto) 0.1, Absolute Neuts (auto) 18.6 H, Absolute Lymphs (auto) 0.14 L, Nucleated RBC % 0, Differential Comment SCANNED, Anisocytosis 2+, Microcytosis 1+, Macrocytosis 1+, Target Cells 2+, Sodium 137, Potassium 3.7, Chloride 109 H, Carbon Dioxide 18.0 L, Anion Gap 10, BUN 18, Creatinine 0.86, Estim Creat Clear Calc 92.49, Est GFR (MDRD) Af Amer 116, Est GFR (MDRD) Non-Af 96, BUN/Creatinine Ratio 20.8 H, Glucose 56 L, Calcium 6.6 L, Phosphorus 3.0, Magnesium 2.1, Total Bilirubin 1.00, AST 19, ALT 17, Alkaline Phosphatase 245 H, Total Protein 4.2 L, Albumin 1.3 L, Globulin 2.9, Albumin/Globulin Ratio 0.4 L Micro: Microbiology 08/14/23 09:40 Blood Culture (Wb) - Right Hand Blood Culture - Final No growth in 5 days. 08/14/23 09:30 Blood Culture (Wb) - Anticubital Right Blood Culture - Preliminary No growth in 48 hours. 08/10/23 Unknown Wash - Right Middle Lobe Gram Stain - Final 08/10/23 Unknown Wash - Right Middle Lobe Respiratory Culture - Final Mixed normal respiratory kelby. No Streptococcus pneumoniae, beta-hemolytic Streptococcus or Staphylococcus aureus isolated. 08/10/23 Unknown Wash - Right Middle Lobe Anaerobic Culture - Final No growth in 5 days. 08/08/23 22:53 Mucosa - Nasopharyngeal Respiratory Panel (PCR) - Final 08/08/23 23:45 Urine, Clean Catch Legionella Antigen - Final 08/08/23 23:45 Urine, Clean Catch Streptococcus pneumoniae Antigen (M - Final 08/08/23 22:53 Mucosa - Nose Coronavirus COVID-19 PCR - Final 08/08/23 17:55 Stool Enteric Bacteriology - Final 08/08/23 17:55 Stool C. difficile DNA Amplification - Final Physical Exam Narrative General: Alert, oriented HEENT: Atraumatic, normocephalic Eyes: Anicteric, normal conjunctiva, extraocular movements grossly intact Neck: Supple Respiratory: normal respiratory effort Cardiovascular: Regular rate GI: Soft, nontender, nondistended Extremities: 2-3+ lower extremity edema Musculoskeletal: Moving all extremities Neuro: No overt focal neurological deficits Skin: Patient covered, wound care evaluated Psych: Irritable and combative Assessment & Plan Assessment/Plan (1) Pulmonary embolism: QUALIFIERS: Pulmonary embolism type: multiple subsegmental (without acute cor pulmonale) Qualified Code(s): I26.94 - Multiple subsegmental pulmonary emboli without acute cor pulmonale PLAN: Plan #Peripheral edema -Patient seem to significant mount of IV fluids during his hospital stay and is up >30 L based on I's and O's summary -A significant portion of this is third spacing -Continue to try to optimize nutrition -Patient only wore Real wraps for 1 day and has been very resistant due to finding them irritating despite education and stressing importance -Have been trying to diurese as blood pressure allows -No respiratory distress or other complications of fluid overload at this time -Suspect increased mobilization would also help however patient very resistant to this as he is tired and does not want to move while feeling swollen -08/16: Had recent echo which did not show any diastolic dysfunction or reduced ejection fraction suspect this is all due to lack of mobilization and fluids patient has received. Patient slowly improving -08/17: Scheduled 40 IV Lasix twice daily however blood pressure has been prohibitive factor for Lasix, will give albumin, patient up 31 L since admission, once patient diuresed enough that he is able to participate in therapy will be able to send to SNF -08/18: Given a dose of albumin yesterday and patient's BP still remains soft and though asymptomatic need to continue diuresis we will try low-dose of midodrine in addition to Lasix -08/19: Increased midodrine and will attempt further diuresis but patient otherwise doing well. An Ensure and will start mirtazapine small dose at bedtime to try to improve appetite. Encouraged to mobilize with therapy. Patient wore a straps for short period of time and has refused since #Debility -Pt initially had fem line and was unable to get up and ambulate until two PIVs were established and medications switched/fem line pulled -Has been evaluated by PT and pt recommended for placement -Pt intermittently works with therapy but finds his edema limiting and feels very tired so intermittently will refuse therapy -Strongly recommend working with therapy to progress with functional status faster and work towards goal of starting chemo for lymphoma #Acute bilateral subsegmental nonocclusive pulmonary embolism and possible septic pulm emboli w/ mild hypoxia on admission- hypoxia resolved -CTA on admit shows moderate volume nonocclusive acute pulmonary embolism involving most of the subsegmental pulmonary arteries with no evidence of right heart strain. 2D echo is ordered. Patient on IV heparin drip. -Venous duplex negative for bilateral lower extremity thrombosis. BNP ordered. -ABG done in ED shows 7.61/22.9/110 on 4 L of oxygen interpretation reveals mild respiratory alkalosis as patient bicarb is 23 -Twelve-lead EKG shows sinus rhythm 72 bpm, QRS 106 ms QT 552 ms history of prolonged QT. Patient is being admitted in PCU. Bronchodilator as needed with scheduled. On oxygen through nasal cannula. -COVID-19 negative and respiratory panel negative -Pulmonology consulted, there is also question of pulmonary emboli could be septic in nature and patient was on antibiotics -08/10: went for bronch w/ BAL and cxs -08/11: Preliminary RML BAL exhibits no growth. Continue broad-spectrum antibiotic. Continue IV heparin drip. -08/13: Given to plans for procedures pt switched to NOAC and pulm s/o -08/14: Patient with 2 peripheral IVs and femoral line discontinued, on oral Eliquis. #Infected right IJ Port-A-Cath subsequently removal on 08/08/2023 -Port was placed on an outpatient basis to begin treatment for lymphoma however it was subsequently removed on 08/08 due to concerns for infection -Patient was admitted and had significant leukocytosis and was started on vanco mycin and Zosyn -Blood cultures ordered and ID consulted -08/10: Leukocytosis worsening. Patient seen by ID. Blood culture pending. Respiratory panel negative. C. difficile negative. Patient currently not producing sputum. Went for bronchoscopy today BAL specimen and cultures pending. Hepatitis panel negative earlier. Negative HIV. Pending QuantiFERON. Possible aspiration versus port infection or opportunistic infection. -08/11: Preliminary RML BAL exhibits no growth. Continue broad-spectrum antibiotic. -08/12: 1/2 bld cxs w/ staph epi. Surgery plan for left chest port placement once infection is cleared and confirmation that oncology is planning to proceed with treatment. ID following, patient abx spectrum being narrowed today. -08/14: Patient remains on antibiotics per ID recommendations, presently Rocephin, metronidazole, vancomycin. Pulmonology recommended repeating blood c ultures given uptrending white blood cell count. Repeated cultures, ID following -08/15: White blood cell count increased again, repeat cultures no growth to date, appreciate ID input, remains on antibiotics. -08/16: Cultures no growth to date, plan will be discharged on Doxy, white count down trended today. -08/18: Patient off of antibiotics now, focusing on rehab and diuresis. 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 It was 3.0 on 07/16/2023. Lactic acid 2.3 -In the ED, the patient was administered pamidronate 90 mg IV x1, prednisone 100 mg oral, and allopurinol 200 mg oral -Oncology consultation reviewed and appreciated. -It was discussed with Dr. Cohen and he said patient was first seen by him on 06/28/2023 as consult. Tumor is clinically very aggressive, anaplastic, unresponsive to standard therapy and null cell (neither B-cell or T-cell) and relatively worse prognosis. Patient was planned to start systemic therapy in early August 2023 after he had central venous access on August 01 point that was removed d/t infection developed. He also talked to the [facility] oncology colleague and he is not a candidate for any trial. We will continue allopurinol. And prednisone 100 mg daily for total of 5 days. Can repeat 1 more dose of pamidronic acid if patient is stable hypercalcemia of malignancy. But calcium is 10.9 today probably will not need it. -08/10: Continue high-dose prednisone. Continue allopurinol. Serum calcium 9.7. Uric acid 1.3. See RP elevated. Plan was CHOP treatment but was not started yet -08/13: Patient seen by oncology 08/09 with palliative 5-day course oral prednisone and continue allopurinol 300 mg for tumor lysis prophylaxis. Systemic treatment on hold while underlying infection and acute medical illnesses addressed -08/14: Evaluated by oncology, no need for acyclovir or Bactrim until he starts systemic therapy, continue allopurinol. Is finished his 5-day course of predni sone. Systemic treatment will have to be delayed until cleared from ID standpoint and performance status improves -08/16: We will need to be cleared from ID standpoint and increase functional performance prior to being considered for treatment -08/17: Discussed with patient that he will not be starting chemotherapy during this hospitalization and he verbalizes understanding and said he did not think he would be and understands he will go to rehab to get stronger prior to that -08/18: Patient off antibiotics, will be able to start chemo once stronger and on outpatient basis -08/19: We will strongly encourage patient work with physical therapy #Thrombocytopenia -08/19: Has progressively been downtrending and today 76, it is important that patient continues on his Eliquis given acute PEs however if dips below 50,000 we will need to weigh risks and benefits. Given patient's medications suspect allopurinol may be the cause of the worsening thrombocytopenia, hold a.m. dose and will need to discuss with his oncologist in the a.m. regarding optimal plan moving forward given dropping platelet counts. Repeat CBC in a.m. #Acute kidney injury -Secondary to dehydration and acute presentation as noted -Admission BUN/Cr 50/1.76, prior baseline creatinine noted to be 0.8-1.1 -Will hydrate, hold nephrotoxic medications and repeat chemistry in AM. -If no improvement would plan FeNa and renal ultrasound assessment. 08/10: Serum creatinine improved to 0.98. 08/11: Serum creatinine 0.92 BUN elevated 28. ZUNILDA resolved. Patient will get IV fluid with magnesium and potassium supplementation. -08/13: Patient more swollen and significantly positive and fluid, hold any further IV fluids, received dose of IV Lasix today -08/14: Creatinine doing well and tolerated Lasix yesterday, will give another dose of IV Lasix -08/16: Continues to tolerate diuresis well -08/17: Giving albumin and adjusted Lasix dosing -08/18: Remains stable #Electrolyte abnormalities including potassium, calcium, magnesium, Phos -Hypokalemia and hypercalcemia: Admission K+ 2.4, serum potassium low 2.6 after replacement. Serum magnesium 2.2, phosphorus 4.1. Serum calcium 13.8, improved to 10.9. 08/10: Serum potassium low 2.9 severe hypokalemia. Potassium rider ordered. Serum magnesium and phosphorus ordered. 08/11: Serum potassium is low 3.2. 40 mEq IV potassium rider replaced but still sodium is 3.5. Oral potassium supplement ordered. Serum magnesium 1.7 but repeat serum magnesium 1.6 after 2 g IV magnesium sulfate replacement. Serum phosphorus normal. -08/13: Continue to monitor and adjust -08/16: Continue to replace -08/18: Continue to monitor replace -08/19: Patient had high calcium when he presented and this is subsequently been treated however now he is overcorrected to low calcium, will give another dose replacement today #Buttock irritation -Opitimize nutrition -Wound care c/s -Mobilize as tolerated -No longer on bed rest -08/17: Patient with some mild sloughing, creams applied, no overt wounds # Anxiety and depression -Not on any chronic regimen, would benefit from continued outpatient evaluation and counseling if appropriate. -08/19: Adding mirtazapine to also help with appetite #Tobacco Abuse: Encouraged cessation, inpatient consultation per RT, NR if desired. #GERD: We will continue patient home PPI. #Chronic right lower extremity lymphedema -Status post DVT ultrasound with no acute findings, will place snug Real with elevation if able to tolerate. DVT: Eliquis Time spent in the patient's overall evaluation,decision-making process, review of diagnostic data, adjustment of management, discussion with other providers, nursing nursing and ancillary staff involved in patient's care documentation, 51 minutes Charges/Coding Visit Charges Inpatient E&M: [id number] [facility] L[facility]
[2023-08-19] MEDS: Midodrine HCl 5 MG Tablet 10 MG PO ×3 (09:30→16:56)
[2023-08-19] MEDS: Menthol/Lanolin/Calamine/Znox 113 GM Tube 1 APPLIC TOPICAL ×4 (10:14→21:37)
[2023-08-19] MEDS: Calcium Gluconate IV 2 GM in 0.9% Normal Saline (100mL Bag) 100 ML IV (10:14)
[2023-08-19] MEDS: Mineral Oil/Petrolatum Cr 1.75oz Bottle 1 APPLIC TOPICAL ×4 (10:15→21:36)
[2023-08-19] MEDS: APIXABAN 5 MG TABLET PO ×2 (10:16→21:36)
[2023-08-19] MEDS: 0.9% Saline Lock 10 ML Syringe IV ×2 (10:17→17:01)
[2023-08-19] MEDS: Furosemide 20 MG/2 ML VIAL IV ×2 (10:17→16:56)
[2023-08-19] MEDS: Pantoprazole Sodium 20 MG Tablet PO (10:17)
[2023-08-19] MEDS: Loperamide 2 MG Capsule PO ×3 (11:09→21:46)
[2023-08-19] MEDS: Ensure Plus High Protein 120 ML LIQUID PO (11:09)
[2023-08-19] MEDS: Calcium (Elemental) 500 MG Tablet PO ×2 (13:49→16:56)
[2023-08-19] MEDS: Mirtazapine 15 MG Tablet 7.5 MG PO (21:36)
[2023-08-19] MEDS: MELATONIN 3 MG TABLET PO (21:46)
[2023-08-20] VITALS (9 sets, daily range): BP systolic 89–98; BP diastolic 45–61; PULSE 54–76; RESP 16–18; TEMP 36.4–36.9; O2SAT 94–98; BMI 27.3
[2023-08-20 06:25] LABS: Absolute Lymphocyte Count 0.19 X10^3/uL (0.83-4.51); Absolute Neutrophil Count 20.6 X10^3/uL (2.0-7.7); Basophil# 0.03 X10^3/uL; Basophil% 0.1 % (0-1); Eosinophil# 0.05 X10^3/uL; Eosinophils% 0.2 % (0-5); Hematocrit 34.6 % (40-54); Hemoglobin 11.1 g/dL (13.0-16.5); Lymphocyte # 0.19 X10^3/ul (0.83-4.51); Lymphocyte % 0.9 % (19-41); Mean Corp Hgb Conc 32.1 g/dL (32-36); Mean Corpuscular Hgb 28.4 pg (27.0-32.0); Mean Corpuscular Volume 88.5 fL (80-94); Mean Platelet Vol. 12.3 fl (6.2-12.0); Monocyte# 0.29 X10^3/uL; Monocyte% 1.4 % (0-10); NRBC Flagged by Analyzer 0 % (0-5); Neutrophil # 20.61 X10^3/uL (2.7-7.7); Neutrophil % 96.6 % (47-70); POSITIVE COUNT YES; POSITIVE DIFFERENTIAL YES; POSITIVE MORPHOLOGY YES; Platelet Count 60 K/mm3 (150-450); RBC Distribution Width CV 23.4 % (11.6-14.6); RBC Distribution Width SD 72.1 fl (35.1-43.9); Red Blood Count 3.91 M/mm3 (4.6-6.2); White Blood Count 21.3 K/mm3 (4.4-11.0)
[2023-08-20 06:26] LABS: Differential Indicated SCAN CRITERIA MET
[2023-08-20 06:45] LABS: ALB/GLOB Ratio 0.5 RATIO (0.9-2.4); AST(SGOT) 16 U/L (15-37); Alanine Aminotransfer ALT/SGPT 21 U/L (16-61); Albumin, Serum 1.4 g/dL (3.2-5.0); Alkaline Phosphatase 246 U/L (45-117); Anion Gap 12 (5-15); BUN 21 mg/dL (7-18); BUN/Creat Ratio 24.5 RATIO (10-20); Calcium,Total 7.1 mg/dL (8.5-10.1); Chloride 111 mmol/L (98-107); Creatinine, Serum 0.86 mg/dL (0.70-1.30); EST Glomerular Filtration Rate 97 mL/min (>60); Est Glom Filt Rate - Afr Amer 117 mL/min (>60); Estimated Creatinine Clearance 92.49 ml/min; Glucose 64 mg/dL (74-106); Magnesium 1.9 mg/dL (1.6-2.6); Phosphorus 3.2 mg/dL (2.5-4.9); Potassium 3.6 mmol/L (3.5-5.1); Protein, Total 4.4 g/dL (6.4-8.2); Sodium Level 141 mmol/L (136-145)
[2023-08-20] MEDS: Budesonide Respules 0.5 MG/2 ML AMPUL.NEB. INHALATION ×2 (06:48→19:50)
[2023-08-20 07:06] LABS: Anisocytosis 2+; Differential Comment SCANNED; Platelet Estimate MOD DEC (ADEQ); Platelet Morphology LARGE; Target Cells 2+
--- NOTE | 2023-08-20 07:53 | PCM.PN.HOSP ---
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, lymph nodes of multiple sites (08/08/23) Vitamin B12 deficiency anemia, unspecified (08/08/23) Hypercalcemia (08/08/23) Hypokalemia (08/08/23) Multiple subsegmental pulmonary emboli without acute cor pulmonale (08/08/23) Other pulmonary embolism without acute cor pulmonale (08/08/23) Lymphedema, not elsewhere classified (08/08/23) Other disorders of lung (08/08/23) Unspecified kidney failure (08/08/23) Rash and other nonspecific skin eruption (08/08/23) Unspecified infection due to central venous catheter, initial encounter (08/08/23) Subjective Subjective Still having swelling but with BP improved and IV Lasix has had some decrease and worked with therapy earlier and is up in chair, reports feeling diffusely weak and feeling tired after therapy Objective Data Objective Data Vital Signs: Vital Signs Temp Pulse Resp BP Pulse Ox O2 Del Method O2 Flow Rate 98 F 60 16 89/55 L 98 Room Air 2 08/20/23 04:07 08/20/23 06:48 08/20/23 06:48 08/20/23 04:07 08/20/23 06:48 08/20/23 06:48 08/13/23 07:02 Oxygen Flow Rate (L/min) 2 Oxygen Delivery Method Room Air Weight: 84.1 kg Body Mass Index (BMI) 27.3 Intake & Output: Intake and Output for Last 24 Hours 08/18/23 08/19/23 08/20/23 23:59 23:59 23:59 Intake Total 2410 / 2410 1430 / 1430 500 / 500 Output Total 501 / 501 200 / 200 450 / 450 Balance 1909 / 1909 1230 / 1230 50 / 50 Medical Nutrition Assessment Dietitian: Malnutrition Criteria Met Start: 08/09/23 15:49 Freq: Status: Active Protocol: Document 08/16/23 15:14 MIKAL (Rec: 08/16/23 15:14 MIKAL [id number]) Nutrition Malnutrition Evidence of Malnutrition Exists Yes Malnutrition (severe): Chronic Evidenced By Suboptimal Energy Intake ( Severe),Weight Loss (Severe), Physical Changes (Severe) Clinical Problem Chronic Disease or Condition Related Malnutrition Etiology severe related to lymphoma, increased nutrient needs and suboptimal appetite Signs/Symptoms as evidenced by 22.7lbs (12.4% ) weight loss in 1.5 months, < 75% PO intake of estimated nutrition needs for >1 month and severe fat and muscle loss to temporal, orbital and clavicle regions. Status Active Problem Recommendation Dietitian Recommendations/Changes Continue Regular diet to optimize oral intakes. Continue Magic cup 1x daily to provide supplemental energy and promote weight stabilization. Pt would benefit from enteral nutrition due to significant weight loss and poor PO intakes. Lab / Micro Data 08/20/23 05:42 08/20/23 05:42 Labs: Laboratory Results - last 24 hr 08/20/23 05:42: WBC 21.3 H, RBC 3.91 L, Hgb 11.1 L, Hct 34.6 L, MCV 88.5, MCH 28.4, MCHC 32.1, RDW Std Deviation 72.1 H, RDW Coeff of Andrew 23.4 H, Plt Count 60 L, MPV 12.3 H, Immature Gran % (Auto) 0.800, Neut % (Auto) 96.6 H, Lymph % (Auto) 0.9 L, Navarro % (Auto) 1.4, Eos % (Auto) 0.2, Baso % (Auto) 0.1, Absolute Neuts (auto) 20.6 H, Absolute Lymphs (auto) 0.19 L, Nucleated RBC % 0, Differential Comment SCANNED, Platelet Estimate MOD DEC, Plt Morphology Comment LARGE, Anisocytosis 2+, Target Cells 2+, Sodium 141, Potassium 3.6, Chloride 111 H, Carbon Dioxide 18.0 L, Anion Gap 12, BUN 21 H, Creatinine 0.86, Estim Creat Clear Calc 92.49, Est GFR (MDRD) Af Amer 117, Est GFR (MDRD) Non-Af 97, BUN/Creatinine Ratio 24.5 H, Glucose 64 L, Calcium 7.1 L, Phosphorus 3.2, Magnesium 1.9, Total Bilirubin 1.20 H, AST 16, ALT 21, Alkaline Phosphatase 246 H, Total Protein 4.4 L, Albumin 1.4 L, Globulin 3.0, Albumin/Globulin Ratio 0.5 L Micro: Microbiology 08/14/23 09:30 Blood Culture (Wb) - Anticubital Right Blood Culture - Final No growth in 5 days. 08/14/23 09:40 Blood Culture (Wb) - Right Hand Blood Culture - Final No growth in 5 days. 08/10/23 Unknown Wash - Right Middle Lobe Gram Stain - Final 08/10/23 Unknown Wash - Right Middle Lobe Respiratory Culture - Final Mixed normal respiratory kelby. No Streptococcus pneumoniae, beta-hemolytic Streptococcus or Staphylococcus aureus isolated. 08/10/23 Unknown Wash - Right Middle Lobe Anaerobic Culture - Final No growth in 5 days. 08/08/23 22:53 Mucosa - Nasopharyngeal Respiratory Panel (PCR) - Final 08/08/23 23:45 Urine, Clean Catch Legionella Antigen - Final 08/08/23 23:45 Urine, Clean Catch Streptococcus pneumoniae Antigen (M - Final 08/08/23 22:53 Mucosa - Nose Coronavirus COVID-19 PCR - Final 08/08/23 17:55 Stool Enteric Bacteriology - Final 08/08/23 17:55 Stool C. difficile DNA Amplification - Final Physical Exam Narrative General: Alert, oriented, sitting up in chair HEENT: Atraumatic, normocephalic Eyes: Anicteric, normal conjunctiva, extraocular movements grossly intact Neck: Supple Respiratory: normal respiratory effort Cardiovascular: Regular rate GI: Soft, nontender, nondistended Extremities: 2-3+ lower extremity edema Musculoskeletal: Moving all extremities Neuro: No overt focal neurological deficits Skin: Local wound care Psych: More cooperative today Assessment & Plan Assessment/Plan (1) Pulmonary embolism: QUALIFIERS: Pulmonary embolism type: multiple subsegmental (without acute cor pulmonale) Qualified Code(s): I26.94 - Multiple subsegmental pulmonary emboli without acute cor pulmonale PLAN: Plan #Peripheral edema -Patient seem to significant mount of IV fluids during his hospital stay and is up >30 L based on I's and O's summary -A significant portion of this is third spacing -Continue to try to optimize nutrition -Patient only wore Real wraps for 1 day and has been very resistant due to finding them irritating despite education and stressing importance -Have been trying to diurese as blood pressure allows -No respiratory distress or other complications of fluid overload at this time -Suspect increased mobilization would also help however patient very resistant to this as he is tired and does not want to move while feeling swollen -08/16: Had recent echo which did not show any diastolic dysfunction or reduced ejection fraction suspect this is all due to lack of mobilization and fluids patient has received. Patient slowly improving -08/17: Scheduled 40 IV Lasix twice daily however blood pressure has been prohibitive factor for Lasix, will give albumin, patient up 31 L since admission, once patient diuresed enough that he is able to participate in therapy will be able to send to SNF -08/18: Given a dose of albumin yesterday and patient's BP still remains soft and though asymptomatic need to continue diuresis we will try low-dose of midodrine in addition to Lasix -08/19: Increased midodrine and will attempt further diuresis but patient otherwise doing well. An Ensure and will start mirtazapine small dose at bedtime to try to improve appetite. Encouraged to mobilize with therapy. Patient wore a straps for short period of time and has refused since -08/20: Patient does feel some improvement after he was able to get IV Lasix, continue midodrine and IV Lasix #Debility -Pt initially had fem line and was unable to get up and ambulate until two PIVs were established and medications switched/fem line pulled -Has been evaluated by PT and pt recommended for placement -Pt intermittently works with therapy but finds his edema limiting and feels very tired so intermittently will refuse therapy -Strongly recommend working with therapy to progress with functional status faster and work towards goal of starting chemo for lymphoma -08/20: Was able to work with therapy after receiving the IV Lasix, continue current management #Acute bilateral subsegmental nonocclusive pulmonary embolism and possible septic pulm emboli w/ mild hypoxia on admission- hypoxia resolved -CTA on admit shows moderate volume nonocclusive acute pulmonary embolism involving most of the subsegmental pulmonary arteries with no evidence of right heart strain. 2D echo is ordered. Patient on IV heparin drip. -Venous duplex negative for bilateral lower extremity thrombosis. BNP ordered. -ABG done in ED shows 7.61/22.9/110 on 4 L of oxygen interpretation reveals mild respiratory alkalosis as patient bicarb is 23 -Twelve-lead EKG shows sinus rhythm 72 bpm, QRS 106 ms QT 552 ms history of prolonged QT. Patient is being admitted in PCU. Bronchodilator as needed with scheduled. On oxygen through nasal cannula. -COVID-19 negative and respiratory panel negative -Pulmonology consulted, there is also question of pulmonary emboli could be septic in nature and patient was on antibiotics -08/10: went for bronch w/ BAL and cxs -08/11: Preliminary RML BAL exhibits no growth. Continue broad-spectrum antibiotic. Continue IV heparin drip. -08/13: Given to plans for procedures pt switched to NOAC and pulm s/o -08/14: Patient with 2 peripheral IVs and femoral line discontinued, on oral Eliquis. #Infected right IJ Port-A-Cath subsequently removal on 08/08/2023 -Port was placed on an outpatient basis to begin treatment for lymphoma however it was subsequently removed on 08/08 due to concerns for infection -Patient was admitted and had significant leukocytosis and was started on vancomycin and Zosyn -Blood cultures ordered and ID consulted -08/10: Leukocytosis worsening. Patient seen by ID. Blood culture pending. Respiratory panel negative. C. difficile negative. Patient currently not producing sputum. Went for bronchoscopy today BAL specimen and cultures pending. Hepatitis panel negative earlier. Negative HIV. Pending QuantiFERON. Possible aspiration versus port infection or opportunistic infection. -08/11: Preliminary RML BAL exhibits no growth. Continue broad-spectrum antibiotic. -08/12: 1/2 bld cxs w/ staph epi. Surgery plan for left chest port placement once infection is cleared and confirmation that oncology is planning to proceed with treatment. ID following, patient abx spectrum being narrowed today. -08/14: Patient remains on antibiotics per ID recommendations, presently Rocephin, metronidazole, vancomycin. Pulmonology recommended repeating blood cultures given uptrending white blood cell count. Repeated cultures, ID following -08/15: White blood cell count increased again, repeat cultures no growth to date, appreciate ID input, remains on antibiotics. -08/16: Cultures no growth to date, plan will be discharged on Doxy, white count down trended today. -08/18: Patient off of antibiotics now, focusing on rehab and diuresis. 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 It was 3.0 on 07/16/2023. Lactic acid 2.3 -In the ED, the patient was administered pamidronate 90 mg IV x1, prednisone 100 mg oral, and allopurinol 200 mg oral -Oncology consultation reviewed and appreciated. -It was discussed with Dr. Cohen and he said patient was first seen by him on 06/28/2023 as consult. Tumor is clinically very aggressive, anaplastic, unresponsive to standard therapy and null cell (neither B-cell or T-cell) and relatively worse prognosis. Patient was planned to start systemic therapy in early August 2023 after he had central venous access on August 01 point that was removed d/t infection developed. He also talked to the [facility] oncology colleague and he is not a candidate for any trial. We will continue allopurinol. And prednisone 100 mg daily for total of 5 days. Can repeat 1 more dose of pamidronic acid if patient is stable hypercalcemia of malignancy. But calcium is 10.9 today probably will not need it. -08/10: Continue high-dose prednisone. Continue allopurinol. Serum calcium 9.7. Uric acid 1.3. See RP elevated. Plan was CHOP treatment but was not started yet -08/13: Patient seen by oncology 08/09 with palliative 5-day course oral prednisone and continue allopurinol 300 mg for tumor lysis prophylaxis. Systemic treatment on hold while underlying infection and acute medical illnesses addressed -08/14: Evaluated by oncology, no need for acyclovir or Bactrim until he starts systemic therapy, continue allopurinol. Is finished his 5-day course of prednisone. Systemic treatment will have to be delayed until cleared from ID standpoint and performance status improves -08/16: We will need to be cleared from ID standpoint and increase functional performance prior to being considered for treatment -08/17: Discussed with patient that he will not be starting chemotherapy during this hospitalization and he verbalizes understanding and said he did not think he would be and understands he will go to rehab to get stronger prior to that -08/18: Patient off antibiotics, will be able to start chemo once stronger and on outpatient basis -08/19: We will strongly encourage patient work with physical therapy -08/20: Patient worked with therapy today, supportive care provided #Thrombocytopenia -08/19: Has progressively been downtrending and today 76, it is important that patient continues on his Eliquis given acute PEs however if dips below 50,000 we will need to weigh risks and benefits. Given patient's medications suspect allopurinol may be the cause of the worsening thrombocytopenia, hold a.m. dose and will need to discuss with his oncologist in the a.m. regarding optimal plan moving forward given dropping platelet counts. Repeat CBC in a.m. -08/20: Discussed platelet count with oncology and allopurinol. Okay to hold allopurinol as it was initiated when it was thought he would be starting chemo within a day or 2 given now that it will be at least a week or so okay to hold at this time #Acute kidney injury -Secondary to dehydration and acute presentation as noted -Admission BUN/Cr 50/1.76, prior baseline creatinine noted to be 0.8-1.1 -Will hydrate, hold nephrotoxic medications and repeat chemistry in AM. -If no improvement would plan FeNa and renal ultrasound assessment. 08/10: Serum creatinine improved to 0.98. 08/11: Serum creatinine 0.92 BUN elevated 28. ZUNILDA resolved. Patient will get IV fluid with magnesium and potassium supplementation. -08/13: Patient more swollen and significantly positive and fluid, hold any further IV fluids, received dose of IV Lasix today -08/14: Creatinine doing well and tolerated Lasix yesterday, will give another dose of IV Lasix -08/16: Continues to tolerate diuresis well -08/17: Giving albumin and adjusted Lasix dosing -08/18: Remains stable #Electrolyte abnormalities including potassium, calcium, magnesium, Phos -Hypokalemia and hypercalcemia: Admission K+ 2.4, serum potassium low 2.6 after replacement. Serum magnesium 2.2, phosphorus 4.1. Serum calcium 13.8, improved to 10.9. 08/10: Serum potassium low 2.9 severe hypokalemia. Potassium rider ordered. Serum magnesium and phosphorus ordered. 08/11: Serum potassium is low 3.2. 40 mEq IV potassium rider replaced but still sodium is 3.5. Oral potassium supplement ordered. Serum magnesium 1.7 but repeat serum magnesium 1.6 after 2 g IV magnesium sulfate replacement. Serum phosphorus normal. -08/13: Continue to monitor and adjust -08/16: Continue to replace -08/18: Continue to monitor replace -08/19: Patient had high calcium when he presented and this is subsequently been treated however now he is overcorrected to low calcium, will give another dose replacement today #Buttock irritation -Opitimize nutrition -Wound care c/s -Mobilize as tolerated -No longer on bed rest -08/17: Patient with some mild sloughing, creams applied, no overt wounds # Anxiety and depression -Not on any chronic regimen, would benefit from continued outpatient evaluation and counseling if appropriate. -08/19: Adding mirtazapine to also help with appetite #Tobacco Abuse: Encouraged cessation, inpatient consultation per RT, NR if desired. #GERD: We will continue patient home PPI. #Chronic right lower extremity lymphedema -Status post DVT ultrasound with no acute findings, will place snug Real with elevation if able to tolerate. DVT: Eliquis Time spent in the patient's overall evaluation,decision-making process, review of diagnostic data, adjustment of management, discussion with other providers, nursing nursing and ancillary staff involved in patient's care documentation, 40 minutes Charges/Coding Visit Charges Inpatient E&M: 90968 Subs Hosp L2
[2023-08-20] MEDS: Calcium (Elemental) 500 MG Tablet PO ×3 (09:05→17:08)
[2023-08-20] MEDS: Furosemide 20 MG/2 ML VIAL 30 MG IV (09:07)
[2023-08-20] MEDS: Midodrine HCl 5 MG Tablet 10 MG PO ×3 (09:07→17:07)
[2023-08-20] MEDS: 0.9 % NaCl (Sterile) Posiflush 10 mL IV (09:08)
[2023-08-20] MEDS: APIXABAN 5 MG TABLET PO ×2 (09:08→21:12)
[2023-08-20] MEDS: Pantoprazole Sodium 20 MG Tablet PO (09:08)
[2023-08-20] MEDS: Mineral Oil/Petrolatum Cr 1.75oz Bottle 1 APPLIC TOPICAL ×3 (09:24→19:15)
[2023-08-20] MEDS: Menthol/Lanolin/Calamine/Znox 113 GM Tube 1 APPLIC TOPICAL ×3 (09:25→19:15)
[2023-08-20 10:00] LABS: Vitamin D,25 Hydroxy 31.4 ng/mL
--- NOTE | 2023-08-20 10:13 | CASEMGMT ---
[facility] sent physician's note to [facility] per their request. Patient did not do therapy Sunday or Sunday. CYRUS will send PT/OT from today once in the computer. Susu PEARSON
--- NOTE | 2023-08-20 12:06 | CASEMGMT ---
CYRUS sent updated PT/OT to [facility]. Susu Aj [employer] MICHEL
[2023-08-20] MEDS: Loperamide 2 MG Capsule PO ×2 (15:59→21:12)
[2023-08-20] MEDS: Mirtazapine 15 MG Tablet 7.5 MG PO (21:12)
[2023-08-20] MEDS: oxyCODONE 5 MG Tablet PO (23:31)
--- NOTE | 2023-08-21 03:46 | NURSING ---
Pt refusing Q2 turns. Attempted to educate on skin breakdown and the importance of turning. Pt states understanding but still refusing. Also refusing vitals and assessment, stating he is just done trying. MD aware.
[2023-08-21 04:02] VITALS: BMI 25.8
[2023-08-21 08:24] VITALS: BP 100/49; PULSE 63; RESP 18; TEMP 36.8; O2SAT 100
[2023-08-21] MEDS: Furosemide 20 MG/2 ML VIAL 30 MG IV ×2 (08:38→17:35)
[2023-08-21] MEDS: Pantoprazole Sodium 20 MG Tablet PO (08:39)
[2023-08-21] MEDS: APIXABAN 5 MG TABLET PO ×2 (08:39→20:35)
[2023-08-21] MEDS: Midodrine HCl 5 MG Tablet 10 MG PO ×3 (08:39→17:34)
[2023-08-21] MEDS: Calcium (Elemental) 500 MG Tablet PO ×3 (08:39→17:33)
[2023-08-21] MEDS: 0.9 % NaCl (Sterile) Posiflush 10 mL IV (08:40)
[2023-08-21] MEDS: Budesonide Respules 0.5 MG/2 ML AMPUL.NEB. INHALATION (10:29)
[2023-08-21 10:30] VITALS: PULSE 70; RESP 18
[2023-08-21] MEDS: Loperamide 2 MG Capsule PO ×3 (11:48→20:34)
[2023-08-21] MEDS: oxyCODONE 5 MG Tablet PO ×2 (11:48→20:34)
[2023-08-21 12:00] VITALS: BP 92/54; PULSE 66; RESP 18; TEMP 36.1; O2SAT 99
--- NOTE | 2023-08-21 12:04 | ONC.CONSULT ---
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 Systemic ALCL tend to be clinically aggressive, unresponsive to standard therapy and relatively worse prognosis compared to other types of lymphoma. Standard treatment includes an induction phase with an aggressive combination chemo immune therapy in attempt to induce remission of the disease but is not curative and is to be followed by high-dose chemotherapy and autologous bone marrow transplant. The patient was tentatively planned to start his systemic therapy in early August 2023 (after a short delay when patient forgot to attend his initial staging PET/CT and echo). He had a central venous access placed August 01, 2023 but that had to be urgently removed August 08, 2023 due to port infection. His systemic treatment for the aggressive lymphoma has been on hold while attempting to control infection and other acute medical illnesses. As a temporizing measure was givem a palliative 5-day course of oral prednisone 100 mg daily and continue allopurinol 300 Mg daily for tumor lysis prophylaxis. Allopurinol is now on hold because of concern about drug-induced thrombocytopenia although he has been on multiple antimicrobials and the exact culprit is not clear. His performance status is poor (ECOG 4) and he is unable to cooperate with physical therapy. On one hand, it is very unlikely that he will have any significant improvement in performance status without aggressive anticancer therapy and on the other this aggressive anticancer therapy in a patient with poor performance status has a high risk of being detrimental before inevitable demise. I had a discussion with the patient that we are at the fork in the road and need to make a decision whether to pursue maximum comfort measures on the hospice program or attempt 1 cycle of systemic chemotherapy realizing that the chances of effectiveness are slim and the chances of toxicities that would worsen the quality of time he has left are high. It is a difficult decision that he will have to make. I asked the patient if he were able to make that decision today to allow for preparation for chemotherapy (prehydration, resume allopurinol for tumor lysis, insert a PICC line, order chemotherapy). Initially he said yes but 1 hour later he asked for a chance for a few days to make such a decision. (2) Lymphedema: Status: Acute Code(s): I89.0 - Lymphedema, not elsewhere classified Plan: With disabling anasarca due to lymphatic obstruction from malignancy (3) Pulmonary embolism: Status: Acute Code(s): I26.99 - Other pulmonary embolism without acute cor pulmonale Qualifiers: Pulmonary embolism type: multiple subsegmental (without acute cor pulmonale) Qualified Code(s): I26.94 - Multiple subsegmental pulmonary emboli without acute cor pulmonale Plan: Most consistent with malignancy induced hypercoagulability, long-term systemic anticoagulation is indicated. Continue systemic anticoagulation as long as platelet count is above 50 K. (4) Rash: Status: Acute Code(s): R21 - Rash and other nonspecific skin eruption Plan: Diffuse erythema and dryness of the skin, I reviewed my prior physical exam and it predates use of antibiotic and therefore I believe it may be related to his lymphoma possible skin involvement (5) Infection of venous access port: Status: Acute Code(s): T80.219A - Unspecified infection due to central venous catheter, initial encounter Plan: Port was removed August 08, 2023, received antibiotics under guidance from ID and is off antibiotics now. (6) Hypercalcemia: Status: Acute Code(s): E83.52 - Hypercalcemia Plan: Received pamidronate August 08, 2023, improved, and is hypocalcemic in the last labs. (7) B12 deficiency anemia: Status: Chronic Code(s): D51.9 - Vitamin B12 deficiency anemia, unspecified Qualifiers: Vitamin B12 deficiency anemia type: unspecified B12 deficiency Qualified Code(s): D51.9 - Vitamin B12 deficiency anemia, unspecified Plan: Recently diagnosed, patient received initial loading with B12 injections. (8) Cavitary lung disease: Status: Acute Code(s): J98.4 - Other disorders of lung Plan: Concern for septic embolism, opportunistic infections and lymphomatous involvement. ID and pulmonary consulted so far no confirmed infectious etiology. (9) Acute prerenal azotemia: Status: Acute Code(s): N19 - Unspecified kidney failure Plan: Improves with IV hydration at the expense of worsening anasarca. It is a difficult balance to achieve HPI Consult Data Date of Service:: 08/21/23 PCP / Referring Provider: Dr. Annika Blake MD Attending: Dr. Jessica Reynolds MD Chief Complaint Chief Complaint: Anasarca due to lymphoma History of Present Illness History of Present Illness: 57-year-old male hospitalized through the emergency room with multiple acute medical problems (port infection, hypotension, ZUNILDA, malignant hypercalcemia, acute pulmonary embolism, possible septic embolism with cavitary lung lesions) on top of a newly diagnosed aggressive lymphoma and a rapid downhill course since June 2023. He was also recently diagnosed with B12 deficiency anemia and was started on B12 replacement by injection. The Hematologic oncologic aspect of his illness presented in June 2023 with a few months history of increasing edema of the lower body. June 27, 2023 CT abdomen and pelvis: IMPRESSION: 1. Bulky periaortic/retroperitoneal lymphadenopathy is present starting in the mid abdominal region and extending down into the right deep pelvic sidewall and inguinal fossa where the lymph nodes are markedly enlarged measuring up to 3.78 cm in diameter. There is also inflammatory stranding surrounding the lymph nodes in the right pelvic sidewall and inguinal regions consistent with underlying inflammation/infection, however no abscess of the abdomen or pelvis is seen. Possible vasculitis or periaortitis can be considered. 2. Although not favored as the primary consideration. Close follow-up and ultimately lymph node biopsy may be required to exclude malignancy. Lymphoma should be excluded 3. Mild to moderate subcutaneous edema is present in lower anterior pelvic wall in bilateral inguinal regions, as well as dependent edema and fluid has caused mild to moderate swelling of the right hip and upper thigh region. No visualized edema or swelling or abscess is seen in the right pelvic, hip, or upper thigh muscles. No lytic or blastic lesion is seen in the bony structures. 4. Mild fluid field bowel loops likely due to nonspecified enteritis or ileus. No demonstrated small bowel obstruction or free air or free fluid. No inflammatory stranding is seen around the bowel loops. June 29, 2023 right pelvic lymph node, core biopsy: CD30 positive large cell neoplasm, favor anaplastic large cell lymphoma (ALK negative), null cell type ANTIBODY / CLONE RESULT AE1-3 (AE1/AE3/PCK26) negative CK8 ([id number]) negative CD45 (RP2/18) negative Vimentin (V9) positive Melan A (A103) negative S-100 (4C4.9) negative CD3 (PS1) negative CD5 (SP10) negative CD10 (56C6) negative CD15 (MMA) positive CD20 (L26) negative CD23 (1B12) negative CD30 (Yung-H2) positive, strong CD43 (L60) negative CD79a (11E3) negative BCL-2 (bcl-2/100/D5) negative BCL-6 (IU432S/A8) positive, subset Cyclin D1/BCL-1 (SP4) negative MUM1 (MRQ-43) positive C-MYC (Y69) positive MPO (polyclonal) negative The flow cytometry was nondiagnostic. August 01, 2023 had an ultrasound and fluoroscopy guided right chest port placement in preparation for systemic therapy PET/CT August 07, 2023 initial staging: IMPRESSION: 1. ABNORMAL EXAMINATION INDICATIVE OF MALIGNANT-VIABLE NEOPLASM. 2. Increased radiopharmaceutical concentration noted in the bilateral anterior lateral neck, the right pharyngeal mucosal space, the right and left retropectoral, right axillary, and bilateral retroclavicular regions, the mediastinal structures, both lung harmon, the abdominal retroperitoneum and pelvis, and bilateral inguinal lymph node basins fulfill quantitative criteria for viable neoplasm. (Cheson, et al, Journal of Clinical Oncology, 32: 3059, 2014). 3. Facilitated uptake noted in the osseous skeletal structures fulfills quantitative criteria for viable neoplasm. (Suri et al, Clinical Nuclear Medicine, 29:161, 2004). 4. Facilitated FDG concentration manifest within the splenic parenchyma fulfills quantitative criteria for viable splenic neoplasm. (Isabel et al., Journal of Nuclear Medicine 44:1072, 2004). August 08, 2023 CTA: IMPRESSION: Moderate volume nonocclusive acute pulmonary emboli within most of the subsegmental pulmonary arteries. No evidence of right heart strain. Multiple irregular nodular lesions throughout the lungs, most of which show cavitation. This is concerning for septic emboli. Extensive mediastinal, bilateral hilar and upper abdominal lymphadenopathy consistent with known lymphoma. 7 mm lytic lesion in the left T11 vertebral body/pedicle with surrounding sclerosis. When correlating with recent PET/CT, this is most concerning for lymphomatous involvement of the spine. Refer to PET/CT report for more details. August 08, 2023 venous Doppler lower extremities: Negative for DVT. Advanced Directives Power of Web Page Developer: No Living Will: No [facility] Medical History 2+ pitting edema AC separation Alcohol use Anaplastic ALK-negative large cell lymphoma Anxiety B12 deficiency anemia Bone fracture Cellulitis Depression Diarrhea Dry skin dermatitis Encounter for education History of edema Hx of headache Hypercalcemia Infected venous access port Lymphadenopathy, abdominal Occasional tremors Smoker Wears dentures Home Medications allopurinol 300 mg tablet 300 mg PO DAILY #30 tabs 07/17/23 [Rx Last Taken Unknown] lidocaine-prilocaine 2.5 %-2.5 % topical cream 1 applic topical ONCE PRN port access 30 days #30 grams 07/17/23 [Rx Last Taken Unknown] omeprazole 20 mg capsule,delayed release 20 mg PO DAILY #30 caps 07/17/23 [Rx Last Taken Unknown] ondansetron 8 mg disintegrating tablet 8 mg PO Q8H PRN nausea and vomiting #30 tabs 07/17/23 [Rx Last Taken Unknown] sulfamethoxazole 400 mg-trimethoprim 80 mg tablet (Bactrim) 1 tab PO DAILY #30 tabs 07/17/23 [Rx Last Taken Unknown] acyclovir 400 mg tablet 400 mg PO BID anti viral 07/20/23 [History Last Taken Unknown] prednisone 50 mg tablet 100 mg (2 x 50 mg) PO DAILY 5 days #10 tabs 08/01/23 [Rx Last Taken Unknown] potassium chloride 20 mEq oral packet (Klor-Con) 20 meq PO DAILY potassium 08/09/23 [History Last Taken Unknown] Allergy/AdvReac Type Severity Reaction Status Date / Time No Known Allergies Allergy Verified 08/08/23 15:14 Family History (Updated 08/08/23 @ 20:[address] Ellen Marquez MD) Mother Heart disease Father Heart disease Alcohol abuse Surgical History H/O vascular surgery History of arthroplasty of right shoulder History of hernia repair Social History (Updated 08/08/23 @ 15:[address] Srikanth Wisdom MD) household members: none Smoking Status: Current every day smoker tobacco type: cigarettes alcohol intake: never substance use type: does not use what type of physical activity do you participate in: walking ROS ROS Narrative Too weak to get out of bed or cooperate with physical therapy. Cannot even turn in bed by himself. Feels burning sensation all over his skin specially waist down Physical Exam Narrative ECOG 4 Const General Appearance: ill appearing Positive for chronically, frail, appears older than stated age, grossly edematous and other Gross edema waist down Skin Skin Narrative: Diffuse skin erythema. Reviewed image in chart of sacral area and he has at least grade 1 pressures sore. General Skin Exam: erythema Vital Signs Temperature 98.3 F 08/21/23 08:24 Temperature Source Oral 08/21/23 08:24 Pulse Rate 70 08/21/23 10:30 Pulse Strength Normal (2+) 08/20/23 09:27 Respiratory Rate 18 08/21/23 10:30 Respiratory Effort Normal, Non-Labored 08/21/23 08:00 Respiratory Depth Normal 08/21/23 08:00 Respiratory Pattern Normal 08/21/23 10:30 Blood Pressure 100/49 L 08/21/23 08:24 Blood Pressure Mean 66 08/21/23 08:24 Blood Pressure Source Monitor 08/21/23 08:24 Blood Pressure Position Semi-Fowlers 08/21/23 08:24 Blood Pressure Location Left Arm 08/21/23 08:24 Baseline BP 100/56 08/10/23 10:10 Pulse Ox 100 08/21/23 08:24 Oxygen Delivery Method Room Air 08/21/23 08:24 Oxygen Flow Rate (L/min) 2 08/13/23 07:02 Diagnostic Data Venous Doppler Study 08/08/23 15:54 Interpretation Summary Deep veins of the right lower extremity are patent and compressible segmentally. There is no evidence of right lower extremity deep vein thrombosis. Valvular competence appears intact within the proximal deep venous system on the right . The right great saphenous vein appears patent and compressible segmentally. The left common femoral vein is patent and compressible . Ordering Physician: Srikanth Wisdom Referring Physician: Annika Blake Performed By: Willinger, Paige, RVT Chest X-Ray 08/08/23 16:25 IMPRESSION: Interval removal of right-sided chest port. Otherwise, no change from prior study. Electronically Signed: Ryan Britton MD at 17:25 EDT , Chest CTA 08/08/23 16:57 IMPRESSION: Moderate volume nonocclusive acute pulmonary emboli within most of the subsegmental pulmonary arteries. No evidence of right heart strain. Multiple irregular nodular lesions throughout the lungs, most of which show cavitation. This is concerning for septic emboli. Extensive mediastinal, bilateral hilar and upper abdominal lymphadenopathy consistent with known lymphoma. 7 mm lytic lesion in the left T11 vertebral body/pedicle with surrounding sclerosis. When correlating with recent PET/CT, this is most concerning for lymphomatous involvement of the spine. Refer to PET/CT report for more details. Electronically Signed: Ryan Britton MD at 19:21 EDT , ADDENDUM: 08/08/231958 IMPRESSION: Moderate volume nonocclusive acute pulmonary emboli within most of the subsegmental pulmonary arteries. No evidence of right heart strain. Multiple irregular nodular lesions throughout the lungs, most of which show cavitation. This is concerning for septic emboli. Extensive mediastinal, bilateral hilar and upper abdominal lymphadenopathy consistent with known lymphoma. 7 mm lytic lesion in the left T11 vertebral body/pedicle with surrounding sclerosis. When correlating with recent PET/CT, this is most concerning for lymphomatous involvement of the spine. Refer to PET/CT report for more details. N.B. : The above Results were Read Back by Ryan Britton MD to Gurpreet Valladares MD, and understanding confirmed on 08/08/2023 19:52:54 (ET). Electronically Signed: Ryan Britton MD at 19:21 EDT , Echocardiogram 08/08/23 22:11 Interpretation Summary The estimated ejection fraction is 65 %. No evidence for diastolic dysfunction. The left atrium is mildly enlarged. Ordering Physician: Ellen Marquez Referring Physician: Catie Tiwari Performed By: Annamaria Maciel RDCS, RVT
--- NOTE | 2023-08-21 13:43 | WOUNDNOTE ---
In to reassess skin. patient still has some peeling and weeping skin to bilateral buttocks. pt now has some peeling to bilateral axilla. skin very tender to touch. back and abdomen still quite reddened. legs are dry and flaky. gently washed skin with soap and water. pat dry. applied Eucerin to the legs and back and applied Triad to bilateral buttocks and groin. pt tolerated fairly well. updated Dr Reynolds.
--- NOTE | 2023-08-21 15:16 | PCM.PN.HOSP ---
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, lymph nodes of multiple sites (08/08/23) Vitamin B12 deficiency anemia, unspecified (08/08/23) Hypercalcemia (08/08/23) Hypokalemia (08/08/23) Multiple subsegmental pulmonary emboli without acute cor pulmonale (08/08/23) Other pulmonary embolism without acute cor pulmonale (08/08/23) Lymphedema, not elsewhere classified (08/08/23) Other disorders of lung (08/08/23) Unspecified kidney failure (08/08/23) Rash and other nonspecific skin eruption (08/08/23) Unspecified infection due to central venous catheter, initial encounter (08/08/23) Subjective Subjective Swelling has been improving which is helped discomfort. Patient feeling frustrated with his overall clinical health/progress and generalized weakness Objective Data Objective Data Vital Signs: Vital Signs Temp Pulse Resp BP Pulse Ox O2 Del Method O2 Flow Rate 98.3 F 70 18 100/49 L 100 Room Air 2 08/21/23 08:24 08/21/23 10:30 08/21/23 10:30 08/21/23 08:24 08/21/23 08:24 08/21/23 08:24 08/13/23 07:02 Oxygen Flow Rate (L/min) 2 Oxygen Delivery Method Room Air Weight: 79.3 kg Body Mass Index (BMI) 25.8 Intake & Output: Intake and Output for Last 24 Hours 08/19/23 08/20/23 08/21/23 23:59 23:59 23:59 Intake Total 1430 / 1430 1060 / 1060 Output Total 200 / 200 450 / 450 Balance 1230 / 1230 610 / 610 Medical Nutrition Assessment Dietitian: Malnutrition Criteria Met Start: 08/09/23 15:49 Freq: Status: Active Protocol: Document 08/20/23 11:16 RMA (Rec: 08/20/23 11:16 RMA [id number]) Nutrition Malnutrition Evidence of Malnutrition Exists Yes Malnutrition (severe): Chronic Evidenced By Suboptimal Energy Intake ( Severe),Weight Loss (Severe), Physical Changes (Severe) Clinical Problem Chronic Disease or Condition Related Malnutrition Etiology severe related to lymphoma, increased nutrient needs and suboptimal appetite Signs/Symptoms as evidenced by 22.7lbs (12.4% ) weight loss in 1.5 months, < 75% PO intake of estimated nutrition needs for >1 month and severe fat and muscle loss to temporal, orbital and clavicle regions. Status Active Problem Recommendation Dietitian Recommendations/Changes Continue liberalized Regular diet to optimize oral intakes. Continue Magic cup 2 x daily with meals. Continue 120mL ensure plus high protein TID w/ medpass as tolerated. Consider TF to supplement PO-- Pt would benefit from enteral nutrition support due to significant weight loss and consistently poor/inadequate oral intake. Lab / Micro Data 08/20/23 05:42 08/20/23 05:42 Micro: Microbiology 08/14/23 09:30 Blood Culture (Wb) - Anticubital Right Blood Culture - Final No growth in 5 days. 08/14/23 09:40 Blood Culture (Wb) - Right Hand Blood Culture - Final No growth in 5 days. 08/10/23 Unknown Wash - Right Middle Lobe Gram Stain - Final 08/10/23 Unknown Wash - Right Middle Lobe Respiratory Culture - Final Mixed normal respiratory kelby. No Streptococcus pneumoniae, beta-hemolytic Streptococcus or Staphylococcus aureus isolated. 08/10/23 Unknown Wash - Right Middle Lobe Anaerobic Culture - Final No growth in 5 days. 08/08/23 22:53 Mucosa - Nasopharyngeal Respiratory Panel (PCR) - Final 08/08/23 23:45 Urine, Clean Catch Legionella Antigen - Final 08/08/23 23:45 Urine, Clean Catch Streptococcus pneumoniae Antigen (M - Final 08/08/23 22:53 Mucosa - Nose Coronavirus COVID-19 PCR - Final 08/08/23 17:55 Stool Enteric Bacteriology - Final 08/08/23 17:55 Stool C. difficile DNA Amplification - Final Physical Exam Narrative General: Alert, oriented, sitting up in chair HEENT: Atraumatic, normocephalic Eyes: Anicteric, normal conjunctiva, extraocular movements grossly intact Neck: Supple Respiratory: normal respiratory effort Cardiovascular: Regular rate GI: Soft, nontender, nondistended Extremities: 2+ lower extremity edema, is improving Musculoskeletal: Moving all extremities Neuro: No overt focal neurological deficits Skin: Local wound care Psych: More cooperative today Assessment & Plan Assessment/Plan (1) Pulmonary embolism: QUALIFIERS: Pulmonary embolism type: multiple subsegmental (without acute cor pulmonale) Qualified Code(s): I26.94 - Multiple subsegmental pulmonary emboli without acute cor pulmonale PLAN: Plan #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 It was 3.0 on 07/16/2023. Lactic acid 2.3 -In the ED, the patient was administered pamidronate 90 mg IV x1, prednisone 100 mg oral, and allopurinol 200 mg oral -Oncology consultation reviewed and appreciated. -It was discussed with Dr. Cohen and he said patient was first seen by him on 06/28/2023 as consult. Tumor is clinically very aggressive, anaplastic, unresponsive to standard therapy and null cell (neither B-cell or T-cell) and relatively worse prognosis. Patient was planned to start systemic therapy in early August 2023 after he had central venous access on August 01 point that was removed d/t infection developed. He also talked to the [facility] oncology colleague and he is not a candidate for any trial. We will continue allopurinol. And prednisone 100 mg daily for total of 5 days. Can repeat 1 more dose of pamidronic acid if patient is stable hypercalcemia of malignancy. But calcium is 10.9 today probably will not need it. -08/10: Continue high-dose prednisone. Continue allopurinol. Serum calcium 9.7. Uric acid 1.3. See RP elevated. Plan was [facility] treatment but was not started yet -08/13: Patient seen by oncology 08/09 with palliative 5-day course oral prednisone and continue allopurinol 300 mg for tumor lysis prophylaxis. Systemic treatment on hold while underlying infection and acute medical illnesses addressed -08/14: Evaluated by oncology, no need for acyclovir or Bactrim until he starts systemic therapy, continue allopurinol. Is finished his 5-day course of prednisone. Systemic treatment will have to be delayed until cleared from ID standpoint and performance status improves -08/16: We will need to be cleared from ID standpoint and increase functional performance prior to being considered for treatment -11/10: Discussed with patient that he will not be starting chemotherapy during this hospitalization and he verbalizes understanding and said he did not think he would be and understands he will go to rehab to get stronger prior to that -08/18: Patient off antibiotics, will be able to start chemo once stronger and on outpatient basis -08/19: We will strongly encourage patient work with physical therapy -08/20: Patient worked with therapy today, supportive care provided -08/21: Discussed with Dr. Macias, patient was offered either hospice or to initiate a round of chemotherapy and then DC to SNF and follow-up in 3 weeks to see if he will be able to tolerate further therapy. Patient asked for 24 hours to decide, may be leading towards hospice but wanted to give final determination tomorrow. If he proceeds with treatment oncology will need 24-hour advance notice so he can be started on fluids, allopurinol, and PICC line can be placed. Given it is unclear how he will tolerate it PICC line was advised over putting in a port to start with. We will need to follow-up with patient tomorrow regarding decision. #Peripheral edema -Patient seem to significant mount of IV fluids during his hospital stay and is up >30 L based on I's and O's summary -A significant portion of this is third spacing -Continue to try to optimize nutrition -Patient only wore Real wraps for 1 day and has been very resistant due to finding them irritating despite education and stressing importance -Have been trying to diurese as blood pressure allows -No respiratory distress or other complications of fluid overload at this time -Suspect increased mobilization would also help however patient very resistant to this as he is tired and does not want to move while feeling swollen -08/16: Had recent echo which did not show any diastolic dysfunction or reduced ejection fraction suspect this is all due to lack of mobilization and fluids patient has received. Patient slowly improving -08/17: Scheduled 40 IV Lasix twice daily however blood pressure has been prohibitive factor for Lasix, will give albumin, patient up 31 L since admission, once patient diuresed enough that he is able to participate in therapy will be able to send to SNF -08/18: Given a dose of albumin yesterday and patient's BP still remains soft and though asymptomatic need to continue diuresis we will try low-dose of midodrine in addition to Lasix -08/19: Increased midodrine and will attempt further diuresis but patient otherwise doing well. An Ensure and will start mirtazapine small dose at bedtime to try to improve appetite. Encouraged to mobilize with therapy. Patient wore a straps for short period of time and has refused since -08/20: Patient does feel some improvement after he was able to get IV Lasix, continue midodrine and IV Lasix -08/21: Patient is improving with diuresis, may be able to transition to oral Lasix tomorrow. Can taper midodrine down with stepdown and Lasix pending blood pressure #Debility -Pt initially had fem line and was unable to get up and ambulate until two PIVs were established and medications switched/fem line pulled -Has been evaluated by PT and pt recommended for placement -Pt intermittently works with therapy but finds his edema limiting and feels very tired so intermittently will refuse therapy -Strongly recommend working with therapy to progress with functional status faster and work towards goal of starting chemo for lymphoma -08/20: Was able to work with therapy after receiving the IV Lasix, continue current management #Acute bilateral subsegmental nonocclusive pulmonary embolism and possible septic pulm emboli w/ mild hypoxia on admission- hypoxia resolved -CTA on admit shows moderate volume nonocclusive acute pulmonary embolism involving most of the subsegmental pulmonary arteries with no evidence of right heart strain. 2D echo is ordered. Patient on IV heparin drip. -Venous duplex negative for bilateral lower extremity thrombosis. BNP ordered. -ABG done in ED shows 7.61/22.9/110 on 4 L of oxygen interpretation reveals mild respiratory alkalosis as patient bicarb is 23 -Twelve-lead EKG shows sinus rhythm 72 bpm, QRS 106 ms QT 552 ms history of prolonged QT. Patient is being admitted in PCU. Bronchodilator as needed with scheduled. On oxygen through nasal cannula. -COVID-19 negative and respiratory panel negative -Pulmonology consulted, there is also question of pulmonary emboli could be septic in nature and patient was on antibiotics -08/10: went for bronch w/ BAL and cxs -08/11: Preliminary RML BAL exhibits no growth. Continue broad-spectrum antibiotic. Continue IV heparin drip. -08/13: Given to plans for procedures pt switched to NOAC and pulm s/o -08/14: Patient with 2 peripheral IVs and femoral line discontinued, on oral Eliquis. -08/21: Stepped down to 5 twice daily of Eliquis #Infected right IJ Port-A-Cath subsequently removal on 08/08/2023 -Port was placed on an outpatient basis to begin treatment for lymphoma however it was subsequently removed on 08/08 due to concerns for infection -Patient was admitted and had significant leukocytosis and was started on vancomycin and Zosyn -Blood cultures ordered and ID consulted -08/10: Leukocytosis worsening. Patient seen by ID. Blood culture pending. Respiratory panel negative. C. difficile negative. Patient currently not producing sputum. Went for bronchoscopy today BAL specimen and cultures pending. Hepatitis panel negative earlier. Negative HIV. Pending QuantiFERON. Possible aspiration versus port infection or opportunistic infection. -08/11: Preliminary RML BAL exhibits no growth. Continue broad-spectrum antibiotic. -08/12: 1/2 bld cxs w/ staph epi. Surgery plan for left chest port placement once infection is cleared and confirmation that oncology is planning to proceed with treatment. ID following, patient abx spectrum being narrowed today. -08/14: Patient remains on antibiotics per ID recommendations, presently Rocephin, metronidazole, vancomycin. Pulmonology recommended repeating blood cultures given uptrending white blood cell count. Repeated cultures, ID following -08/15: White blood cell count increased again, repeat cultures no growth to date, appreciate ID input, remains on antibiotics. -08/16: Cultures no growth to date, plan will be discharged on Doxy, white count down trended today. -08/18: Patient off of antibiotics now, focusing on rehab and diuresis. #Thrombocytopenia -08/19: Has progressively been downtrending and today 76, it is important that patient continues on his Eliquis given acute PEs however if dips below 50,000 we will need to weigh risks and benefits. Given patient's medications suspect allopurinol may be the cause of the worsening thrombocytopenia, hold a.m. dose and will need to discuss with his oncologist in the a.m. regarding optimal plan moving forward given dropping platelet counts. Repeat CBC in a.m. -08/20: Discussed platelet count with oncology and allopurinol. Okay to hold allopurinol as it was initiated when it was thought he would be starting chemo within a day or 2 given now that it will be at least a week or so okay to hold at this time -08/21: Did downtrend further despite holding allopurinol but patient refused a.m. labs. Discussed with oncology. Continue to trend, we will try to get labs again tomorrow #Acute kidney injury?resolved -Secondary to dehydration and acute presentation as noted -Admission BUN/Cr 50/1.76, prior baseline creatinine noted to be 0.8-1.1 -Will hydrate, hold nephrotoxic medications and repeat chemistry in AM. -If no improvement would plan FeNa and renal ultrasound assessment. 08/10: Serum creatinine improved to 0.98. 08/11: Serum creatinine 0.92 BUN elevated 28. ZUNILDA resolved. Patient will get IV fluid with magnesium and potassium supplementation. -08/13: Patient more swollen and significantly positive and fluid, hold any further IV fluids, received dose of IV Lasix today -08/14: Creatinine doing well and tolerated Lasix yesterday, will give another dose of IV Lasix -08/16: Continues to tolerate diuresis well -08/17: Giving albumin and adjusted Lasix dosing -08/18: Remains stable #Electrolyte abnormalities including potassium, calcium, magnesium, Phos -Hypokalemia and hypercalcemia: Admission K+ 2.4, serum potassium low 2.6 after replacement. Serum magnesium 2.2, phosphorus 4.1. Serum calcium 13.8, improved to 10.9. 08/10: Serum potassium low 2.9 severe hypokalemia. Potassium rider ordered. Serum magnesium and phosphorus ordered. 08/11: Serum potassium is low 3.2. 40 mEq IV potassium rider replaced but still sodium is 3.5. Oral potassium supplement ordered. Serum magnesium 1.7 but repeat serum magnesium 1.6 after 2 g IV magnesium sulfate replacement. Serum phosphorus normal. -08/13: Continue to monitor and adjust -08/16: Continue to replace -08/18: Continue to monitor replace -08/19: Patient had high calcium when he presented and this is subsequently been treated however now he is overcorrected to low calcium, will give another dose replacement today -08/21: Patient refusing labs today, has frequently required potassium supplementation and given he has been receiving Lasix more consistently and potassium only 3.6 yesterday we will give dose of potassium #Buttock irritation -Opitimize nutrition -Wound care c/s -Mobilize as tolerated -No longer on bed rest -08/17: Patient with some mild sloughing, creams applied, no overt wounds -08/21: Discussed with wound care, regimen to be adjusted as patient does not like the Aquaphor and feels like it makes him stick. Patient does have a lot of skin sloughing but nothing on mucous membranes and no blisters. Does not seem that this is Cantu-Antonio syndrome but could be something like an exfoliative dermatitis from allopurinol or other skin reaction to allopurinol or the cancer itself. Allopurinol is presently held. Given that this was present before Lasix were started do not feel Lasix are the likely culprit # Anxiety and depression -Not on any chronic regimen, would benefit from continued outpatient evaluation and counseling if appropriate. -08/19: Adding mirtazapine to also help with appetite #Tobacco Abuse: Encouraged cessation, inpatient consultation per RT, NR if desired. #GERD: We will continue patient home PPI. #Chronic right lower extremity lymphedema -Status post DVT ultrasound with no acute findings, will place snug Real with elevation if able to tolerate. DVT: Eliquis Time spent in the patient's overall evaluation,decision-making process, review of diagnostic data, adjustment of management, discussion with other providers, nursing nursing and ancillary staff involved in patient's care documentation, 52 minutes Charges/Coding Visit Charges Inpatient E&M: [id number] [facility] L[facility]
[2023-08-21] MEDS: Potassium Chloride Oral Tablet 20 MEQ 40 MEQ PO (17:30)
[2023-08-21] MEDS: 0.9% Saline Lock 10 ML Syringe IV (17:44)
[2023-08-21 18:00] VITALS: BP 99/56; PULSE 59; RESP 17; TEMP 36.4; O2SAT 98
[2023-08-21 20:33] VITALS: BP 92/65; PULSE 90; RESP 16; TEMP 36.8; O2SAT 98
[2023-08-21] MEDS: Mirtazapine 15 MG Tablet 7.5 MG PO (20:34)
[2023-08-22 03:10] VITALS: BP 85/61; PULSE 90; RESP 16; TEMP 36.9; O2SAT 99
[2023-08-22 05:19] VITALS: BP 88/50; PULSE 67; RESP 16; TEMP 36.7; O2SAT 99
[2023-08-22 05:39] VITALS: BMI 25.1
[2023-08-22 08:17] LABS: Absolute Lymphocyte Count 0.12 X10^3/uL (0.83-4.51); Absolute Neutrophil Count 14.7 X10^3/uL (2.0-7.7); Basophil# 0.02 X10^3/uL; Basophil% 0.1 % (0-1); Eosinophil# 0.03 X10^3/uL; Eosinophils% 0.2 % (0-5); Hematocrit 33.9 % (40-54); Lymphocyte # 0.12 X10^3/ul (0.83-4.51); Lymphocyte % 0.8 % (19-41); Mean Corp Hgb Conc 32.4 g/dL (32-36); Mean Corpuscular Hgb 28.6 pg (27.0-32.0); Mean Corpuscular Volume 88.3 fL (80-94); Monocyte# 0.16 X10^3/uL; Monocyte% 1.1 % (0-10); NRBC Flagged by Analyzer 0 % (0-5); Neutrophil # 14.65 X10^3/uL (2.7-7.7); Neutrophil % 97.3 % (47-70); POSITIVE COUNT YES; POSITIVE DIFFERENTIAL YES; POSITIVE MORPHOLOGY YES; RBC Distribution Width CV 23.4 % (11.6-14.6); RBC Distribution Width SD 73.9 fl (35.1-43.9); Red Blood Count 3.84 M/mm3 (4.6-6.2); White Blood Count 15.1 K/mm3 (4.4-11.0)
[2023-08-22 08:28] LABS: Differential Indicated SCAN CRITERIA MET; Platelet Count 49 K/mm3 (150-450)
[2023-08-22 08:44] LABS: Anion Gap 7 (5-15); BUN 27 mg/dL (7-18); BUN/Creat Ratio 27.7 RATIO (10-20); Calcium,Total 7.6 mg/dL (8.5-10.1); Chloride 113 mmol/L (98-107); Creatinine, Serum 0.98 mg/dL (0.70-1.30); EST Glomerular Filtration Rate 83 mL/min (>60); Est Glom Filt Rate - Afr Amer 101 mL/min (>60); Estimated Creatinine Clearance 81.16 ml/min; Glucose 93 mg/dL (74-106); Magnesium 1.7 mg/dL (1.6-2.6); Phosphorus 3.1 mg/dL (2.5-4.9); Potassium 3.5 mmol/L (3.5-5.1); Sodium Level 140 mmol/L (136-145)
[2023-08-22 09:14] VITALS: BP 79/59; PULSE 89; RESP 17; TEMP 36.6; O2SAT 98
[2023-08-22] MEDS: Furosemide 20 MG/2 ML VIAL 30 MG IV ×2 (09:18→17:22)
[2023-08-22] MEDS: Midodrine HCl 5 MG Tablet 10 MG PO ×3 (09:19→17:20)
[2023-08-22] MEDS: APIXABAN 5 MG TABLET PO ×2 (09:19→20:43)
[2023-08-22] MEDS: Pantoprazole Sodium 20 MG Tablet PO (09:19)
[2023-08-22 09:41] LABS: Anisocytosis 2+; Differential Comment SCANNED; Platelet Estimate MKD DEC (ADEQ)
[2023-08-22 09:42] LABS: Hypochromasia 1+; Macrocytosis 1+; Microcytosis 1+; Target Cells 1+
--- NOTE | 2023-08-22 09:58 | PCM.PN.HOSP ---
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, lymph nodes of multiple sites (08/08/23) Vitamin B12 deficiency anemia, unspecified (08/08/23) Hypercalcemia (08/08/23) Hypokalemia (08/08/23) Multiple subsegmental pulmonary emboli without acute cor pulmonale (08/08/23) Other pulmonary embolism without acute cor pulmonale (08/08/23) Lymphedema, not elsewhere classified (08/08/23) Other disorders of lung (08/08/23) Unspecified kidney failure (08/08/23) Rash and other nonspecific skin eruption (08/08/23) Unspecified infection due to central venous catheter, initial encounter (08/08/23) Subjective Subjective Patient is a 57-year-old gentleman with history anaplastic large cell lymphoma admitted with right IJ clot infection for which he underwent removal a day prior to his admission admitted with high suspicion for tumor lysis syndrome with hypercalcemia. Discussions were held with patient regarding treatment options hospice versus continuous care patient opted for continuation of care Objective Data Objective Data Vital Signs: Vital Signs Temp Pulse Resp BP Pulse Ox O2 Del Method O2 Flow Rate 98 F 89 17 79/59 L 98 Room Air 2 08/22/23 09:14 08/22/23 09:14 08/22/23 09:14 08/22/23 09:14 08/22/23 09:14 08/22/23 09:14 08/13/23 07:02 Oxygen Flow Rate (L/min) 2 Oxygen Delivery Method Room Air Weight: 77.2 kg Body Mass Index (BMI) 25.1 Intake & Output: Intake and Output for Last 24 Hours 08/20/23 08/21/23 08/22/23 23:59 23:59 23:59 Intake Total 1060 / 1060 1500 / 1500 Output Total 450 / 450 200 / 200 Balance 610 / 610 1300 / 1300 Medical Nutrition Assessment Dietitian: Malnutrition Criteria Met Start: 08/09/23 15:49 Freq: Status: Active Protocol: Document 08/20/23 11:16 RMA (Rec: 08/20/23 11:16 RMA [id number]) Nutrition Malnutrition Evidence of Malnutrition Exists Yes Malnutrition (severe): Chronic Evidenced By Suboptimal Energy Intake ( Severe),Weight Loss (Severe), Physical Changes (Severe) Clinical Problem Chronic Disease or Condition Related Malnutrition Etiology severe related to lymphoma, increased nutrient needs and suboptimal appetite Signs/Symptoms as evidenced by 22.7lbs (12.4% ) weight loss in 1.5 months, < 75% PO intake of estimated nutrition needs for >1 month and severe fat and muscle loss to temporal, orbital and clavicle regions. Status Active Problem Recommendation Dietitian Recommendations/Changes Continue liberalized Regular diet to optimize oral intakes. Continue Magic cup 2 x daily with meals. Continue 120mL ensure plus high protein TID w/ medpass as tolerated. Consider TF to supplement PO-- Pt would benefit from enteral nutrition support due to significant weight loss and consistently poor/inadequate oral intake. Lab / Micro Data 08/22/23 07:45 08/22/23 07:45 Labs: Laboratory Results - last 24 hr 08/22/23 07:45: WBC 15.1 H, RBC 3.84 L, Hgb 11.0 L, Hct 33.9 L, MCV 88.3, MCH 28.6, MCHC 32.4, RDW Std Deviation 73.9 H, RDW Coeff of Andrew 23.4 H, Plt Count 49 L*, Immature Gran % (Auto) 0.500, Neut % (Auto) 97.3 H, Lymph % (Auto) 0.8 L, [place] % (Auto) 1.1, Eos % (Auto) 0.2, Baso % (Auto) 0.1, Absolute Neuts (auto) 14.7 H, Absolute Lymphs (auto) 0.12 L, Nucleated RBC % 0, Differential Comment SCANNED, Diff Path Review May foll, Platelet Estimate MKD DEC, Hypochromasia 1+, Anisocytosis 2+, Microcytosis 1+, Macrocytosis 1+, Target Cells 1+, Sodium 140, Potassium 3.5, Chloride 113 H, Carbon Dioxide 20.0 L, Anion Gap 7, BUN 27 H, Creatinine 0.98, Estim Creat Clear Calc 81.16, Est GFR (MDRD) Af Amer 101, Est GFR (MDRD) Non-Af 83, BUN/Creatinine Ratio 27.7 H, Glucose 93, Calcium 7.6 L, Phosphorus 3.1, Magnesium 1.7 Micro: Microbiology 08/14/23 09:30 Blood Culture (Wb) - Anticubital Right Blood Culture - Final No growth in 5 days. 08/14/23 09:40 Blood Culture (Wb) - Right Hand Blood Culture - Final No growth in 5 days. 08/10/23 Unknown Wash - Right Middle Lobe Gram Stain - Final 08/10/23 Unknown Wash - Right Middle Lobe Respiratory Culture - Final Mixed normal respiratory kelby. No Streptococcus pneumoniae, beta-hemolytic Streptococcus or Staphylococcus aureus isolated. 08/10/23 Unknown Wash - Right Middle Lobe Anaerobic Culture - Final No growth in 5 days. 08/08/23 22:53 Mucosa - Nasopharyngeal Respiratory Panel (PCR) - Final 08/08/23 23:45 Urine, Clean Catch Legionella Antigen - Final 08/08/23 23:45 Urine, Clean Catch Streptococcus pneumoniae Antigen (M - Final 08/08/23 22:53 Mucosa - Nose Coronavirus COVID-19 PCR - Final 08/08/23 17:55 Stool Enteric Bacteriology - Final 08/08/23 17:55 Stool C. difficile DNA Amplification - Final Physical Exam Narrative GENERAL: cooperative but frail looking HEENT: Atraumatic; normocephalic EYES; Anicteric, Normal Conjunctiva NECK; supple, normal thyroid, RESPIRATORY: Diminished to auscultation CARDIOVASCULAR: Regular S1 S2, GI: soft, normoactive bowel sounds, : No Renal angle tenderness; EXTREMITIES: Bipedal edema edema, no clubbing, MUSCULOSKELETAL: no muscle wasting NEURO: Awake; no lateralizing signs. SKIN: No Rash PSYCH; Flat affect Assessment & Plan Assessment/Plan (1) Pulmonary embolism: QUALIFIERS: Pulmonary embolism type: multiple subsegmental (without acute cor pulmonale) Qualified Code(s): I26.94 - Multiple subsegmental pulmonary emboli without acute cor pulmonale PLAN: Plan Patient is a 57-year-old gentleman with history anaplastic large cell lymphoma admitted with right IJ clot infection for which he underwent removal a day prior to his admission admitted with high suspicion for tumor lysis syndrome with hypercalcemia. Discussions were held with patient regarding treatment options hospice versus continuous care patient opted for continuation of care 1. Tumor lysis syndrome ? 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 Hypercalcemia ? Treated per protocol 3. 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 Patient to resume treatment in the hospital. Patient had a right IJ port which was removed due to infection. An order was placed for PICC line. Case discussed with Dr. Macias plan is to initiate treatment with IV fluid or allopurinol prednisone as well as diuretics to prevent tumor lysis syndrome 4. Acute hypoxia (resolved) secondary to acute bilateral subsegmental nonocclusive pulmonary embolism and possible septic pulm emboli w/ mild hypoxia on admission- hypoxia resolved ? Patient managed with systemic anticoagulation with Eliquis 5. Physical deconditioning ? Requested for PT OT eval and social media marketing analyst to assist with discharge planning 6. Infected right IJ Port-A-Cath subsequently removal on 08/08/2023 ? Patient completed treatment with ceftriaxone and metronidazole as well as vancomycin repeat cultures so far negative to date 7. Thrombocytopenia ? Discussed with oncology thought to be secondary to patient underlying infection we will continue with monitoring 8. Acute kidney injury ? Secondary to dehydration resolved 9. Hypokalemia ? Corrected per protocol 10. Hypomagnesemia ? Corrected per protocol 11. Tobacco dependence ? Counseled on cessation, offered nicotine patch for tobacco cravings 12. Depression with anxiety ? Patient is on mirtazapine 13. GERD ? On PPI 14. Buttock irritation Seen by wound care and consult 15. Severe protein calorie malnutrition ? Secondary to multiple medical comorbidities evidenced by suboptimal energy intake, weight loss as well as severe physical changes. Patient seen in consultation by dietitian noted recommendations reviewed Time spent in the patient's overall evaluation,decision-making process, review of diagnostic data, adjustment of management, discussion with other providers, nursing nursing and ancillary staff involved in patient's care documentation, 55 minutes Charges/Coding Visit Charges Inpatient E&M: [id number] [facility] L3
[2023-08-22 10:22] VITALS: BP 80/50; PULSE 95; RESP 14; TEMP 36.4; O2SAT 94
[2023-08-22] MEDS: 0.9% Normal Saline (1000mL) 1,000 ML 100 ML IV ×2 (14:07→23:07)
[2023-08-22] MEDS: predniSONE 20 MG Tablet 100 MG PO (14:18)
[2023-08-22] MEDS: Loperamide 2 MG Capsule PO ×3 (14:18→20:43)
--- NOTE | 2023-08-22 15:19 | PN.ONC_ITS ---
Subjective Subjective No change in physical condition. Patient decided to consent to cycle 1 of systemic chemotherapy. Physical Exam Narrative ECOG 4 Const General Appearance: ill appearing Positive for chronically, frail, appears older than stated age, grossly edematous and other Gross edema waist down Vital Signs Temperature 97.5 F L 08/22/23 10:22 Temperature Source Oral 08/22/23 10:22 Pulse Rate 95 08/22/23 10:22 Pulse Strength Normal (2+) 08/22/23 08:08 Respiratory Rate 14 08/22/23 10:22 Respiratory Effort Normal, Non-Labored 08/22/23 03:32 Respiratory Depth Normal 08/22/23 03:32 Respiratory Pattern Normal 08/22/23 03:32 Blood Pressure 80/50 L 08/22/23 10:22 Blood Pressure Mean 60 08/22/23 10:22 Blood Pressure Source Monitor 08/22/23 09:14 Blood Pressure Position Sitting 08/22/23 09:14 Blood Pressure Location Left Arm 08/22/23 09:14 Baseline BP 100/56 08/10/23 10:10 Pulse Ox 94 08/22/23 10:22 Oxygen Delivery Method Room Air 08/22/23 10:22 Oxygen Flow Rate (L/min) 2 08/13/23 07:02 Laboratory Results - last 24 hr 08/22/23 07:45: WBC 15.1 H, RBC 3.84 L, Hgb 11.0 L, Hct 33.9 L, MCV 88.3, MCH 28.6, MCHC 32.4, RDW Std Deviation 73.9 H, RDW Coeff of Andrew 23.4 H, Plt Count 49 L*, Immature Gran % (Auto) 0.500, Neut % (Auto) 97.3 H, Lymph % (Auto) 0.8 L, [place] % (Auto) 1.1, Eos % (Auto) 0.2, Baso % (Auto) 0.1, Absolute Neuts (auto) 14.7 H, Absolute Lymphs (auto) 0.12 L, Nucleated RBC % 0, Differential Comment SCANNED, Diff Path Review May , Platelet Estimate MKD DEC, Hypochromasia 1+, Anisocytosis 2+, Microcytosis 1+, Macrocytosis 1+, Target Cells 1+, Sodium 140, Potassium 3.5, Chloride 113 H, Carbon Dioxide 20.0 L, Anion Gap 7, BUN 27 H, Creatinine 0.98, Estim Creat Clear Calc 81.16, Est GFR (MDRD) Af Amer 101, Est GFR (MDRD) Non-Af 83, BUN/Creatinine Ratio 27.7 H, Glucose 93, Calcium 7.6 L, Phosphorus 3.1, Magnesium 1.7 Diagnostic Data Venous Doppler Study 08/08/23 15:54 Interpretation Summary Deep veins of the right lower extremity are patent and compressible segmentally. There is no evidence of right lower extremity deep vein thrombosis. Valvular competence appears intact within the proximal deep venous system on the right . The right great saphenous vein appears patent and compressible segmentally. The left common femoral vein is patent and compressible . Ordering Physician: Srikanth Wisdom Referring Physician: Annika Blake Performed By: Paige Zamora, RVT Chest X-Ray 08/08/23 16:25 IMPRESSION: Interval removal of right-sided chest port. Otherwise, no change from prior study. Electronically Signed: Ryan Britton MD at 17:25 EDT , Chest CTA 08/08/23 16:57 IMPRESSION: Moderate volume nonocclusive acute pulmonary emboli within most of the subsegmental pulmonary arteries. No evidence of right heart strain. Multiple irregular nodular lesions throughout the lungs, most of which show cavitation. This is concerning for septic emboli. Extensive mediastinal, bilateral hilar and upper abdominal lymphadenopathy consistent with known lymphoma. 7 mm lytic lesion in the left T11 vertebral body/pedicle with surrounding sclerosis. When correlating with recent PET/CT, this is most concerning for lymphomatous involvement of the spine. Refer to PET/CT report for more details. Electronically Signed: Ryan Britton MD at 19:21 EDT , ADDENDUM: 08/08/231958 IMPRESSION: Moderate volume nonocclusive acute pulmonary emboli within most of the subsegmental pulmonary arteries. No evidence of right heart strain. Multiple irregular nodular lesions throughout the lungs, most of which show cavitation. This is concerning for septic emboli. Extensive mediastinal, bilateral hilar and upper abdominal lymphadenopathy consistent with known lymphoma. 7 mm lytic lesion in the left T11 vertebral body/pedicle with surrounding sclerosis. When correlating with recent PET/CT, this is most concerning for lymphomatous involvement of the spine. Refer to PET/CT report for more details. N.B. : The above Results were Read Back by Ryan Britton MD to Gurpreet Valladares MD, and understanding confirmed on 08/08/2023 19:52:54 (ET). Electronically Signed: Ryan Britton MD at 19:21 EDT , Echocardiogram 08/08/23 22:11 Interpretation Summary The estimated ejection fraction is 65 %. No evidence for diastolic dysfunction. The left atrium is mildly enlarged. 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 Systemic ALCL tend to be clinically aggressive, unresponsive to standard therapy and relatively worse prognosis compared to other types of lymphoma. Standard treatment includes an induction phase with an aggressive combination chemo immune therapy in attempt to induce remission of the disease but is not curative and is to be followed by high-dose chemotherapy and autologous bone marrow transplant. The patient was tentatively planned to start his systemic therapy in early August 2023 (after a short delay when patient forgot to attend his initial staging PET/CT and echo). He had a central venous access placed August 01, 2023 but that had to be urgently removed August 08, 2023 due to port infection. His systemic treatment for the aggressive lymphoma ha6 been on hold while attempting to control infection and other acute medical illnesses. As a temporizing measure was given a palliative 5-day course of oral prednisone 100 mg daily and continue allopurinol 300 Mg daily for tumor lysis prophylaxis. Allopurinol was put on hold because of concern about drug-induced thrombocytopenia although he has been on multiple antimicrobials and the exact culprit is not clear. His performance status is poor (ECOG 4) and he is unable to cooperate with physical therapy. On one hand, it is very unlikely that he will have any significant improvement in performance status without aggressive anticancer t herapy and on the other this aggressive anticancer therapy in a patient with poor performance status has a high risk of being detrimental before inevitable demise. I had a discussion with the patient on August 21, 2023 that we are at the fork in the road and need to make a decision whether to pursue maximum comfort measures on the hospice program or attempt 1 cycle of systemic chemotherapy realizing that the chances of effectiveness are slim and the chances of toxicities that would worsen the quality of time he has left are high. It is a difficult decision that he had to make. By August 22, 2023 and after thought and discussion with his family he decided to consent to treatment. He will receive systemic multiagent chemotherapy (CHOP) and will be reevaluated in 3 weeks, if he responds rapidly and his performance status improves additional systemic chemotherapy therapy with the addition of immune therapy will be considered. If he continues to decline he will opt to maximum comfort measures on hospice. With the help of the hospitalist team tumor lysis prophylaxis will be started today August 22, 2023 with IV fluid hydration and resuming allopurinol. He will start 5 days of oral prednisone 100 mg daily today August 22, 2023. Systemic intravenous chemotherapy through a PICC line will be administered August 23, 2023. Vigorous IV hydration and diuresis using Lasix under the discretion of the hospitalist team will continue for at least 24 hours after systemic chemotherapy. Plan discussed with the patient and the hospitalist. (2) Rash: PLAN: Predates use of allopurinol, Bactrim, acyclovir and vancomycin and may be related to his underlying lymphoma. (3) Cavitary lung disease: PLAN: Cause may be infectious (to date studies have not confirmed an infection), vascular (from pulmonary embolism) or even involvement of lungs by aggressive lymphoma. (4) Pulmonary embolism: QUALIFIERS: Pulmonary embolism type: multiple subsegmental (without acute cor pulmonale) Qualified Code(s): I26.94 - Multiple subsegmental pulmonary emboli without acute cor pulmonale PLAN: Due to malignancy induced hypercoagulability and immobility, he is now on Eliquis to be continued long-term unless contraindicated, and prophylactically if platelet count less than 30 K. (5) Acute prerenal azotemia: PLAN: Improved with vigorous hydration (6) Lymphedema: PLAN: Secondary to lymphomatous involvement of lymph drainage from the lower body (7) Infection of venous access port: PLAN: Port has been removed and patient is on antibiotics as per ID (8) B12 deficiency anemia: QUALIFIERS: Vitamin B12 deficiency anemia type: unspecified B12 deficiency Qualified Code(s): D51.9 - Vitamin B12 deficiency anemia, unspecified PLAN: On B12 replacement by injection every 4 weeks (concluded initial loading). He will receive a dose today August 22, 2023 and will not be due again until mid September 2023
[2023-08-22 17:00] VITALS: BP 82/50; PULSE 61; RESP 12; TEMP 3.3; TEMP 38; O2SAT 94
--- NOTE | 2023-08-22 17:11 | PCM.OP.PRO ---
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, lymph nodes of multiple sites Procedures Radiology Radiology Access Procedures: PICC Procedure Time Out Time Out Informed consent given: Yes Consent signed: Yes Time out checklist: patient, procedure, site marked/identified, positioning of patient, supplies available, allergies confirmed and team agrees on procedure Time out verified: Yes Time out date: 08/22/23 Time out time: 15:15 PICC Line Consent Consent obtained:: Yes Consent given by (patient or responsible libertarian):: PATIENT Line successful (if no, document why in comments):: Yes Insertion Reason for Insertion: Chemotherapy Date of Insertion: 08/22/23 Ok to use: Yes Type of PICC inserted: Single Power PICC PICC Lot #: [id number] PICC Reference #: [id number] Microintroducer Used: Yes (in kit) Ultrasound/Equipment Used: Probe Cover Kit Trimmed Length (cm): 35 Insertion Length (cm): 35 Exposed Length (cm): 0 Tip Placement: Caval Atrial Junction Placement Confirmation: 3CG Insertion Vein: Right Brachial Insertion Attempts: 1 Local Anesthesia Used: Lidocaine 1% (in kit) Dressing Applied: Tegaderm and Tegaderm CHG Arm Measurement above site (in cm): 26 Patient Tolerated Procedure: Well Threading Difficulties: No Comments Comment: Patient tolerated well, sleeping through most of the procedure. Patient has call light in hand and denies needs. Charge nurse aware of successful insertion.
[2023-08-22] MEDS: Cyanocobalamin (B12) 1,000 MCG/ML Vial 1000 MCG IM (17:20)
[2023-08-22] MEDS: oxyCODONE 5 MG Tablet PO (20:43)
[2023-08-22] MEDS: MELATONIN 3 MG TABLET PO (20:43)
[2023-08-22] MEDS: Mirtazapine 15 MG Tablet 7.5 MG PO (20:43)
[2023-08-22 22:05] VITALS: BP 90/50; PULSE 64; RESP 16; TEMP 36.8; O2SAT 97
[2023-08-23] VITALS (9 sets, daily range): BP systolic 72–110; BP diastolic 45–80; PULSE 54–74; RESP 12–18; TEMP 3.1–37.5; O2SAT 92–100; BMI 25.2
[2023-08-23 07:44] LABS: Absolute Lymphocyte Count 0.16 X10^3/uL (0.83-4.51); Absolute Neutrophil Count 15.7 X10^3/uL (2.0-7.7); Basophil# 0.02 X10^3/uL; Basophil% 0.1 % (0-1); Hematocrit 33.7 % (40-54); Hemoglobin 10.8 g/dL (13.0-16.5); Lymphocyte # 0.16 X10^3/ul (0.83-4.51); Mean Corpuscular Hgb 27.8 pg (27.0-32.0); Mean Corpuscular Volume 86.9 fL (80-94); Monocyte# 0.12 X10^3/uL; Monocyte% 0.7 % (0-10); NRBC Flagged by Analyzer 0 % (0-5); Neutrophil # 15.68 X10^3/uL (2.7-7.7); Neutrophil % 97.5 % (47-70); POSITIVE COUNT YES; POSITIVE DIFFERENTIAL YES; POSITIVE MORPHOLOGY YES; RBC Distribution Width CV 23.5 % (11.6-14.6); RBC Distribution Width SD 72.4 fl (35.1-43.9); Red Blood Count 3.88 M/mm3 (4.6-6.2); White Blood Count 16.1 K/mm3 (4.4-11.0)
[2023-08-23 07:50] LABS: Differential Indicated SCAN CRITERIA MET; Platelet Count 49 K/mm3 (150-450)
--- NOTE | 2023-08-23 08:04 | PCM.PN.HOSP ---
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, lymph nodes of multiple sites (08/08/23) Vitamin B12 deficiency anemia, unspecified (08/08/23) Hypercalcemia (08/08/23) Hypokalemia (08/08/23) Multiple subsegmental pulmonary emboli without acute cor pulmonale (08/08/23) Other pulmonary embolism without acute cor pulmonale (08/08/23) Lymphedema, not elsewhere classified (08/08/23) Other disorders of lung (08/08/23) Unspecified kidney failure (08/08/23) Rash and other nonspecific skin eruption (08/08/23) Unspecified infection due to central venous catheter, initial encounter (08/08/23) Subjective Subjective Patient opted to continue with chemotherapy at this point. Case was discussed with Dr. Macias the day prior plan is for patient to have his first session of chemo was in the hospital was started on IV fluid diuretics as well as prednisone in addition to allopurinol to prevent tumor lysis syndrome Objective Data Objective Data Vital Signs: Vital Signs Temp Pulse Resp BP Pulse Ox O2 Del Method O2 Flow Rate 98.2 F 64 16 110/80 97 Room Air 2 08/23/23 04:00 08/23/23 04:00 08/23/23 04:00 08/23/23 04:00 08/23/23 04:00 08/23/23 04:00 08/13/23 07:02 Oxygen Flow Rate (L/min) 2 Oxygen Delivery Method Room Air Weight: 77.5 kg Body Mass Index (BMI) 25.2 Intake & Output: Intake and Output for Last 24 Hours 08/21/23 08/22/23 08/23/23 23:59 23:59 23:59 Intake Total 1500 / 1500 2200 / 3000 1400 / 1400 Output Total 200 / 200 2 / 352 650 / 650 Balance 1300 / 1300 2198 / 2648 750 / 750 Medical Nutrition Assessment Dietitian: Malnutrition Criteria Met Start: 08/09/23 15:49 Freq: Status: Active Protocol: Document 08/20/23 11:16 RMA (Rec: 08/20/23 11:16 RMA [id number]) Nutrition Malnutrition Evidence of Malnutrition Exists Yes Malnutrition (severe): Chronic Evidenced By Suboptimal Energy Intake ( Severe),Weight Loss (Severe), Physical Changes (Severe) Clinical Problem Chronic Disease or Condition Related Malnutrition Etiology severe related to lymphoma, increased nutrient needs and suboptimal appetite Signs/Symptoms as evidenced by 22.7lbs (12.4% ) weight loss in 1.5 months, < 75% PO intake of estimated nutrition needs for >1 month and severe fat and muscle loss to temporal, orbital and clavicle regions. Status Active Problem Recommendation Dietitian Recommendations/Changes Continue liberalized Regular diet to optimize oral intakes. Continue Magic cup 2 x daily with meals. Continue 120mL ensure plus high protein TID w/ medpass as tolerated. Consider TF to supplement PO-- Pt would benefit from enteral nutrition support due to significant weight loss and consistently poor/inadequate oral intake. Lab / Micro Data 08/23/23 07:24 08/23/23 07:24 Labs: Laboratory Results - last 24 hr 08/22/23 07:45: WBC 15.1 H, RBC 3.84 L, Hgb 11.0 L, Hct 33.9 L, MCV 88.3, MCH 28.6, MCHC 32.4, RDW Std Deviation 73.9 H, RDW Coeff of Andrew 23.4 H, Plt Count 49 L*, Immature Gran % (Auto) 0.500, Neut % (Auto) 97.3 H, Lymph % (Auto) 0.8 L, Long % (Auto) 1.1, Eos % (Auto) 0.2, Baso % (Auto) 0.1, Absolute Neuts (auto) 14.7 H, Absolute Lymphs (auto) 0.12 L, Nucleated RBC % 0, Differential Comment SCANNED, Diff Path Review May foll, Platelet Estimate MKD DEC, Hypochromasia 1+, Anisocytosis 2+, Microcytosis 1+, Macrocytosis 1+, Target Cells 1+, Sodium 140, Potassium 3.5, Chloride 113 H, Carbon Dioxide 20.0 L, Anion Gap 7, BUN 27 H, Creatinine 0.98, Estim Creat Clear Calc 81.16, Est GFR (MDRD) Af Amer 101, Est GFR (MDRD) Non-Af 83, BUN/Creatinine Ratio 27.7 H, Glucose 93, Calcium 7.6 L, Phosphorus 3.1, Magnesium 1.7 08/23/23 07:24: WBC 16.1 H, RBC 3.88 L, Hgb 10.8 L, Hct 33.7 L, MCV 86.9, MCH 27.8, MCHC 32.0, RDW Std Deviation 72.4 H, RDW Coeff of Andrew 23.5 H, Plt Count 49 L*, MPV TNP, Immature Gran % (Auto) 0.700, Neut % (Auto) 97.5 H, Lymph % (Auto) 1.0 L, Long % (Auto) 0.7, Eos % (Auto) 0.0, Baso % (Auto) 0.1, Absolute Neuts (auto) 15.7 H, Absolute Lymphs (auto) 0.16 L, Nucleated RBC % 0 Micro: Microbiology 08/14/23 09:30 Blood Culture (Wb) - Anticubital Right Blood Culture - Final No growth in 5 days. 08/14/23 09:40 Blood Culture (Wb) - Right Hand Blood Culture - Final No growth in 5 days. 08/10/23 Unknown Wash - Right Middle Lobe Gram Stain - Final 08/10/23 Unknown Wash - Right Middle Lobe Respiratory Culture - Final Mixed normal respiratory kelby. No Streptococcus pneumoniae, beta-hemolytic Streptococcus or Staphylococcus aureus isolated. 08/10/23 Unknown Wash - Right Middle Lobe Anaerobic Culture - Final No growth in 5 days. 08/08/23 22:53 Mucosa - Nasopharyngeal Respiratory Panel (PCR) - Final 08/08/23 23:45 Urine, Clean Catch Legionella Antigen - Final 08/08/23 23:45 Urine, Clean Catch Streptococcus pneumoniae Antigen (M - Final 08/08/23 22:53 Mucosa - Nose Coronavirus COVID-19 PCR - Final 08/08/23 17:55 Stool Enteric Bacteriology - Final 08/08/23 17:55 Stool C. difficile DNA Amplification - Final Physical Exam Narrative GENERAL: cooperative but frail looking HEENT: Atraumatic; normocephalic EYES; Anicteric, Normal Conjunctiva NECK; supple, normal thyroid, RESPIRATORY: Diminished to auscultation CARDIOVASCULAR: Regular S1 S2, GI: soft, normoactive bowel sounds, : No Renal angle tenderness; EXTREMITIES: Bipedal edema edema, no clubbing, MUSCULOSKELETAL: no muscle wasting NEURO: Awake; no lateralizing signs. SKIN: No Rash PSYCH; Flat affect Assessment & Plan Assessment/Plan (1) Pulmonary embolism: QUALIFIERS: Pulmonary embolism type: multiple subsegmental (without acute cor pulmonale) Qualified Code(s): I26.94 - Multiple subsegmental pulmonary emboli without acute cor pulmonale PLAN: Plan Patient is a 57-year-old gentleman with history anaplastic large cell lymphoma admitted with right IJ clot infection for which he underwent removal a day prior to his admission admitted with high suspicion for tumor lysis syndrome with hypercalcemia. Discussions were held with patient regarding treatment options hospice versus continuous care patient opted for continuation of care 1. Tumor lysis syndrome ? 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 08/23/2023 patient currently being prepped to prevent recurrence of his tumor lysis syndrome 2. Hypercalcemia ? Treated per protocol 3. 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 Patient to resume treatment in the hospital. Patient had a right IJ port which was removed due to infection. An order was placed for PICC line. Case discussed with Dr. Macias plan is to initiate treatment with IV fluid or allopurinol prednisone as well as diuretics to prevent tumor lysis syndrome ? 08/23/2023atient opted to continue with chemotherapy at this point. Case was discussed with Dr. Macias the day prior plan is for patient to have his first session of chemo was in the hospital was started on IV fluid diuretics as well as prednisone in addition to allopurinol to prevent tumor lysis syndrome 4. Acute hypoxia (resolved) secondary to acute bilateral subsegmental nonocclusive pulmonary embolism and possible septic pulm emboli w/ mild hypoxia on admission- hypoxia resolved ? Patient managed with systemic anticoagulation with Eliquis 5. Physical deconditioning ? Requested for PT OT eval and social work nurse to assist with discharge planning 6. Infected right IJ Port-A-Cath subsequently removal on 08/08/2023 ? Patient completed treatment with ceftriaxone and metronidazole as well as vancomycin repeat cultures so far negative to date 7. Thrombocytopenia ? Discussed with oncology thought to be secondary to patient underlying infection we will continue with monitoring ? 08/23/2023 patient platelet count trending up 8. Acute kidney injury ? Secondary to dehydration resolved 9. Hypokalemia ? Corrected per protocol 10. Hypomagnesemia ? Corrected per protocol 11. Tobacco dependence ? Counseled on cessation, offered nicotine patch for tobacco cravings 12. Depression with anxiety ? Patient is on mirtazapine 13. GERD ? On PPI 14. Buttock irritation Seen by wound care and consult 15. Severe protein calorie malnutrition ? Secondary to multiple medical comorbidities evidenced by suboptimal energy intake, weight loss as well as severe physical changes. Patient seen in consultation by dietitian noted recommendations reviewed Time spent in the patient's overall evaluation,decision-making process, review of diagnostic data, adjustment of management, discussion with other providers, nursing nursing and ancillary staff involved in patient's care documentation, 50 minutes Charges/Coding Visit Charges Inpatient E&M: 80647 Subs Hosp L3
[2023-08-23] MEDS: 0.9% Normal Saline (1000mL) 1,000 ML 100 ML IV ×2 (08:20→21:12)
[2023-08-23 08:22] LABS: Anion Gap 9 (5-15); BUN 27 mg/dL (7-18); BUN/Creat Ratio 30.2 RATIO (10-20); Calcium,Total 7.6 mg/dL (8.5-10.1); Chloride 112 mmol/L (98-107); Creatinine, Serum 0.89 mg/dL (0.70-1.30); EST Glomerular Filtration Rate 92 mL/min (>60); Est Glom Filt Rate - Afr Amer 112 mL/min (>60); Estimated Creatinine Clearance 89.37 ml/min; Glucose 94 mg/dL (74-106); Magnesium 1.7 mg/dL (1.6-2.6); Potassium 3.8 mmol/L (3.5-5.1); Sodium Level 141 mmol/L (136-145)
[2023-08-23] MEDS: Furosemide 20 MG/2 ML VIAL 30 MG IV (08:27)
[2023-08-23] MEDS: APIXABAN 5 MG TABLET PO ×2 (08:27→21:10)
[2023-08-23] MEDS: Midodrine HCl 5 MG Tablet 10 MG PO ×3 (08:27→16:52)
[2023-08-23] MEDS: predniSONE 20 MG Tablet 100 MG PO (08:28)
[2023-08-23] MEDS: Pantoprazole Sodium 20 MG Tablet PO (08:28)
[2023-08-23 08:34] LABS: Phosphorus 3.4 mg/dL (2.5-4.9)
[2023-08-23 08:45] LABS: Anisocytosis 2+; Differential Comment SCANNED; Macrocytosis 1+; Microcytosis 1+; Platelet Estimate MKD DEC (ADEQ)
--- NOTE | 2023-08-23 11:11 | CASEMGMT ---
CYRUS sent updates to [facility] and let them know patient may be ready tomorrow or the weekend. Plan: [facility] pending pre-cert. Susu Aj MSW MICHEL
--- NOTE | 2023-08-23 11:16 | CASEMGMT ---
Patient was approved by insurance to go to [facility]. Plan: d/c to [facility] when medically ready. Susu PEARSON
[2023-08-23] MEDS: Palonosetron HCl 0.25 MG/5 ML Vial IV (12:58)
[2023-08-23] MEDS: Allopurinol 300 MG Tablet PO (13:01)
--- NOTE | 2023-08-23 13:15 | WOUNDNOTE ---
Pt currently sitting up in chair talking with visitor. did not reassess buttocks at this time. [employer] states is still red and sloughing. will monitor.
[2023-08-23] MEDS: 0.9% Normal Saline (250mL Bag) 250 ML 15 ML IV (15:10)
[2023-08-23] MEDS: 0.9% Saline Lock 10 ML Syringe IV (15:14)
[2023-08-23] MEDS: 0.9 % NaCl (Sterile) Posiflush 10 mL IV (16:53)
[2023-08-23] MEDS: Mirtazapine 15 MG Tablet 7.5 MG PO (21:10)
[2023-08-24] VITALS: BP 92/58; PULSE 66; RESP 16; TEMP 36; O2SAT 98
[2023-08-24 03:14] VITALS: BP 82/45; PULSE 60; RESP 16; TEMP 36.1; O2SAT 98
[2023-08-24] MEDS: 0.9% Normal Saline (1000mL) 1,000 ML 100 ML IV ×2 (05:19→13:54)
[2023-08-24 05:23] VITALS: BMI 25.1
[2023-08-24 07:34] LABS: Absolute Neutrophil Count 18.3 X10^3/uL (2.0-7.7); Basophil# 0.03 X10^3/uL; Basophil% 0.2 % (0-1); Eosinophil# 0.01 X10^3/uL; Eosinophils% 0.1 % (0-5); Hematocrit 28.6 % (40-54); Hemoglobin 9.3 g/dL (13.0-16.5); Lymphocyte % 1.1 % (19-41); Mean Corp Hgb Conc 32.5 g/dL (32-36); Mean Corpuscular Hgb 28.3 pg (27.0-32.0); Mean Corpuscular Volume 86.9 fL (80-94); Mean Platelet Vol. 11.8 fl (6.2-12.0); Monocyte# 0.15 X10^3/uL; Monocyte% 0.8 % (0-10); NRBC Flagged by Analyzer 0 % (0-5); Neutrophil # 18.25 X10^3/uL (2.7-7.7); Neutrophil % 97.2 % (47-70); POSITIVE COUNT YES; POSITIVE DIFFERENTIAL YES; POSITIVE MORPHOLOGY YES; Platelet Count 52 K/mm3 (150-450); RBC Distribution Width CV 23.6 % (11.6-14.6); RBC Distribution Width SD 72.6 fl (35.1-43.9); Red Blood Count 3.29 M/mm3 (4.6-6.2); White Blood Count 18.8 K/mm3 (4.4-11.0)
[2023-08-24 07:40] LABS: Differential Indicated SCAN CRITERIA MET
[2023-08-24 07:51] LABS: Platelet Estimate MKD DEC (ADEQ)
[2023-08-24] MEDS: APIXABAN 5 MG TABLET PO ×2 (08:12→20:07)
[2023-08-24] MEDS: Furosemide 20 MG/2 ML VIAL 30 MG IV ×2 (08:12→16:23)
[2023-08-24] MEDS: Midodrine HCl 5 MG Tablet 10 MG PO ×3 (08:13→16:22)
[2023-08-24] MEDS: Allopurinol 300 MG Tablet PO ×2 (08:13→08:14)
[2023-08-24] MEDS: predniSONE 20 MG Tablet 100 MG PO (08:13)
[2023-08-24] MEDS: Pantoprazole Sodium 20 MG Tablet PO (08:15)
[2023-08-24 08:20] VITALS: BP 97/53; PULSE 63; RESP 14; TEMP 37.1; O2SAT 97
[2023-08-24 08:38] LABS: Anion Gap 10 (5-15); BUN 31 mg/dL (7-18); BUN/Creat Ratio 33.3 RATIO (10-20); Calcium,Total 6.7 mg/dL (8.5-10.1); Chloride 115 mmol/L (98-107); Creatinine, Serum 0.93 mg/dL (0.70-1.30); EST Glomerular Filtration Rate 88 mL/min (>60); Est Glom Filt Rate - Afr Amer 107 mL/min (>60); Estimated Creatinine Clearance 85.52 ml/min; Glucose 90 mg/dL (74-106); Potassium 3.6 mmol/L (3.5-5.1); Sodium Level 143 mmol/L (136-145)
[2023-08-24 09:14] VITALS: BP 99/55; PULSE 63; RESP 14; TEMP 36.9; O2SAT 99
--- NOTE | 2023-08-24 09:35 | PCM.PN.HOSP ---
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, lymph nodes of multiple sites (08/08/23) Vitamin B12 deficiency anemia, unspecified (08/08/23) Agranulocytosis secondary to cancer chemotherapy (08/08/23) Hypercalcemia (08/08/23) Hypokalemia (08/08/23) Multiple subsegmental pulmonary emboli without acute cor pulmonale (08/08/23) Other pulmonary embolism without acute cor pulmonale (08/08/23) Lymphedema, not elsewhere classified (08/08/23) Other disorders of lung (08/08/23) Unspecified kidney failure (08/08/23) Rash and other nonspecific skin eruption (08/08/23) Unspecified infection due to central venous catheter, initial encounter (08/08/23) Subjective Subjective Patient did receive chemotherapy ([facility]) on 08/23/2023. Currently being monitored closely for tumor lysis syndrome Objective Data Objective Data Vital Signs: Vital Signs Temp Pulse Resp BP Pulse Ox O2 Del Method O2 Flow Rate 98.4 F 63 14 99/55 L 99 Room Air 2 08/24/23 09:14 08/24/23 09:14 08/24/23 09:14 08/24/23 09:14 08/24/23 09:14 08/24/23 09:14 08/13/23 07:02 Oxygen Flow Rate (L/min) 2 Oxygen Delivery Method Room Air Weight: 77.2 kg Body Mass Index (BMI) 25.1 Intake & Output: Intake and Output for Last 24 Hours 08/22/23 08/23/23 08/24/23 23:59 23:59 23:59 Intake Total 2200 / 3000 5111.17 / 5351.17 1551.67 / 1551.67 Output Total 2 / 352 652 / 652 350 / 350 Balance 2198 / 2648 4459.17 / 4699.17 1201.67 / 1201.67 Medical Nutrition Assessment Dietitian: Malnutrition Criteria Met Start: 08/09/23 15:49 Freq: Status: Active Protocol: Document 08/20/23 11:16 RMA (Rec: 08/20/23 11:16 RMA [id number]) Nutrition Malnutrition Evidence of Malnutrition Exists Yes Malnutrition (severe): Chronic Evidenced By Suboptimal Energy Intake ( Severe),Weight Loss (Severe), Physical Changes (Severe) Clinical Problem Chronic Disease or Condition Related Malnutrition Etiology severe related to lymphoma, increased nutrient needs and suboptimal appetite Signs/Symptoms as evidenced by 22.7lbs (12.4% ) weight loss in 1.5 months, < 75% PO intake of estimated nutrition needs for >1 month and severe fat and muscle loss to temporal, orbital and clavicle regions. Status Active Problem Recommendation Dietitian Recommendations/Changes Continue liberalized Regular diet to optimize oral intakes. Continue Magic cup 2 x daily with meals. Continue 120mL ensure plus high protein TID w/ medpass as tolerated. Consider TF to supplement PO-- Pt would benefit from enteral nutrition support due to significant weight loss and consistently poor/inadequate oral intake. Lab / Micro Data 08/24/23 06:50 08/24/23 06:50 Labs: Laboratory Results - last 24 hr 08/24/23 06:50: WBC 18.8 H, RBC 3.29 L, Hgb 9.3 L, Hct 28.6 L, MCV 86.9, MCH 28.3, MCHC 32.5, RDW Std Deviation 72.6 H, RDW Coeff of Andrew 23.6 H, Plt Count 52 L, MPV 11.8, Immature Gran % (Auto) 0.600, Neut % (Auto) 97.2 H, Lymph % (Auto) 1.1 L, [place] % (Auto) 0.8, Eos % (Auto) 0.1, Baso % (Auto) 0.2, Absolute Neuts (auto) 18.3 H, Absolute Lymphs (auto) 0.20 L, Nucleated RBC % 0, Platelet Estimate MKD DEC, Sodium 143, Potassium 3.6, Chloride 115 H, Carbon Dioxide 18.0 L, Anion Gap 10, BUN 31 H, Creatinine 0.93, Estim Creat Clear Calc 85.52, Est GFR (MDRD) Af Amer 107, Est GFR (MDRD) Non-Af 88, BUN/Creatinine Ratio 33.3 H, Glucose 90, Calcium 6.7 L Micro: Microbiology 08/14/23 09:30 Blood Culture (Wb) - Anticubital Right Blood Culture - Final No growth in 5 days. 08/14/23 09:40 Blood Culture (Wb) - Right Hand Blood Culture - Final No growth in 5 days. 08/10/23 Unknown Wash - Right Middle Lobe Gram Stain - Final 08/10/23 Unknown Wash - Right Middle Lobe Respiratory Culture - Final Mixed normal respiratory kelby. No Streptococcus pneumoniae, beta-hemolytic Streptococcus or Staphylococcus aureus isolated. 08/10/23 Unknown Wash - Right Middle Lobe Anaerobic Culture - Final No growth in 5 days. 08/08/23 22:53 Mucosa - Nasopharyngeal Respiratory Panel (PCR) - Final 08/08/23 23:45 Urine, Clean Catch Legionella Antigen - Final 08/08/23 23:45 Urine, Clean Catch Streptococcus pneumoniae Antigen (M - Final 08/08/23 22:53 Mucosa - Nose Coronavirus COVID-19 PCR - Final 08/08/23 17:55 Stool Enteric Bacteriology - Final 08/08/23 17:55 Stool C. difficile DNA Amplification - Final Physical Exam Narrative GENERAL: cooperative but frail looking HEENT: Atraumatic; normocephalic EYES; Anicteric, Normal Conjunctiva NECK; supple, normal thyroid, RESPIRATORY: Diminished to auscultation CARDIOVASCULAR: Regular S1 S2, GI: soft, normoactive bowel sounds, : No Renal angle tenderness; EXTREMITIES: Bipedal edema edema, no clubbing, MUSCULOSKELETAL: no muscle wasting NEURO: Awake; no lateralizing signs. SKIN: No Rash PSYCH; Flat affect Assessment & Plan Assessment/Plan (1) Pulmonary embolism: QUALIFIERS: Pulmonary embolism type: multiple subsegmental (without acute cor pulmonale) Qualified Code(s): I26.94 - Multiple subsegmental pulmonary emboli without acute cor pulmonale PLAN: Plan Patient is a 57-year-old gentleman with history anaplastic large cell lymphoma admitted with right IJ clot infection for which he underwent removal a day prior to his admission admitted with high suspicion for tumor lysis syndrome with hypercalcemia. Discussions were held with patient regarding treatment options hospice versus continuous care patient opted for continuation of care 1. Tumor lysis syndrome ? 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 08/23/2023 patient currently being prepped to prevent recurrence of his tumor lysis syndrome 2. Hypercalcemia ? Treated per protocol 3. 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 Patient to resume treatment in the hospital. Patient had a right IJ port which was removed due to infection. An order was placed for PICC line. Case discussed with Dr. Macias plan is to initiate treatment with IV fluid or allopurinol prednisone as well as diuretics to prevent tumor lysis syndrome ? 08/23/2023atient opted to continue with chemotherapy at this point. Case was discussed with Dr. Macias the day prior plan is for patient to have his first session of chemo was in the hospital was started on IV fluid diuretics as well as prednisone in addition to allopurinol to prevent tumor lysis syndrome ? 08/24/2023;Patient did receive chemotherapy ([facility]) on 08/23/2023. Currently being monitored closely for tumor lysis syndrome 4. Acute hypoxia (resolved) secondary to acute bilateral subsegmental nonocclusive pulmonary embolism and possible septic pulm emboli w/ mild hypoxia on admission- hypoxia resolved ? Patient managed with systemic anticoagulation with Eliquis 5. Physical deconditioning ? Requested for PT OT eval and foster care social worker to assist with discharge planning 6. Infected right IJ Port-A-Cath subsequently removal on 08/08/2023 ? Patient completed treatment with ceftriaxone and metronidazole as well as vancomycin repeat cultures so far negative to date 7. Thrombocytopenia ? Discussed with oncology thought to be secondary to patient underlying infection we will continue with monitoring ? 08/23/2023 patient platelet count trending up 8. Acute kidney injury ? Secondary to dehydration resolved 9. Hypokalemia ? Corrected per protocol 10. Hypomagnesemia ? Corrected per protocol 11. Tobacco dependence ? Counseled on cessation, offered nicotine patch for tobacco cravings 12. Depression with anxiety ? Patient is on mirtazapine 13. GERD ? On PPI 14. Buttock irritation Seen by wound care and consult 15. Severe protein calorie malnutrition ? Secondary to multiple medical comorbidities evidenced by suboptimal energy intake, weight loss as well as severe physical changes. Patient seen in consultation by dietitian noted recommendations reviewed Time spent in the patient's overall evaluation,decision-making process, review of diagnostic data, adjustment of management, discussion with other providers, nursing nursing and ancillary staff involved in patient's care documentation,35 minutes Charges/Coding Visit Charges Inpatient E&M: 96346 Subs Hosp L2
--- NOTE | 2023-08-24 10:23 | CASEMGMT ---
Patient currently has a fecal management system due to a wound on his backside. CYRUS sent updates to [facility] and also asked if they are okay with the fecal management system. CYRUS also let them know patient will likely be ready over the weekend. Susu PEARSON
--- NOTE | 2023-08-24 12:15 | WOUNDNOTE ---
skin photo: back/buttocks
--- NOTE | 2023-08-24 12:17 | WOUNDNOTE ---
In to reassess the skin to buttocks/back. skin continues to slough. skin sloughing from back, axilla, buttocks, and groin. legs are edematous and very dry. chest and face are dry and flaky. have tried numerous creams and barrier creams. Triad has been working the best. has not been as drying and seems to protect more than the calmoseptine. the Eucerin and Aquaphor were keeping the skin too wet. could consider trying Silvadene cream if the skin continues to worsen, but may keep the skin too wet as well. the PATIENT SUPPORT PARTNER's have been doing a great job of keeping linens changed as needed and keeping stool off skin as much as possible. the fecal management system is also helping, but stool still leaks some around the tube. patient's skin gently cleaned and linens changed at this time d/t stool leaking under buttocks and back. Triad cream applied gently. pt tolerated fairly well. see skin photos.
[2023-08-24 15:00] VITALS: BP 89/55; PULSE 55; RESP 12; TEMP 3.6; TEMP 38.5; O2SAT 94
--- NOTE | 2023-08-24 16:08 | CASEMGMT ---
L[facility] at [facility] was okay with patient admitting over the weekend. Plan: [facility] under skilled level of care. Susu PEARSON
[2023-08-24] MEDS: TBO-FILGRASTIM 300 MCG/0.5 ML ML SC (16:23)
[2023-08-24] MEDS: 0.9 % NaCl (Sterile) Posiflush 10 mL IV (16:24)
[2023-08-24] MEDS: Mirtazapine 15 MG Tablet 7.5 MG PO (20:07)
[2023-08-24 22:00] VITALS: BP 91/49; PULSE 59; RESP 16; TEMP 36.6; O2SAT 99
[2023-08-25] MEDS: 0.9% Normal Saline (1000mL) 1,000 ML 100 ML IV ×3 (03:15→17:28)
[2023-08-25 03:54] VITALS: BMI 24.9
[2023-08-25 04:00] VITALS: BP 92/51; PULSE 60; RESP 16; TEMP 36.6; O2SAT 98
[2023-08-25] MEDS: oxyCODONE 5 MG Tablet PO ×2 (08:27→18:14)
[2023-08-25] MEDS: APIXABAN 5 MG TABLET PO ×2 (08:27→21:51)
[2023-08-25] MEDS: Acetaminophen 325 MG Tablet 650 MG PO ×2 (08:27→18:15)
[2023-08-25] MEDS: Pantoprazole Sodium 20 MG Tablet PO (08:28)
[2023-08-25] MEDS: predniSONE 20 MG Tablet 100 MG PO (08:29)
[2023-08-25 08:30] VITALS: BP 111/65; PULSE 61; RESP 16; TEMP 36.3; O2SAT 98
[2023-08-25] MEDS: Midodrine HCl 5 MG Tablet 10 MG PO ×3 (08:39→17:26)
[2023-08-25 10:02] LABS: Anion Gap 7 (5-15); BUN 34 mg/dL (7-18); BUN/Creat Ratio 44.4 RATIO (10-20); Calcium,Total 7.6 mg/dL (8.5-10.1); Chloride 118 mmol/L (98-107); Creatinine, Serum 0.77 mg/dL (0.70-1.30); EST Glomerular Filtration Rate 110 mL/min (>60); Est Glom Filt Rate - Afr Amer 133 mL/min (>60); Glucose 93 mg/dL (74-106); Potassium 3.6 mmol/L (3.5-5.1); Sodium Level 143 mmol/L (136-145)
--- NOTE | 2023-08-25 10:06 | PCM.PN.HOSP ---
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, lymph nodes of multiple sites (08/08/23) Vitamin B12 deficiency anemia, unspecified (08/08/23) Agranulocytosis secondary to cancer chemotherapy (08/08/23) Hypercalcemia (08/08/23) Hypokalemia (08/08/23) Multiple subsegmental pulmonary emboli without acute cor pulmonale (08/08/23) Other pulmonary embolism without acute cor pulmonale (08/08/23) Lymphedema, not elsewhere classified (08/08/23) Other disorders of lung (08/08/23) Unspecified kidney failure (08/08/23) Rash and other nonspecific skin eruption (08/08/23) Unspecified infection due to central venous catheter, initial encounter (08/08/23) Subjective Subjective Patient seen has extensive excoriation involving the back. Fecal management instituted to help with healing of the extensive excoriation involving the back Objective Data Objective Data Vital Signs: Vital Signs Temp Pulse Resp BP Pulse Ox O2 Del Method O2 Flow Rate 97.4 F L 61 16 111/65 98 Room Air 2 08/25/23 08:30 08/25/23 08:30 08/25/23 08:30 08/25/23 08:30 08/25/23 08:30 08/25/23 09:01 08/13/23 07:02 Oxygen Flow Rate (L/min) 2 Oxygen Delivery Method Room Air Weight: 76.5 kg Body Mass Index (BMI) 24.9 Intake & Output: Intake and Output for Last 24 Hours 08/23/23 08/24/23 08/25/23 23:59 23:59 23:59 Intake Total 5111.17 / 5351.17 4410.00 / 4650.00 805 / 805 Output Total 652 / 652 352 / 1202 1300 / 1300 Balance 4459.17 / 4699.17 4058.00 / 3448.00 -495 / -495 Medical Nutrition Assessment Dietitian: Malnutrition Criteria Met Start: 08/09/23 15:49 Freq: Status: Active Protocol: Document 08/20/23 11:16 RMA (Rec: 08/20/23 11:16 RMA [id number]) Nutrition Malnutrition Evidence of Malnutrition Exists Yes Malnutrition (severe): Chronic Evidenced By Suboptimal Energy Intake ( Severe),Weight Loss (Severe), Physical Changes (Severe) Clinical Problem Chronic Disease or Condition Related Malnutrition Etiology severe related to lymphoma, increased nutrient needs and suboptimal appetite Signs/Symptoms as evidenced by 22.7lbs (12.4% ) weight loss in 1.5 months, < 75% PO intake of estimated nutrition needs for >1 month and severe fat and muscle loss to temporal, orbital and clavicle regions. Status Active Problem Recommendation Dietitian Recommendations/Changes Continue liberalized Regular diet to optimize oral intakes. Continue Magic cup 2 x daily with meals. Continue 120mL ensure plus high protein TID w/ medpass as tolerated. Consider TF to supplement PO-- Pt would benefit from enteral nutrition support due to significant weight loss and consistently poor/inadequate oral intake. Lab / Micro Data 08/24/23 06:50 08/25/23 08:36 Labs: Laboratory Results - last 24 hr 08/25/23 08:36: Sodium 143, Potassium 3.6, Chloride 118 H, Carbon Dioxide 18.0 L, Anion Gap 7, BUN 34 H, Creatinine 0.77, Estim Creat Clear Calc 103.30, Est GFR (MDRD) Af Amer 133, Est GFR (MDRD) Non-Af 110, BUN/Creatinine Ratio 44.4 H, Glucose 93, Calcium 7.6 L Micro: Microbiology 08/14/23 09:30 Blood Culture (Wb) - Anticubital Right Blood Culture - Final No growth in 5 days. 08/14/23 09:40 Blood Culture (Wb) - Right Hand Blood Culture - Final No growth in 5 days. 08/10/23 Unknown Wash - Right Middle Lobe Gram Stain - Final 08/10/23 Unknown Wash - Right Middle Lobe Respiratory Culture - Final Mixed normal respiratory kelby. No Streptococcus pneumoniae, beta-hemolytic Streptococcus or Staphylococcus aureus isolated. 08/10/23 Unknown Wash - Right Middle Lobe Anaerobic Culture - Final No growth in 5 days. 08/08/23 22:53 Mucosa - Nasopharyngeal Respiratory Panel (PCR) - Final 08/08/23 23:45 Urine, Clean Catch Legionella Antigen - Final 08/08/23 23:45 Urine, Clean Catch Streptococcus pneumoniae Antigen (M - Final 08/08/23 22:53 Mucosa - Nose Coronavirus COVID-19 PCR - Final 08/08/23 17:55 Stool Enteric Bacteriology - Final 08/08/23 17:55 Stool C. difficile DNA Amplification - Final Physical Exam Narrative GENERAL: cooperative but frail looking HEENT: Atraumatic; normocephalic EYES; Anicteric, Normal Conjunctiva NECK; supple, normal thyroid, RESPIRATORY: Diminished to auscultation CARDIOVASCULAR: Regular S1 S2, GI: soft, normoactive bowel sounds, : No Renal angle tenderness; EXTREMITIES: Bipedal edema edema, no clubbing, MUSCULOSKELETAL: no muscle wasting NEURO: Awake; no lateralizing signs. SKIN: Extensive excoriation involving the back and areas of erythema in the perineal area PSYCH; Flat affect Assessment & Plan Assessment/Plan (1) Pulmonary embolism: QUALIFIERS: Pulmonary embolism type: multiple subsegmental (without acute cor pulmonale) Qualified Code(s): I26.94 - Multiple subsegmental pulmonary emboli without acute cor pulmonale PLAN: Plan Patient is a 57-year-old gentleman with history anaplastic large cell lymphoma admitted with right IJ clot infection for which he underwent removal a day prior to his admission admitted with high suspicion for tumor lysis syndrome with hypercalcemia. Discussions were held with patient regarding treatment options hospice versus continuous care patient opted for continuation of care 1. Tumor lysis syndrome ? 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 08/23/2023 patient currently being prepped to prevent recurrence of his tumor lysis syndrome 2. Hypercalcemia ? Treated per protocol 3. 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 Patient to resume treatment in the hospital. Patient had a right IJ port which was removed due to infection. An order was placed for PICC line. Case discussed with Dr. Macias plan is to initiate treatment with IV fluid or allopurinol prednisone as well as diuretics to prevent tumor lysis syndrome ? 3Patient opted to continue with chemotherapy at this point. Case was discussed with Dr. Macias the day prior plan is for patient to have his first session of chemo was in the hospital was started on IV fluid diuretics as well as prednisone in addition to allopurinol to prevent tumor lysis syndrome ? 08/24/2023;Patient did receive chemotherapy ([facility]) on 08/23/2023. Currently being monitored closely for tumor lysis syndrome 4. Acute hypoxia (resolved) secondary to acute bilateral subsegmental nonocclusive pulmonary embolism and possible septic pulm emboli w/ mild hypoxia on admission- hypoxia resolved ? Patient managed with systemic anticoagulation with Eliquis 5. Physical deconditioning ? Requested for PT OT eval and psychosocial rehabilitation counselor to assist with discharge planning 6. Infected right IJ Port-A-Cath subsequently removal on 08/08/2023 ? Patient completed treatment with ceftriaxone and metronidazole as well as vancomycin repeat cultures so far negative to date 7. Thrombocytopenia ? Discussed with oncology thought to be secondary to patient underlying infection we will continue with monitoring ? 08/23/2023 patient platelet count trending up 8. Acute kidney injury ? Secondary to dehydration resolved 9. Hypokalemia ? Corrected per protocol 10. Hypomagnesemia ? Corrected per protocol 11. Tobacco dependence ? Counseled on cessation, offered nicotine patch for tobacco cravings 12. Depression with anxiety ? Patient is on mirtazapine 13. GERD ? On PPI 14. Extensive excoriation involving the back Seen by wound care and consult 15. Severe protein calorie malnutrition ? Secondary to multiple medical comorbidities evidenced by suboptimal energy intake, weight loss as well as severe physical changes. Patient seen in consultation by dietitian noted recommendations reviewed Time spent in the patient's overall evaluation,decision-making process, review of diagnostic data, adjustment of management, discussion with other providers, nursing nursing and ancillary staff involved in patient's care documentation,35 minutes Charges/Coding Visit Charges Inpatient E&M: 66951 Subs Hosp L2
[2023-08-25 11:37] VITALS: BP 118/69
[2023-08-25] MEDS: Furosemide 20 MG/2 ML VIAL 30 MG IV ×2 (11:43→17:27)
[2023-08-25 13:38] VITALS: BP 103/56; PULSE 65; RESP 16; TEMP 36.3; O2SAT 100
[2023-08-25] MEDS: Loperamide 2 MG Capsule PO ×3 (13:40→21:51)
[2023-08-25 17:25] VITALS: BP 94/55; PULSE 57; RESP 16; TEMP 36.2; O2SAT 99
[2023-08-25] MEDS: TBO-FILGRASTIM 300 MCG/0.5 ML ML SC (17:27)
[2023-08-25 21:45] VITALS: BP 100/60; PULSE 54; RESP 18; TEMP 36.3; O2SAT 97
[2023-08-25] MEDS: Mirtazapine 15 MG Tablet 7.5 MG PO (21:51)
[2023-08-26] MEDS: 0.9% Normal Saline (1000mL) 1,000 ML 100 ML IV ×2 (02:59→14:00)
[2023-08-26 04:00] VITALS: BP 98/60; PULSE 70; RESP 16; TEMP 36.3; O2SAT 97
[2023-08-26 04:03] VITALS: BMI 25.2
[2023-08-26] MEDS: Acetaminophen 325 MG Tablet 650 MG PO ×2 (04:05→10:03)
[2023-08-26] MEDS: oxyCODONE 5 MG Tablet PO ×4 (04:05→21:31)
[2023-08-26] MEDS: Loperamide 2 MG Capsule PO ×4 (04:05→21:31)
--- NOTE | 2023-08-26 08:11 | PN.HOSP_ITS ---
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, lymph nodes of multiple sites () Vitamin B12 deficiency anemia, unspecified (08/08/23) Agranulocytosis secondary to cancer chemotherapy (08/08/23) Hypercalcemia (08/08/23) Hypokalemia (08/08/23) Multiple subsegmental pulmonary emboli without acute cor pulmonale (08/08/23) Other pulmonary embolism without acute cor pulmonale (08/08/23) Lymphedema, not elsewhere classified (08/08/23) Other disorders of lung (08/08/23) Unspecified kidney failure (08/08/23) Rash and other nonspecific skin eruption (08/08/23) Unspecified infection due to central venous catheter, initial encounter (08/08/23) Subjective Subjective Patient seen still has extensive areas of skin breakdown on the back. Diagnostic data reviewed single for potassium of 3.1 correction initiated platelet count trending up to 48 Objective Data Objective Data Vital Signs: Vital Signs Temp Pulse Resp BP Pulse Ox O2 Del Method O2 Flow Rate 97.3 F L 70 16 98/60 97 Room Air 2 08/26/23 04:00 08/26/23 04:00 08/26/23 04:00 08/26/23 04:00 08/26/23 04:00 08/26/23 04:06 08/13/23 07:02 Oxygen Flow Rate (L/min) 2 Oxygen Delivery Method Room Air Weight: 77.4 kg Body Mass Index (BMI) 25.2 Intake & Output: Intake and Output for Last 24 Hours 08/24/23 08/25/23 08/26/23 23:59 23:59 23:59 Intake Total 4410.00 / 4650.00 4661.67 / 4661.67 951.67 / 951.67 Output Total 352 / 1202 2325 / 3125 1150 / 1150 Balance 4058.00 / 3448.00 2336.67 / 1536.67 -198.33 / -198.33 Medical Nutrition Assessment Dietitian: Malnutrition Criteria Met Start: 08/09/23 15:49 Freq: Status: Active Protocol: Document 08/20/23 11:16 RMA (Rec: 08/20/23 11:16 RMA [id number]) Nutrition Malnutrition Evidence of Malnutrition Exists Yes Malnutrition (severe): Chronic Evidenced By Suboptimal Energy Intake ( Severe),Weight Loss (Severe), Physical Changes (Severe) Clinical Problem Chronic Disease or Condition Related Malnutrition Etiology severe related to lymphoma, increased nutrient needs and suboptimal appetite Signs/Symptoms as evidenced by 22.7lbs (12.4% ) weight loss in 1.5 months, < 75% PO intake of estimated nutrition needs for >1 month and severe fat and muscle loss to temporal, orbital and clavicle regions. Status Active Problem Recommendation Dietitian Recommendations/Changes Continue liberalized Regular diet to optimize oral intakes. Continue Magic cup 2 x daily with meals. Continue 120mL ensure plus high protein TID w/ medpass as tolerated. Consider TF to supplement PO-- Pt would benefit from enteral nutrition support due to significant weight loss and consistently poor/inadequate oral intake. Lab / Micro Data 08/26/23 07:35 08/26/23 07:35 Labs: Laboratory Results - last 24 hr 08/09/23 16:25: Cryptococcus Ag Titer Not Reportable 08/25/23 08:36: Sodium 143, Potassium 3.6, Chloride 118 H, Carbon Dioxide 18.0 L , Anion Gap 7, BUN 34 H, Creatinine 0.77, Estim Creat Clear Calc 103.30, Est GFR (MDRD) Af Amer 133, Est GFR (MDRD) Non-Af 110, BUN/Creatinine Ratio 44.4 H, Glucose 93, Calcium 7.6 L Micro: Microbiology 08/14/23 09:30 Blood Culture (Wb) - Anticubital Right Blood Culture - Final No growth in 5 days. 08/14/23 09:40 Blood Culture (Wb) - Right Hand Blood Culture - Final No growth in 5 days. 08/10/23 Unknown Wash - Right Middle Lobe Gram Stain - Final 08/10/23 Unknown Wash - Right Middle Lobe Respiratory Culture - Final Mixed normal respiratory kelby. No Streptococcus pneumoniae, beta-hemolytic Streptococcus or Staphylococcus aureus isolated. 08/10/23 Unknown Wash - Right Middle Lobe Anaerobic Culture - Final No growth in 5 days. 08/08/23 22:53 Mucosa - Nasopharyngeal Respiratory Panel (PCR) - Final 08/08/23 23:45 Urine, Clean Catch Legionella Antigen - Final 08/08/23 23:45 Urine, Clean Catch Streptococcus pneumoniae Antigen (M - Final 08/08/23 22:53 Mucosa - Nose Coronavirus COVID-19 PCR - Final 08/08/23 17:55 Stool Enteric Bacteriology - Final 08/08/23 17:55 Stool C. difficile DNA Amplification - Final Physical Exam Narrative GENERAL: cooperative but frail looking HEENT: Atraumatic; normocephalic EYES; Anicteric, Normal Conjunctiva NECK; supple, normal thyroid, RESPIRATORY: Diminished to auscultation CARDIOVASCULAR: Regular S1 S2, GI: soft, normoactive bowel sounds, : No Renal angle tenderness; EXTREMITIES: Bipedal edema edema, no clubbing, MUSCULOSKELETAL: no muscle wasting NEURO: Awake; no lateralizing signs. SKIN: Extensive excoriation involving the back and areas of erythema in the perineal area PSYCH; Flat affect Assessment & Plan Assessment/Plan (1) Pulmonary embolism: QUALIFIERS: Pulmonary embolism type: multiple subsegmental (without acute cor pulmonale) Qualified Code(s): I26.94 - Multiple subsegmental pulmonary emboli without acute cor pulmonale PLAN: Plan Patient is a 57-year-old gentleman with history anaplastic large cell lymphoma admitted with right IJ clot infection for which he underwent removal a day prior to his admission admitted with high suspicion for tumor lysis syndrome with hypercalcemia. Discussions were held with patient regarding treatment options hospice versus continuous care patient opted for continuation of care 1. Tumor lysis syndrome ? 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 08/23/2023 patient currently being prepped to prevent recurrence of his tumor lysis syndrome 2. Hypercalcemia ? Treated per protocol 3. 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 Patient to resume treatment in the hospital. Patient had a right IJ port which was removed due to infection. An order was placed for PICC line. Case discussed with Dr. Macias plan is to initiate treatment with IV fluid or allopurinol prednisone as well as diuretics to prevent tumor lysis syndrome ? 3Patient opted to continue with chemotherapy at this point. Case was discussed with Dr. Macias the day prior plan is for patient to have his first session of chemo was in the hospital was started on IV fluid diuretics as well as prednisone in addition to allopurinol to prevent tumor lysis syndrome ? 08/24/2023;Patient did receive chemotherapy ([facility]) on 08/23/2023. Currently being monitored closely for tumor lysis syndrome 4. Acute hypoxia (resolved) secondary to acute bilateral subsegmental nonocclusive pulmonary embolism and possible septic pulm emboli w/ mild hypoxia on admission- hypoxia resolved ? Patient managed with systemic anticoagulation with Eliquis 5. Physical deconditioning ? Requested for PT OT eval and secondary social studies teacher to assist with discharge planning 6. Infected right IJ Port-A-Cath subsequently removal on 08/08/2023 ? Patient completed treatment with ceftriaxone and metronidazole as well as vancomycin repeat cultures so far negative to date 7. Thrombocytopenia ? Discussed with oncology thought to be secondary to patient underlying infection we will continue with monitoring ? 08/23/2023 patient platelet count trending up 8. Acute kidney injury ? Secondary to dehydration resolved 9. Hypokalemia ? Corrected per protocol 10. Hypomagnesemia ? Corrected per protocol 11. Tobacco dependence ? Counseled on cessation, offered nicotine patch for tobacco cravings 12. Depression with anxiety ? Patient is on mirtazapine 13. GERD ? On PPI 14. Extensive excoriation involving the back Seen by wound care and consult 15. Severe protein calorie malnutrition ? Secondary to multiple medical comorbidities evidenced by suboptimal energy intake, weight loss as well as severe physical changes. Patient seen in consultation by dietitian noted recommendations reviewed Time spent in the patient's overall evaluation,decision-making process, review of diagnostic data, adjustment of management, discussion with other providers, nursing nursing and ancillary staff involved in patient's care documentation,35 minutes Charges/Coding Visit Charges Inpatient E&M: 84254 [facility] Hosp L2
[2023-08-26 08:37] LABS: Anion Gap 8 (5-15); BUN 38 mg/dL (7-18); BUN/Creat Ratio 48.2 RATIO (10-20); Calcium,Total 7.4 mg/dL (8.5-10.1); Chloride 117 mmol/L (98-107); Creatinine, Serum 0.79 mg/dL (0.70-1.30); EST Glomerular Filtration Rate 107 mL/min (>60); Est Glom Filt Rate - Afr Amer 129 mL/min (>60); Estimated Creatinine Clearance 100.68 ml/min; Glucose 101 mg/dL (74-106); Potassium 3.1 mmol/L (3.5-5.1); Sodium Level 144 mmol/L (136-145)
[2023-08-26 09:09] LABS: Hematocrit 30.2 % (40-54); Hemoglobin 9.5 g/dL (13.0-16.5); Mean Corp Hgb Conc 31.5 g/dL (32-36); Mean Corpuscular Hgb 27.9 pg (27.0-32.0); Mean Corpuscular Volume 88.8 fL (80-94); POSITIVE COUNT YES; POSITIVE DIFFERENTIAL YES; POSITIVE MORPHOLOGY YES; RBC Distribution Width CV 23.7 % (11.6-14.6); RBC Distribution Width SD 74.3 fl (35.1-43.9)
[2023-08-26 09:12] LABS: Platelet Count 48 K/mm3 (150-450)
[2023-08-26 09:13] LABS: Differential Indicated MANUAL DIFF; ERROR FUNCTION FLAG YES; ERROR RESULT FLAG YES
[2023-08-26 09:56] VITALS: BP 124/64; PULSE 72; RESP 16; TEMP 36.2; O2SAT 96
[2023-08-26] MEDS: Allopurinol 300 MG Tablet PO (10:04)
[2023-08-26] MEDS: predniSONE 20 MG Tablet 100 MG PO (10:04)
[2023-08-26] MEDS: Pantoprazole Sodium 20 MG Tablet PO (10:05)
[2023-08-26] MEDS: APIXABAN 5 MG TABLET PO ×2 (10:05→21:30)
[2023-08-26] MEDS: Furosemide 20 MG/2 ML VIAL 30 MG IV ×2 (10:05→18:50)
[2023-08-26] MEDS: Midodrine HCl 5 MG Tablet 10 MG PO ×2 (10:13→18:50)
[2023-08-26 10:42] LABS: Anisocytosis 2+; Microcytosis 1+; Neutrophil-Band 4 % (0-5); Neutrophil-Segmented 96 % (47-70); Total Cells Counted 100 (MANUAL DIFF)
[2023-08-26 10:43] LABS: Macrocytosis 1+; Platelet Estimate MKD DEC (ADEQ)
[2023-08-26] MEDS: Potassium Chloride Oral Tablet 20 MEQ 40 MEQ PO (14:52)
[2023-08-26 15:00] VITALS: BP 116/56; PULSE 87; RESP 16; TEMP 36.2; O2SAT 98
[2023-08-26] MEDS: TBO-FILGRASTIM 300 MCG/0.5 ML ML SC (15:00)
[2023-08-26 18:48] VITALS: BP 123/68; PULSE 100
[2023-08-26] MEDS: Potassium Chloride Oral Tablet 20 MEQ PO (18:50)
[2023-08-26 21:00] VITALS: BP 98/69; PULSE 52; RESP 18; TEMP 36.3; O2SAT 96
[2023-08-26] MEDS: Mirtazapine 15 MG Tablet 7.5 MG PO (21:30)
[2023-08-27] MEDS: 0.9% Normal Saline (1000mL) 1,000 ML 100 ML IV ×2 (00:17→10:22)
[2023-08-27 03:24] VITALS: BP 105/70; PULSE 53; RESP 18; TEMP 36.3; O2SAT 96
[2023-08-27] MEDS: Morphine 2 MG/ML Syringe 1 MG IV (04:52)
[2023-08-27 08:02] LABS: Anion Gap 10 (5-15); BUN 35 mg/dL (7-18); BUN/Creat Ratio 45.9 RATIO (10-20); Calcium,Total 7.2 mg/dL (8.5-10.1); Chloride 116 mmol/L (98-107); Creatinine, Serum 0.76 mg/dL (0.70-1.30); EST Glomerular Filtration Rate 111 mL/min (>60); Est Glom Filt Rate - Afr Amer 134 mL/min (>60); Estimated Creatinine Clearance 104.65 ml/min; Glucose 98 mg/dL (74-106); Potassium 3.8 mmol/L (3.5-5.1); Sodium Level 143 mmol/L (136-145)
[2023-08-27 09:30] VITALS: BP 119/72; PULSE 67; RESP 18; TEMP 36.2; O2SAT 97
[2023-08-27 09:36] LABS: Pathologist Review Reviewed
[2023-08-27 09:46] LABS: Pathologist Review Reviewed
[2023-08-27] MEDS: Midodrine HCl 5 MG Tablet 10 MG PO ×3 (09:52→17:00)
[2023-08-27] MEDS: Pantoprazole Sodium 20 MG Tablet PO (09:53)
[2023-08-27] MEDS: Allopurinol 300 MG Tablet PO (09:54)
[2023-08-27] MEDS: Morphine 4 MG/ML Syringe IV ×2 (10:00→14:22)
[2023-08-27 10:06] LABS: Hematocrit 26.7 % (40-54); Hemoglobin 8.7 g/dL (13.0-16.5); Mean Corp Hgb Conc 32.6 g/dL (32-36); Mean Corpuscular Hgb 28.2 pg (27.0-32.0); Mean Corpuscular Volume 86.7 fL (80-94); POSITIVE COUNT YES; POSITIVE DIFFERENTIAL YES; POSITIVE MORPHOLOGY YES; Platelet Count 32 K/mm3 (150-450); RBC Distribution Width SD 70.7 fl (35.1-43.9); Red Blood Count 3.08 M/mm3 (4.6-6.2); White Blood Count 22.3 K/mm3 (4.4-11.0)
[2023-08-27 10:09] LABS: Differential Indicated MANUAL DIFF
--- NOTE | 2023-08-27 10:19 | PN.HOSP_ITS ---
Subjective Subjective In a fair amount of pain. No new issues Objective Data Objective Data Vital Signs: Vital Signs Temp Pulse Resp BP Pulse Ox O2 Del Method O2 Flow Rate 97.3 F L 53 L 18 105/70 96 Room Air 2 08/27/23 03:24 08/27/23 03:24 08/27/23 03:24 08/27/23 03:24 08/27/23 03:24 08/27/23 04:09 08/13/23 07:02 Oxygen Flow Rate (L/min) 2 Oxygen Delivery Method Room Air Weight: 170 lb 10.205 oz Body Mass Index (BMI) 25.2 Intake & Output: Intake and Output for Last 24 Hours 08/26/23 08/27/23 08/28/23 03:59 03:59 03:59 Intake Total 5373.34 / 5373.34 1999 Output Total 2275 / 2275 1850 / 1850 350 / 350 Balance 3098.34 / 3098.34 150 / 150 -350 / -350 Medical Nutrition Assessment Dietitian: Malnutrition Criteria Met Start: 08/09/23 15:49 Freq: Status: Active Protocol: Document 08/20/23 11:16 RMA (Rec: 08/20/23 11:16 RMA [id number]) Nutrition Malnutrition Evidence of Malnutrition Exists Yes Malnutrition (severe): Chronic Evidenced By Suboptimal Energy Intake ( Severe),Weight Loss (Severe), Physical Changes (Severe) Clinical Problem Chronic Disease or Condition Related Malnutrition Etiology severe related to lymphoma, increased nutrient needs and suboptimal appetite Signs/Symptoms as evidenced by 22.7lbs (12.4% ) weight loss in 1.5 months, < 75% PO intake of estimated nutrition needs for >1 month and severe fat and muscle loss to temporal, orbital and clavicle regions. Status Active Problem Recommendation Dietitian Recommendations/Changes Continue liberalized Regular diet to optimize oral intakes. Continue Magic cup 2 x daily with meals. Continue 120mL ensure plus high protein TID w/ medpass as tolerated. Consider TF to supplement PO-- Pt would benefit from enteral nutrition support due to significant weight loss and consistently poor/inadequate oral intake. Lab / Micro Data 08/27/23 09:55 08/27/23 07:17 Labs: Laboratory Results - last 24 hr 08/22/23 07:45: Diff Path Review Reviewed 08/23/23 07:24: Diff Path Review Reviewed 08/26/23 07:35: Absolute Neuts (auto) 29.0 H, Absolute Lymphs (auto) 0.00 L, Total Counted 100, Neutrophils % (Manual) 96 H, Band Neutrophils % 4, Diff Path Review May foll, Platelet Estimate MKD DEC, Anisocytosis 2+, Microcytosis 1+, Macrocytosis 1+ 08/27/23 07:17: WBC Cancelled, Corrected WBC Cancelled, RBC Cancelled, Hgb Cancelled, Hct Cancelled, MCV Cancelled, MCH Cancelled, MCHC Cancelled, RDW Std Deviation Cancelled, RDW Coeff of Nadrew Cancelled, Plt Count Cancelled, MPV Cancelled, Immature Gran % (Auto) Cancelled, Neut % (Auto) Cancelled, Lymph % (Auto) Cancelled, [place] % (Auto) Cancelled, Eos % (Auto) Cancelled, Baso % (Auto) Cancelled, Absolute Neuts (auto) Cancelled, Absolute Lymphs (auto) Cancelled, Total Counted Cancelled, Neutrophils % (Manual) Cancelled, Band Neutrophils % Cancelled, Lymphocytes % (Manual) Cancelled, Monocytes % (Manual) Cancelled, Eosinophils % (Manual) Cancelled, Basophils % (Manual) Cancelled, Metamyelocytes % Cancelled, Myelocytes % Cancelled, Promyelocytes % Cancelled, Blast Cells % Cancelled, Plasma Cell % (Manual) Cancelled, Other Cells % Cancelled, Nucleated RBC % Cancelled, Nucleated RBCs/100 WBC Cancelled, Differential Comment Cancelled, Diff Path Review Cancelled, Hypersegmented Neuts Cancelled, Atypical Lymphocytes Cancelled, Reactive Lymphocytes Cancelled, Smudge Cells Cancelled, Toxic Granulation Cancelled, Toxic Vacuolation Cancelled, Dohle Bodies Cancelled, Oriana Rods Cancelled, Platelet Estimate Cancelled, Plt Morphology Comment Cancelled, RBC Morphology Cancelled 08/27/23 07:17: RBC Morphology Cancelled, Polychromasia Cancelled, Hypochromasia Cancelled, Poikilocytosis Cancelled, Basophilic Stippling Cancelled, Anisocytosis Cancelled, Microcytosis Cancelled, Macrocytosis Cancelled, Spherocytes Cancelled, Sickle Cells Cancelled, Target Cells Cancelled, Tear Drop Cells Cancelled, Ovalocytes Cancelled, Stomatocytes Cancelled, [place] Bodies Cancelled, Marlin Cells Cancelled, Bite Cells Cancelled, Crenated Cell Cancelled, Acanthocytes (Spur) Cancelled, Rouleaux Cancelled, Schistocytes Cancelled, Sodium 143, Potassium 3.8, Chloride 116 H, Carbon Dioxide 17.0 L, Anion Gap 10, BUN 35 H, Creatinine 0.76, Estim Creat Clear Calc 104.65, Est GFR (MDRD) Af Amer 134, Est GFR (MDRD) Non-Af 111, BUN/Creatinine Ratio 45.9 H, Glucose 98, Calcium 7.2 L 08/27/23 09:55: WBC 22.3 H, RBC 3.08 L, Hgb 8.7 L, Hct 26.7 L, MCV 86.7, MCH 28.2, MCHC 32.6, RDW Std Deviation 70.7 H, RDW Coeff of Andrew 23.0 H, Plt Count 32 L*, Neut % (Auto) Not Reportable Micro: Microbiology 08/14/23 09:30 Blood Culture (Wb) - Anticubital Right Blood Culture - Final No growth in 5 days. 08/14/23 09:40 Blood Culture (Wb) - Right Hand Blood Culture - Final No growth in 5 days. 08/10/23 Unknown Wash - Right Middle Lobe Gram Stain - Final 08/10/23 Unknown Wash - Right Middle Lobe Respiratory Culture - Final Mixed normal respiratory kelby. No Streptococcus pneumoniae, beta-hemolytic Streptococcus or Staphylococcus aureus isolated. 08/10/23 Unknown Wash - Right Middle Lobe Anaerobic Culture - Final No growth in 5 days. 08/08/23 22:53 Mucosa - Nasopharyngeal Respiratory Panel (PCR) - Final 08/08/23 23:45 Urine, Clean Catch Legionella Antigen - Final 08/08/23 23:45 Urine, Clean Catch Streptococcus pneumoniae Antigen (M - Final 08/08/23 22:53 Mucosa - Nose Coronavirus COVID-19 PCR - Final 08/08/23 17:55 Stool Enteric Bacteriology - Final 08/08/23 17:55 Stool C. difficile DNA Amplification - Final Physical Exam Narrative General: Alert, Oriented x3, Cooperative, in pain HEENT: Atraumatic, PERRLA, EOMI, Normocephalic Oral: Moist Mucosa Neck: Supple, No JVD Lungs: Diminished, Normal air movement, No rhonchi, No wheeze, No rales Cardiovascular: Regular rate, Regular Rhythm, Normal S1, Normal S2, No murmurs Abdomen: Soft, Non Tender, Non-Distended, No Hepato-splenomegaly Extremities: Edema, Capillary Refill Less than 3 Seconds Skin: Multiple extensive areas of breakdown Musculoskeletal: No Tenderness to Palpation of Joints or Extremities Neurological: Cranial nerves II-XII grossly intact, Motor Exam 5/5 strength th roughout, Sensory exam intact to light touch and pain Psych/Mental Status: Flat affect Assessment & Plan Assessment/Plan (1) Pulmonary embolism: QUALIFIERS: Pulmonary embolism type: multiple subsegmental (without acute cor pulmonale) Qualified Code(s): I26.94 - Multiple subsegmental pulmonary emboli without acute cor pulmonale PLAN: Plan 1. Tumor lysis syndrome in metastatic ALK negative anaplastic large cell lymphoma/thrombocytopenia/skin breakdown/debility/ZUNILDA ? 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 Continue with PT/OT ? 08/23/2023 patient currently being prepped to prevent recurrence of his tumor lysis syndrome ? 08/27/2023: Had a 20-minute discussion on advance care planning, if there is no further treatment he is okay with proceeding with hospice however he would like to see if he has any improvement over the next couple of weeks prior to deciding. Can likely proceed with palliative care on discharge when able. We will continue with Granix 2. Acute hypoxia (resolved) secondary to acute bilateral subsegmental nonocclusive pulmonary embolism and possible septic pulm emboli w/ mild hypoxia on admission- hypoxia resolved ? Patient managed with systemic anticoagulation with Eliquis 3. Infected right IJ Port-A-Cath subsequently removal on 08/08/2023 ? Patient completed treatment with ceftriaxone and metronidazole as well as vancomycin repeat cultures so far negative to date ? Antibiotics have been discontinued 4. Tobacco dependence ? Counseled on cessation, offered nicotine patch for tobacco cravings 5. Depression with anxiety ? Patient is on mirtazapine 6. GERD ? On PPI 7. Severe protein calorie malnutrition ? Secondary to multiple medical comorbidities evidenced by suboptimal energy intake, weight loss as well as severe physical changes. [facility] noted recommendations reviewed DVT: Eliquis Charges/Coding Visit Charges Inpatient E&M: 52501 Subs Hosp L2 Procedures Hospitalists Procedures: 52493 Advncd Care Plan 30 Min
[2023-08-27 10:54] LABS: Neutrophil-Segmented 100 % (47-70); Total Cells Counted 100 (MANUAL DIFF)
[2023-08-27 10:55] LABS: Anisocytosis 1+; Platelet Estimate MKD DEC (ADEQ); Red Cell Morphology N CHROM NORMAL (NORM C&C)
[2023-08-27 10:56] LABS: Absolute Neutrophil Count 22.3 X10^3/uL (2.0-7.7)
[2023-08-27] MEDS: oxyCODONE 5 MG Tablet PO (11:14)
[2023-08-27] MEDS: Potassium Chloride Oral Tablet 20 MEQ PO ×2 (11:14→17:18)
[2023-08-27] MEDS: Furosemide 20 MG/2 ML VIAL 30 MG IV ×2 (11:26→17:22)
[2023-08-27 15:30] VITALS: BP 125/87; PULSE 62; RESP 18; TEMP 36.6; O2SAT 97
[2023-08-27] MEDS: Morphine 4 MG/ML Syringe 8 MG IV ×2 (17:15→20:31)
[2023-08-27] MEDS: TBO-FILGRASTIM 300 MCG/0.5 ML ML SC (17:30)
[2023-08-27] MEDS: oxyCODONE 5 MG Tablet 10 MG PO ×2 (18:33→22:36)
[2023-08-27] MEDS: 0.9 % NaCl (Sterile) Posiflush 10 mL IV (20:30)
[2023-08-27 20:37] VITALS: BP 123/79; PULSE 56; RESP 16; TEMP 36.6; O2SAT 94
[2023-08-27] MEDS: Mirtazapine 15 MG Tablet 7.5 MG PO (22:37)
[2023-08-28] MEDS: Morphine 4 MG/ML Syringe 8 MG IV ×3 (02:00→08:20)
[2023-08-28] MEDS: 0.9 % NaCl (Sterile) Posiflush 10 mL IV (02:01)
[2023-08-28 04:35] VITALS: BP 111/78; PULSE 64; RESP 18; TEMP 36.9; O2SAT 92
[2023-08-28] MEDS: oxyCODONE 5 MG Tablet 10 MG PO (05:22)
--- NOTE | 2023-08-28 06:07 | NURSING ---
Pt. refused most personal care throughout the night from myself and others who attempted. Refused: cath care, bed changes (despite bed linens being heavily soiled), personal care, repositioning. Pt. did allow me to change top blankets and sheet because it would not require him moving. Pt. stated it's not worth the pain of moving just to change the sheets. I made him aware that his open sores would likely get worse if he continued to refuse personal care, but he stated that he was going on hospice today and it is what it is; reiterated to me that he did not feel it was worth it to put him through the pain of moving around just to change sheets, clean him up, etc. I provided pain medications throughout the shift to try to manage pt.'s pain. Pt. did drink over 1000 ml of water and reposition the top half of his body, though he grimaced and moved very slow when doing so.
--- NOTE | 2023-08-28 09:05 | CASEMGMT ---
CYRUS called Janette with [facility]. Janette said they did receive a referral yesterday evening. RN came and evaluated patient for the inpatient unit and he definitely qualifies, however patient did not want to go last night. Janette was going to arrange for their mobile unit to come and pepper picker patient and call SW back with a time. DNR is already signed. CYRUS sent DNR and MAR to Janette. CYRUS spoke with SALIMA Ying and he is in communication with physician to obtain meds to help make the trip as painless as possible for the patient. CYRUS also notified physician that Hospice is on their way to pepper picker patient. CYRUS called patient's POA Shorty and let him know Hospice is on their way to pepper picker patient to take him to the inpatient unit. Shorty thanked CYRUS for the update. Plan: d/c to [facility]. Susu PEARSON
[2023-08-28] MEDS: Morphine 2 MG/ML Syringe 10 MG IV (09:14)
[2023-08-28] MEDS: LORazepam 2 MG/ML Syringe IV (09:14)
--- NOTE | 2023-08-28 09:18 | CASEMGMT ---
Discharge Planning SL updated via [facility] that patient is being admitted it [facility] today. Radha Murray, Discharge Planning Asst.
[2023-08-28 09:54] LABS: Pathologist Review Reviewed
[2023-08-28 10:09] LABS: Pathologist Review Reviewed
[2023-08-28 10:12] LABS: Pathologist Review Reviewed
--- NOTE | 2023-08-28 14:07 | DS.PCM_ITS ---
Providers Date of Admission: 08/08/23 Primary Care Physician: Dr. Annika Blake MD Consultations 08/08/23 22:11 Consult: General Surgery Routine Consulting Provider: Na Layton Reason for Consult: ? Infected port EMERGENT Consult: No MD Notified: Yes Date Notified: 08/08/23 Time Notified: 20:13 Method of Notification: Text Consult: Infectious Disease Routine Consulting Provider: Tye Duarte Reason for Consult: SIRS, Cavitary lesions, Septic eboli appearance EMERGENT Consult: No MD Notified: Yes Date Notified: 08/09/23 Time Notified: 06:42 Method of Notification: Text Consult: Director [facility] / Pulmonary Medicine Routine Consulting Provider: Obie Lombardi Reason for Consult: Cavitary pulmonary lesions, lymphoma EMERGENT Consult: No MD Notified: Yes Date Notified: 08/08/23 Time Notified: 20:14 Method of Notification: Text Consult: Oncology/Hematology Routine Consulting Provider: [facility] Reason for Consult: Met CA, poss Tumor lysis EMERGENT Consult: No Notified: Yes Date Notified: 08/08/23 Time Notified: 20:13 Method of Notification: ED Physician Initiated 08/15/23 15:39 Consult: Onc/Wound/audiovisual lead technician Routine Comment: Reason for Consult:: bed sores 08/27/23 16:42 Consult: Hospice / Palliative Care Routine Consulting Provider: [facility] Reason for Consult: terminal cancer EMERGENT Consult: No Notified: Yes Date Notified: 08/27/23 Time Notified: 17:18 Method of Notification: Answering Service Reason For Visit: SIRS, PES, SEPTIC CAVITARY LESIONS, MESTASTATIC Diagnosis Discharge Diagnosis (1) Pulmonary embolism: Status: Acute Code(s): I26.99 - Other pulmonary embolism without acute cor pulmonale Qualifiers: Pulmonary embolism type: multiple subsegmental (without acute cor pulmonale) Qualified Code(s): I26.94 - Multiple subsegmental pulmonary emboli without acute cor pulmonale Medications at Discharge Home Medications allopurinol 300 mg tablet 300 mg PO DAILY #30 tabs 07/17/23 lidocaine-prilocaine 2.5 %-2.5 % topical cream 1 applic topical ONCE PRN port access 30 days #30 grams 07/17/23 omeprazole 20 mg capsule,delayed release 20 mg PO DAILY #30 caps 07/17/23 ondansetron 8 mg disintegrating tablet 8 mg PO Q8H PRN nausea and vomiting #30 tabs 07/17/23 sulfamethoxazole 400 mg-trimethoprim 80 mg tablet (Bactrim) 1 tab PO DAILY #30 tabs 07/17/23 acyclovir 400 mg tablet 400 mg PO BID anti viral 07/20/23 prednisone 50 mg tablet 100 mg (2 x 50 mg) PO DAILY 5 days #10 tabs 08/01/23 potassium chloride 20 mEq oral packet (Klor-Con) 20 meq PO DAILY potassium 08/09/23 Hospital Course Operations None Procedures 2-D Echocardiogram Summary of Care Provided Minutes Spent on Discharge: 37 Hospital Course: Per HPI: The patient is a 57 y/o M w/ PMHx: 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 unfortunately not a candidate for chemotherapy, Anxiety and Depression, Chronic RLE Lymphedema, GERD, Tobacco use who presents to the [facility] ED on 08/08/23 with history of concern for recent appearance of port infection with surgery evaluation on day of presentation and removal of the port however they felt likely port was too large and potentially could be skin from stretching as opposed to infection but patient was having subjective fevers and chills with labs drawn in the office with significantly elevated calcium of 13.5 as well as potassium of 2.4 and a creatinine elevated to 1.8 with concern for development of tumor lysis syndrome prompting oncology to refer him to the ED for evaluation and medications. Patient does report weight loss as well as night sweats in addition to occasional cough not markedly productive although he does not bring stuff up well with dyspnea, worse upon exertion with no pleuritic chest discomfort with progressively worsening fatigue and weakness. Work-up prior to presentation included CBC with a BC 19.0, hemoglobin 12.5, MCV 91.8, platelet 327 with significant left shift, BMP with potassium 2.4 chloride 108, BUN/creatinine 50/1.76, calcium 13.8 and upon ED arrival labs additionally obtained included lactic acid 2.9, ABG with pH 7.61, PCO2 22.9, PO2 110, hepatic profile with alk phos 249, LDH 423 both decreased from previous, urinalysis specific gravity 1.020 otherwise no obvious evidence of UTI, pending C. difficile and enteric pathogen given diarrhea noted in the ED, chest x-ray with status post removal right-sided chest port, CTPA with moderate volume nonocclusive acute pulmonary emboli within most of the subsegmental pulmonary arteries with no evidence of right heart strain, multiple irregular nodular lesions throughout the lungs most of which show cavitation concerning for septic emboli, extensive mediastinal, bilateral hilar and upper abdominal lymphadenopathy consistent with known lymphoma, 7 mm lytic lesion in the left T11 vertebral body/pedicle with surrounding sclerosis concerning for lymphedematous involvement of the spine, RLE duplex negative for DVT. In the ED patient started to liter normal saline and continue with maintenance IV fluid to 50 mill per hour, allopurinol 200 mg p.o. x1 with Hospitalist requested additional 100 mg po x 1 be given to total requested 300 mg daily per Oncology request, Unasyn 3 g IV x1, heparin drip with bolus, pamidronate 90 mg IV x1, potassium 40 mill equivalent p.o. x1, prednisone 100 mg p.o. x1 as well as IV vancomycin. In the ED patient had R femoral line placed. Hospital Course: 1. 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 He initially had elected to go hospice and then decided that he wanted continue with chemotherapy so he was given a dose of chemotherapy in the hospital with subsequent Granix however he has had significant skin breakdown and significant pain with decreased mobility. In discussion with oncology, they did not feel that he had any sort of survivability from his cancer and that they would not do another dose of chemotherapy if he was unable to walk into their office. This was relayed to him yesterday and today he decided that he would like to proceed with hospice care given how severe the pain is. Hospice was consulted and felt that he was appropriate for inpatient unit and so he was given increased dosages of narcotics to help with transport and he was discharged today hospice. 2. Acute hypoxia (resolved) secondary to acute bilateral subsegmental nonocclusive pulmonary embolism and possible septic pulm emboli w/ mild hypoxia on admission- hypoxia resolved ? Patient managed with systemic anticoagulation with Eliquis 3. Severe protein calorie malnutrition, GERD, depression, anxiety, tobacco dependence are all chronic medical conditions which complicate his care. His home medications were continued where appropriate Physical Exam Narrative General: Alert, Oriented x3, Cooperative, in pain HEENT: Atraumatic, PERRLA, EOMI, Normocephalic Oral: Moist Mucosa Neck: Supple, No JVD Lungs: Diminished, Normal air movement, No rhonchi, No wheeze, No rales Cardiovascular: Regular rate, Regular Rhythm, Normal S1, Normal S2, No murmurs Abdomen: Soft, Non Tender, Non-Distended, No Hepato-splenomegaly Extremities: Edema, Capillary Refill Less than 3 Seconds Skin: Multiple extensive areas of breakdown Musculoskeletal: No Tenderness to Palpation of Joints or Extremities Neurological: Cranial nerves II-XII grossly intact, Motor Exam 5/5 strength th roughout, Sensory exam intact to light touch and pain Psych/Mental Status: Flat affect Weight / BMI Weight Weight: 170 lb 10.205 oz Body Mass Index (BMI) 25.2 ABG / Lab / Microbiology Data 08/27/23 09:55 08/27/23 07:17 Laboratory: Laboratory Results - last 24 hr 08/24/23 06:50: Diff Path Review Reviewed 08/26/23 07:35: Diff Path Review Reviewed 08/27/23 09:55: Diff Path Review Reviewed Microbiology: Microbiology 08/14/23 09:30 Blood Culture (Wb) - Anticubital Right Blood Culture - Final No growth in 5 days. 08/14/23 09:40 Blood Culture (Wb) - Right Hand Blood Culture - Final No growth in 5 days. 08/10/23 Unknown Wash - Right Middle Lobe Gram Stain - Final 08/10/23 Unknown Wash - Right Middle Lobe Respiratory Culture - Final Mixed normal respiratory kelby. No Streptococcus pneumoniae, beta-hemolytic Streptococcus or Staphylococcus aureus isolated. 08/10/23 Unknown Wash - Right Middle Lobe Anaerobic Culture - Final No growth in 5 days. 08/08/23 22:53 Mucosa - Nasopharyngeal Respiratory Panel (PCR) - Final 08/08/23 23:45 Urine, Clean Catch Legionella Antigen - Final 08/08/23 23:45 Urine, Clean Catch Streptococcus pneumoniae Antigen (M - Final 08/08/23 22:53 Mucosa - Nose Coronavirus COVID-19 PCR - Final 08/08/23 17:55 Stool Enteric Bacteriology - Final 08/08/23 17:55 Stool C. difficile DNA Amplification - Final Meaningful Use Info Meaningful Use Diagnoses (Choose all that apply): None applicable Discharge Plan Admission Admit Date/Time: 08/08/23 20:11 Attending Provider: Ke Torres Primary Care Provider: Annika Blake Consulting Providers: Na Layton; Obie Lombardi; Brandon Law; Bobby Morrow; Margaret Macias; Tye Dotson; Primo Kellogg; Pawan Orantes; Michelet Tolentino; Shabnam Seymour SERVICE CAR OPERATOR; Tye Duarte; Ellen Marquez; Isaac Jasso; Jessica Reynolds; Ke Torres; Brandon Hutchins; Brandon Cobian; Samara Garsia; Kadie Tripathi; Adriana Montez SERVICE CAR OPERATOR Discharge Orders/Prescriptions Prescriptions: No Action lidocaine-prilocaine 2.5-2.5 % cream 1 applic topical ONCE PRN (Reason: port access) 30 Days Qty: 30 2RF ondansetron 8 mg tablet,disintegrating 8 mg PO Q8H PRN (Reason: nausea and vomiting) Qty: 30 0RF omeprazole 20 mg capsule,delayed release(DR/EC) 20 mg PO DAILY Qty: 30 3RF sulfamethoxazole-trimethoprim [Bactrim] 400-80 mg tablet 1 tab PO DAILY Qty: 30 5RF allopurinol 300 mg tablet 300 mg PO DAILY Qty: 30 1RF potassium chloride [Klor-Con] 20 mEq packet 20 meq PO DAILY acyclovir 400 mg tablet 400 mg PO BID prednisone 50 mg tablet 100 mg PO DAILY 5 Days Qty: 10 8RF Rx Instructions: Take 100 Mg every morning for 5 days starting on day 1 of each chemotherapy cycle (3 weeks cycle) Referrals / Follow Up: Annika Blake MD [Primary Care Provider] - Disposition Disposition (needs filled in before D/C Order can be placed): Hospice in Medical Facility Charges/Coding Visit Charges Inpatient E&M: 41670 Disch Hosp >30min
== END 2023-08-28 09:29 | disposition hospice, inpatient (51) | DRG 314 ==
LOC: ED 17:23 → PCU 20:46
PROVIDERS: Emergency Medicine; Internal Medicine; Internal Medicine Critical Care Medicine; Internal Medicine Infectious Disease; Admitting Provider Family Medicine; Emergency Provider Emergency Medicine; PCP Internal Medicine; Visit Provider Family Medicine
PROC: 0BJ08ZZ Inspection of Tracheobronchial Tree, Via Natural or Artificial Opening Endoscopic (ICD-10-PCS; CPT 31622; principal; 2023-08-10 08:30)
DX: T80.212A Local infection due to central venous catheter, initial encounter (principal); E88.3 Tumor lysis syndrome; I26.90 Septic pulmonary embolism without acute cor pulmonale; I26.94 Multiple subsegmental thrombotic pulmonary emboli without acute cor pulmonale; E43 Unspecified severe protein-calorie malnutrition; C84.78 Anaplastic large cell lymphoma, ALK-negative, lymph nodes of multiple sites; N17.9 Acute kidney failure, unspecified; D68.69 Other thrombophilia; E87.3 Alkalosis; L89.151 Pressure ulcer of sacral region, stage 1; D69.6 Thrombocytopenia, unspecified; D51.9 Vitamin B12 deficiency anemia, unspecified; F32.A Depression, unspecified; E83.51 Hypocalcemia; I95.9 Hypotension, unspecified; K21.9 Gastro-esophageal reflux disease without esophagitis; E83.52 Hypercalcemia; E87.6 Hypokalemia; I89.0 Lymphedema, not elsewhere classified; F41.9 Anxiety disorder, unspecified; F17.210 Nicotine dependence, cigarettes, uncomplicated; R19.7 Diarrhea, unspecified; J98.4 Other disorders of lung; E86.0 Dehydration; E83.42 Hypomagnesemia; Y71.2 Prosthetic and other implants, materials and accessory cardiovascular devices associated with adverse incidents; R09.02 Hypoxemia; R53.81 Other malaise; Z68.27 Body mass index [BMI] 27.0-27.9, adult; R13.10 Dysphagia, unspecified; Z79.52 Long term (current) use of systemic steroids; Z11.52 Encounter for screening for COVID-19
CPT/HCPCS: 36415; 36569; 36600; 71045; 71275; 80048; 80053; 80076; 80202; 81001; 82306; 82550; 82803; 83605; 83615; 83735; 83880; 84100; 84132; 84145; 84550; 85025; 85610; 85730; 86140; 86480; 86703; 87015; 87040; 87070; 87075; 87077; 87101; 87116; 87205; 87206; 87385; 87449; 87493; 87506; 87633; 87635; 87899; 89050; 92526; 92610; 93005; 93306; 93971; 94640; 94668; 97162; 97166; 97530; 97535; 97802; 97803; 99285; J7030; J7040; J7050; P9047; Q9967; A4216; J0295; J0612; J0696; J1447; J1453; J1940; J2405; J2430; J2469; J3420; J3490; J9000; J9070; J9370

== ENCOUNTER → 2023-08-08 | Outpatient (CLI) | payer BC, SELFPAY ==
--- NOTE | 2023-08-10 | FLU_PTH ---
PATIENT: MOJGAN CASTILLO LOC: [facility] U#:[id number] AGE/SX: 57/M ROOM: RE08/08/[address]: Dr. Na Layton MD : 1965 BED: DIS: 08/08/2023 SPEC #: [id number] RECD: 08/10/23 11:12 STATUS: LATRELL RAMONITA #: [id number] SHREE: 08/10/23 00:[address]: Na Layton DEPT: CYTOLOGY RECD BY: Liliya Arechiga ENTERED: 08/10/23 11:15 SP TYPE: Fluid OTHR DR: Dr. Annika Blake MD Tissues: Bronchus of right middle lobe Procedures: Special Stain Group II Surgery Specimen Level IV Cytospin Fluid HEADER OPERATION: Bronchoscopy with BAL PRE-OP DIAGNOSIS: Cavitary lung lesions TISSUE SUBMITTED: BAL RML DIAGNOSIS CYTOLOGY BAL, RML: Negative for malignant cells. See comment. SJ: 08/13/2023 COMMENT Numerous macrophages are noted. Special stains for acid fast bacilli and fungi are negative for organisms; matched controls are appropriate. Correlation with clinical, radiologic findings and appropriate follow up are necessary. CYTOLOGY STUDY Slides are reviewed. CYTOLOGY GROSS Received is 10 ml of cloudy fluid labeled with the patient's name and and designated per the requisition as BAL RML. Submitted for cytology preparation including cell block. / zain 08/10/2023 TC:5 CPT: 67805, 20664, 22206 x2
== END | disposition home or self-care (01) ==
LOC: LABSPEC 16:40
PROVIDERS: PCP Internal Medicine; Referring Provider Surgery; Visit Provider Surgery
DX: T80.219A Unspecified infection due to central venous catheter, initial encounter (principal)
CPT/HCPCS: 36415; 80048; 85025; 87040; 87070; 87075; 87077; 87186; 87205; 88108; 88305; 88313